=== PATIENT | female | born 1955 | race Caucasian/White ===

== ENCOUNTER 2022-06-18 22:20 | Emergency (ER) | payer BC, SELFPAY ==
[2022-06-18 22:25] VITALS: BP 163/93; PULSE 77; TEMP 36.4; O2SAT 96; BMI 28.4
[2022-06-18 22:34] VITALS: PULSE 86; O2SAT 93
[2022-06-18 22:35] VITALS: BP 157/92; PULSE 73; O2SAT 95
[2022-06-18 22:36] VITALS: PULSE 78; O2SAT 96
[2022-06-18 23:00] VITALS: PULSE 77; O2SAT 97
[2022-06-18 23:02] VITALS: BP 152/102; PULSE 80; O2SAT 97
--- OUTSIDE RECORDS SUMMARY | 2022-06-18 23:11 | XMS_ITS | Encounter Summary ---
:1955 Author Organization [facility] Address [address] [place] [address] Phone Care Team Providers Name Role Phone Unavailable Primary Care Provider Unavailable Encounter Details Date Type Department Care Team Description 10/12/2020 Orders Only [facility] Alex Lilly MD Marquez [address] [facility] [address] [place] [address] [place], [place] [address] [phone] Social History Tobacco Use Types Packs/Day Years Used Date Smoking Tobacco: Never Assessed Sex Assigned at Date Recorded Not on file documented as of this encounter Plan of Treatment Not on filedocumented as of this encounter Visit Diagnoses Not on filedocumented in this encounter
--- OUTSIDE RECORDS SUMMARY | 2022-06-18 23:11 | XMS_ITS | Encounter Summary ---
:1955 Author Organization [facility] Address [address] [place] [address] Phone Care Team Providers Name Role Phone Unavailable Primary Care Provider Unavailable Reason for Visit Reason Onset Date Comments Other 04/19/2022 Encounter Details Date Type Department Care Team Description 04/19/2022 Telephone Clinic & Specialty Center Deana Potter PSC imaging Neuro Surgery [facility] [address] [place] [address] Social History Tobacco Use Types Packs/Day Years Used Date Smoking Tobacco: Never Assessed Sex Assigned at Date Recorded Not on file documented as of this encounter Miscellaneous Notes Telephone Encounter - Deana Soliman PSC - 04/19/2022 10:36 AM CDT Called [facility] to have images pushed to us and to have report faxed. Deana Soliman PSC, 04/19/2022 10:36 AM documented in this encounter Plan of Treatment Not on filedocumented as of this encounter Visit Diagnoses Not on filedocumented in this encounter
--- OUTSIDE RECORDS SUMMARY | 2022-06-18 23:11 | XMS_ITS | Clinical Summary ---
:1955 Author Organization [facility] Address [address] [place] [address] Phone Care Team Providers Name Role Phone Minerva Campos MD Primary Care Provider [phone] Source Comments [facility] is fully rolled out on [employer]. Last update 12/17/08.[employer] Allergies No known active allergies Medications Be aware that medications may not be up to date as of this document. Always verify current medications with patient. Medication Sig Dispensed Refills Start Date End Date Status desvenlafaxine ER Take 2 tablets 0 05/21/2022 Active (PRISTIQ) 25 mg oral (50 mg) by tablet 24 HR mouth daily. methylPREDNISolone (MEDROL Take per 21 tablet 0 06/11/2022 Active DOSEPAK) 4 mg oral tablet package instructions. Encounters Date Type Specialty Care Team Description 06/11/2022 Office Visit NEUROSURGERY Tien Holder Lumbar radi culopathy MD Harsh (Primary Dx) 06/11/2022 Travel 04/19/2022 Documentation Only Unknown, Provider 04/19/2022 Orders Only RADIOLOGY Provider, Outside Referral o f patient (Primary Dx) 04/19/2022 Telephone NEUROSURGERY Deana Soliman PSC imaging 04/19/2022 Telephone NEUROSURGERY Deana Soliman PSC Referral from Last 3 Months Immunizations Name Administration Dates Next Due Influenza Vaccine - MDV (6 MONTHS - Adult) 04/10/2018 Social History Tobacco Use Types Packs/Day Years Used Date Smoking Tobacco: Never Smokeless Tobacco: Never Tobacco Cessation: Counseling Given: Not Answered Alcohol Use Standard Drinks/Week Comments Not Currently 0 (1 standard drink = 0.6 oz pure alcoho l) Sex Assigned at Date Recorded Not on file COVID-19 Exposure Response Date Recorded In the last 10 days, have you been in contact with No / Unsu re 06/11/2022 2:39 PM GROUP HOME WORKER someone who was confirmed or suspected to have Coronavirus/COVID-19? Last Filed Vital Signs Vital Sign Reading Time Taken Comments Blood Pressure 144/87 06/11/2022 3:33 PM GROUP HOME WORKER Pulse 85 06/11/2022 3:33 PM GROUP HOME WORKER Temperature - - Respiratory Rate - - Oxygen Saturation - - Inhaled Oxygen Concentration - - Weight 88.5 kg (195 lb) 06/11/2022 3:10 PM GROUP HOME WORKER Height - - Body Mass Index - - Plan of Treatment Health Maintenance Due Date Last Done Comments Breast Cancer Screening 1955 CT Colonography 1955 Colonoscopy 1955 Colorectal Cancer Screening 1955 Dental Oral Exam 1955 Dental Prophylaxis 1955 Dental X-Ray: Bitewings 1955 FIT/Cologuard 1955 Hepatitis C Screening 1955 Sigmoidoscopy 1955 iFOB/FIT 1956 Lipid Screening 1957 Periodontal Maintenance 1970 HIV Screening 12/02/1971 HEALTH MAINTENANCE PROTOCOL 12/02/1975 Cervical Cancer Screening 1986 Age 30-65 COVID-19 Vaccine (4 - 06/27/2021 05/02/2021, 10/15/2020, Booster for Pfizer series) 09/24/2020 Osteoporosis Screening (Dexa 2021 Scan) INFLUENZA VACCINE 03/15/2022 04/11/2021, 03/22/2020, 05/22/2019, Additional history exists PREVENTATIVE VISIT 12/08/2022 12/08/2021, 04/04/2020 TD/TDAP ADULTS 05/15/2023 05/15/2013, 11/29/2011, 08/25/2001 PNEUMOCOCCAL IMMUNIZATION > Completed 12/08/2021 66 YRS HIB Aged Out No longer eligib le based on patient 's age to complete this topic Procedures Procedure Name Priority Date/Time Associated Diagnosis Comme nts EXTERNAL MED 04/23/2022 1:10 PM Results f or this REC-IMAGING CDT procedure are i n the results section. from Last 3 Months Results EXTERNAL MED REC-IMAGING (04/23/2022 1:10 PM CDT) Anatomical Region Laterality Modality Other Narrative 04/23/2022 1:10 PM CDT This result has an attachment that is no t available. Ordered by an unspecified provider. Provider Unknown CT BODY from Last 3 Months Insurance Payer Benefit Plan / Subscriber ID Effective Dates Phone Addre ss Type Group [employer] [id number] 2016-[place] [address] [address] PPO BLUE SHIELD (AWARE/BLUE t [place], [place] PL[place]/CCS/OPEN [phone] ACCESS/CONSUMER VALUE/[employer]) Care Teams Tribunal Member Relationship Specialty Start Date End Date Minerva Campos MD PCP - General Family Medicine 04/20/22
--- OUTSIDE RECORDS SUMMARY | 2022-06-18 23:11 | XMS_ITS | Encounter Summary ---
:1955 Author Organization [facility] Address [address] [place] [address] Phone Care Team Providers Name Role Phone Minerva Campos MD Primary Care Provider [phone] Encounter Details Date Type Department Care Team Description 06/11/2022 Travel Social History Tobacco Use Types Packs/Day Years Used Date Smoking Tobacco: Never Smokeless Tobacco: Never Alcohol Use Standard Drinks/Week Comments Not Currently 0 (1 standard drink = 0.6 oz pure alcoho l) Sex Assigned at Date Recorded Not on file COVID-19 Exposure Response Date Recorded In the last 10 days, have you been in contact with No / Unsu re 06/11/2022 2:39 PM 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 documented as of this encounter Plan of Treatment Not on filedocumented as of this encounter Visit Diagnoses Not on filedocumented in this encounter Care Teams Food Safety Technician Relationship Specialty Start Date End Date Minerva Campos MD PCP - General Family Medicine 04/20/22 documented as of this encounter
--- OUTSIDE RECORDS SUMMARY | 2022-06-18 23:11 | XMS_ITS | Encounter Summary ---
:1955 Author Organization [facility] Address [address] [place] [address] Phone Care Team Providers Name Role Phone Minerva Campos MD Primary Care Provider [phone] Reason for Visit Reason Comments Consult Rt side low back pain; patie nt is walking everyday , patient does do activities. Pain in low back and buttocks. Patient has tried Chiropractor. Doing PT exercises and PT Consult/Test/Treat (Routine) - Closed Specialty Diagnoses / Procedures Referred By Contact Refer red To Contact Diagnoses Low back pain, unspecified n/a Flory Shaffer MD Galicich, Walter Ernst, Procedures n[place] [id number] [place] [address] Phone: Fax: Referral ID Status Reason Start Date Expiration Date Visits Requ ested Visits Authorized [id number] Closed 1 1 Encounter Details Date Type Department Care Team Description 06/11/2022 Office Visit Clinic & Specialty Tien Holder radiculopathy Center Neuro Surgery MD [facility]arsh (Primary Dx) Clinic [address] [place] [phone] Social History Tobacco Use Types Packs/Day Years [...] No / Unsu re 06/11/2022 2:39 PM RECORD MAKER someone who was confirmed or suspected to have Coronavirus/COVID-19? documented as of this encounter Last Filed Vital Signs Vital Sign Reading Time Taken Comments Blood Pressure 144/87 06/11/2022 3:33 PM RECORD MAKER Pulse 85 06/11/2022 3:33 PM RECORD MAKER Temperature - - Respiratory Rate - - Oxygen Saturation - - Inhaled Oxygen Concentration - - Weight 88.5 kg (195 lb) 06/11/2022 3:10 PM RECORD MAKER Height - - Body Mass Index - - documented in this encounter Patient Instructions Patient InstructionsElba Palomino PA-C - 06/11/2022 3:00 PM CST Take medrol Dosepak as prescribed. Elba Palomino PA-C, 06/11/2022 5:[address] MAKER documented in this encounter Progress Notes Tien Holder MD - 06/11/2022 3:00 PM CST See Glory Dictation. RD MAKER documented in this encounter Plan of Treatment Not on filedocumented as of this encounter Visit Diagnoses Diagnosis Lumbar radiculopathy - Primary Thoracic or lumbosacral neuritis or radi culitis, unspecified documented in this encounter Care Teams Mechanist Relationship Specialty Start Date End Date Minerva Campos MD PCP - General Family Medicine 04/20/22 documented as of this encounter
--- OUTSIDE RECORDS SUMMARY | 2022-06-18 23:11 | XMS_ITS | Encounter Summary ---
:1955 Author Organization [facility] Address [address] [place] [address] Phone Care Team Providers Name Role Phone Unavailable Primary Care Provider Unavailable Reason for Visit Reason Onset Date Comments Referral 04/19/2022 Encounter Details Date Type Department Care Team Description 04/19/2022 Telephone Clinic & Specialty Center Deana Potter PSC Referral Neuro Surgery Clinic [address] [place] [address] Social History Tobacco Use Types Packs/Day Years Used Date Smoking Tobacco: Never Assessed Sex Assigned at Date Recorded Not on file documented as of this encounter Miscellaneous Notes Telephone Encounter - Deana Soliman PSC - 04/19/2022 10:26 AM CDT Patient called in to schedule appt with . Patient does not have a referral. Advised they will need to have their PCP send us a referral and they will need imaging within the last 6 months. Patient is going to ask provider to send us a referral. Patient had an MRI recently at [facility] [place]. Will call over to have those images pushed to us. Deana Soliman PSC, 04/19/2022 10:28 AM documented in this encounter Plan of Treatment Not on filedocumented as of this encounter Visit Diagnoses Not on filedocumented in this encounter
--- OUTSIDE RECORDS SUMMARY | 2022-06-18 23:11 | XMS_ITS | Encounter Summary ---
:1955 Author Organization [facility]Note 3] Address [address] [facility] [address] [facility] [place] [address] Phone Care Team Providers Name Role Phone Minerva Campos MD Primary Care Provider [phone] Encounter Details Date Type Department Care Team Description 04/19/2022 Orders Only [place] Film Room Provider, Outside Referral of patient [facility] OUTSIDE PROVIDER (Primary Dx) [place], [place] Radiology Department [address] [address] 701 [facility]. [address] [address] Social History Tobacco Use Types Packs/Day Years Used Date Smoking Tobacco: Never Assessed Sex Assigned at Date Recorded Not on file documented as of this encounter Plan of Treatment Not on filedocumented as of this encounter Results MR SPINE OUTSIDE FILMS (11/08/2021 9:04 AM CDT) Specimen (Source) Anatomical Location Collection Method / Collectio n Time Received Time / Laterality Volume Narrative Dummy, [id number] - 2 1:11 PM CDT Outside Film Only Outside Provider OUTSIDE FILMS documented in this encounter Visit Diagnoses Diagnosis Referral of patient - Primary Referral of patient without examination or treatment documented in this encounter Care Teams Meat Pickler Relationship Specialty Start Date End Date Minerva Campos MD PCP - General Family Medicine 04/20/22 documented as of this encounter
--- OUTSIDE RECORDS SUMMARY | 2022-06-18 23:11 | XMS_ITS | Encounter Summary ---
:1955 Author Organization [facility] Address [address] [place] [address] Phone Care Team Providers Name Role Phone Unavailable Primary Care Provider Unavailable Encounter Details Date Type Department Care Team Description 04/10/[address] [facility] MARBELLA heck for prophylactic Vaccine Clinic vaccination and summer [place], inocu lation against [address] [place], [place] in [place] [address] [place] [address] Social History Tobacco Use Types Packs/Day Years Used Date Smoking Tobacco: Never Assessed Sex Assigned at Date Recorded Not on file documented as of this encounter Plan of Treatment Not on filedocumented as of this encounter Visit Diagnoses Diagnosis Need for prophylactic vaccination and in oculation against influenza documented in this encounter
--- OUTSIDE RECORDS SUMMARY | 2022-06-18 23:11 | XMS_ITS | Encounter Summary ---
:1955 Author Organization [facility] Address [address] [place] [address] Phone Care Team Providers Name Role Phone Minerva Campos MD Primary Care Provider [phone] Encounter Details Date Type Department Care Team Description 04/19/2022 Documentation Only Unspecified Departme nt Unknown, Provider [place] Social History Tobacco Use Types Packs/Day Years Used Date Smoking Tobacco: Never Assessed Sex Assigned at Date Recorded Not on file documented as of this encounter Plan of Treatment Not on filedocumented as of this encounter Procedures Procedure Name Priority Date/Time Associated Diagnosis Comme nts EXTERNAL MED 04/23/2022 1:10 PM Results f or this REC-IMAGING CDT procedure are i n the results section. documented in this encounter Results EXTERNAL MED REC-IMAGING (04/23/2022 1:10 PM CDT) Anatomical Region Laterality Modality Other Narrative 04/23/2022 1:10 PM CDT This result has an attachment that is no t available. Ordered by an unspecified provider. Provider Unknown CT BODY documented in this encounter Visit Diagnoses Not on filedocumented in this encounter Care Teams Senior Graduate Advisor Relationship Specialty Start Date End Date Minerva Campos MD PCP - General Family Medicine 04/20/22 documented as of this encounter
--- OUTSIDE RECORDS SUMMARY | 2022-06-18 23:12 | XMS_ITS | Encounter Summary ---
:1955 Author [facility] Address [address] [place] [address] Care Team Providers Name Role Phone Anne Hoyt DO Primary Care Provider Unavailable Encounter Details Date Type Department Care Team Description 05/23/2022 Notes/Orders [facility] [place] [facility] Deion Minor MD [address] [place] [address] [place] [address] [phone] (Wo rk) Social History Tobacco Use Types Packs/Day Years Used Date Smoking Tobacco: Never Smokeless Tobacco: Never Alcohol Use Standard Drinks/Week Comments Yes 3 (1 standard drink = 0.6 oz pure alcoho l) periodically Sex Assigned at Date Recorded Not on file documented as of this encounter Progress Notes [facility] - 05/23/2022 4:20 PM CST To Whom it May Concern: We are requesting Prior Authorization for this patient???s next plan of care. Once approval has beengranted we will assist in contacting the patient or scheduling the patient for their appropriate services. Patient Name Belle Crystal 1955 Body Part Bilateral knees Procedure Name Synvisc Series CPT Code(s) Diagnosis ICD-10 Code(s) Ordering Provider Dr. Minor Provider NPI Service/Surgery Location [facility] 05/23/2022, 4:20 PM ITY BILL COMPLAINTS INVESTIGATOR Yamila Castañeda - 05/23/2022 4:20 PM CST Images from the original note were not included. NO PRIOR AUTHORIZATION REQUIRED Bilateral Knee Synvisc Series [id number] ICD-10 Code: M17.0 Emma Minor M.D. [facility] Dates of Service: 06/15/2022, 06/22/2022. 06/29/2022 [facility] Group #: [id number] Per Availity, No Prior Authorization Required Transaction ID: [id number] Yamila Castañeda 05/23/2022, 5:52 PM ITY BILL COMPLAINTS INVESTIGATOR documented in this encounter Plan of Treatment Upcoming Encounters Date Type Specialty Care Team Description 06/26/2022 Appointment Orthopedics Terra Minor MD [address] [place] [phone] (Wo rk) 07/03/2022 Appointment Orthopedics Terra Minor MD [address] [place] [address] (Wo rk) 07/10/2022 Appointment OrthopedicTerra Ngo MD [address] [place] [address] (Wo rk) documented as of this encounter Visit Diagnoses Not on filedocumented in this encounter Care Teams Media Traffic Manager Relationship Specialty Start Date End Date Anne Hoyt DO PCP - General 09/29/14 [address] [place] [address] documented as of this encounter
--- OUTSIDE RECORDS SUMMARY | 2022-06-18 23:12 | XMS_ITS | Encounter Summary ---
:1955 Author Organization [facility] Address [address] [address] Care Team Providers Name Role Phone Anne Hoyt DO Primary Care Provider Unavailable Reason for Referral (Routine) - New Request Specialty Diagnoses / Procedures Referred By Contact Refer red To Contact Diagnoses Primary osteoarthritis of both knees Emma Minor, Procedures Synvisc Or Synvisc (per 1 mg) - quantity = 16 [address] [place] [address] Referral ID Status Reason Start Date Expiration Date Visits V isits Requested Authorized [id number] New Request 12/22/2021 03/23/2023 1 1 Reason for Visit Reason Comments KNEE PAIN Bilat Encounter Details Date Type Department Care Team Description 12/22/2021 Office Visit GALLO Minor, Primary osteoa rthritis [facility] Emma Nice MD of both knees (Primary [address] [place]) [place] [address] [place], [place] [phone] [id number] Social History Tobacco Use Types Packs/Day Years Used Date Smoking Tobacco: Never Smokeless Tobacco: Never Alcohol Use Standard Drinks/Week Comments Yes 3 (1 standard drink = 0.6 oz pure alcoho l) periodically Sex Assigned at Date Recorded Not on file documented as of this encounter Patient Instructions Patient InstructionsShane Hill, ATC - 12/15/2021 8:38 AM CDT Thank you for choosing [facility] for your health care visit today. Please read the contents below for important information regarding today's appointment. Medication Requests: Prescriptions are not filled on weekends or on weekdays after 3:00 PM. For all medication refills: Request a refill using StoneRivert or contact your pharmacy. MRI Scheduling: To schedule an MRI at [facility] please call [phone]. For [facility] please call [phone]. For [facility] please call [phone]. [facility] Workers' Compensation [address] [place] [address] (Phone) What is Know Your Cost? Know Your Cost is a service for patients and patient/members to call and receive personalized cost information and estimates across our care group. The phone number is (COST) and is openSaturday - Saturday from 8 a.m[address] to [address] Emma Minor MD Sports & Orthopedic Medicine [facility] Saturday, Saturday PM, AM, and Saturday Paperwork Requests/ Questions Regarding Surgery Scheduling: All paperwork takes up to 10 business days to complete. Solution Design Engineer: Janeen Le Navigator: Kendrick Hickman ATC Diagnosis: Diagnosis and Associated Orders ICD-10-CM 1. Primary osteoarthritis of both knees M17.0 Synvisc Or Synvisc (per 1 mg) - quantity = 16 BILATERAL Large joint/bursa injections/aspiration (knee/hip/glenohumeral joint) [] Injection Today: Visco Supplementation Injection: Post-injection instructions given. Watch for sign of infection, if your knee gets red, hot to touch or swelling. Call or return immediately if either occur. Ice twice today for 20 minutes each time and three times tomorrow (20 minutes each session) for symptom management. OTC medications (Advil, Aleve, Tylenol, Etc.) for pain as needed. Synvisc is a Hyaluronic Acid (GORDON) product. GORDON is a molecule that is a natural component of normal joint fluid. It acts like a lubricant and a shock absorber in the joint and is needed for the joint to work properly. An injured or arthritic knee tends to make a more watery fluid that is less protectiveto the joint. By increasing the concentration of GORDON in the knee, the joint fluid becomes thicker andmore slippery. This improved lubrication tends to decrease inflammation and pain. These injections work in about two-thirds of those who try them. Can take anywhere from 2-6 weeks tostart working. You should avoid strenuous activities (for example high-impact sports such as soccer, tennis, or jogging) or prolonged weight-bearing activities for approximately 48 hours following the injection. Cannot have this type of injection any sooner than 6 months. Call if you experience any allergic reactions such as swelling of your face, tongue, or throat: difficulty breathing or swallowing; shortness of breath; wheezing; chest pain; a tightness in your throat; rash; itching; hives; flushing and or fever. Call if you have any questions or concerns! Follow-Up: Please follow-up, as-needed. documented in this encounter Progress Notes Emma Minor MD - 12/22/2021 8:20 AM CDT SPORTS MEDICINE FOLLOW UP NOTE DATE OF SERVICE: 12/22/2021 CHIEF COMPLAINT: Follow up: Right??knee mild??medial??osteoarthritis and degeneration of medial meniscus Left Knee??PF OA HISTORY OF PRESENT ILLNESS Belle Crystal is a 66 y.o. old female who is here for follow up examination of the bilateral knee. Patient initially seen on??08/30/20.? 08/30/2020 right knee injected with cortisone, PT at [facility] ?? 09/30/20;surgeon Maile at [facility] Belle Crystal??is a 64 y.o.??female??with severe left knee arthritis. Today, we discussed operative versus non-operative treatment. She just had a Synvisc injection and is getting good relief from thisand she will continue to series. I would recommend that she continue to monitor her symptoms. If herpain returns, she can always contact me and we can consider a total knee replacement.??I think that??she??would be an excellent candidate for the [facility] program??and we can have her screened for this. She does understand that she has to wait at least 3 months after her last injection to proceed with surgery. ?? 09/29/2020 1. Right knee synvics injection #1 2. Fitted for wrist brace with thumb spica 3. Physical therapy order given for wrist pain??at [facility] 4. Follow up at [facility] for the wrist if brace and PT do not help??- has seen Stacey in past and follow up next week for right knee syn #[address] Gr (total joint surgeon tomorrow at [facility]) ?? 10/06/2020 Bilateral synvisc ?? 10/14/20 Bilateral synvisc ?? 10/21/20 Left knee synvisc injection? 04/27/21 Bilateral synvisc injection??1 05/04/21 Bilateral Synvisc injection??2 05/11/2021 Bilateral synvisc injection 3 ?? 12/08/2021 Bilateral synvisc injection #1 - cold spray 12/15/2021 Bilateral synvisc injection #2 - cold spray Today, Patient returns to clinic today for Synvisc series bilateral knee injections #3. Overall she is doing well, she reports the injections are starting to provide pain relief and less stiffness. She is interested in discussing total joint surgery in the future and is looking for recommendations. MEDICAL HISTORY For initial presenting history, past medical history, problem list, medications, allergies, social and family history refer to the previous notes and Epic - see updates in HPI No Known Allergies Social History Socioeconomic History ??? Marital status: Spouse name: Not on file ??? Number of children: Not on file ??? Years of education: Not on file ??? Highest education level: Not on file Occupational History ??? Not on file PHYSICAL EXAMINATION There were no vitals filed for this visit. Estimated body mass index is 28.35 kg/m?? as calculated from the following: Height as of 12/06/20: 1.753 m (5' 9). Weight as of 12/06/20: 87.1 kg (192 lb). General: Patient is in no acute distress, resting comfortably and cooperative. PSYCH: Alert and oriented times 3 INTEGUMENT: Bruising/erythema is not present over the bilateral knees. CV/VASCULAR: The extremity is warm, well perfused. NEURO: No sensory deficits to light touch. RESP: No audible wheezes, unlabored breathing. HEENT: Hearing is intact to spoken word. Speech is clear. No gross evidence of visual impairment that would impact ambulation. Oropharynx is clear, no cough EXAM: Deferred IMAGING: My (Dr. Minor) independent review of these images right knee MRI 09/08/20 IMPRESSION: ?? 1. Horizontal tearing of the medial meniscal body and posterior horn with suggestion of a small amount of displaced meniscal tissue into the inferior meniscotibial recess with additional shallow radialtearing at the junction of the posterior horn and body. Mild extrusion of the meniscal body. 2. Grade 2/3 chondromalacia of the medial compartment. Grade II chondromalacia the lateral compartment. 3. Grade IV chondromalacia of the patellofemoral compartment with mild subchondral cystic change andmarrow edema. 4. Mild edema in superolateral Hoffa's fat pad compatible with fat impingement. 5. Possible mild iliotibial band friction syndrome.?? ASSESSMENT & PLAN ASSESSMENT: Right??knee osteoarthritis and degeneration of medial meniscus Left Knee??PF OA PLAN: I discussed patient's symptoms and my findings in detail After the history, examination and review of x-rays, it was determined the patient would benefit from an injection. Risks, benefits and alternatives discussed. Patient decided on Synvisc injection(s) #3. The affected joint to be injected was confirmed with the patient prior to the injection. The knee was prepped in a sterile fashion. Injected into the bilateral anteroLATERAL Knee was 2 ml of Synvisc prepackaged solution, without complications. Used cold spray She did ask a few questions about partial (probably no candidate for partial due to OA in other compartments but if watned opinion on this would recommend [facility]) F/U as needed All of her questions were answered today. This document serves as a record of all services personally provided by Emma Minor MD. Documentation provided by Shane Hill ATC based on my personal observation of the services provided and the providers statements to me. Emma Minor MD 12/22/2021 This note was created using a scribe, templating, and voice recognition software ([employer]) which may result in unintentional word substitutions. documented in this encounter Plan of Treatment Upcoming Encounters Date Type Specialty Care Team Description 06/26/2022 Appointment Orthopedics Terra Minor MD [address] [place] [phone] (Wo rk) 07/03/2022 Appointment Orthopedics Terra Minor MD [address] [place] [phone] (Wo rk) 07/10/2022 Appointment Orthopedics Terra Minor MD [address] [place] [phone] (Wo rk) documented as of this encounter Visit Diagnoses Diagnosis Primary osteoarthritis of both knees - P rimary Primary localized osteoarthrosis, lower leg documented in this encounter Care Teams Machine Maintenance Servicer Relationship Specialty Start Date End Date Anne Hoyt DO PCP - General 09/29/14 [address] [place] [address] documented as of this encounter
--- OUTSIDE RECORDS SUMMARY | 2022-06-18 23:12 | XMS_ITS | Clinical Summary ---
:1955 Author Organization [facility] Address [address] [facility] [place] [address] Care Team Providers Name Role Phone Anne Hoyt DO Primary Care Provider Unavailable Source Comments You are receiving this document as you are listed as the primary care provider,follow-up provider, or the patient has been referred to you for consultation.This is in compliance with the Medicare and Medicaid EHR Incentive Program,which states Providers who transition their patient to another setting of careor provider of care or refers their patient to another provider of care shouldprovide summarycare record for each transition of care or referral. [facility] [employer] Allergies No known active allergies Medications Medication Sig Dispensed Refills Start Date End Date Status cholecalciferol (VITAMIN Take 1,000 Units 0 Active D3) 1000 UNITS tablet by mouth daily. Glucosamine-Chondroitin 0 Active 500-400 MG calcium Take 1 Tab by 0 Active carbonate-vitamin D mouth daily. (OS-DARIUSZ 500 WITH D) 500-200 MG-UNIT per tablet Ascorbic Acid (VITAMIN C 0 Active OR) desvenlafaxine (PRISTIQ) Take 100 mg by 0 08/18/2020 Active 25 MG 24 hour release mouth. tablet cyanocobalamin 500 MCG Take 500 mcg by 0 Active tablet mouth. desvenlafaxine succinate Take 1 Tablet 0 Active (PRISTIQ) 50 MG 24 hour (50 mg) by release tablet mouth. desvenlafaxine (PRISTIQ) Take 2 Tablets 0 05/21/2022 Active 25 MG 24 hour release (50 mg) by mouth tablet daily. Active Problems Problem Noted Date GAUTAM on CPAP 05/17/2017 Overview: Formatting of this note might be differe nt from the original. Dr. Pepe BRITTON 2017 Symptoms: stop breathi ng; snoring. Last sleep study: 2008 CPAP: Last compliance report July 03 current settings 5-10 mm water current medications: None. Hallux rigidus 09/09/2012 Obsessive-compulsive disorder 06/15/2004 Overview: LW Onset: [id number] ; Obsessive Compulsive Disorder Encounters Date Type Specialty Care Team Description 05/23/2022 Notes/Orders Orthopedics Emma Minor MD 04/19/2022 Telephone Orthopedics Flory Shaffer REFERRAL REQUEST (Kali Lewis MD surgeon) 03/28/2022 Office Visit Orthopedics Damaris Roca, Kacie o steoarthritis of first carpometacarpal joint of left hand (Primary Dx); PARené De Quervain's d isease (radial styloid tenosynovitis); Lateral epicond ylitis of left elbow from Last 3 Months Family History Medical History Relation Name Comments Rheumatologic Disease Mother Heart Disease Maternal Grandfather Heart Disease Maternal Grandmother Relation Name Status Comments Mother Maternal Grandfather Maternal Grandmother Social History Tobacco Use Types Packs/Day Years Used Date Smoking Tobacco: Never Smokeless Tobacco: Never Alcohol Use Standard Drinks/Week Comments Yes 3 (1 standard drink = 0.6 oz pure alcoho l) periodically Sex Assigned at Date Recorded Not on file Last Filed Vital Signs Vital Sign Reading Time Taken Comments Blood Pressure 135/81 06/17/2016 10:35 AM COAL UNLOADER Pulse 84 06/17/2016 10:35 AM COAL UNLOADER Temperature 36.8 ??C (98.2 ??F) 06/17/2016 10:35 AM COAL UNLOADER Respiratory Rate 18 06/17/2016 10:35 AM COAL UNLOADER Oxygen Saturation - - Inhaled Oxygen Concentration - - Weight 87.1 kg (192 lb) 12/06/2020 2:49 PM CDT Height 175.3 cm (5' 9) 12/06/2020 2:49 PM CDT Body Mass Index 28.35 12/06/2020 2:49 PM CDT Plan of Treatment Upcoming Encounters Date Type Specialty Care Team Description 06/26/2022 Appointment Orthopedics Terra Minor MD [address] [place], [place] [phone] ([facility]) 07/03/2022 Appointment Orthopedics Terra Minor MD [address] [place] [phone] (Wo rk) 07/10/2022 Appointment Orthopedics Terra Minor MD [address] [place] [phone] (Wo rk) Health Maintenance Due Date Last Done Comments Cervical Cancer Screening 1955 Due Colon Cancer Screening Plan 1955 Due Hep C Screening (Preventive 1955 Services) Mammogram 1955 COVID-19 Vaccine (#1) 06/03/1956 Adult Preventive Visit 1974 Cholesterol 06/01/2008 06/01/2003 Dexa 2021 Influenza (#1) 2022 04/11/2021, 03/22/2020, 05/22/2019, Additional history exists Pneumococcal 65+ Yrs (2 - 12/08/2022 12/08/2021 PCV) DTaP/Tdap/Td (3 - Tdap) 05/15/2023 05/15/2013, 11/29/2011, 08/25/2001 Zoster/Shingles Completed 03/12/2018, 10/15/2017, 08/18/2015 HepA Aged Out No longer eligib le based on patient 's age to complete this topic HepB Aged Out No longer eligib le based on patient 's age to complete this topic Hib Aged Out No longer eligib le based on patient 's age to complete this topic IPV (Polio) Aged Out No longer eligib le based on patient 's age to complete this topic MCV4 Aged Out No longer eligib le based on patient 's age to complete this topic Insurance Payer Benefit Plan / Subscriber ID Effective Dates Phone Addre ss Type Group [place] [id number] 2016-Present [address] [address] [place] [phone] Care Teams Open 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
--- OUTSIDE RECORDS SUMMARY | 2022-06-18 23:12 | XMS_ITS | Encounter Summary ---
:1955 Author Organization [facility] Address [address] [place] [address] Care Team Providers Name Role Phone Anne Hoyt DO Primary Care Provider Unavailable Reason for Referral Procedure/Equipment (Routine) - Incomplete Specialty Diagnoses / Procedures Referred By Contact Refer red To Contact Diagnoses Primary osteoarthritis of first carpometacarpal joint of left hand De Quervain's disease (radial styloid tenosynovitis) Lateral epicondylitis of left elbow Damaris Roca PA-C Procedures Wrist brace with thumb ([id number]) [address] [place] [address] Referral ID Status Reason Start Date Expiration Date Visits V isits Requested Authorized [id number] Incomplete 03/28/2022 06/27/2023 1 1 (Routine) - New Request Specialty Diagnoses / Procedures Referred By Contact Refer red To Contact Diagnoses Primary osteoarthritis of first carpometacarpal joint of left hand Damaris Roca PA-C Procedures Methylprednisolone 40 Mg Inj [address] [place] [address] Referral ID Status Reason Start Date Expiration Date Visits V isits Requested Authorized [id number] New Request 03/28/2022 06/27/2023 1 1 Reason for Visit Reason Comments Follow-up Left wrist and left elbow Encounter Details Date Type Department Care Team Description 03/28/2022 Office Visit [facility] ORTHOPAEDIC Damaris Roca Prima ry osteoarthritis of first carpometacarpal joint of left hand (Primary Dx); [facility] De Quervain's disease (radial styloid te nosynovitis); [address] Lateral epicondyl[place] [id number] Social History Tobacco Use Types Packs/Day Years Used Date Smoking Tobacco: Never Smokeless Tobacco: Never Alcohol Use Standard Drinks/Week Comments Yes 3 (1 standard drink = 0.6 oz pure alcoho l) periodically Sex Assigned at Date Recorded Not on file documented as of this encounter Patient Instructions Patient InstructionsMasha Lozoya LPN - 03/28/2022 7:45 AM CDT Thank you for Choosing [facility] for your health care visit today. Damaris Roca PA-C Upper Extremity Physician Credit Verification Clerk Laminate Floor Installer: [phone] Medication Requests: Prescriptions are not filled on weekends or on weekdays after 3:00 PM. For all medication refills: Request a refill using Triggithart or contact your pharmacy. What is Know Your Cost? Know Your Cost is a service for patients and patient/members to call and receive personalized cost information and estimates across our care group. The phone number is (COST) Saturday - Saturday 8 AM to 5 PM Advanced Imaging Scheduling: To schedule an MRI, Ultrasound, or Image guided injection at [facility] please call [phone]. To schedule an MRI or CT at a [facility] location please call [phone]. 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 She had a left wrist injection in November [address] Ibarra for De Quervains. This gave her excellent relief for 9 months. She was then seen by me on 01/10/22, when she had a second injection. This helped as well, but she still has symptoms at the base of her thumb, rated a 1-4/10. Pain is worse with pinching. The right elbow is not bothering her today. The left elbow pain is located at her lateral epicondyle, most symptomatic with lifting. No swelling, no loss of motion. Denies numbness or tingling, clicking or catching. No history of similarsymptoms or history of previous fracture to the upper extremity. Additional treatment to date has included ice, heat, thumb spica bracing (which is worn out) and Aleve PRN. OBJECTIVE: Exam finds a pleasant, healthy appearing female. Exam of the left elbow: No edema, no ecchymosis. Nontender to palpation of lateral epicondyle. Nontender to lateral joint line. Maximal pain to elbow is elicited on resisted wrist extension, pronation and flexion. Exam of left wrist: Sensation of fingers intact to light touch. Capillary refill of fingers less than 2 seconds. Nontender to palpation at 1st extensor compartment tendons at the radial styloid. Tenderat thumb CMC joint. Full AROM of wrist and digits. Wrist radial deviation and extension, as well as thumb extension recreate pain. Finkelsteins -. Mild swelling of 1st dorsal compartment. IMAGING: Previously taken radiographs of the left wrist interpreted independently by me. Three views show mild to moderate degenerative changes at the DRUJ and thumb CMC joint, including joint space narrowing, osteophyte formation and cystic changes. ASSESMENT: 1) Left lateral epicondylosis, improving after injection 2) Left De Quervains, improving after injection 3) Left thumb CMC osteoarthrosis PLAN: Conservative treatment options were reviewed, including anti-inflammatories, bracing, cortisone injections (she is no longer eligible for another injection into the 1st dorsal compartment on the left side) and hand therapy. We also reviewed surgical treatment options, although given the improvements in her symptoms, do not seem to be the next best step. Belle has elected to proceed with an injection into the thumb CMC joint and a new thumb spica brace. 20 mg of Depo from a 40 mg/mL vial was injectedinto the left thumb CMC joint. Patient tolerated the procedure well and was instructed on post injection care. Follow up as needed. documented in this encounter Plan of Treatment Upcoming Encounters Date Type Specialty Care Team Description 06/26/2022 Appointment Orthopedics Terra Minor MD [address] [place] [phone] ([facility]) 07/03/2022 Appointment Orthopedics Terra Minor MD [address] [place] [address] ([place]) 07/10/2022 Appointment Orthopedics Terra Minor MD [address] [place] [address] ([place]) documented as of this encounter Visit Diagnoses Diagnosis Primary osteoarthritis of first carpomet acarpal joint of left hand - Primary Primary localized osteoarthrosis, hand De Quervain's disease (radial styloid te nosynovitis) Lateral epicondylitis of left elbow Lateral epicondylitis of elbow documented in this encounter Care Teams Dross Skimmer Relationship Specialty Start Date End Date Anne Hoyt DO PCP - General 09/29/14 [address] [place] [address] documented as of this encounter
--- OUTSIDE RECORDS SUMMARY | 2022-06-18 23:12 | XMS_ITS | Encounter Summary ---
:1955 Author Organization [facility] Address [address] [place] [address] Care Team Providers Name Role Phone Anne Hoyt DO Primary Care Provider Unavailable Reason for Referral Procedure/Equipment (Routine) - Incomplete Specialty Diagnoses / Procedures Referred By Contact Refer red To Contact Diagnoses Lateral epicondylitis of both elbows Damaris Roca PA-C Procedures Wrist Titan without thumb ([id number]) [address] [facility] [address] [place], [place] [address] Referral ID Status Reason Start Date Expiration Date Visits V isits Requested Authorized [id number] Incomplete 01/10/2022 04/11/2023 1 1 (Routine) - New Request Specialty Diagnoses / Procedures Referred By Contact Refer red To Contact Diagnoses Lateral epicondylitis of both elbows Damaris Roca PA-C Procedures Methylprednisolone [address] [facility] [address] [place] [address] Referral ID Status Reason Start Date Expiration Date Visits V isits Requested Authorized [id number] New Request 01/10/2022 04/11/2023 1 1 (Routine) - New Request Specialty Diagnoses / Procedures Referred By Contact Refer red To Contact Diagnoses De Quervain's disease (radial styloid tenosynovitis) Damaris Roca PA-C Procedures Methylprednisolone [address] [facility] [place] [address] Referral ID Status Reason Start Date Expiration Date Visits V isits Requested Authorized [id number] New Request 01/10/2022 04/11/2023 1 1 Therapies (Routine) - Closed Specialty Diagnoses / Procedures Referred By Contact Refer red To Contact Diagnoses De Quervain's disease (radial styloid tenosynovitis) Lateral epicondylitis of both elbows Damaris Roca PA-C [address] [facility] [place] [address] Referral ID Status Reason Start Date Expiration Date Visits Requ ested Visits Authorized [id number] Closed 01/10/2022 01/10/2023 1 1 Scheduling Instructions This order is your clinician's recommend ation for a service and is not an insurance referral which authorizes payment. The r ecommended service and/or location may not be covered by your insurance plan. Please c all the number on your insurance card to find out your specific benefits and coverage for the recommended services and/or location. If you need help scheduling the recommen ded services, please ask your clinician's staff to assist you. Reason for Visit Reason Comments CONSULT Bilateral elbows and left wr ist Encounter Details Date Type Department Care Team Description 01/10/2022 Office Visit [facility] Damaris Roca De Qu ervain's disease (radial styloid tenosynovitis) (Primary Dx); [facility] Lateral epicondylitis of both elbows [address] [facility] [facility] [place] [address] [place] [phone] Social History Tobacco Use Types Packs/Day Years Used Date Smoking Tobacco: Never Smokeless Tobacco: Never Alcohol Use Standard Drinks/Week Comments Yes 3 (1 standard drink = 0.6 oz pure alcoho l) periodically Sex Assigned at Date Recorded Not on file documented as of this encounter Patient Instructions Patient InstructionsMasha Lozoya LPN - 01/10/2022 8:39 AM CDT Thank you for Choosing [facility] for your health care visit today. Damaris Roca PA-C Upper Extremity Physician Salesperson Fashion Accessories Cooker Operator: [phone] Medication Requests: Prescriptions are not filled on weekends or on weekdays after 3:00 PM. For all medication refills: Request a refill using Wishpot or contact your pharmacy. What is Know Your Cost? Know Your Cost is a service for patients and patient/members to call and receive personalized cost information and estimates across our care group. The phone number is (COST) Saturday - Saturday 8 AM to 5 PM Advanced Imaging Scheduling: To schedule an MRI, Ultrasound, or Image guided injection at [facility] please call [phone]. To schedule an MRI or CT at a [facility] please call [phone]. [facility] Workers' Compensation [address] [place] [address] (Phone) Email: [email or web address] Release of Information: Radiology/Imaging [address] [place] [address] (Phone) Health Information Management [address] [place] [address] (Phone) Reduce Data documented in this encounter Progress Notes Damaris Roca PA-C - 01/10/2022 8:30 AM CDT SUBJECTIVE: Bilateral, left worse than right, lateral elbow pain HPI:Belle is a 66 y.o. 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 The pain started a few years ago, without injury. The painis located at her lateral epicondyle without radiation. It is most symptomatic with yardwork, rated 2- 7/10. No swelling, no loss of motion. Denies numbness or tingling, clicking or catching. No historyof similar symptoms or history of previous fracture to the upper extremity. Treatment to date has included ice, heat and Aleve PRN. She also is wondering if I can take a look at her left wrist. She had an injection in November of [address]Dr[address] Ibarra for De Quervains. This gave her excellent relief for 9 months. Now the symptoms have returned. The pain is at her radial wrist, with swelling. It basically hurts all the time. PMH: Allergies reconciled in EMR. Medication reconciled in EMR. REVIEW OF SYSTEMS: Positive for glasses, heartburn (periodic), joint pains and arthritis. OBJECTIVE: Exam finds a pleasant, healthy appearing female. Exam of the bilateral elbow: No edema, no ecchymosis. Tender to palpation of lateral epicondyle. Nontender to lateral joint line. Full elbow AROM and strength, although she can feel it with extension. Maximal pain to elbow is elicited on resisted wrist extension, pronation and flexion. Tinels over radial tunnel -. Exam of left wrist: Sensation of fingers intact to light touch. Capillary refill of fingers less than 2 seconds. Tender to palpation at 1st extensor compartment tendons at the radial styloid. Nontenderat thumb CMC joint. Full AROM of wrist and digits. All wrist ROM and thumb extension recreate pain. Finkelsteins +. ASSESMENT: 1) Bilateral lateral epicondylosis 2) Left De Quervains PLAN: 1) Patient education handout on lateral epicondylosis was discussed, including exacerbations of the issue, the chronicity of the condition and the inability to cause further damage with use. Wrist bracing, therapy, anti-inflammatories, nitro patches (cut into fourths, 1 daily), PRP and cortisone injections are available for treatment of the pain. Did discuss that multiple cortisone injections are notrecommended for prison management. Belle would like to start with a right wrist brace, left injection and hand therapy at an outside location. 40 mg of Depo-medrol from a 40 mg/mL vial was injected into the point of maximal tenderness at the lateral epicondyle of the left elbow. Patient tolerated the procedure well and was instructed on post injection care. Follow up as needed. 2) Conservative treatment options were reviewed, including anti-inflammatories, bracing, cortisone injections and hand therapy. Belle has elected to proceed with hand therapy, a thumb spica brace from home and a second (and last recommended) injection. 40 mg of Depo-medrol from a 40 mg/mL vial was injected into the point of maximal tenderness at the radial styloid of the left wrist. Patient toleratedthe procedure well and was instructed on post injection care. Follow up as needed. documented in this encounter Plan of Treatment Upcoming Encounters Date Type Specialty Care Team Description 06/26/2022 Appointment Orthopedics Terra Minor MD [address] [place] [address] ([place]) 07/03/2022 Appointment Orthopedics Terra Minor MD [address] [place] [address] ([place]) 07/10/2022 Appointment Orthopedics Terra Minor MD [address] [place] [address] ([place]) Scheduled Referrals Name Type Priority Associated Diagnoses [facility] Consult Referral Routine De Quervain's diseas e Ordered: 01/10/2022 (radial styloid tenosynovitis) Lateral epicondylitis of both elbows documented as of this encounter Visit Diagnoses Diagnosis De Quervain's disease (radial styloid te nosynovitis) - Primary Lateral epicondylitis of both elbows Lateral epicondylitis of elbow documented in this encounter Care Teams Clinical Application Consultant Relationship Specialty Start Date End Date Anne Hoyt DO PCP - General 09/29/14 [address] [place] [address] documented as of this encounter
--- OUTSIDE RECORDS SUMMARY | 2022-06-18 23:12 | XMS_ITS | Encounter Summary ---
:1955 Author Organization [facility] Address [address] [place] [address] Care Team Providers Name Role Phone Anne Hoyt DO Primary Care Provider Unavailable Reason for Referral Consult/Transfer Care (Routine) - New Request Specialty Diagnoses / Procedures Referred By Contact Refer red To Contact Diagnoses Chronic midline low back pain without sciatica Flory Shaffer MD [address] [facility] [place] [address] Referral ID Status Reason Start Date Expiration Date Visits V isits Requested Authorized [id number] New Request 04/19/2022 10/16/2022 1 1 Scheduling Instructions This order is [...] assist you. Reason for Visit Reason Comments REFERRAL REQUEST Back surgeon Encounter Details Date Type Department Care Team Description 04/19/2022 Telephone [facility] Flory Shaffer REFE RRAL REQUEST (Back CENTER MD Debbie surgeon) [address] [facility] [address] [place] [address] [place] [address] [place] [phone] (Wo rk) Social History Tobacco Use Types Packs/Day Years Used Date Smoking Tobacco: Never Smokeless Tobacco: Never Alcohol Use Standard Drinks/Week Comments Yes 3 (1 standard drink = 0.6 oz pure alcoho l) periodically Sex Assigned at Date Recorded Not on file documented as of this encounter Nursing Notes Alexandria Adames RN - 04/19/2022 3:59 PM CDT Surgical consult faxed to Dr. Holder [phone] Ely Vieira - 04/19/2022 1:36 PM CDT Received a call from the pt: Pt is calling to request a referral be faxed to [facility], Dr Tien Holder, at [phone] for s back surgery consult. Please call the pt with questions at [phone]. TOBI 11/14/21 Impression: Chronic low back pain with sciatica Thoracic radiculopathy Plan: Reviewed the lumbar spine MRI in detail with patient. It shows a mild disc bulge at L5-S1. It did not show any stenosis. She has had improvement with physical therapy in the past. At this time, will start physical therapy for improving the low back pain. Discussed the causes for thoracic radiculopathy and reviewed treatment options including physical therapy. Will start physical therapy for the thoracic back as well. Called the pt to discuss further. LV with [facility] #. Please advise on pt's request for a referral to Dr. Holder. Referral pended. Thank you Tina Bhatia - 04/19/2022 11:57 AM CDT Has the patient recently had surgery or an injury? No How may we help you today? Pt is calling to request a referral be faxed to [facility], Dr Tien Holder, at [phone] for s back surgery consult. Please call the pt with questions at [phone]. Describe your symptoms/concerns: Chronic low back pain When did the issue start: ongoing Have you been seen for this recently?: 11/14/21 Dr Shaffer [Cold Press Loader/Appt Center: If yes, please include date and provider.] Is it okay to leave detailed message on your voicemail? Yes [Cold Press Loader/Appt Center: If this call is after 3 p.m., communicate to patient: If we are not able to get back to you by the end of the day and your symptoms worsen please contact the Careline] documented in this encounter Plan of Treatment Upcoming Encounters Date Type Specialty Care Team Description 06/26/2022 Appointment Orthopedics Terra Minor MD [address] [place] [phone] (Wo rk) 07/03/2022 Appointment OrthopedicTerra Ngo MD [address] [place] [address] ([place]) 07/10/2022 Appointment Orthopedics Terra Minor MD [address] [place] [address] ([place]) Scheduled Referrals Name Type Priority Associated Diagnoses Order S chedule Surgery Consult-Adults Referral Routine Chronic midline lo w back Ordered: 04/19/2022 pain without sciatica documented as of this encounter Visit Diagnoses Diagnosis Chronic midline low back pain without sc iatica - Primary documented in this encounter Care Teams Air Conditioning Technician Relationship Specialty Start Date End Date Anne Hoyt DO PCP - General 09/29/14 [address] [place] [address] documented as of this encounter
--- OUTSIDE RECORDS SUMMARY | 2022-06-18 23:13 | XMS_ITS | Encounter Summary ---
:1955 Author Organization [facility] Address [address] [place] [address] Care Team Providers Name Role Phone Anne Hoyt DO Primary Care Provider Unavailable Encounter Details Date Type Department Care Team Description 2021 Notes/Orders Deion Barnard MD [address] [place] [address] [place] [address] [phone] (Wo rk) Social History Tobacco Use Types Packs/Day Years Used Date Smoking Tobacco: Never Smokeless Tobacco: Never Alcohol Use Standard Drinks/Week Comments Yes 3 (1 standard drink = 0.6 oz pure alcoho l) periodically Sex Assigned at Date Recorded Not on file documented as of this encounter Progress Notes Dariel Dunn ATC - 2021 8:14 AM CDT To Whom it May Concern: We are requesting Prior Authorization for this patient???s next plan of care. Once approval has beengranted we will assist in contacting the patient or scheduling the patient for their appropriate services. Patient Name Belle Crystal 1955 Body Part Bilateral knee Procedure Name Synvisc Series CPT Code(s) Diagnosis Bilateral knee OA ICD-10 Code(s) Ordering Provider Dr. Minor Provider NPI Service/Surgery Location [facility] 2021, 8:15 AM Yamila Castañeda - 2021 8:14 AM CDT Images from the original note were not included. NO PRIOR AUTHORIZATION REQUIRED Bilateral Knee Synvisc Series [id number] ICD-10 Code: M17.0 Emma Minor M.D. [facility] Dates of Service: 12/08/2021, 12/15/2021, 12/22/2021 [facility] Group #: [id number] Per Availity, No Prior Authorization Required Transaction ID: [id number] Emma Minor MD - 2021 8:14 AM CDT Pt knows good to go with synvisc. she is scheduled for next week. Emma Minor MD 2021, 3:34 PM documented in this encounter Plan of Treatment Upcoming Encounters Date Type Specialty Care Team Description 06/26/2022 Appointment Orthopedics Terra Minor MD [address] [place] [address] (Wo rk) 07/03/2022 Appointment OrthopedicTerra Ngo MD [address] [place] [address] (Wo rk) 07/10/2022 Appointment OrthopedicTerra Ngo MD [address] [place] [address] (Wo rk) documented as of this encounter Visit Diagnoses Not on filedocumented in this encounter Care Teams Retirement Consultant Relationship Specialty Start Date End Date Anne Hoyt DO PCP - General 09/29/14 [address] [place] [address] documented as of this encounter
--- OUTSIDE RECORDS SUMMARY | 2022-06-18 23:13 | XMS_ITS | Encounter Summary ---
:1955 [address] [facility] Address [address] [place] [address] Care Team Providers Name Role Phone Anne Hoyt DO Primary Care Provider Unavailable Reason for Visit Procedure/Equipment (Routine) - Incomplete Specialty Diagnoses / Procedures Referred By Contact Refer red To Contact Diagnoses Left wrist pain Radha Ibarra MD Procedures XR Wrist Lt 3+ Views [address] [facility] [address] [place] [address] Referral ID Status Reason Start Date Expiration Date Visits V isits Requested Authorized [id number] Incomplete 12/06/2020 03/07/2022 1 1 Encounter Details Date Type Department Care Team Description 12/06/2020 Ancillary Procedure [facility] Radha Ibarra MD Left wrist pain [address] [facility] [address] [facility] [place] [address] [phone] (Wo rk) Social History Tobacco Use Types Packs/Day Years Used Date Smoking Tobacco: Never Smokeless Tobacco: Never Alcohol Use Standard Drinks/Week Comments Yes 3 (1 standard drink = 0.6 oz pure alcoho l) periodically Sex Assigned at Date Recorded Not on file documented as of this encounter Plan of Treatment Upcoming Encounters Date Type Specialty Care Team Description 06/26/2022 Appointment Orthopedics Terra Minor MD [address] [place] [phone] (Wo rk) 07/03/2022 Appointment Orthopedics Terra Minor MD [address] [place], [place] [address] (Wo rk) 07/10/2022 Appointment Orthopedics Terra Minor MD [address] [place], [place] [address] (Wo rk) documented as of this encounter Procedures Procedure Name Priority Date/Time Associated Diagnosis Comme nts XR WRIST LT 3+ Routine 12/06/2020 3:01 PM Left wrist pain Resu lts for this VIEWS CDT procedure are i n the results section. documented in this encounter Results XR Wrist Lt 3+ Views (12/06/2020 3:01 PM CDT) Anatomical Region Laterality Modality Upper Extremity, Wrist Digital Radiograp hy Specimen (Source) Anatomical Location Collection Method / Collectio n Time Received Time / Laterality Volume Narrative 12/26/2020 9:51 AM CDT AP, lateral, and oblique radiographs of the left wrist reveal Eaton stage II degenerative changes of the left thum b, however, no other significant degenerative changes or abnormalities ab out the left wrist. ?? Radha Ibarra MD RAD GD documented in this encounter Visit Diagnoses Diagnosis Left wrist pain Pain in joint, forearm documented in this encounter Care Teams Security Flex Utility Officer Relationship Specialty Start Date End Date Anne Hoyt DO PCP - General 09/29/14 [address] [place] [address] documented as of this encounter
--- OUTSIDE RECORDS SUMMARY | 2022-06-18 23:13 | XMS_ITS | Encounter Summary ---
:1955 Author Organization [facility] Address [address], [place] [address] Care Team Providers Name Role Phone Anne Hoyt DO Primary Care Provider Unavailable Encounter Details Date Type Department Care Team Description 09/07/2020 Notes/Orders [facility] Minor, Primary osteoa rthritis of right knee (Primary Dx); [facility] Emma Nice MD Degenerative tear of medial meniscus, [facility] [address] [place] [address] [place], [place] [phone] Social History Tobacco Use Types Packs/Day Years Used Date Smoking Tobacco: Never Smokeless Tobacco: Never Alcohol Use Standard Drinks/Week Comments Yes 3 (1 standard drink = 0.6 oz pure alcoho l) periodically Sex Assigned at Date Recorded Not on file documented as of this encounter Progress Notes Sunny Go ATC - 09/07/2020 11:40 AM CST To Whom it May Concern: We are requesting Prior Authorization for this patient???s next plan of care. Once approval has beengranted we will assist in contacting the patient or scheduling the patient for their appropriate services. Patient Name Belle Crystal 1955 Body Part Right knee Procedure Name MRI of right knee CPT Code(s) Diagnosis Right knee OA, degenerative meniscus tear ICD-10 Code(s) Ordering Provider Dr. Emma Minor Provider NPI Service/Surgery Location [facility] if possible Sunny Go ATC 09/07/2020, 11:41 AM SS CLERK Allison Graves - 09/07/2020 11:40 AM CST Patient is scheduled for 09/08 in [place] Thank you! SS CLERK documented in this encounter Plan of Treatment Upcoming Encounters Date Type Specialty Care Team Description 06/26/2022 Appointment Orthopedics Terra Minor MD [address] [place] [phone] (Wo rk) 07/03/2022 Appointment Orthopedics Terra Minor MD [address] [place] [address] (Wo rk) 07/10/2022 Appointment Orthopedics Terra Minor MD [address] [place] [address] (Wo rk) documented as of this encounter Visit Diagnoses Diagnosis Primary osteoarthritis of right knee - P rimary Primary localized osteoarthrosis, lower leg Degenerative tear of medial meniscus, ri ght documented in this encounter Care Teams Systems Integration Advisor Relationship Specialty Start Date End Date Anne Hoyt DO PCP - General 09/29/14 [address] [place] [address] documented as of this encounter
--- OUTSIDE RECORDS SUMMARY | 2022-06-18 23:13 | XMS_ITS | Encounter Summary ---
:1955 Author Organization [email or web address] Address [address] [place] [id number] Care Team Providers Name Role Phone Anne Hoyt DO Primary Care Provider Unavailable Reason for Referral Procedure/Equipment (Routine) - Closed Specialty Diagnoses / Procedures Referred By Contact Refer red To Contact Diagnoses Primary osteoarthritis of right knee Degenerative tear of medial meniscus, right Emma Minor, Procedures MR Knee Rt WO IV Cont MD [address] [place] [address] Referral ID Status Reason Start Date Expiration Date Visits Requ ested Visits Authorized [id number] Closed 09/07/2020 12/07/2021 1 1 LOPE SEALER Reason for Visit Reason Comments Orders Needed Encounter Details Date Type Department Care Team Description 09/06/2020 Telephone [facility] Deion Minor, Orders Needed CENTER [address] [place] [address] [place] [address] (Wo rk) Social History Tobacco Use Types Packs/Day Years Used Date Smoking Tobacco: Never Smokeless Tobacco: Never Alcohol Use Standard Drinks/Week Comments Yes 3 (1 standard drink = 0.6 oz pure alcoho l) periodically Sex Assigned at Date Recorded Not on file documented as of this encounter Nursing Notes Sunny Go, ATC - 09/07/2020 11:44 AM CST Discussed concerns with patient. The knee injection received in clinic only gave partial relief for maybe 24 hours. She is continuing to have bilateral knee pain, right worse than left. Based on plan discussed last time, patient has had a couple bouts of physical therapy and it would be reasonable aj MRI as discussed on 08/30/[address] Minor. MRI for right knee order per previous visit note. Prior authorization has been started and patient will get a phone call once PA approval is determined. Patient in the mean time should continue her PT exercises that are not painful. She can ice or use a compression sleeve if she feels swelling is present. Otherwise, alternating ibuprofen and Tylenol can help with her current pain if she is OK to take those. Patient will call back with any further concerns. Sunny Go ATC 09/07/2020, 11:46 AM Teodoro Mason RN - 09/07/2020 10:51 AM CST Per clinic visit on 08/30- PLAN: I discussed patient's symptoms and my findings in detail. Continue physical therapy for the knees and hips at [facility] Discussed MRI for further imaging after 6-8 weeks of PT if not better. Discussed bilateral viscosupplement knee injections - did start PA for this for synvisc series. Shaunna Thomas - 09/07/2020 8:25 AM CST Patient is calling back to see if the MRI order is put in. Could anyone else order the MRI for this patient? Please call back to touch base. Guillermina Ni - 09/06/2020 4:02 PM CST Patient has been seeing Dr. Minor for her knee pain and elected not to have an MRI order placed at her last appt. She has since changed her mind and thinks that it may be needed as her condition is not improving. She is wondering if the Dr could place an order for her to have an MRI for the bilateral knees. LOPE SEALER documented in this encounter Plan of Treatment Upcoming Encounters Date Type Specialty Care Team Description 06/26/2022 Appointment Orthopedics Terra Minor MD [address] [place], [place] [phone] (Wo rk) 07/03/2022 Appointment Orthopedics Terra Minor MD [address] [place], [place] [phone] (Wo rk) 07/10/2022 Appointment Orthopedics Terra Minor MD [address] [place], [place] [address] (Wo rk) documented as of this encounter Results MR Knee Rt WO IV Cont (09/08/2020 7:49 AM ENVELOPE SEALER) Anatomical Region Laterality Modality Lower Extremity, Knee, Skeletal, Thigh, Leg Right Magnetic Resonance Specimen (Source) Anatomical Collection Method Collection Time Re ceived Time Location / / Volume Laterality 09/08/2020 7:18 AM ENVELOPE SEALER Impressions 09/08/2020 9:12 AM ENVELOPE SEALER TECHNIQUE: ??Routine MRI of the right knee was performed without contrast. COMPARISON: ??07/12/2020 radiograph FINDINGS: MEDIAL COMPARTMENT: ??Diffuse mild to mo derate chondral thinning of the central weightbearing surface of the medial femoral condyle and medial tibial plateau. Medial compartmental marginal osteophytes. Horizontal tear of the medial meniscal b hetal with suggestion of a small amount of displaced meniscal tissue into the inferior meniscotibial recess with horizontal tearing extending into the posterior hor n contacting the inferior surface middle third with an additional shallow radial tear at the junction of the posterior horn and body. Mild extrusion of the meniscal body. LATERAL COMPARTMENT: ??Mild chondral thi nning and fissuring of the lateral femoral condyle and lateral tibial plateau. Lateral compartmental marginal osteophytes. Intact lateral meniscus without discrete tear. PATELLOFEMORAL JOINT: ??Diffuse full-thi ckness chondral loss of the medial patellar facet and median ridge with moderate to near full-thickness chondral loss of the lateral patellar facet with mild subc hondral marrow edema and cystic change. Full-thickness chondral loss of the medial femoral trochlea with moderate to near full-thickness chondral loss of the trochlear midline and lateral femoral trochl ea. Patellofemoral compartment marginal osteophytes. Mild edema in superolateral Hoffa's fat pad. Small joint effusion. Very small popliteal cyst. No osteocartilaginous bodies are identified. LIGAMENTS AND TENDONS: ??Anterior and po sterior cruciate ligaments are intact. Mild edema abutting an intact medial collateral ligament is likely reactive. Mild edema abutting the iliotibial band is ind eterminate for mild iliotibial band fric tion syndrome. Fibular collateral ligament and biceps femoris tendon are intact. Popliteus muscle and tendon are intact. There is no evidence of injury to the posterolateral corner supporting structures. EXTENSOR MECHANISM: The quadriceps and p atellar tendons are normal. The medial retinaculum, medial patellofemoral ligament, and lateral retinaculum are normal. MARROW AND SOFT TISSUES: ??No other foci of significant marrow signal abnormality. No acute fractures. IMPRESSION: ?? 1. Horizontal tearing of the medial meni scal body and posterior horn with suggestion of a small amount of displaced meniscal tissue into the inferior meniscotibial recess with additional shallow radial tearing at the junction of the posterior horn and body. Mild extrusion of the meniscal body. 2. Grade 2/3 chondromalacia of the media l compartment. Grade II chondromalacia the lateral compartment. 3. 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 4. Mild edema in superolateral Hoffa's f at pad compatible with fat impingement. 5. Possible mild iliotibial band frictio n syndrome. Procedure Note Suman Humphrey MD - 09/08/2020Formatti ng of this note might be different from the original. IMPRESSION TECHNIQUE: Routine MRI of the right knee was performed without contrast. COMPARISON: 07/12/2020 radiograph FINDINGS: MEDIAL COMPARTMENT: Diffuse mild to mode rate chondral thinning of the central weightbearing surface of the medial femoral condyle and medial tibial plateau. Medial compartmental marginal osteophytes. Horizontal tear of the medial meniscal body with suggest ion of a small amount of displaced meniscal tissue into the inferior meniscotibial recess with horizontal tearing extending into the posterior horn contacting the inferior surface middle third with an additional shallow radial tear at the junction of the posterior horn and body. Mild extrusion of the meniscal body. LATERAL COMPARTMENT: Mild chondral thinn ing and fissuring of the lateral femoral condyle and lateral tibial plateau. Lateral compartmental marginal osteophytes. Intact lateral meniscus without discrete tear. PATELLOFEMORAL JOINT: Diffuse full-thick ness chondral loss of the medial patellar facet and median ridge with moderate to near full-thickness chondral loss of the lateral patellar facet with mild subchondral marrow edema and cystic change. Full-thickness chondral loss of the medial femoral trochlea with moderate to near full-thickness chondral loss of the trochlear midline and lateral femoral trochlea. Patellofemoral compartment marginal osteophytes. Mild edema in supe rolateral Hoffa's fat pad. Small joint effusion. Very small popliteal cyst. No osteocartilaginous bodies are identified. LIGAMENTS AND TENDONS: Anterior and post erior cruciate ligaments are intact. Mild edema abutting an intact medial collateral ligament is likely reactive. Mild edema abutting the iliotibial band is indeterminate for mild iliotibial band friction syndrome. Fibular collateral ligament and biceps femoris tendon are intact. Popliteus muscle and tendon are intact. There is no evidence of injury to the posterolateral corner supporting structures. EXTENSOR MECHANISM: The quadriceps and p atellar tendons are normal. The medial retinaculum, medial patellofemoral ligament, and lateral retinaculum are normal. MARROW AND SOFT TISSUES: No other foci o f significant marrow signal abnormality. No acute fractures. IMPRESSION: 1. Horizontal tearing of the medial meni scal body and posterior horn with suggestion of a small amount of displaced meniscal tissue into the inferior meniscotibial recess with additional shallow radial tearing at the junction of the posterior horn and b hetal. Mild extrusion of the meniscal body. 2. Grade 2/3 chondromalacia of the media l compartment. Grade II chondromalacia the lateral compartment. 3. 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 4. Mild edema in superolateral Hoffa's f at pad compatible with fat impingement. 5. Possible mild iliotibial band frictio n syndrome. Emma Minor MD RAD MRI documented in this encounter Visit Diagnoses Diagnosis Degenerative tear of medial meniscus, ri ght - Primary Primary osteoarthritis of right knee Primary localized osteoarthrosis, lower leg Primary osteoarthritis of right knee Primary localized osteoarthrosis, lower leg Degenerative tear of medial meniscus, ri ght documented in this encounter Care Teams Call Center Operator Relationship Specialty Start Date End Date Anne Hoyt DO PCP - General 09/29/14 [address] [place] [address] documented as of this encounter
--- OUTSIDE RECORDS SUMMARY | 2022-06-18 23:13 | XMS_ITS | Encounter Summary ---
:1955 Author Organization [facility] Address [address], [place] [address] Care Team Providers Name Role Phone Anne Hoyt DO Primary Care Provider Unavailable Reason for Visit Reason Comments Flashes And Floaters Consult/Transfer Care (Routine) - Closed Specialty Diagnoses / Procedures Referred By Contact Refer red To Contact Dre Noriega M D [address] [place], [place] [address] Referral ID Status Reason Start Date Expiration Date Visits Requ ested Visits Authorized [id number] Closed 06/17/2016 09/16/2017 1 1 Encounter Details Date Type Department Care Team Description 06/18/2016 Office Visit [facility] [address] Yassine Samayoa MD Vitreous floaters, Ophthalmology [address] (Primary Dx) [address] [place] [place] [address] [phone] Social History Tobacco Use Types Packs/Day Years Used Date Smoking Tobacco: Never Sex Assigned at Date Recorded Not on file documented as of this encounter Patient Instructions Patient InstructionsYassine Samayoa MD - 06/18/2016 7:36 AM CST You have experienced a movement or separation of the central gel structure of the eye called the vitreous. This is a normal structure in the eye that can with time loosen or separate. When this occurs, you may see floaters in your vision that can be various shapes and sizes. These floaters are usually dark and are best seen in bright light. In addition, you may see flashes of light. These are often noticed in the dark. These symptoms (flashes and floaters) need to be evaluated because in rare cases they can indicate problems with the retina such as tearing or bleeding. Retina detachment can also occur. If your retinais torn or detached you could require surgery. Even though your examination today is normal we may need to follow-up and re- examine the eye. In some cases we will ask you to see us again in 3-5 weeks. In the meantime, you can resume normal activity, but you should call us if you notice increased floaters, increased flashes or dark curtains in yourvision. Most people with this condition do very well and typically nothing needs to be done. It is still important for you to call us as we indicated above. If you have a change in symptoms please call [phone] and typically one of the eye doctors will see you within 24 hours. We are always available to help and answer questions. Dr. Samayoa. APPLICATION DEVELOPER documented in this encounter Progress Notes Yassine Samayoa MD - 06/18/2016 7:36 AM CST Belle Crystal is here today because of the onset of flahes floaters in the right eye for 3 days. This occurred suddenly and is not associated with visual loss. The condition is not worsening. There is not a history of trauma. The eye history is significant for both parents with RETINAL DETACHMENT. Examination shows normal visual vaughan to finger counting. Pupil examination is normal.Slit lamp examination is normal. Careful dilated retinal examination shows that the retina is attached and there are no holes, tears, detachments or bleeding. The vitreous SHOWS POSTERIOR VITREOUS DETACHMENT AND CENTRAL FLOATERS.[id number] We discussed the signs and symptoms of a retinal detachment including increasing flashes, floaters, visual loss and dark curtains. I encouraged the patient to call if there is any change in the symptoms, or if they are concerned in any way. We will schedule a routine follow-up visit in 3-4 weeks, but we will expect a call from the patient if there is any change. APPLICATION DEVELOPER documented in this encounter Plan of Treatment Upcoming Encounters Date Type Specialty Care Team Description 06/26/2022 Appointment Orthopedics Terra Minor MD [address] [place] [address] (Wo rk) 07/03/2022 Appointment OrthopedicTerra Ngo MD [address] [place] [address] (Wo rk) 07/10/2022 Appointment Orthopedics Terra Minor MD [address] [place] [address] (Wo rk) Scheduled Referrals Name Type Priority Associated Diagnoses Order S chedule Ophthalmology Referral Routine Ordered: 06/17 Consult-Adult/Peds documented as of this encounter Visit Diagnoses Diagnosis Vitreous floaters, right - Primary documented in this encounter Care Teams Inside Parts Sales Relationship Specialty Start Date End Date Anne Hoyt DO PCP - General 09/29/14 [address] [place] [address] documented as of this encounter
--- OUTSIDE RECORDS SUMMARY | 2022-06-18 23:13 | XMS_ITS | Encounter Summary ---
:1955 Author Organization [facility] Address [address], [place] [address] Care Team Providers Name Role Phone Anne Hoyt DO Primary Care Provider Unavailable Reason for Referral (Routine) - Closed Specialty Diagnoses / Procedures Referred By Contact Refer red To Contact Diagnoses Primary osteoarthritis of both knees Emma Minor, Procedures Synvisc Or Synvisc (per 1 mg) - quantity = 16 [address] [place] [address] Referral ID Status Reason Start Date Expiration Date Visits Requ ested Visits Authorized [id number] Closed 10/06/2020 01/05/2022 1 1 Reason for Visit Reason Comments Knee Pain or Injury Encounter Details Date Type Department Care Team Description 10/06/2020 Office Visit GALLO Minor, Primary [facility]oa [facility]thritis [facility] Emma Nice MD of both knees (Primary [address] [place]) [place] [address] [place], [place] [phone] [id number] Social History Tobacco Use Types Packs/Day Years Used Date Smoking Tobacco: Never Smokeless Tobacco: Never Alcohol Use Standard Drinks/Week Comments Yes 3 (1 standard drink = 0.6 oz pure alcoho l) periodically Sex Assigned at Date Recorded Not on file documented as of this encounter Patient Instructions Patient InstructionsShila Villafuerte ATC - 10/06/2020 8:00 AM CDT Thank you for choosing [facility] for your health care visit today. Please read the contents below for important information regarding today's appointment. Medication Requests: Prescriptions are not filled on weekends or on weekdays after 3:00 PM. For all medication refills: Request a refill using [employer] ITt or contact your pharmacy. MRI Scheduling: To schedule an MRI at [facility] please call [phone]. For [facility] please call [phone]. For [facility] please call [phone]. [facility] Workers' Compensation [address] [place], [place] [phone] (Phone) What is Know Your Cost? Know Your Cost is a service for patients and patient/members to call and receive personalized cost information and estimates across our care group. The phone number is (COST) and is openSaturday - Saturday from 8 a.m[address] to [address] Emma Minor MD Sports & Orthopedic Medicine [facility] Saturday, Saturday PM, AM, and Saturday Paperwork Requests/ Questions Regarding Surgery Scheduling: Class B Driver: Abigail Dejesus Navigator: Amy Patrick ATC Diagnosis: Diagnosis and Associated Orders ICD-10-CM 1. Primary osteoarthritis of both knees M17.0 Injection Today: 1. Post-injection instructions given. Watch for sign of infection, if your knee gets red, hot to touch or swelling. Call or return immediately if either occur. 2. Ice twice today for 20 minutes each time and three times tomorrow (20 minutes each session) for symptom management. 3. OTC medications (Advil, Aleve, Tylenol, Etc.) for pain as needed. 4. Synvisc is a Hyaluronic Acid (GORDON) product. GORDON is a molecule that is a natural component of normaljoint fluid. It acts like a lubricant and a shock absorber in the joint and is needed for the joint to work properly. An injured or arthritic knee tends to make a more watery fluid that is less protective to the joint. By increasing the concentration of GORDON in the knee, the joint fluid becomes thicker and more slippery. This improved lubrication tends to decrease inflammation and pain. 5. These injections work in about two-thirds of those who try them. Can take anywhere from 2-6 weeksto start working. 6. You should avoid strenuous activities (for example high-impact sports such as soccer, tennis, or jogging) or prolonged weight-bearing activities for approximately 48 hours following the injection. 7. Cannot have this type of injection any sooner than 6 months. 8. Call if you experience any allergic reactions such as swelling of your face, tongue, or throat: difficulty breathing or swallowing; shortness of breath; wheezing; chest pain; a tightness in your throat; rash; itching; hives; flushing and or fever 9. Call if you have any questions or concerns! Plan: Patient may use occasional NSAID medications like Advil (ibuprofen) or Aleve (naproxen), as directedon the packaging or as specifically discussed in clinic. Do not use if you have been told in the past not to use this class of medications. Do not use on a daily basis for more than 2 weeks without first discussing with sports medicine or your primary care provider. These medications can cause stomachirritation or bleeding. If you develop any abdominal pain, black stools, or bloody stools, then stoptaking immediately and call our clinic. There is an increased risk of stroke and heart attack in patients over the age of 65 who take daily or frequent NSAIDS. Maintain adequate hydration, especially in warm weather, to minimize the risk of kidney injury. Follow-Up: Please follow-up in 1 weeks for a recheck, or sooner if symptoms become worse. documented in this encounter Progress Notes Emma Minor MD - 10/06/2020 8:00 AM CDT Images from the original note were not included. SPORTS MEDICINE FOLLOW UP NOTE DATE OF SERVICE: 10/06/2020 CHIEF COMPLAINT: Follow up: Right??knee mild??medial??osteoarthritis and degeneration of medial meniscus Left Knee??PF OA HISTORY OF PRESENT ILLNESS Belle Crystal is a 64 y.o. old female who is here for follow up examination of the bilateral knee pain. Patient initially seen on 08/30/20: ?? 08/30/2020 right knee injected with cortisone, PT at [facility] 09/29/2020 1. Right knee synvics injection #1 2. Fitted for wrist brace with thumb spica 3. Physical therapy order given for wrist pain at [facility] 4. Follow up at [facility] for the wrist if brace and PT do not help - has seen Stacey in past and follow up next week for right knee syn #[address] Gr (total joint surgeon tomorrow at [facility]) Today, she has noticed some improvement after the first Euflexxa. She would like to start the serieson the left knee as well today. She had her visit with Maile (total joint at [facility] ) - not candidate for partial but total. right nowgoing to pursue non-op treatment. brace not helping the wrist. Has PT appointment at [facility] mid-October. MEDICAL HISTORY For initial presenting history, past [...] this visit. Estimated body mass index is 28.19 kg/m?? as calculated from the following: Height as of 04/27/13: 1.753 m (5' 9.02). Weight as of 04/27/13: 86.6 kg (191 lb). General: Patient is in no acute distress, resting comfortably and cooperative. PSYCH: Alert and oriented times 3 INTEGUMENT: Bruising/erythema is not present over the bilateral knee. CV/VASCULAR: The extremity is warm, well perfused. NEURO: No sensory deficits to light touch. RESP: No audible wheezes, unlabored breathing. HEENT: Hearing is intact to spoken word. Speech is clear. No gross evidence of visual impairment that would impact ambulation. Oropharynx is clear, no cough EXAM: no effusion bilaterally Crepitus noted with extension left. IMAGING: My (Dr. Minor) independent review of [...] impingement. 5. Possible mild iliotibial band friction syndrome. ASSESSMENT & PLAN ASSESSMENT: bilateral knee OA, right > left. PLAN: I discussed patient's symptoms and my findings in detail Synvisc #2 on the right knee Synvisc #1 on the left knee F/U in 1 week. I would suggest stopping wrist brace if it is bothersome All of her questions were answered today. Emma Minor MD 10/06/2020 10 minutes spent on the date of the encounter doing chart review, patient visit and documentation This document serves as a record of all services personally provided by Emma Minor MD. Documentation provided by Shila Villafuerte ATC based on my personal observation of the services provided and the providers statements to me. This note was created using a scribe, templating, and voice recognition software ([employer]) which may result in unintentional word substitutions. documented in this encounter Plan of Treatment Upcoming Encounters Date Type Specialty Care Team Description 06/26/2022 Appointment Orthopedics Terra Minor MD [address] [place] [phone] (Ying edmonds) 07/03/2022 Appointment Orthopedics Terra Minor MD [address] [place] [address] (Ying edmonds) 07/10/2022 Appointment Orthopedics Terra Minor MD [address] [place], [place] [address] (Wo rk) documented as of this encounter Visit Diagnoses Diagnosis Primary osteoarthritis of both knees - P rimary Primary localized osteoarthrosis, lower leg documented in this encounter Care Teams Office Executive Relationship Specialty Start Date End Date Anne Hoyt DO PCP - General 09/29/14 [facility] [place] [address] documented as of this encounter
--- OUTSIDE RECORDS SUMMARY | 2022-06-18 23:13 | XMS_ITS | Encounter Summary ---
:1955 Author Organization [facility] Address [address] [address] Care Team Providers Name Role Phone Anne Hoyt DO Primary Care Provider Unavailable Reason for Referral (Routine) - New Request Specialty Diagnoses / Procedures Referred By Contact Refer red To Contact Diagnoses Primary osteoarthritis of both knees Emma Minor, Procedures Synvisc Or Synvisc (per 1 mg) - quantity = 16 MD [address] [place] [address] Referral ID Status Reason Start Date Expiration Date Visits V isits Requested Authorized [id number] New Request 12/08/2021 03/09/2023 1 1 Reason for Visit Reason Comments KNEE PAIN B Encounter Details Date Type Department Care Team Description 12/08/2021 Office Visit GALLO Minor, Primary [facility]oa [facility]thritis [facility] Emma Nice MD of both knees (Primary [address] [place]) [place] [address] [place], [place] [phone] Social History Tobacco Use Types Packs/Day Years Used Date Smoking Tobacco: Never Smokeless Tobacco: Never Alcohol Use Standard Drinks/Week Comments Yes 3 (1 standard drink = 0.6 oz pure alcoho l) periodically Sex Assigned at Date Recorded Not on file documented as of this encounter Patient Instructions Patient InstructionsCiEmma knox MD - 2021 8:28 AM CDT Thank you for choosing [facility] for your health care visit today. Please read the contents below for important information regarding today's appointment. Medication Requests: Prescriptions are not filled on weekends or on weekdays after 3:00 PM. For all medication refills: Request a refill using [facility] or contact your pharmacy. MRI Scheduling: To schedule an MRI at [facility] please call [phone]. For [facility] please call [phone]. For [facility] please call [phone]. [facility] Workers' Compensation [address] [place] [address] (Phone) What is Know Your Cost? Know Your Cost is a service for patients and patient/members to call and receive personalized cost information and estimates across our care group. The phone number is (COST) and is openSaturday - Saturday from 8 a.m[address] to [address] Emma Minor MD Sports & Orthopedic Medicine [facility] Saturday, Saturday PM, AM, and Saturday Paperwork Requests/ Questions Regarding Surgery Scheduling: All paperwork takes up to 10 business days to complete. Lpn Rn: Janeen Le Navigator: Dariel Chatterjee ATC Diagnosis: Diagnosis and Associated Orders ICD-10-CM 1. Primary osteoarthritis of both knees M17.0 Injection Today: The bilateral knee was injected with Synvisc (series) and cold spray. Visco Supplementation Injection: Post-injection instructions given. Watch for sign of infection, if your knee gets red, hot to touch or swelling. Call or return immediately if either occur. Ice twice today for 20 minutes each time and three times tomorrow (20 minutes each session) for symptom management. OTC medications (Advil, Aleve, Tylenol, Etc.) for pain as needed. Synvisc 1 is a Hyaluronic Acid (GORDON) product. GORDON [...] you have any questions or concerns! Follow-Up: 1 week documented in this encounter Progress Notes Emma Minor MD - 12/08/2021 8:00 AM CDT Images from the original note were not included. SPORTS MEDICINE FOLLOW UP NOTE DATE OF SERVICE: 12/08/2021 CHIEF COMPLAINT: Follow up: Right??knee mild??medial??osteoarthritis and degeneration of medial meniscus Left Knee??PF OA HISTORY OF PRESENT ILLNESS Belle Crystal is a 66 y.o. old female who is here for follow up examination of the bilateral knee. Patient initially seen on 08/30/20. ?? 08/30/2020 right knee injected with cortisone, PT at [facility] ?? 09/30/20;surgeon Cindyi at [place] Belle Crystal??is a 64 y.o.??female??with severe left [...] that??she??would be an excellent candidate for the [employer] [facility] program??and we can have her screened for this. She does understand that she has to wait at least 3 months after her last injection to proceed with surgery. ?? 09/29/2020 1. Right knee synvics injection #1 2. Fitted for wrist brace with thumb spica 3. Physical therapy order given for wrist pain??at [facility] 4. Follow up at [facility] for the wrist if brace and PT do not help??- has seen Stacey in past and follow up next week for right knee syn #[address] Gr (total joint surgeon tomorrow at [facility]) ?? 10/06/2020 Bilateral synvisc ?? 10/14/20 Bilateral synvisc ?? 10/21/20 Left knee synvisc injection? 04/27/21 Bilateral synvisc injection 1 05/04/21 Bilateral Synvisc injection 2 05/11/2021 Bilateral synvisc injection 3 Today, she reports the knees have been painful for around the last month with it gradual increase. The left is slightly worse than the left. She does take Aleve as needed for pain control. MEDICAL HISTORY For initial presenting history, past [...] Oropharynx is clear, no cough EXAM: no effusions bilaterally 0-130 with tightness on both left knee TTP lateral patella IMAGING: My (Dr. Minor) independent review of [...] band friction syndrome.?? ASSESSMENT & PLAN ASSESSMENT: Bilateral Knee OA (patellar) PLAN: I discussed patient's symptoms and my findings in detail After the history, examination and review of x-rays, it was determined the patient would benefit from an injection. Risks, benefits and alternatives discussed. Patient decided on Synvisc injection(s) #1. The affected joint to be injected was confirmed with the patient prior to the injection. The knee was prepped in a sterile fashion. Injected into the bilateral anterolateral Knee was 2 ml of Synvisc prepackaged solution, without complications. cold spray used F/U in 1 week All of her questions were answered today. This document serves as a record of all services personally provided by Emma Minor MD. Documentation provided by Dariel Dunn ATC based on my personal observation of the services provided and the providers statements to me. Emma Minor MD 12/08/2021 10 minutes spent on the date of the encounter doing chart review, patient visit and documentation This note was created using a scribe, templating, and voice recognition software (Indisys) which may result in unintentional word substitutions. documented in this encounter Plan of Treatment Upcoming Encounters Date Type Specialty Care Team Description 06/26/2022 Appointment Orthopedics Terra Minor MD [address] [place], [place] [phone] (Wo rk) 07/03/2022 Appointment Orthopedics Terra Minor MD [address] [place] [phone] (Wo rk) 07/10/2022 Appointment Orthopedics Terra Minor MD [address] [place], [place] [phone] (Wo rk) documented as of this encounter Visit Diagnoses Diagnosis Primary osteoarthritis of both knees - P rimary Primary localized osteoarthrosis, lower leg documented in this encounter Care Teams Prototype Special Build Relationship Specialty Start Date End Date Anne Hoyt DO PCP - General 09/29/14 [address] [place] [address] documented as of this encounter
--- OUTSIDE RECORDS SUMMARY | 2022-06-18 23:13 | XMS_ITS | Encounter Summary ---
:1955 Author Organization [facility] Address [address], [place] [address] Care Team Providers Name Role Phone Lai Anne Emerson DO Primary Care Provider Unavailable Encounter Details Date Type Department Care Team Description 08/30/2020 Notes/Or[facility] Deion Minor MD [address] [place] [address] [place] [address] [phone] (Wo rk) Social History Tobacco Use Types Packs/Day Years Used Date Smoking Tobacco: Never Smokeless Tobacco: Never Alcohol Use Standard Drinks/Week Comments Yes 3 (1 standard drink = 0.6 oz pure alcoho l) periodically Sex Assigned at Date Recorded Not on file documented as of this encounter Progress Notes Emma Minor MD - 08/30/2020 12:09 PM CST To Whom it May Concern: We are requesting Prior Authorization for this patient???s next plan of care. Once approval has beengranted we will assist in contacting the patient or scheduling the patient for their appropriate services. Patient Name Belle Crystal 1955 Body Part Bilateral Knees Procedure Name Synvisc series CPT Code(s) Diagnosis Bilateral Knee OA ICD-10 Code(s) Ordering Provider Dr. Minor Provider NPI [facility]Surgery [facility] 08/30/2020, 12:10 PM HIC SPECIALIST Yamila Castañeda - 08/30/2020 12:09 PM CST No Prior Authorization Required HIC SPECIALIST Yamila Castañeda - 08/30/2020 12:09 PM CST [place] only [place] the Synvisc Series or Synvisc-One HIC SPECIALIST Emma Minor MD - 08/30/2020 12:09 PM CST Please call her and set up for bilateral knee synivsc series - I want this about 4 weeks after her cortisone which was done on 08/30/19. thanksEmma MD 08/31/2020, 12:52 PM HIC SPECIALIST Aspen Moss ATC - 08/30/2020 12:09 PM CST Called patient and scheduled her for 1st, 2nd and 3rd Synvisc injections for the series. Aspen Moss ATC 08/31/2020, 1:18 PM HIC SPECIALIST documented in this encounter Plan of Treatment Upcoming Encounters Date Type Specialty Care Team Description 06/26/2022 Appointment Orthopedics Terra Minor MD [address] [place] [phone] (Wo rk) 07/03/2022 Appointment OrthopedicTerra Ngo MD [address] [place] [phone] (Wo rk) 07/10/2022 Appointment OrthopedicTerra Ngo MD [address] [place] [phone] (Wo rk) documented as of this encounter Visit Diagnoses Not on filedocumented in this encounter Care Teams Patient Experience Coordinator Relationship Specialty Start Date End Date Anne Hoyt DO PCP - General 09/29/14 [address] [place] [address] documented as of this encounter
--- OUTSIDE RECORDS SUMMARY | 2022-06-18 23:13 | XMS_ITS | Encounter Summary ---
:1955 Author Organization [facility] Address [address], [place] [address] Care Team Providers Name Role Phone Anne Hoyt DO Primary Care Provider Unavailable Reason for Referral (Routine) - Closed Specialty Diagnoses / Procedures Referred By Contact Refer red To Contact Diagnoses Primary osteoarthritis of both knees Emma Minor, Procedures Synvisc Or Synvisc (per 1 mg) - quantity = 16 [address] [place] [address] Referral ID Status Reason Start Date Expiration Date Visits Requ ested Visits Authorized [id number] Closed 10/14/2020 01/13/2022 1 1 Reason for Visit Reason Comments Follow-up bilateral synvisc series Encounter Details Date Type Department Care Team Description 10/14/2020 Office Visit GALLO Minor, Primary [facility]oa rthritis [facility] Emma Nice MD of both knees (Primary [address] [place]) [place] [address] [place], [place] [phone] Social History Tobacco Use Types Packs/Day Years Used Date Smoking Tobacco: Never Smokeless Tobacco: Never Alcohol Use Standard Drinks/Week Comments Yes 3 (1 standard drink = 0.6 oz pure alcoho l) periodically Sex Assigned at Date Recorded Not on file documented as of this encounter Patient Instructions Patient InstructionsJules Rouse - 10/14/2020 8:20 AM CDT Thank you for choosing [facility] for your health care visit today. Please read the contents below for important information regarding today's appointment. Medication Requests: Prescriptions are not filled on weekends or on weekdays after 3:00 PM. For all medication refills: Request a refill using [facility] or contact your pharmacy. MRI Scheduling: To schedule an MRI at [facility] please call [phone]. For [facility] please call [phone]. For [facility] please call [phone]. [facility] Workers' Compensation [address] [place], [place] [address] (Phone) What is Know Your Cost? Know Your Cost is a service for patients and patient/members to call and receive personalized cost information and estimates across our care group. The phone number is (COST) and is openSaturday - Saturday from 8 a.m. to [address] Emma Minor MD Sports & Orthopedic Medicine [facility] Saturday, Saturday PM, AM, and Saturday Paperwork Requests/ Questions Regarding Surgery Scheduling: Simulation Tech: Abigail Dejesus Navigator: Akhil Hickman ATC Diagnosis: Diagnosis and Associated Orders ICD-10-CM 1. Primary osteoarthritis of both knees M17.0 Injection Today: The bilateral knee was injected with Synvisc (series) 1. Post-injection instructions given. Watch for sign [...] any questions or concerns! Follow-Up: 1 week for left knee Synvisc #2 documented in this encounter Progress Notes Emma Minor MD - 10/14/2020 8:20 AM CDT Images from the original note were not included. . SPORTS MEDICINE FOLLOW UP NOTE DATE OF SERVICE: 10/14/2020 CHIEF COMPLAINT: Follow up: Right??knee mild??medial??osteoarthritis and degeneration of medial meniscus Left Knee??PF OA HISTORY OF PRESENT ILLNESS Belle Crystal is a 64 y.o. old female who is here for follow up examination of the bilateral knee pain. Patient initially seen on 08/30/20: ?? 08/30/2020 right knee injected with cortisone, PT at [facility] 09/29/2020 1. Right knee synvics injection #1 2. Fitted for wrist brace with thumb spica 3. Physical therapy order given for wrist pain at [facility] 4. Follow up at [facility] for the wrist if brace and PT do not help - has seen Stacey in past and follow up next week for right knee syn #[address]. [address] Gr (total joint surgeon tomorrow at [facility]) 10/06/2020 Right knee synvisc injection#2 Today, she presents reporting continued improvement in her bilateral knee symptoms. She denies any adverse reactions to her previous Synvisc injections. She is here today for her 3rd right knee and 2ndleft knee injection. She continues to participate in physical therapy at [facility]. She is happy with her progress and denies any questions or concerns today. MEDICAL HISTORY For initial presenting history, past [...] this visit. Estimated body mass index is 29.97 kg/m?? as calculated from the following: Height as of 09/30/20: 1.74 m (5' 8.5). Weight as of 09/30/20: 90.7 kg (200 lb). General: Patient is in no acute [...] clear, no cough EXAM: no effusions bilaterally IMAGING: My (Dr. Minor) independent review of [...] band friction syndrome. ASSESSMENT & PLAN ASSESSMENT: Right??knee mild??medial??osteoarthritis and degeneration of medial meniscus Left Knee??PF OA PLAN: I discussed patient's symptoms and my findings in detail Synvisc #3 on the right knee Synvisc #2 on the left knee F/U in 1 week for LEFT knee #3. All of her questions were answered today. After the history, examination and review of x-rays, it was determined the patient would benefit from an injection. Risks, benefits and alternatives discussed. Patient decided on Euflexxa injection(s) #3. The affected joint to be injected was confirmed with the patient prior to the injection. The kneewas prepped in a sterile fashion. The bilateral anterolateral Knee was injected with 2 ml of Euflexxa prepackaged solution, without complications. Emma Minor MD 10/14/2020 10 minutes spent on the date of the encounter doing chart review, patient visit and documentation This note was created using a scribe, templating, and voice recognition software (Kaiima) which may result in unintentional word substitutions. This document serves as a record of all services personally provided by Emma Minor MD. Documentation provided by Jules Rouse based on my personal observation of the services provided and the providers statements to me. documented in this encounter Plan of Treatment Upcoming Encounters Date Type Specialty Care Team Description 06/26/2022 Appointment Orthopedics Terra Minor MD [address] [place] [phone] (Ying rk) 07/03/2022 Appointment OrthopedicTerra Ngo MD [address] [place] [phone] (Ying edmonds) 07/10/2022 Appointment Terra Soria MD [address] [place] [phone] (Ying edmonds) documented as of this encounter Visit Diagnoses Diagnosis Primary osteoarthritis of both knees - P rimary Primary localized osteoarthrosis, lower leg documented in this encounter Care Teams Auto Tire Recapper Relationship Specialty Start Date End Date Anne Hoyt DO PCP - General 09/29/14 [address] [place] [address] documented as of this encounter
--- OUTSIDE RECORDS SUMMARY | 2022-06-18 23:13 | XMS_ITS | Encounter Summary ---
:1955 Author Organization [employer] Address [address] [place] [address] Care Team Providers Name Role Phone Lai Anne Emerson DO Primary Care Provider Unavailable Reason for Visit Reason Comments MRI Results Encounter Details Date Type Department Care Team Description 09/08/2020 Telephone Deion Barnard, MRI Results CENTER [address] [place] [address] [place] [address] [phone] (Wo rk) Social History Tobacco Use Types Packs/Day Years Used Date Smoking Tobacco: Never Smokeless Tobacco: Never Alcohol Use Standard Drinks/Week Comments Yes 3 (1 standard drink = 0.6 oz pure alcoho l) periodically Sex Assigned at Date Recorded Not on file documented as of this encounter Nursing Notes Sunny Go ATC - 09/08/2020 1:26 PM CST Discussed MRI in detail after speaking with Dr. Drake and Dr. Pretty. Patient should continue with physical therapy and home exercises. We discussed that exercises were causing some people and she was encouraged to discuss with PT at next visit. Patient scheduled for upcoming Synvisc series and told her we can further discuss MRI and speak with Dr. Minor on her thoughts when she is back fromvacation. Patient was appreciative of her care and quick responses. Sunny Go ATC 09/08/2020, 1:33 PM ROOM EXECUTIVE DIRECTOR Tina Bhatia - 09/08/2020 11:49 AM CST Pt is returning Jose's call, please try her again. ROOM EXECUTIVE DIRECTOR Sunny Go, ATC - 09/08/2020 11:37 AM CST LMTCB to discuss MRI results. Sunny Go ATC 09/08/2020, 11:37 AM ROOM EXECUTIVE DIRECTOR documented in this encounter Plan of Treatment [...] on filedocumented in this encounter Care Teams Learning And Development Intern Relationship Specialty Start Date End Date Anne Hoyt DO PCP - General 09/29/14 [address] [place] [address] documented as of this encounter
--- OUTSIDE RECORDS SUMMARY | 2022-06-18 23:13 | XMS_ITS | Encounter Summary ---
:1955 Author Organization [facility] Address [address], [place] [address] Care Team Providers Name Role Phone Anne Hoyt DO Primary Care Provider Unavailable Reason for Referral (Routine) - Closed Specialty Diagnoses / Procedures Referred By Contact Refer red To Contact Diagnoses Primary osteoarthritis of right knee Emma Minor, Procedures Synvisc Or Synvisc (per 1 mg) - quantity = [address] [place] [address] Referral ID Status Reason Start Date Expiration Date Visits Requ ested Visits Authorized [id number] Closed 09/29/2020 12/29/2021 1 1 Therapies (Routine) - Closed Specialty Diagnoses / Procedures Referred By Contact Refer red To Contact Diagnoses De Quervain's tenosynovitis, left Emma Minor MD [address] [place] [address] Referral ID Status Reason Start Date Expiration Date Visits Requ ested Visits Authorized [id number] Closed 09/29/2020 11/28/2020 1 1 Scheduling Instructions This order is [...] assist you. Reason for Visit Reason Comments KNEE PAIN Encounter Details Date Type Department Care Team Description 09/29/2020 Office Visit GALLO CROOKSJUSTA Minor, Primary osteoa rthritis of right knee (Primary Dx); [facility] Emma Nice MD De Quervain's tenosynovitis, left [address] [place] [address] [place] [phone] [address] Social History Tobacco Use Types Packs/Day Years Used Date Smoking Tobacco: Never Smokeless Tobacco: Never Alcohol Use Standard Drinks/Week Comments Yes 3 (1 standard drink = 0.6 oz pure alcoho l) periodically Sex Assigned at Date Recorded Not on file documented as of this encounter Patient Instructions Patient InstructionsTrKatherine ocasio, ATC - 09/29/2020 8:00 AM CDT Thank you for choosing [facility] for your health care visit today. Please read the contents below for important information regarding today's appointment. Medication Requests: Prescriptions are not filled on weekends or on weekdays after 3:00 PM. For all medication refills: Request a refill using [employer] or contact your pharmacy. MRI Scheduling: To schedule an MRI at [facility] please call [phone]. For [facility] please call [phone]. For [facility] please call [phone]. [facility] Workers' Compensation [address], [place] [address] (Phone) What is Know Your Cost? Know Your Cost is a service for patients and patient/members to call and receive personalized cost information and estimates across our care group. The phone number is (COST) and is openSaturday - Saturday from 8 a.m[address] to [address] Emma Minor MD Sports & Orthopedic Medicine [facility] Saturday, Saturday PM, AM, and Saturday Paperwork Requests/ Questions Regarding Surgery Scheduling: Layer Off: Abigail Nevillenco Navigator: Lea Curtis ATC Diagnosis: Diagnosis and Associated Orders ICD-10-CM 1. Primary osteoarthritis of right knee M17.11 2. De Quervain's tenosynovitis, left M65.4 Physical Therapy Injection Today: 1. Post-injection instructions given. Watch [...] you have any questions or concerns! Plan: 1. Right knee synvics injection #1 2. Fitted for wrist brace with thumb spica 3. Physical therapy order given for wrist pain 4. Follow up at [facility] for the wrist if brace and PT do not help Follow-Up: Please follow-up in 1 weeks for a recheck, or sooner if symptoms become worse. documented in this encounter Progress Notes Emma Minor MD - 09/29/2020 8:00 AM CDT CC: Right knee mild medial osteoarthritis and degeneration of medial meniscus Left Knee PF OA SUBJECTIVE2 Belle Crystal is a 64 y.o. female presents for right visco. I first saw her 08/30/20: right knee injected with cortisone, PT at [facility] Today, patient states that the right knee is worse than the left. She locates her pain over the medial knee on the right. Left hurts too but not nearly as much. She states that she has been biking and walking for activity. Biking helps alleviate that pain, but walking increases her pain significantly.She has been doing physical therapy at [facility]. She mentions that occasionally the exercises from PT, will cause tightness in the right knee. She explains that she has learned from imaging, that the left knee seems worse than the right, but the right causes more problems. She is curious if he should be doing the synvics shots on both knees or just the right knee. She mentions that she is meeting with a total joint surgeon and she has questions about the surgeon she is going to see. Patient states that over the past 4 weeks, she has started to notice left wrist pain. She can not recall an injury, or change in activity that would have started this pain. Pain is located over the radial wrist. She ordered a wrist brace off of [employer] and has not noticed an improvement in symptoms with wearing it. Pain is worse with ulnar deviation, especially when the thumb is tucked in the wrist. For initial presenting history, past medical history, problem list, medications, allergies, social and family history refer to the previous notes and Epic - see updates in HPI Social History Socioeconomic History ??? Marital status: Spouse name: Not on file ??? Number of children: Not on file ??? Years of education: Not on file ??? Highest education level: Not on file Occupational History ??? Not on file No fevers, night sweats or chills; no unusual weight loss; no decrease in energy; no rashes; no numbness or tingling OBJECTIVE: There were no vitals filed for this visit. Estimated body mass index is 28.19 kg/m?? as calculated from the following: Height as of 04/27/13: 1.753 m (5' 9.02). Weight as of 04/27/13: 86.6 kg (191 lb). Patient is alert and oriented to time, person and place General: Patient is resting comfortably and is in no acute distress. Weight Bearing: the patient is able to bear weight on the injured leg at this time. EXAM: Right knee: Mild swelling 0-125 degrees with tightness in flexion TTP over medial joint line Андрей's Negative Ligaments normal Left Wrist: TTP over 1st dorsal compartment Slight pain with wrist extension Pain with ulnar deviation No tenderness [facility] Positive finklsteins right knee MRI 09/08/20 IMPRESSION: 1. Horizontal tearing of the medial meniscal [...] 5. Possible mild iliotibial band friction syndrome. ASSESSMENT: Right knee mild medial osteoarthritis and degeneration of medial meniscus Left Knee PF OA left dequervain's tenosynovitis PLAN: 1. Right knee synvics injection #1 2. Fitted for wrist brace with thumb spica 3. Physical therapy order given for wrist pain at [facility] 4. Follow up at [facility] for the wrist if brace and PT do not help - has seen Stacey in past and follow up next week for right knee syn #[address]. [address] Gr (total joint surgeon tomorrow at [facility]) After the history, examination and review of x-rays, it was determined the patient would benefit from an injection. Risks, benefits and alternatives discussed. Patient decided on Synvisc injection(s) #1. The affected joint to be injected was confirmed with the patient prior to the injection. The knee was prepped in a sterile fashion. Injected into the right anterolateral Knee was 2 ml of Synvisc prepackaged solution, without complications. 40 minutes spent on the date of the encounter doing chart review, review of test results, patient visit and documentation This document serves as a record of all services personally provided by Emma Minor MD. Documentation provided by Lea Perdue ATC based on my personal observation of the services provided and the providers statements to me. Emma Minor MD 09/29/2020 documented in this encounter Plan of Treatment Upcoming Encounters Date Type Specialty Care Team Description 06/26/2022 Appointment Orthopedics Terra Minor MD [address] [place] [phone] (Wo rk) 07/03/2022 Appointment Orthopedics Terra Minor MD [address] [place] [phone] (Wo rk) 07/10/2022 Appointment Orthopedics Terra Minor MD [address] [place] [phone] (Wo grey) Scheduled Referrals Name Type Priority Associated Diagnoses Order S chedule Physical Therapy Referral Routine De Quervain's tenosynovi tis, Ordered: 09/29/2020 left documented as of this encounter Visit Diagnoses Diagnosis Primary osteoarthritis of right knee - P rimary Primary localized osteoarthrosis, lower leg De Quervain's tenosynovitis, left documented in this encounter Care Teams Named Account Executive Relationship Specialty Start Date End Date Anne Hoyt DO PCP - General 09/29/14 [address] [place] [address] documented as of this encounter
--- OUTSIDE RECORDS SUMMARY | 2022-06-18 23:13 | XMS_ITS | Encounter Summary ---
:1955 Author Organization [facility] Address [address], [place] [address] Care Team Providers Name Role Phone Anne Hoyt DO Primary Care Provider Unavailable Reason for Referral (Routine) - New Request Specialty Diagnoses / Procedures Referred By Contact Refer red To Contact Diagnoses Primary osteoarthritis of both knees Emma Minor, Procedures Synvisc Or Synvisc (per 1 mg) - quantity = 16 MD [address] [place] [address] Referral ID Status Reason Start Date Expiration Date Visits V isits Requested Authorized [id number] New Request 04/27/2021 07/27/2022 1 1 Reason for Visit Reason Comments Knee Pain or Injury Encounter Details Date Type Department Care Team Description 04/27/2021 Office Visit GALLO Minor, Primary osteoa rthritis [facility] Emma Nice MD of both knees (Primary [address] [place]) [place] [address] [place], [place] [phone] Social History Tobacco Use Types Packs/Day Years Used Date Smoking Tobacco: Never Smokeless Tobacco: Never Alcohol Use Standard Drinks/Week Comments Yes 3 (1 standard drink = 0.6 oz pure alcoho l) periodically Sex Assigned at Date Recorded Not on file documented as of this encounter Patient Instructions Patient InstructionsCiEmma knox MD - 04/27/2021 8:00 AM CDT Thank you for choosing [facility] for your health care visit today. Please read the contents below for important information regarding today's appointment. Medication Requests: Prescriptions are not filled on weekends or on weekdays after 3:00 PM. For all medication refills: Request a refill using MyChart or contact your pharmacy. MRI Scheduling: To schedule an MRI at [facility] please call [phone]. For [facility] please call [phone]. For [facility] please call [phone]. [facility] Workers' Compensation [address] [place], [place] [address] (Phone) What is Know Your Cost? Know Your Cost is a service for patients and patient/members to call and receive personalized cost information and estimates across our care group. The phone number is (COST) and is openSaturday - Saturday from 8 a.m. to [address] Emma Minor MD Sports & Orthopedic Medicine [facility] Saturday, Saturday PM, AM, and Saturday Paperwork Requests/ Questions Regarding Surgery Scheduling: All paperwork takes up to 10 days to complete. Front End Application Developer: Maggie Glover documented in this encounter Progress Notes Emma Minor MD - 04/27/2021 8:00 AM CDT Images from the original note were not included. SPORTS MEDICINE FOLLOW UP NOTE DATE OF SERVICE: 04/27/2021 CHIEF COMPLAINT: Follow up: Right??knee mild??medial??osteoarthritis and degeneration of medial meniscus Left Knee??PF OA HISTORY OF PRESENT ILLNESS Belle Crystal is a 64 y.o. old female who is here for follow up examination of the bilateral knee pain. ??Patient initially seen on 08/30/20: ?? 08/30/2020 right knee injected with cortisone, PT at [facility] 09/30/20;surgeon Maile at [facility] Belle Crystal is a 64 y.o. female with severe left knee arthritis. Today, we discussed operative versus non-operative treatment. She just had a Synvisc injection and is getting good relief from this and she will continue to series. I would recommend that she continue to monitor her symptoms. If her pain returns, she can always contact me and we can consider a total knee replacement. I think that she would be an excellent candidate for the [facility] program and we can have her screened for this. She does understand that she has to wait at least 3 months after her last injection to proceed with surgery. ?? 09/29/2020 1. Right knee synvics injection #1 2. Fitted for wrist brace with thumb spica 3. Physical therapy order given for wrist pain??at [facility] 4. Follow up at [facility] for the wrist if brace and PT do not help??- has seen Stacey in past and follow up next week for right knee syn #[address]. [address] Gr (total joint surgeon tomorrow at [facility]) ?? 10/06/2020 Bilateral synvisc 10/14/20 Bilateral synvisc 10/21/20 Left knee synvisc injection Today, Patient returns to clinic today with recurrent bilateral knee pain. She reports that her right knee is more painful than her left. She denies any new injuries or trauma since her last visit. Her last set of Synvisc 3 part series injections were very helpful, providing 100% relief for many months. Her pain has returned since about 3 weeks ago. She denies any swelling in the knee. Pain is located to the anterior medial aspect of the right knee, an anterior left knee with increased stiffness. She is taking glucosamine and chondroitin daily. She is interested in pursuing repeat Synvisc injections. MEDICAL HISTORY For initial presenting history, past [...] ambulation. Oropharynx is clear, no cough EXAM: bilateral knees No effusion ROM 0-120 IMAGING: My (Dr. Minor) independent review of [...] patient's symptoms and my findings in detail Bilateral Synvisc series injections. After the history, examination and review of [...] ml of Synvisc prepackaged solution, without complications. F/U 1 week for #2/3 All of her questions were answered today. Emma Minor MD 04/27/2021 This document serves as a record of all services personally provided by Emma Minor MD. Documentation provided by Shane Hill ATC based on my personal observation of the services provided and the providers statements to me. 20 minutes spent on the date of the encounter doing chart review, patient visit and documentation This note was created using a scribe, templating, and voice recognition software (Consulted) which may result in unintentional word substitutions. [...] leg documented in this encounter Care Teams Mathematical Engineering Technician Relationship Specialty Start Date End Date Anne Hoyt DO PCP - General 09/29/14 [address] [place] [address] documented as of this encounter
--- OUTSIDE RECORDS SUMMARY | 2022-06-18 23:13 | XMS_ITS | Encounter Summary ---
:1955 Author Organization [employer] Address [address] [place] [address] Care Team Providers Name Role Phone Anne Hoyt DO Primary Care Provider Unavailable Reason for Referral Therapies (Routine) - Closed Specialty Diagnoses / Procedures Referred By Contact Refer red To Contact Diagnoses Thoracic radiculopathy Sciatica, unspecified laterality (HRC) Flory Shaffer MD [address] [place] [address] [facility] [place] [id number] Referral ID Status Reason Start Date Expiration Date Visits Requ ested Visits Authorized [id number] Closed 11/14/2021 11/14/2022 1 1 Scheduling Instructions This order is [...] assist you. Reason for Visit Reason Comments RESULTS, TEST Lumbar MRI Encounter Details Date Type Department Care Team Description 11/14/2021 Office Visit [facility] Flory Shaffer verna low back pain, unspecified back pain laterality, unspecified whether sciatica present (Primary Dx); DANIEL Lewis MD Thoracic radiculopathy; [address] [address] [place] [address] Sciatica, unspecified laterality [place], [place] [address] [place], [place] [phone] (Wo rk) Social History Tobacco Use Types Packs/Day Years Used Date Smoking Tobacco: Never Smokeless Tobacco: Never Alcohol Use Standard Drinks/Week Comments Yes 3 (1 standard drink = 0.6 oz pure alcoho l) periodically Sex Assigned at Date Recorded Not on file documented as of this encounter Progress Notes Flory Shaffer MD - 11/14/2021 12:00 PM CDT Date of Service: 11/14/2021 Date of : 1955 Subjective: Belle Crystal is a 65 y.o. female presents for a follow up of chronic low back pain and to review recent MRI results. Last visit was on 11/03/2021. At the time, she had functional issues and she had completed physical therapy. Continues to experience low back pain. States she had good results from physical therapy in the past. She has thoracic pain. She has had intermittent left rib pain for some years and also notes mild breast tissue tenderness. However, states her mammograms have been normal. The left-sided rib pain is not aggravated by coughing. States it is worsening now. She has had physical therapy for the rib pain as well. Reports occasional arm soreness. States she was athletic when younger. She has had Synvisc injection for the left knee with Dr. Minor twice, with significant benefit. Has an upcoming appointment for Synvisc injection in 3 weeks. She intends to continue with the injections. She is status post carpal tunnel release with Dr. Ibarra. Medication: Reviewed Epic. Allergies: Reviewed Epic. Imaging: MRI of lumbar spine without IV contrast was done on 11/08/2021. Impression: 1. Stable minimal disc bulge at the L5-S1 level abuts the traversing right S1 nerve root without evidence for compression. 2. Minimal disc bulge with associated annular fissure at the L4-L5 level has decreased in size flattening the ventral thecal sac. 3. Stable minimal disc bulge flattens the ventral thecal sac at the L3-L4 level. Physical Examination: Pleasant patient in no apparent distress. Mood is within normal limits. Gait: Normal. Lumbar spine range of motion is functional. Strength: Bilateral lower extremities is normal. Strength: BUE 5/5 Tenderness thoracic region. Impression: 1. Chronic low back pain with sciatica 2. Thoracic radiculopathy Plan: Reviewed the lumbar spine [...] therapy for the thoracic back as well. Scribed for Dr. Flory Shaffer by Harley Soliz rn medical surgical, on 11/14/21 at 1:12 PM DIESEL STATIONARY ENGINEER. I, Dr. Shaffer, have personally reviewed and agree with the information entered by the scribe. documented in this encounter Plan of Treatment Upcoming Encounters Date Type Specialty Care Team Description 06/26/2022 Appointment Orthopedics Terra Minor MD [address] [place] [phone] (Wo rk) 07/03/2022 Appointment Orthopedics Terra Minor MD [address] [place] [phone] (Ying rk) 07/10/2022 Appointment Orthopedics Terra Minor MD [address] [place] [phone] (Ying edmonds) Scheduled Referrals Name Type Priority Associated Diagnoses Order S chedule Physical Therapy Referral Routine Thoracic radicu lopathy Ordered: 11/14/2021 Sciatica, unspecified laterality documented as of this encounter Visit Diagnoses Diagnosis Chronic low back pain, unspecified back pain laterality, unspecified whether sciatica present - Primary Thoracic radiculopathy Thoracic or lumbosacral neuritis or radi culitis, unspecified Sciatica, unspecified laterality (HRC) documented in this encounter Care Teams General Handling Supervisor Relationship Specialty Start Date End Date Anne Hoyt DO PCP - General 09/29/14 [address] [place] [address] documented as of this encounter
--- OUTSIDE RECORDS SUMMARY | 2022-06-18 23:13 | XMS_ITS | Encounter Summary ---
:1955 Author Organization [employer] Address [address] [place] [address] Care Team Providers Name Role Phone Anne Hoyt DO Primary Care Provider Unavailable Reason for Visit Reason Comments Knee Pain or Injury Right Encounter Details Date Type Department Care Team Description 09/30/2020 Office Visit [facility] Kayla Gr Primar y osteoarthritis CENTER of right knee (Primary [address] [place], [place] [address] [address] [place], [place] [phone] [id number] Social History Tobacco Use Types Packs/Day Years Used Date Smoking Tobacco: Never Smokeless Tobacco: Never Alcohol Use Standard Drinks/Week Comments Yes 3 (1 standard drink = 0.6 oz pure alcoho l) periodically Sex Assigned at Date Recorded Not on file documented as of this encounter Last Filed Vital Signs Vital Sign Reading Time Taken Comments Blood Pressure - - Pulse - - Temperature - - Respiratory Rate - - Oxygen Saturation - - Inhaled Oxygen Concentration - - Weight 90.7 kg (200 lb) 09/30/2020 12:01 PM CDT Height 174 cm (5' 8.5) 09/30/2020 12:01 PM CDT Body Mass Index 29.97 09/30/2020 12:01 PM CDT documented in this encounter Progress Notes Kayla Gr MD - 09/30/2020 10:40 AM CDT ORTHO CONSULT NOTE Name: Belle Crystal : 1955 Date of Visit: 09/30/2020 Chief Complaint: Chief Complaint Patient presents with ??? Knee Pain or Injury Right History: Belle Crystal is a very pleasant 64 y.o. female who is here for evaluation of her right knee. She isreferred to me by Dr. Emma Minor for this evaluation. The patient reports that she has kneepain that radiates into the medial aspect of the knee with an onset of a few years ago. The pain hasworsened recently. She has significant night pain that will wake her. The patient states that her symptoms are worse with activity, and alleviated by rest. She enjoys walking, gardening, yard work, skiing, and being a very active individual and would like to be able to do these activities again. The patient has tried cortisone injections, with her last injection on 08/30/2020. She states that this injection did not give her any relief. She has also tried Synvisc injections. Her first of three injections was done a week ago. She takes Tylenol and Aleve for her pain. She tried a course of physical therapy. The patient feels that she has failed non-operative treatment for her knee. This is significantly affecting her quality of life and she would like to discuss surgical management. Today, she has some questions regarding the surgery as well as the rehab process. Past Medical History: No past medical history on file. Past Surgical History: Past Surgical History: Procedure Laterality Date ??? SECTION 1998 ??? HAND SURGERY Bilateral CTR ??? NECK SURGERY Parathyroid gland removal Medications: Reviewed by me in [facility]. 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 She lives with her . Denies drug use. Denies smoking. Drinks daily. Family History: Notable for arthritis in her mother, brother, and sister. Review of Systems: A complete 12-point review of systems is done today. This is notable for arthritis and thyroid problems. The remainder are negative. Physical Exam: On exam, the patient is 1.74 m (5' 8.5), 90.7 kg (200 lb). Her BMI is 29.97. She is alert and oriented x3. Cooperative with exam. She has crepitus. Her range of motion is full extension to 125 degreesof flexion. She is stable to valgus and varus stress. Some mild tenderness to palpation over the medial joint line. Distally, she is neurovascularly intact. Imaging Studies: Three views of the left knee were taken on 07/12/2020 and were independently reviewed by me. These images show moderate medial compartment arthritis and severe patellofemoral arthritis with complete joint space loss, subchondral cysts, and osteophyte formation. The patient had an MRI of the left knee done on 09/08/2020. This was independently reviewed and interpreted by me. The impression is as follows: 1. Horizontal tearing of the medial meniscal [...] 5. Possible mild iliotibial band friction syndrome. Assessment and Plan: Belle Crystal is a 64 y.o. female [...] would be an excellent candidate for the [facility] program and we can have her screened for this. She does understand that she has to wait at least 3 months after her last injection to proceed with surgery. All of her questions were answered today. I will be happy to see her back on an as needed basismoving forward. Scribed for Kayla Gr MD by Toña Nicolas Chief Technician X Ray. IMaile Christine M, MD, have personally reviewed and agree with the information provided by the scribe. CC: Dr. Emma Minor MD CC: Dr. Anne Hoyt, documented in this encounter Plan of Treatment [...] leg documented in this encounter Care Teams Route Process Administrator Relationship Specialty Start Date End Date Anne Hoyt DO PCP - General 09/29/14 [address] [place] [address] documented as of this encounter
--- OUTSIDE RECORDS SUMMARY | 2022-06-18 23:13 | XMS_ITS | Encounter Summary ---
:1955 Author Organization [facility] Address [address] [place] [address] Care Team Providers Name Role Phone Anne Hoyt DO Primary Care Provider Unavailable Reason for Visit Procedure/Equipment (Routine) - Incomplete Specialty Diagnoses / Procedures Referred By Contact Refer red To Contact Procedures Provider, Foreign Images Foreign Image(S) XR Knee [address] [place] [address] Referral ID Status Reason Start Date Expiration Date Visits V isits Requested Authorized [id number] Incomplete 08/26/2020 11/25/2021 1 1 Encounter Details Date Type Department Care Team Description 07/12/2020 Ancillary Procedure [facility] PACS Provider, Foreign [address] [place] [address] [address] [place] [address] Social History Tobacco Use Types Packs/Day Years Used Date Smoking Tobacco: Never Sex Assigned at Date Recorded Not on file documented as of this encounter Plan of Treatment Upcoming Encounters Date Type Specialty Care Team Description 06/26/2022 Appointment OrthopedicTerra Ngo MD [address] [place] [phone] ([place]) 07/03/2022 Appointment OrthopedicTerra Ngo MD [address] [place] [phone] ([place]) 07/10/2022 Appointment Terra Soria MD [address] [place] [phone] ([place]) documented as of this encounter Procedures Procedure Name Priority Date/Time Associated Diagnosis Comme nts FOREIGN IMAGE(S) XR Routine 07/12/2020 12:55 PM R esults for this KNEE BILAT INSTRUMENTATION MANAGER procedure are i n the results section. documented in this encounter Results Foreign Image(S) XR Knee Bilat (07/12/2020 12:55 PM INSTRUMENTATION MANAGER) Specimen (Source) Anatomical Location Collection Method / Collectio n Time Received Time / Laterality Volume Narrative POCT - 08/26/2020 12:51 PM INSTRUMENTATION MANAGER These outside images have been uploaded into PACS. If the results were provided, they will be located in the daniel proctor's chart under the Media or Imaging tab. Foreign Images Provider RAD NON-REPORTABLES Performing Organization Address City/State/ZIP Code Phon e Number POCT documented in this encounter Visit Diagnoses Not on filedocumented in this encounter Care Teams Bill Hiker Relationship Specialty Start Date End Date Anne Hoyt DO PCP - General 09/29/14 [address] [place] [address] documented as of this encounter
--- OUTSIDE RECORDS SUMMARY | 2022-06-18 23:13 | XMS_ITS | Encounter Summary ---
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 Reason for Visit Reason Comments CONSULT bilateral knee pain Encounter Details Date Type Department Care Team Description 08/30/2020 Office Visit Neal Espinosa t ear of medial meniscus, right (Primary Dx); [facility] Emma Nice MD Primary osteoarthritis of right knee; [address] Osteoarthritis of [place] [address] [place], [place] [phone] Social History Tobacco Use Types Packs/Day Years Used Date Smoking Tobacco: Never Smokeless Tobacco: Never Alcohol Use Standard Drinks/Week Comments Yes 3 (1 standard drink = 0.6 oz pure alcoho l) periodically Sex Assigned at Date Recorded Not on file documented as of this encounter Patient Instructions Patient InstructionsKevin Barone, ATC - 08/30/2020 11:20 AM CST Thank you for coming to your health care visit at [facility] today. Please read the contents below for important information regarding today's appointment. Dr. Emma Minor MD Sports & Orthopaedic Medicine Medication Requests: Prescriptions are not filled on weekends or on weekdays after 3:00 PM. For all medication refills: Request a refill using MyChart or contact your pharmacy. Clinic Nurse Line: Please contact the Nurse Triage Line for all medical requests and questions at [phone]. Imaging Continuous Improvement Lead [facility]: [phone] [facility]: [phone] Paperwork Requests/ Questions Regarding Surgery Scheduling: Pipe Smoker Machine Operator: Char Crawford [facility] Workers' Compensation [address] [place] [address] (P) [phone] (F) Navigator: Kevin Arreola ATC Diagnosis: Right knee mild arthritis and degeneration of medial meniscus Injection Today: Plan: Steroid Injection: Right Knee 1. Post injection instructions given. Watch for any sign of infection: Red, hot to touch and swollen, call or return immediately if so. 2. Ice twice today for 20 minutes each time and three times tomorrow (20 minutes each session) for symptom management. 3. OTC meds for pain only as needed (Tylenol extra strength-500mg ) 4. It is common to have facial flushing for a few days. You can also occasionally experience a feeling of restlessness for a few days after the injection. Any other concerns, give us a call. 5. Follow up with PCP for general medical issues. 6. The injection you received today may take 7-10 days to begin to reduce your pain and swelling. 7. Cannot have a repeat steroid injection any sooner than 3 months. 8. If you are a known diabetic, make sure to increase the frequency you check your blood sugars. Adjust accordingly. Steroid injections will increase your blood sugars for about 1 week. Plan: Continue physical therapy for the knees. Discussed MRI for further imaging after 6-8 weeks of PT. Follow-Up: As needed 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 documented in this encounter Progress Notes Emma Minor MD - 08/30/2020 11:20 AM CST Images from the original note were not included. SPORTS MEDICINE CONSULT NOTE DATE OF SERVICE: 08/30/2020 REFERRING: PATIENT SELF REFERRAL CHIEF COMPLAINT: Bilateral knee pain HISTORY OF PRESENT ILLNESS Belle Crystal is a 64 y.o. old female who is here for examination of the bilateral knee. [facility] knee pain. Patient was in for multiple issues at that time. Plan for knee pain states Possible Knee arthritis but imbalance from pes planus/pronation offeet, affecting hips as well-knee xrays today for baseline, consider ortho/pt. Today, patient states she is having severe right knee pain and mild left knee pain. 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 RIGHT KNEE: She has started noticing sharp pains started in the last 4 months that she rates a 9/10.She locates her pain on the medial joint line. Walking, stairs, and ankle dorsiflexion cause her pain. She states having pain at night. Denies numbness, tingling, popping, locking, or clicking. She states nothing really relieves the pain. But she has tried icing, heating, and NSAIDs. And states icing has made it worse. LEFT: She has had minor aches and pain of her left knee that she rates a 1/10. She states there is general pain, and not one single spot that hurts. She says her knee clicks occasionally, but no locking, numbness or tingling. Pain is aggravated with going down stairs. She been doing PT at [facility] for the past 4 months for her hips, and does a HEP 5 times a week for strengthening and balance. Also has been doing a HEP 3 for her knees times a week since February 2020 through her work She states her strength and balance has improved, but the pain has not. She has used ice and heat for pain management. She has been able to take walks, but it is painfulafter. She is able to ride a stationary bike at a moderate pace with no pain. Works for [employer] in [place], [place]. MEDICAL HISTORY I reviewed PAST MEDICAL & SURGICAL HISTORY, PROBLEM LIST, SOCIAL AND FAMILY HISTORY with the patient and in Epic today. No past medical history on file. No past surgical history on file. Social History Socioeconomic History ??? Marital status: Spouse name: Not on file ??? Number of children: Not on file ??? Years of education: Not on file ??? Highest education level: Not on file Occupational History ??? Not on file Family History Problem Relation Age of Onset ??? Rheumatologic Disease Mother ??? Heart Disease Maternal Grandmother ??? Heart Disease Maternal Grandfather ALLERGIES: Patient has no known allergies. Current Outpatient Medications Medication Sig Dispense Refill ??? acetaminophen (AKA TYLENOL) 325 MG tablet Take 325-650 mg by mouth every 4 hours as needed. Maximum 4000mg per 24 hours ??? ascorbic acid (ASCORBIC ACID) 500 MG tablet Take 500 mg by mouth daily. ??? aspirin 81 MG tablet Take 81 mg by mouth daily. ??? calcium carbonate-vitamin D (OS-DARIUSZ 500 WITH D) 500-200 MG-UNIT per tablet Take 1 Tab by mouth daily. ??? cholecalciferol (VITAMIN D3) 1000 UNITS tablet Take 1,000 Units by mouth daily. ??? Flaxseed, Linseed, (FLAX SEED OIL) 1000 MG ??? fluvoxaMINE (AKA LUVOX) 100 MG tablet Take 1.5 tablets by mouth nightly. LW Addl Instr:Indicatedfor: Obsessive-Complusive Disorder 30 3 ??? Glucosamine-Chondroitin (GLUCOSAMINE CHONDR COMPLEX) 500-400 MG ??? naproxen sodium (AKA ANAPROX) 220 MG tablet Take 220 mg by mouth 2 times daily (with meals). Indications: PAIN, ARTHRITIS No current facility-administered medications for this visit. PHYSICAL EXAMINATION There were no vitals filed for this visit. Estimated body mass index is 28.19 kg/m?? as calculated from the following: Height as of 04/27/13: 1.753 m (5' 9.02). Weight as of 04/27/13: 86.6 kg (191 lb). PSYCH:Patient is alert and oriented to time, person and place. General: Patient is resting comfortably and is in no acute distress. Weight Bearing: The patient is able to bear weight on the injured leg at this time. INTEGUMENT: Bruising/erythema is not present over the Bilateral knee. CV/VASCULAR: The extremity is warm, well perfused, with nl pedal pulses. NEURO: No sensory deficits to light touch. RESP: No audible wheezes, unlabored breathing. HEENT: Hearing is intact to spoken word. Speech is clear. No gross evidence of visual impairment that would impact ambulation. Oropharynx is clear, no cough QUAD AND HIP STRENGTH: The patient is able to perform a leg lift indicating intact extensor mechanism. Neg. Trendelenburg. RIGHT KNEE OBSERVATION: Deformity is not present. There is no swelling present over the Right knee. INSPECTION & PALPATION: Palpation reveals tenderness: along the medial joint line. KNEE RANGE OF MOTION: Right Extension: 0 with Pain. Flexion: 130 with Pain. HIP ROM: Affected side Flexion: 130 with No pain in the hip. Internal rotation: 30 with No pain in the hip. External rotation: 50 with No pain in the hip. KNEE SPECIAL TESTS: Right Varus testing of the LCL is not positive for laxity with No pain. Valgus testing of the MCL is not positive for laxity with No pain. Posterior Drawer is not positive for laxity with No pain. Gordon test of ACL is not positive for laxity with No pain. Андрей Test of meniscus is not positive with No pain. . KNEE PATELLAR TESTING: Right Patellar position is normal. Tracking is normal. Crepitation is present. LEFT KNEE OBSERVATION: Deformity is not present. There is trace swelling present over the Left knee. INSPECTION & PALPATION: Palpation reveals tenderness: diffusely. KNEE RANGE OF MOTION: Left Extension: 0 with No pain. Flexion: 130 with No pain. HIP ROM: Affected side Flexion: 130 with No pain in the hip. Internal rotation: 30 with No pain in the hip. External rotation: 50 with No pain in the hip. KNEE SPECIAL TESTS: Left Varus testing of the LCL is not positive for laxity with No pain. Valgus testing of the MCL is not positive for laxity with No pain. Posterior Drawer is not positive for laxity with No pain. Gordon test of ACL is not positive for laxity with No pain. Андрей Test of meniscus is not positive with No pain. . KNEE PATELLAR TESTING: Left Patellar position is normal. Tracking is normal. Crepitation is present. Unless otherwise noted, exam components were performed on the contralateral side serving as a comparison for the affected. IMAGING: My (Dr. Minor) independent review of these images: 08/30/2020 4 views of thebilateral knee; Bilateral AP standing, PA flexed view, lateral and sunrise. FINDINGS: EXAM: XR KNEE WB 1 VIEW AP BILATERAL AND 2 VIEWS BILATERAL LOCATION: [facility] DATE/TIME: 07/12/2020 9:10 AM INDICATION: Acute pain of both knees acute pain of both knees. COMPARISON: None. IMPRESSION: RIGHT KNEE: Mild degenerative change patellofemoral joint. Otherwise negative. LEFT KNEE: Advanced degenerative change patellofemoral joint with narrowing of the lateral patellofemoral joint space and marginal osteophyte formation. Subchondral cyst formation. ASSESSMENT & PLAN ASSESSMENT: Right knee mild medial osteoarthritis and degeneration of medial meniscus Left Knee PF OA PLAN: I discussed patient's symptoms and my findings in detail. Continue physical therapy for the knees and hips at [facility] Discussed MRI for further imaging after 6-8 weeks of PT if not better. Discussed bilateral viscosupplement knee injections - did start PA for this for synvisc series. After the history, examination and review of x-rays, it was determined the patient would benefit from an injection. The affected joint to be injected was confirmed with the patient prior to the injection. Risks, benefits and alternatives discussed. Patient decided to go ahead with a knee joint injection.The right anteromedial knee was prepped in a sterile fashion. 4 cc's of 0.2% ropivicaine, plus 40 mgKenalog, followed up with 1- 0.5 cc lidocaine flush was injected. This injection was performed without complication. F/U as needed. All of her questions were answered today. Emma Minor 08/30/2020 45 minutes spent on the date of the encounter doing chart review, review of outside records, review of test results, independent interpretation of tests, patient visit and documentation This note was created using a scribe, templating, and voice recognition software (Blurr) which may result in unintentional word substitutions. 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 documented in this encounter Plan of Treatment Upcoming Encounters Date Type Specialty Care Team Description 06/26/2022 Appointment Orthopedics Terra Minor MD [address] [place], [place] [phone] (Wo rk) 07/03/2022 Appointment Orthopedics Terra Minor MD [address] [place] [phone] (Wo rk) 07/10/2022 Appointment Orthopedics Terra Minor MD [address] [place] [phone] (Wo rk) documented as of this encounter Visit Diagnoses Diagnosis Degenerative tear of medial meniscus, ri ght - Primary Primary osteoarthritis of right knee Primary localized osteoarthrosis, lower leg Osteoarthritis of left patellofemoral sergei int documented in this encounter Care Teams Forcer Maker Relationship Specialty Start Date End Date Anne Hoyt DO PCP - General 09/29/14 [address] [place] [address] documented as of this encounter
--- OUTSIDE RECORDS SUMMARY | 2022-06-18 23:13 | XMS_ITS | Encounter Summary ---
:1955 [facility] Address [address] [place] [address] Care Team Providers Name Role Phone Anne Hoyt DO Primary Care Provider Unavailable Reason for Referral Procedure/Equipment (Routine) - Closed Specialty Diagnoses / Procedures Referred By Contact Refer red To Contact Diagnoses Chronic low back pain, unspecified back pain laterality, unspecified whether sciatica present Flory Shaffer MD Procedures MR Lumbar Spine WO IV Cont [address] [facility] [place], [place] [address] Referral ID Status Reason Start Date Expiration Date Visits Requ ested Visits Authorized [id number] Closed 11/03/2021 02/02/2023 1 1 Reason for Visit Reason Comments Back Pain LEG PAIN Right Encounter Details Date Type Department Care Team Description 11/03/2021 Office Visit [facility] Flory Shaffer [facility] low back CENTER MD Debbie pain, unspecified [address] [facility] [address] [facility] back pain laterality, [place], [place] [address] [place], [place] unspecified whether [phone] sciatica present [phone] (Wo rk) (Primary Dx) Social History Tobacco Use Types Packs/Day Years Used Date Smoking Tobacco: Never Smokeless Tobacco: Never Alcohol Use Standard Drinks/Week Comments Yes 3 (1 standard drink = 0.6 oz pure alcoho l) periodically Sex Assigned at Date Recorded Not on file documented as of this encounter Patient Instructions Patient InstructionsPorter, Sheila R, MA - 11/01/2021 11:18 AM CDT Thank you for Choosing [facility] for your health care visit today. Markell Shaffer MD Physical Medicine & Rehabilitation Medication Requests: Prescriptions are not filled on weekends or on weekdays after 3:00 PM. For all medication refills: Request a refill using [employer] or contact your pharmacy. What is Know [...] at [facility] please call [phone]. To schedule an MRI or CT at a [facility] please call [phone]. [facility] Workers' Compensation [address] [place] [address] (Phone) Email: [email or web address] Release of Information: Radiology/Imaging [address] [place] [address] (Phone) Health Information Management [address] [place] [address] (Phone) Flow[facility] Schedule lumbar MRI Follow up with Dr. Shaffer to review results documented in this encounter Progress Notes Flory Shaffer MD - 11/03/2021 7:20 AM CDT Date of Service: 11/03/2021 Date of : 1955 Subjective: Belle Crystal is a 65 y.o. female presents for an evaluation of low back pain. States her low back pain is worsening since the last few months. She notes throbbing pain when driving, which radiates to her buttocks and thigh region. Otherwise, does not have any significant pain most of the day. Denies difficulty sleeping due to the pain. She has done physical therapy at [facility]. Also has had osteopathic manipulation with PCP. She has not done any chriopractic treatment. States she is on the exercise bike about 50 minutes almost daily. She also does sit ups, knee strengthening exercises, elliptical, walking, and gardening. She has been following up with sports umpire, Dr. Minor, for bilateral knee pain and receives injections. Pain location: Low back Pain severity: 10 Timing: Intermittent Quality: Throbbing pain Trend: Worsening Aggravated by sitting during driving. Previous treatments: - Home exercises - Physical Therapy - Osteopathic manipulation Imaging: MRI of lumbar spine without contrast was done on 07/13/2011. Impression: 1. Minimal disk bulge with associated annular defect posteriorly on the right at the L5-S1 level abuts the traversing right S1 nerve root in the lateral recess. 2. Mild disk bulges at the L3-L4 and L4-L5 levels without significant spinal canal stenosis. Family History Problem Relation Age of Onset ??? Rheumatologic Disease Mother ??? Heart Disease Maternal Grandmother ??? Heart Disease Maternal Grandfather Family History: Rheumatoid arthritis No Chronic joint disease Yes Chronic back pain No Spine injury No Chemical dependency treatment No Alcohol dependency treatment No?? Social History Occupational History ??? Not on file Tobacco Use ??? Smoking status: Never Smoker ??? Smokeless tobacco: Never Used Vaping Use ??? Vaping Use: Never used Substance and Sexual Activity ??? Alcohol use: Yes Alcohol/week: 3.0 - 6.0 standard drinks Types: 3 - 6 Cans of beer per week Comment: periodically ??? Drug use: Never ??? 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 Medication: Reviewed and updated on [employer]. Allergies: Reviewed and updated on [employer]. Physical Examination: Pleasant patient in no apparent distress. Mood is within normal limits. Gait: Normal. Lumbar spine range of motion is functional. Palpation: No significant tenderness noted over the lumbar paraspinal region on exam. Strength: Bilateral lower extremities is normal. Peripheral joint range of motion of the bilateral lower extremities is functional. Fabere, Stinchfield hip test and straight leg raise test are negative. Tone: No obvious tone abnormalities of the bilateral lower extremities. Reflexes at the patella and ankle jerks are normal bilaterally. With sitting tripod test, she does have radiation and pain in the buttock, thigh region. Impression: Chronic low back pain with right buttock pain and early radicular type pain. Plan: 1. She had done physical therapy, osteopathic manipulation with a primary care physician. She notes that when she sits in the car and is driving, the pain becomes very severe. Functionally, she is having some issues. Discussed lumbar spine MRI for further evaluation of structural changes. Special attention to the L5-S1 neuroforamina region. She has completed physical therapy. Will assess her neck andback program after MRI. Recheck after MRI. 2. Reviewed medications. At this time, will hold any medications. She is in agreement with the above plan. Scribed for Dr. Flory Shaffer by Harley Soliz phlebotomist medical lab assistant, on 11/03/21 at 8:11 AM DICE TABLE PERSON. I, Dr. Shaffer, have personally reviewed and agree with the information entered by the scribe. 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 Employer: [employer] Previous treatments: Home exercises Physical Therapy documented in this encounter Plan of Treatment Upcoming Encounters Date Type Specialty Care Team Description 06/26/2022 Appointment Orthopedics Terra Minor MD [address] [place] [phone] (Wo rk) 07/03/2022 Appointment Orthopedics Terra iMnor MD [address] [place] [phone] (Wo rk) 07/10/2022 Appointment Orthopedics Terra Minor MD [address] [place], [place] [address] (Wo rk) documented as of this encounter Results MR Lumbar Spine WO IV Cont (11/08/2021 9:36 AM CDT) Anatomical Region Laterality Modality Spine, L-Spine, Skeletal, MSK Magnetic R esonance Specimen (Source) Anatomical Collection Method Collection Time Re ceived Time Location / / Volume Laterality 11/08/2021 9:16 AM CDT Impressions 11/08/2021 11:18 AM CDT INDICATION: Low back pain, > 6 wks TECHNIQUE: ??Routine non-contrast MRI of the lumbar spine. COMPARISON: 07/13/2011 FINDINGS: Five lumbar-type vertebral bod ies. The conus medullaris terminates at the level of the L1 vertebral body. ??Normal cord signal. ??Mild loss of disc space height at the L3-L4 level. ??Normal al ignment. The visualized paraspinal struc tures are unremarkable. Axial: T12-L1: Unremarkable. L1-2: Unremarkable. L2-3: Unremarkable. ?? L3-4: Minimal disc bulge flattens the ve ntral thecal sac. The neural foramen are patent. L4-5: Minimal disc bulge with associated annular fissure has decreased in size flattening the ventral thecal sac. The neural foramen are patent. L5-S1: Minimal disc bulge abuts the sade ersing right S1 nerve root without evidence for compression unchanged from prior. The neural foramen are patent. ?? IMPRESSION: ?? 1. Stable minimal disc bulge at the L5-S 1 level abuts the traversing right S1 nerve root without evidence for compression. 2. Minimal disc bulge with associated an nular fissure at the L4-L5 level has decreased in size flattening the ventral thecal sac. 3. Stable minimal disc bulge flattens th e ventral thecal sac at the L3-L4 level. Comment: Many lumbar spine MRI findings are so common that while we may have reported their presence, they must be interpreted with caution and in the context of the clinical situation. The frequency of these findings in adults WITHOUT low ba ck pain increases with age and are as follows: disk degeneration (37-96%), disk height loss (24-84%), disk bulge (30- 84%), disk protrusion (29-43%), annular fissure (19-29%), and facet degeneration (4-83%). Frequency percentages adapted from Perri ortiz W, Enedelia PH, Carole B, et al. AJNR AM J Neuroradiol 2015:36:811-16. Procedure Note Shayan Kern MD - 11/08/2021Forma tting of this note might be different from the original. IMPRESSION INDICATION: Low back pain, > 6 wks TECHNIQUE: Routine non-contrast MRI of t he lumbar spine. COMPARISON: 07/13/2011 FINDINGS: Five lumbar-type vertebral bod ies. The conus medullaris terminates at the level of the L1 vertebral body. Normal cord signal. Mild loss of disc space height at the L3-L4 level. Normal alignment. The visualized paraspinal structures are unr emarkable. Axial: T12-L1: Unremarkable. L1-2: Unremarkable. L2-3: Unremarkable. L3-4: Minimal disc bulge flattens the ve ntral thecal sac. The neural foramen are patent. L4-5: Minimal disc bulge with associated annular fissure has decreased in size flattening the ventral thecal sac. The neural foramen are patent. L5-S1: Minimal disc bulge abuts the sade ersing right S1 nerve root without evidence for compression unchanged from prior. The neural foramen are patent. IMPRESSION: 1. Stable minimal disc bulge at the L5-S 1 level abuts the traversing right S1 nerve root without evidence for compression. 2. Minimal disc bulge with associated an nular fissure at the L4-L5 level has decreased in size flattening the ventral thecal sac. 3. Stable minimal disc bulge flattens th e ventral thecal sac at the L3-L4 level. Comment: Many lumbar spine MRI findings are so common that while we may have reported their presence, they must be interpreted with caution and in the context of the clinical situation. The frequency of these findings in adults WITHOUT low back pain increases w ith age and are as follows: disk degeneration (37-96%), disk height loss (24-84%), disk bulge (30-84%), disk protrusion (29-43%), annular fissure (19-29%), and facet degeneration (4-83%). Frequency percentages adapted from Perri ortiz W, Enedelia PH, Carole B, et al. AJNR AM J Neuroradiol 2015:36:811-16. Flory Shaffer MD RAD MRI documented in this encounter Visit Diagnoses Diagnosis Chronic low back pain, unspecified back pain laterality, unspecified whether sciatica present - Primary Chronic low back pain, unspecified back pain laterality, unspecified whether sciatica present documented in this encounter Care Teams Sap Functional Analyst Relationship Specialty Start Date End Date Anne Hoyt DO PCP - General 09/29/14 [address] [place] [address] documented as of this encounter
--- OUTSIDE RECORDS SUMMARY | 2022-06-18 23:13 | XMS_ITS | Encounter Summary ---
:1955 Author Organization [employer] Address [address] [place] [address] Care Team Providers Name Role Phone Anne Hoyt DO Primary Care Provider Unavailable Reason for Referral (Routine) - Closed Specialty Diagnoses / Procedures Referred By Contact Refer red To Contact Diagnoses De Kitty's tenosynovitis, left Radha Ibarra MD Procedures Methylprednisolone 40 Mg Inj [address] [place] [address] [place], [place] [address] Referral ID Status Reason Start Date Expiration Date Visits Requ ested Visits Authorized [id number] Closed 12/06/2020 03/07/2022 1 1 Procedure/Equipment (Routine) - Incomplete Specialty Diagnoses / Procedures Referred By Contact Refer red To Contact Diagnoses Left wrist pain Radha Ibarra MD Procedures XR Wrist Lt 3+ Views [address] [place] [address] [place] [address] Referral ID Status Reason Start Date Expiration Date Visits V isits Requested Authorized [id number] Incomplete 12/06/2020 03/07/2022 1 1 Reason for Visit Reason Comments WRIST PAIN Left Encounter Details Date Type Department Care Team Description 12/06/2020 Office Visit [facility] Radha Ibarra MD Left wrist pain (Primary Dx); CENTER [address] [facility] [address] Jauregui's tenosynovitis, left [address] [place], [place] [id number] [phone] (Wo rk) Social History Tobacco Use Types [...] Mass Index 28.35 12/06/2020 2:49 PM CDT documented in this encounter Patient Instructions Patient InstructionsLaureen Badillo ATC - 12/06/2020 2:[address] Rosa Elena Ibarra MD Hand & Upper Extremity Surgeon Medication Requests: Prescriptions are not filled on weekends or on weekdays after 3:00 PM documented in this encounter Progress Notes Radha Ibarra MD - 12/06/2020 12:00 AM CDT NAME: JACOBY GUERRERO CSN: [id number] CLINIC NOTE DATE OF SERVICE: 12/06/2020 : 1955 CHIEF COMPLAINT: Left wrist pain. HPI: Jacoby Guerrero is a right-hand dominant 65-year-old female who presents today with evaluation ofleft wrist pain. She previously saw Dr. Ibarra and had open carpal tunnel releases in 2006 on the bilateral wrists. These went well. She now has developed left wrist pain over the 1st dorsal compartment.She notes her symptoms going on for a couple months, and she denies any injury. She feels it is getting worse. She feels like it is worse with movement and grasp. She has been icing and using a brace occasionally without significant relief. PAST MEDICAL HISTORY: None. PAST SURGICAL HISTORY: Bilateral carpal tunnel is 2006, removal of parathyroids in 2014, and in 1998. MEDICATIONS: 1.Prestige. 2.Vitamin D3. 3.Vitamin C. 4.Calcium. 5.B12. ALLERGIES: NONE. 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 Lives with family at home. She does not smoke or use illicit drugs. She does drink alcohol occasionally. She exercises daily. She always uses her seatbelt. REVIEW OF SYSTEMS: 12-point review of systems was completed and is positive for the following: Use of glasses, joint pains, arthritis, and hay fever. FAMILY HEALTH HISTORY: The family health history was completed and is positive for cancer in her sister, lymphoma; heart disease in her mother; arthritis in her mother and sister. PHYSICAL EXAM: The patient is awake, alert, oriented, in no acute distress, and nonlabored respirations on room air. SKIN: Warm abdomen well perfused. Focused examination of the left upper extremity reveals swelling over the 1st dorsal extensor compartment with tenderness to palpation at the site as well. There is a palpable radial pulse. She fires EPL, FPL, interossei muscles. She does have a positive Carrie test. IMAGING: AP, lateral, and oblique radiographs of the left wrist were ordered and reviewed today. These reveal Eaton stage II degenerative changes of the left thumb, however, no other significant degenerative changes or abnormalities about the left wrist. ASSESSMENT: Jacoby Guerrero is a right-hand dominant 65-year-old female with a left 1st dorsal compartment stenosing tenosynovitis. We discussed with Jacoby today her diagnosis and discussed her treatment options. We discussed that she could continue with observation, bracing, symptomatic treatment such as anti-inflammatories or icing. Additionally, we discussed that she can consider a corticosteroid injection or if her symptoms get even worse, could consider a 1st dorsal compartment release. We discussed the risks, benefits, possible complications of all the above the treatment options, and she elected to proceed with corticosteroid injection today. We will see how this helps her symptoms and see her back on an as-needed basis. PLAN: 1.Left 1st dorsal compartment corticosteroid injection. 2.Follow up as needed. PROCEDURE: After verbal informed consent was obtained from the patient, and the correct procedure, procedure site, and patient were confirmed with the patient, the skin over the 1st dorsal compartment of the left wrist was prepped with alcohol. Ethyl chloride spray was used to numb the skin. 1% lidocaine was used to inject the skin and subcutaneous tissues at the local injection site, and then 40 mg of Depo-Medrol were injected into the 1st dorsal compartment uneventfully. The needle was withdrawn, and a clean bandage was placed. There were no complications, and the patient tolerated the procedure well. The patient and seen and discussed with Dr. Ibarra, who agreed with the above assessment and plan. HILLARY SENA MD Staff: MD KEVIN HALEY/GUERRERO /[id number] documented in this encounter Plan of Treatment Upcoming Encounters Date Type Specialty Care Team Description 06/26/2022 Appointment Orthopedics Terra Minor MD [address] [place] [phone] ([place]) 07/03/2022 Appointment Orthopedics Terra Minor MD [address] [place] [phone] ([place]) 07/10/2022 Appointment Orthopedics Terra Minor MD [address] [place] [address] ([place]) documented as of this encounter Results XR Wrist Lt 3+ [...] encounter Visit Diagnoses Diagnosis Left wrist pain - Primary Pain in joint, forearm De Quervain's tenosynovitis, left Left wrist pain Pain in joint, forearm documented in this encounter Care Teams Finance Assistant Relationship Specialty Start Date End Date Anne Hoyt DO PCP - General 09/29/14 [address] [place] [address] documented as of this encounter
--- OUTSIDE RECORDS SUMMARY | 2022-06-18 23:13 | XMS_ITS | Encounter Summary ---
:1955 Author [facility] Address [address], [place] [address] Care Team Providers Name Role Phone Anne Hoyt DO Primary Care Provider Unavailable Reason for Referral (Routine) - New Request Specialty Diagnoses / Procedures Referred By Contact Refer red To Contact Diagnoses Primary osteoarthritis of both knees Emma Minor, Procedures Synvisc Or Synvisc (per 1 mg) - quantity = 16 [address] [place] [address] Referral ID Status Reason Start Date Expiration Date Visits V isits Requested Authorized [id number] New Request 05/11/2021 08/10/2022 1 1 Reason for Visit Reason Comments Follow-up Encounter Details Date Type Department Care Team Description 05/11/2021 Office Visit GALLO Minor, Primary osteoa [facility]thritis [facility] Emma Nice MD of both knees (Primary [address] [place]) [place] [address] [place], [place] [phone] Social History Tobacco Use Types Packs/Day Years Used Date Smoking Tobacco: Never Smokeless Tobacco: Never Alcohol Use Standard Drinks/Week Comments Yes 3 (1 standard drink = 0.6 oz pure alcoho l) periodically Sex Assigned at Date Recorded Not on file documented as of this encounter Patient Instructions Patient InstructionsDariel Dunn, ATC - 05/11/2021 8:00 AM CDT Thank you for choosing [facility] for your health care visit today. Please read the contents below for important information regarding today's appointment. Medication Requests: Prescriptions are not filled on weekends or on weekdays after 3:00 PM. For all medication refills: Request a refill using [employer] or contact your pharmacy. MRI Scheduling: To schedule an MRI at [facility] please call [phone]. For [facility] please call [phone]. For [facility] please call [phone]. [facility] Workers' Compensation [address] [place] [address] (Phone) What is Know Your Cost? Know Your Cost is a service for patients and patient/members to call and receive personalized cost information and estimates across our care group. The phone number is (COST) and is openSaturday - Saturday from 8 a.m[address] to [address] Emma Minor MD Sports & Orthopedic Medicine [facility] Saturday, Saturday PM, AM, and Saturday Paperwork Requests/ Questions Regarding Surgery Scheduling: All paperwork takes up to 10 business days to complete. Cycle Manager: Maggie Glover Navigator: Dariel Chatterjee ATC Diagnosis: Diagnosis and [...] encounter Progress Notes Emma Minor MD - 05/11/2021 8:00 AM CDT Images from the original note were not included. SPORTS MEDICINE FOLLOW UP NOTE DATE OF SERVICE: 05/11/2021 CHIEF COMPLAINT: Follow up: Right??knee mild??medial??osteoarthritis and degeneration of medial meniscus Left Knee??PF OA HISTORY OF PRESENT ILLNESS Belle Crystal is a 65 y.o. old female who is here for follow up examination of the bilateral knee pain. Patient initially seen on 08/30/20. 08/30/2020 right knee injected with cortisone, PT at [facility] ?? 09/30/20;surgeon Maile at [place] Belle Crystal??is a 64 y.o.??female??with severe left [...] Physical therapy order given for wrist pain??at [facility] 4. Follow up at [facility] for the wrist if brace and PT do not help??- has seen Stacey in past and follow up next week for right knee syn #[address] Gr (total joint surgeon tomorrow at [facility]) ?? 10/06/2020 Bilateral synvisc ?? 10/14/20 Bilateral synvisc ?? 10/21/20 Left knee synvisc injection? 04/27/21 Bilateral synvisc injection 05/04/21 Bilateral Synvisc injection Today, she is reporting her knee is feeling better already. Her pain continues to be along the medial joint line. Today she is here for the last injection of the series. MEDICAL HISTORY For initial presenting history, past [...] ambulation. Oropharynx is clear, no cough EXAM: No effusion Full extension from a seated position IMAGING: My (Dr. Minor) independent review of [...] band friction syndrome. ASSESSMENT & PLAN ASSESSMENT: Bilateral Knee OA PLAN: I discussed patient's symptoms and my findings in detail After the history, examination and review of x-rays, it was determined the patient would benefit from an injection. Risks, benefits and alternatives discussed. Patient decided on synvisc injection(s) #3. The affected joint to be injected was confirmed with the patient prior to the injection. The knee was prepped in a sterile fashion. The bilateral anterolateral Knee was injected with 2 ml of synvisc prepackaged solution, without complications. F/U as needed All of her questions were answered today. This document serves as a record of all services personally provided by Emma Minor MD. Documentation provided by Dariel Dunn ATC based on my personal observation of the services provided and the providers statements to me. Emma Minor MD 05/11/2021 10 minutes spent on the date of the encounter doing chart review, patient visit and documentation This note was created using a scribe, templating, and voice recognition software ([employer]) which may result in unintentional word substitutions. documented in this encounter Plan of Treatment Upcoming Encounters Date Type Specialty Care Team Description 06/26/2022 Appointment Orthopedics Terra Mionr MD [address] [place], [place] [phone] ([facility]) 07/03/2022 Appointment Orthopedics Terra Minor MD [address] [place] [phone] (Wo rk) 07/10/2022 Appointment Orthopedics Terra Minor MD [address] [place] [phone] (Wo rk) documented as of this encounter Visit Diagnoses Diagnosis Primary osteoarthritis of both knees - P rimary Primary localized osteoarthrosis, lower leg documented in this encounter Care Teams Housing Property Manager Relationship Specialty Start Date End Date Anne Hoyt DO PCP - General 09/29/14 [address] [place] [address] documented as of this encounter
--- OUTSIDE RECORDS SUMMARY | 2022-06-18 23:13 | XMS_ITS | Encounter Summary ---
:1955 Author Organization [facility] Address [address] [place] [address] Care Team Providers Name Role Phone Anne Hoyt DO Primary Care Provider Unavailable Reason for Visit Procedure/Equipment (Routine) - Closed Specialty Diagnoses / Procedures Referred By Contact Refer red To Contact Diagnoses Primary osteoarthritis of right knee Degenerative tear of medial meniscus, right Emma Minor, Procedures MR Knee Rt WO IV Cont [address] [place] [address] Referral ID Status Reason Start Date Expiration Date Visits Requ ested Visits Authorized [id number] Closed 09/07/2020 12/07/2021 1 1 Encounter Details Date Type Department Care Team Description 09/08/2020 Ancillary [place] Zhanna Christyjas, Primary osteoa rthritis of right knee; Procedure [place] [address] Emma Nice MD Degenerative tear of medial meniscus, [facility] Radiology MRI [address] [address] [place], [place] [address] [address] [place], [place] [phone] (Work) [phone] Social History Tobacco Use Types Packs/Day Years [...] Name Priority Date/Time Associated Diagnosis Comme nts MR KNEE RT WO IV Routine 09/08/2020 7:49 AM Primary osteoarthr itis Results for this CONT STRAIGHTENING PRESS OPERATOR HELPER of right knee procedure are in Degenerative tear of the res ults medial meniscus, right secti on. documented in this encounter Results MR Knee Rt WO IV Cont (09/08/2020 7:49 AM STRAIGHTENING PRESS OPERATOR HELPER) Anatomical Region Laterality Modality Lower Extremity, Knee, Skeletal, Thigh, Leg Right Magnetic Resonance Specimen (Source) Anatomical Collection Method Collection Time Re ceived Time Location / / Volume Laterality 09/08/2020 7:18 AM STRAIGHTENING PRESS OPERATOR HELPER Impressions 09/08/2020 9:12 AM STRAIGHTENING PRESS OPERATOR HELPER TECHNIQUE: ??Routine MRI of the right knee [...] documented in this encounter Visit Diagnoses Diagnosis Primary osteoarthritis of right knee Primary localized osteoarthrosis, lower leg Degenerative tear of medial meniscus, ri ght documented in this encounter Care Teams Barrel Reamer Relationship Specialty Start Date End Date Anne Hoyt DO PCP - General 09/29/14 [address] [place] [address] documented as of this encounter
--- OUTSIDE RECORDS SUMMARY | 2022-06-18 23:13 | XMS_ITS | Encounter Summary ---
:1955 Author Organization [facility] Address [address] [place] [address] Care Team Providers Name Role Phone Anne Hoyt DO Primary Care Provider Unavailable Reason for Visit Procedure/Equipment (Routine) - Closed Specialty Diagnoses / Procedures Referred By Contact Refer red To Contact Diagnoses Chronic low back pain, unspecified back pain laterality, unspecified whether sciatica present Flory Shaffer MD Procedures MR Lumbar Spine WO IV Cont [address] [facility] [place] [address] [place] [address] Referral ID Status Reason Start Date Expiration Date Visits Requ ested Visits Authorized [id number] Closed 11/03/2021 02/02/2023 1 1 Encounter Details Date Type Department Care Team Description 11/08/2021 Ancillary [facility] MRI Flory Shaffer Chronic low back Procedure [address] Lewis MD pain, unspecified Drive [address] [facility] back pain [place], [place], [address] unspecified whether [phone] sciatica presen t (Work) Social History Tobacco Use Types Packs/Day Years [...] Priority Date/Time Associated Diagnosis Comme nts MR LUMBAR SPINE WO Routine 11/08/2021 9:36 AM Chronic low back Results for this IV CONT CDT pain, unspecified procedure are in back pain the results laterality, section. unspecified whether sciatica present documented in this encounter Results MR Lumbar Spine WO [...] Frequency percentages adapted from Perri ortiz W, Lumarcia PH, Carole B, et al. AJNR AM J Neuroradiol 2015:36:811-16. Flory Shaffer MD RAD MRI documented in this encounter Visit Diagnoses Diagnosis Chronic low back pain, unspecified back pain laterality, unspecified whether sciatica present documented in this encounter Care Teams Automatic Edger Relationship Specialty Start Date End Date Anne Hoyt DO PCP - General 09/29/14 [address] [place] [address] documented as of this encounter
--- OUTSIDE RECORDS SUMMARY | 2022-06-18 23:13 | XMS_ITS | Encounter Summary ---
:1955 Author Organization [employer] Address [address] [place] [address] Care Team Providers Name Role Phone Anne Hoyt DO Primary Care Provider Unavailable Reason for Visit Reason Comments QUESTIONS, GENERAL Encounter Details Date Type Department Care Team Description 11/07/2021 Telephone [facility] Flory Shaffer QUESTIONS, GENERAL [address] [facility] Osmany Lewis MD [place], [place] [address] [address] [facility] [phone] [place] [address] (Wo rk) Social History Tobacco Use Types Packs/Day Years Used Date Smoking Tobacco: Never Smokeless Tobacco: Never Alcohol Use Standard Drinks/Week Comments Yes 3 (1 standard drink = 0.6 oz pure alcoho l) periodically Sex Assigned at Date Recorded Not on file documented as of this encounter Nursing Notes Solomon Nichols RN - 11/08/2021 8:56 AM CDT Pt was called back and LVM that she would need to be seen prior to any cervical MRI ordered. Pt can still proceed with a lumbar MRI as a cervical MRI might now be necessarily needed Flory Shaffer MD - 11/08/2021 7:19 AM CDT Reviewed above, she will need that follow up appt to evaluate first. Agree with the below. Alexandria Adames RN - 11/07/2021 10:23 AM CDT TOBI 11/03/21 Chronic low back pain with right buttock pain and early radicular type pain. Patient calling stating she is scheduled to get her lumbar spine MRI tomorrow. She also notes that she has been having some issues that she thinks are related to her cervical spine as well. She didn't mention these symptoms during her Visit with Dr. Shaffer- intermittent L shoulder pain that radiates into her arm, hand tingling and numbness. She is wondering if she could get a cervical spine MRI as well? Advised patient likely Dr. Shaffer will want to evaluate her first. Patient states she will cancel her MRI for tomorrow and follow up with Dr. Shaffer as scheduled already on 11/14 and then if a cervical spine MRI is warranted, she will schedule both lumbar and cervical MRIs at the same time. Routing to Dr. Shaffer Dre Crowe - 11/07/2021 9:18 AM CDT Patient called to report MRI tomorrow for lower back. Patient also reports issues with upper back aswell and is asking should tomorrow MRI include upper back as well? Dre Crowe 11/07/2021, 9:19 AM documented in this encounter Plan of Treatment Upcoming Encounters Date Type Specialty Care Team Description 06/26/2022 Appointment Orthopedics Terra Minor MD [address] [place] [phone] (Wo rk) 07/03/2022 Appointment Terra Soria MD [address] [place] [phone] (Wo rk) 07/10/2022 Appointment OrthopedicTerra Ngo MD [address] [place] [address] (Wo rk) documented as of this encounter Visit Diagnoses Not on filedocumented in this encounter Care Teams Locomotive Crane Engineer Relationship Specialty Start Date End Date Anne Hoyt DO PCP - General 09/29/14 [address] [place] [address] documented as of this encounter
--- OUTSIDE RECORDS SUMMARY | 2022-06-18 23:13 | XMS_ITS | Encounter Summary ---
:1955 Author Organization [facility] Address [address] [address] Care Team Providers Name Role Phone Anne Hoyt DO Primary Care Provider Unavailable Reason for Visit Procedure/Equipment (Routine) - Incomplete Specialty Diagnoses / Procedures Referred By Contact Refer red To Contact Procedures Provider, Foreign Images Foreign Image(S) XR L-Spine [address] [place] [address] Referral ID Status Reason Start Date Expiration Date Visits V isits Requested Authorized [id number] Incomplete 09/24/2019 12/23/2020 1 1 Encounter Details Date Type Department Care Team Description 09/01/2019 Ancillary Procedure [facility] Radiology PACS Provider, Foreign [address] [place] [address] [address] [place] [address] Social History Tobacco Use Types Packs/Day Years [...] Diagnosis Comme nts FOREIGN IMAGE(S) XR Routine 09/01/2019 12:00 AM R esults for this L-SPINE TRANSIT SPECIALIST procedure are i n the results section. documented in this encounter Results Foreign Image(S) XR L-Spine (09/01/2019 12:00 AM TRANSIT SPECIALIST) Specimen (Source) Anatomical Location Collection Method / Collectio n Time Received Time / Laterality Volume Narrative POCT - 09/24/2019 2:44 PM CDT These outside images have been uploaded into PACS. If the results were provided, they will be located in the daniel proctor's chart under the Media or Imaging tab. Foreign Images Provider RAD NON-REPORTABLES Performing Organization Address City/State/ZIP Code Phon e Number POCT documented in this encounter Visit Diagnoses Not on filedocumented in this encounter Care Teams Local Delivery Truck Driver Relationship Specialty Start Date End Date Anne Hoyt DO PCP - General 09/29/14 [address] [place] [address] documented as of this encounter
--- OUTSIDE RECORDS SUMMARY | 2022-06-18 23:13 | XMS_ITS | Encounter Summary ---
:1955 Author Organization [facility] Address [address] [address] Care Team Providers Name Role Phone Anne Hoyt DO Primary Care Provider Unavailable Reason for Referral (Routine) - New Request Specialty Diagnoses / Procedures Referred By Contact Refer red To Contact Diagnoses Primary osteoarthritis of both knees Emma Minor, Procedures Synvisc Or Synvisc (per 1 mg) - quantity = 16 MD [address] [place] [address] Referral ID Status Reason Start Date Expiration Date Visits V isits Requested Authorized [id number] New Request 05/04/2021 08/03/2022 1 1 Reason for Visit Reason Comments CONSULT Encounter Details Date Type Department Care Team Description 05/04/2021 Office Visit GALLO Minor, [facility]oa [facility]thritis [facility] Emma Nice MD of both knees (Primary [address] [place]) [place] [address] [place], [place] [phone] [address] Social History Tobacco Use Types Packs/Day Years Used Date Smoking Tobacco: Never Smokeless Tobacco: Never Alcohol Use Standard Drinks/Week Comments Yes 3 (1 standard drink = 0.6 oz pure alcoho l) periodically Sex Assigned at Date Recorded Not on file documented as of this encounter Patient Instructions Patient InstructionsCichaEmma mattson MD - 05/04/2021 8:00 AM CDT Thank you for choosing [facility] for your health care visit today. Please read the contents below for important information regarding today's appointment. Medication Requests: Prescriptions are not filled on weekends or on weekdays after 3:00 PM. For all medication refills: Request a refill using Viddyadt or contact your pharmacy. MRI Scheduling: To schedule an MRI at [facility] please call [phone]. For [facility] please call [phone]. For [facility] please call [phone]. [facility] Workers' Compensation [address] [place], [place] [id number] (Phone) What is Know Your Cost? Know Your Cost is a service for patients and patient/members to call and receive personalized cost information and estimates across our care group. The phone number is (COST) and is openSaturday - Saturday from 8 a.m[address] to [address] Emma Minor MD Sports & Orthopedic Medicine [facility] Saturday, Saturday PM, AM, and Saturday Paperwork Requests/ Questions Regarding Surgery Scheduling: All paperwork takes up to 10 business days to complete. Senior Underwriting Assistant: Maggie Glover Injection Today: The bilateral knee was injected with Synvisc (series) and . 1. Post-injection instructions given. Watch for sign of infection, if your knee gets red, hot to touch or swelling. Call or return immediately if either occur. 2. Ice twice today for 20 minutes each time and three times tomorrow (20 minutes each session) for symptom management. 3. OTC medications (Advil, Aleve, Tylenol, Etc.) for pain as needed. 4. synvisc is a Hyaluronic Acid (GORDON) product. GORDON [...] if you have any questions or concerns! documented in this encounter Progress Notes Emma Minor MD - 05/04/2021 8:00 AM CDT Images from the original note were not included. SPORTS MEDICINE FOLLOW UP NOTE DATE OF SERVICE: 05/04/2021 CHIEF COMPLAINT: Follow up: Right??knee mild??medial??osteoarthritis and degeneration of medial meniscus Left Knee??PF OA HISTORY OF PRESENT ILLNESS Belle Crystal is a 65 y.o. old female who is here for examination of the bilateral knee pain. Patient initially seen on 08/30/20: 08/30/2020 right knee injected with cortisone, PT at [facility] ?? 09/30/20;surgeon [place] at [place] Belle Crystal??is a 64 y.o.??female??with severe left [...] that??she??would be an excellent candidate for the [facility] program??and we can have her screened for this. She does understand that she has to wait at least 3 months after her last injection to proceed with surgery. ?? 09/29/2020 1. Right knee synvics injection #1 2. Fitted for wrist brace with thumb spica 3. Physical therapy order given for wrist pain??at [facility] 4. Follow up at [facility] for the wrist if brace and PT do not help??- has seen Stacey in past and follow up next week for right knee syn #[address] Gr (total joint surgeon tomorrow at [facility]) ?? 10/06/2020 Bilateral synvisc ?? 10/14/20 Bilateral synvisc ?? 10/21/20 Left knee synvisc injection 04/27/21 Bilateral synvisc injection ?? Today, She reports that her right knee is doing slightly better after the first Orthovisc injection, the left knee is not typically as painful so she hasn't noticedd as much improvement. She has met with a total joint surgeon about a TKA in the future but she is not planning on having TKA in the near future.Overall she feels that her knees are much better than they were prior to trying gel injections. She performs HEP daily MEDICAL HISTORY I reviewed PAST MEDICAL & SURGICAL HISTORY, PROBLEM LIST, SOCIAL AND FAMILY HISTORY with the patient and in Epic today. No past medical history on file. Past Surgical History: Procedure Laterality Date ??? SECTION 1998 ??? HAND SURGERY Bilateral CTR ??? NECK SURGERY Parathyroid gland removal Social History Socioeconomic History ??? Marital status: [...] Outpatient Medications Medication Sig Dispense Refill ??? Ascorbic Acid (VITAMIN C OR) ??? calcium carbonate-vitamin D (OS-DARIUSZ 500 WITH D) 500-200 MG-UNIT per tablet Take 1 Tab by mouth daily. ??? cholecalciferol (VITAMIN D3) 1000 UNITS tablet Take 1,000 Units by mouth daily. ??? desvenlafaxine (PRISTIQ) 25 MG 24 hour release tablet Take 50 mg by mouth. ??? Glucosamine-Chondroitin (GLUCOSAMINE CHONDR COMPLEX) 500-400 MG No current facility-administered medications for this visit. PHYSICAL EXAMINATION There were no vitals filed for this visit. Estimated body mass index is 28.35 kg/m?? as calculated from the following: Height as of 12/06/20: 1.753 m (5' 9). Weight as of 12/06/20: 87.1 kg (192 lb). PSYCH:Patient is alert and oriented to [...] Full extension from a seated position IMAGING: ??My (Dr. Minor) independent review of these images [...] syndrome. ASSESSMENT & PLAN ASSESSMENT: bilateral knee OA PLAN: I discussed patient's symptoms and my findings in detail Synvisc #2 to bilateral knees Declined AVS F/U 1 week for repeat synvisc series injections #3 All of her questions were answered today. After the history, examination and review of x-rays, it was determined the patient would benefit from an injection. Risks, benefits and alternatives discussed. Patient decided on synvisc injection(s) #2. The affected joint to be injected was confirmed with the patient prior to the injection. The knee was prepped in a sterile fashion. The bilateral anterolateral Knee was injected with 2 ml of synvisc prepackaged solution, without complications. Emma Minor 05/04/2021 10 minutes spent on the date of the encounter doing patient visit and documentation This document serves as a record of all services personally provided by Emma Minor MD. Documentation provided by Daniel Martinez ATC based on my personal observation of the services provided and the providers statements to me. This note was created using a scribe, templating, and voice recognition software ([email or web address]) which may result in unintentional word substitutions. documented in this encounter Plan of Treatment Upcoming Encounters Date Type Specialty Care Team Description 06/26/2022 Appointment Orthopedics Terra Minor MD [address] [place] [phone] (Wo rk) 07/03/2022 Appointment Orthopedics Terra Minor MD [address] [place] [address] (Wo rk) 07/10/2022 Appointment Orthopedics Terra Minor MD [address] [place] [address] (Wo rk) documented as of this encounter Visit Diagnoses Diagnosis Primary osteoarthritis of both knees - P rimary Primary localized osteoarthrosis, lower leg documented in this encounter Care Teams Cloth Grader Relationship Specialty Start Date End Date Anne Hoyt DO PCP - General 09/29/14 [address] [place] [address] documented as of this encounter
--- OUTSIDE RECORDS SUMMARY | 2022-06-18 23:13 | XMS_ITS | Encounter Summary ---
:1955 Author Organization [facility] Address [address] [address] Care Team Providers Name Role Phone Anne Hoyt DO Primary Care Provider Unavailable Reason for Referral (Routine) - New Request Specialty Diagnoses / Procedures Referred By Contact Refer red To Contact Diagnoses Primary osteoarthritis of both knees Emma Minor, Procedures Synvisc Or Synvisc (per 1 mg) - quantity = 16 MD [address] [place] [address] Referral ID Status Reason Start Date Expiration Date Visits V isits Requested Authorized [id number] New Request 12/15/2021 03/16/2023 1 1 Reason for Visit Reason Comments KNEE PAIN Bilat Encounter Details Date Type Department Care Team Description 12/15/2021 Office Visit GALLO Minor, [facility]oa [facility]thritis [facility] Emma Nice MD of both knees (Primary [address] [place]) [place] [address] [place], [place] [phone] [address] Social History Tobacco Use Types Packs/Day Years Used Date Smoking Tobacco: Never Smokeless Tobacco: Never Alcohol Use Standard Drinks/Week Comments Yes 3 (1 standard drink = 0.6 oz pure alcoho l) periodically Sex Assigned at Date Recorded Not on file documented as of this encounter Patient Instructions Patient InstructionsCiEmma knox MD - 12/14/2021 11:53 AM CDT Thank you for choosing [facility] for your health care visit today. Please read the contents below for important information regarding today's appointment. Medication Requests: Prescriptions are not filled on weekends or on weekdays after 3:00 PM. For all medication refills: Request a refill using MyChart or contact your pharmacy. MRI Scheduling: To schedule an MRI at [facility] please call [phone]. For [facility] please call [phone]. For [facility] please call [phone]. [facility] Workers' Compensation [address] [place], [place] [phone] (Phone) What is Know Your Cost? Know Your Cost is a service for patients and patient/members to call and receive personalized cost information and estimates across our care group. The phone number is (COST) and is openSaturday - Saturday from 8 a.m. to 5 p.m. documented in this encounter Progress Notes Emma Minor MD - 12/15/2021 8:00 AM CDT Images from the original note were not included. SPORTS MEDICINE FOLLOW UP NOTE DATE OF SERVICE: 12/15/2021 CHIEF COMPLAINT: Follow up: Right??knee mild??medial??osteoarthritis and degeneration of medial meniscus Left Knee??PF OA ?? HISTORY OF PRESENT ILLNESS Belle Crystal is a 66 y.o. old female who is here for follow up examination of the bilateral knee. Patient initially seen on??08/30/20.? 08/30/2020 right knee injected with cortisone, PT at [facility] ?? 09/30/20;surgeon [place] at [place] Belle Crystal??is a 64 y.o.??female??with severe left [...] that??she??would be an excellent candidate for the [facility] program??and we can have her screened for this. She does understand that she has to wait at least 3 months after her last injection to proceed with surgery. ?? 09/29/2020 1. Right knee synvics injection #1 2. Fitted for wrist brace with thumb spica 3. Physical therapy order given for wrist pain??at [facility] 4. Follow up at [facility] for the wrist if brace and PT do not help??- has seen Stacey in past and follow up next week for right knee syn #[address] Gr (total joint surgeon tomorrow at [facility]) ?? 10/06/2020 Bilateral synvisc ?? 10/14/20 Bilateral synvisc ?? 10/21/20 Left knee synvisc injection? 04/27/21 Bilateral synvisc injection 1 05/04/21 Bilateral Synvisc injection 2 05/11/2021 Bilateral synvisc injection 3 12/08/2021 Bilateral synvisc injection #1 Today, states that she did not have any adverse reactions to the last injections. MEDICAL HISTORY For initial presenting history, [...] ambulation. Oropharynx is clear, no cough EXAM: deferred IMAGING: My (Dr. Minor) independent review of [...] friction syndrome.?? ASSESSMENT & PLAN ASSESSMENT: Right??knee mild??medial??osteoarthritis and degeneration of medial meniscus Left Knee??PF OA ?? PLAN: I discussed patient's symptoms and my findings in detail After the history, examination and review of x-rays, it was determined the patient would benefit from an injection. Risks, benefits and alternatives discussed. Patient decided on Synvisc injection(s) #2. The affected joint to be injected was confirmed with the patient prior to the injection. The knee was prepped in a sterile fashion. Injected into the bilateral anterolateral Knee was 2 ml of Synvisc prepackaged solution, without complications. COLD SPRAY USED Denied AVS. F/U in 1 week. All of her questions were answered today. Emma Minor MD 12/15/2021 This note was created using a scribe, templating, and voice recognition software ([employer]) which may result in unintentional word substitutions. documented in this encounter Plan of Treatment Upcoming Encounters Date Type Specialty Care Team Description 06/26/2022 Appointment Orthopedics Terra Minor MD [address] [place], [place] [phone] (Wo rk) 07/03/2022 Appointment Orthopedics Terra Minor MD [address] [place] [address] (Wo rk) 07/10/2022 Appointment Orthopedics Terra Minor MD [address] [place] [address] (Wo rk) documented as of this encounter Visit Diagnoses Diagnosis Primary osteoarthritis of both knees - P rimary Primary localized osteoarthrosis, lower leg documented in this encounter Care Teams Harp Repairer Relationship Specialty Start Date End Date Anne Hoyt DO PCP - General 09/29/14 [address] [place] [address] documented as of this encounter
--- OUTSIDE RECORDS SUMMARY | 2022-06-18 23:13 | XMS_ITS | Encounter Summary ---
:1955 Author Organization [facility] Address [address] [place] [address] Care Team Providers Name Role Phone Anne Hoyt DO Primary Care Provider Unavailable Reason for Referral (Routine) - Closed Specialty Diagnoses / Procedures Referred By Contact Refer red To Contact Diagnoses Osteoarthritis of left patellofemoral joint Emma Minor, Procedures Synvisc Or Synvisc (per 1 mg) - quantity = 16 [address] [place] [address] Referral ID Status Reason Start Date Expiration Date Visits Requ ested Visits Authorized [id number] Closed 10/21/2020 01/20/2022 1 1 Reason for Visit Reason Comments Follow-up Encounter Details Date Type Department Care Team Description 10/21/2020 Office Visit GALLO Minor, Osteoarthritis of left [facility] Emma Nice MD patellofemoral joint [address] (Primary Dx) [place] [address] [place], [place] [phone] [address] Social History Tobacco Use Types Packs/Day Years Used Date Smoking Tobacco: Never Smokeless Tobacco: Never Alcohol Use Standard Drinks/Week Comments Yes 3 (1 standard drink = 0.6 oz pure alcoho l) periodically Sex Assigned at Date Recorded Not on file documented as of this encounter Patient Instructions Patient InstructionsSuman Dockery, ATC - 10/21/2020 8:00 AM CDT Thank you for choosing [facility] for your health care visit today. Please read the contents below for important information regarding today's appointment. Medication Requests: Prescriptions are not filled on weekends or on weekdays after 3:00 PM. For all medication refills: Request a refill using SCM-GLhart or contact your pharmacy. MRI Scheduling: To schedule an MRI at [facility] please call [phone]. For [facility] please call [phone]. For [facility] please call [phone]. [facility] Workers' Compensation [address] [place] [address] (Phone) What is Know Your Cost? Know Your Cost is a service for patients and patient/members to call and receive personalized cost information and estimates across our care group. The phone number is (COST) and is openSaturday - Saturday from 8 a.m[address] to [address] Emma Minor MD Sports & Orthopedic Medicine [facility] Saturday, Saturday PM, AM, and Saturday Paperwork Requests/ Questions Regarding Surgery Scheduling: Art Therapist: Abigail Dejesus Navigator: Stu Dockery ATC Diagnosis: Diagnosis and Associated Orders ICD-10-CM 1. Osteoarthritis of left patellofemoral joint M17.12 Injection Today: The left knee was injected with Synvisc (series). Plan: - next injection in left knee 6 months need prior authorization Follow-Up: Please follow-up, as-needed. Call for prior authorization documented in this encounter Progress Notes Emma Minor MD - 10/21/2020 8:00 AM CDT Images from the original note were not included. SPORTS MEDICINE FOLLOW UP NOTE DATE OF SERVICE: 10/21/2020 CHIEF COMPLAINT: Follow up: Right??knee mild??medial??osteoarthritis and degeneration of medial meniscus Left Knee??PF OA HISTORY OF PRESENT ILLNESS Belle Crystal is a 64 y.o. old female who is here for follow up examination of the bilateral knee pain. ??Patient initially seen on 08/30/20: ?? 08/30/2020 right knee injected with cortisone, PT at [facility] ?? 09/29/2020 1. Right knee synvics injection #1 2. Fitted for wrist brace with thumb spica 3. Physical therapy order given for wrist pain??at [facility] 4. Follow up at [facility] for the wrist if brace and PT do not help??- has seen Stacey in past and follow up next week for right knee syn #[address] Gr (total joint surgeon tomorrow at [facility]) ?? 10/06/2020 Right knee synvisc injection#2 Today, feels that it has improved 90% is have minimal to no pain. It has been set off with pain whendoing to many stairs over a day. Has been able to sleep through the night. Overall is feeling great that this has helped her knee and allow her to enjoy walking with her family. MEDICAL HISTORY For initial presenting history, past [...] INTEGUMENT: Bruising/erythema is not present over the left knee. CV/VASCULAR: The extremity is warm, well perfused. NEURO: No sensory deficits to light touch. RESP: No audible wheezes, unlabored breathing. HEENT: Hearing is intact to spoken word. Speech is clear. No gross evidence of visual impairment that would impact ambulation. Oropharynx is clear, no cough EXAM: no effusion IMAGING: My (Dr. Minor) independent review of [...] in a sterile fashion. Injected into the left anterolateral Knee was 2 ml of Synvisc prepackaged solution, without complications. F/U as needed next injection - minimum of 6 months from now-, will need to call for prior authorization. All of her questions were answered today. Emma Minor MD 10/21/2020 10 minutes spent on the date of the encounter doing chart review, patient visit and documentation This note was created using a scribe, templating, and voice recognition software ([employer]) which may result in unintentional word substitutions. documented in this encounter Plan of Treatment Upcoming Encounters Date Type Specialty Care Team Description 06/26/2022 Appointment Orthopedics Terra Minor MD [address] [place], [place] [phone] (Wo rk) 07/03/2022 Appointment Orthopedics Terra Minor MD [address] [place] [address] (Wo rk) 07/10/2022 Appointment Orthopedics Terra Minor MD [address] [place] [address] (Wo rk) documented as of this encounter Visit Diagnoses Diagnosis Osteoarthritis of left patellofemoral sergei int - Primary documented in this encounter Care Teams Testing Consultant Relationship Specialty Start Date End Date Anne Hoyt DO PCP - General 09/29/14 [address] [place] [address] documented as of this encounter
--- OUTSIDE RECORDS SUMMARY | 2022-06-18 23:14 | XMS_ITS | Encounter Summary ---
:1955 Author Organization [facility] Address [address] [place] [address] Care Team Providers Name Role Phone Yessi Torres MD Primary Care Provider Reason for Visit Reason Comments Other Encounter Details Date Type Department Care Team Description 08/06/2006 Telephone [facility] Orthopedics Bantam, Message Other [address] [place] [address] Social History Tobacco Use Types Packs/Day Years Used Date Smoking Tobacco: Never Assessed Sex Assigned at Date Recorded Not on file documented as of this encounter Progress Notes Huyen Nguyen - 08/06/2006 10:49 AM CST Phone Note filed by Huyen Nguyen at 10/31/10 6848 Author: Huyen Nguyen Service: (none) Author Type: (none) Filed: 10/31/10 0128 Note Time: 08/06/06 1049 Status: Signed Commercial Subcontractor: Loreta Conversion Please schedule with Dr Ibarra for 08/13 at 1130 and post ops thanks Created on 06Aug2006 10:49am by HUYEN NGUYEN On 06Aug2006 11:49am OLGA MORLEY wrote: SURGERY BLANK. On 06Aug2006 1:12pm DERECK VILLANUEVA wrote: sx: 08/13 right wrist, 8-12 Dr Ibarra, lmovm 08/06 bw On 07Aug2006 9:25am DERECK VILLANUEVA wrote: lmovm 08/07 bw On 07Aug2006 10:29am PATRIZIA FERRARI wrote: done. Driscoll. MING FREIGHT CLERK documented in this encounter Plan of Treatment Upcoming Encounters Date Type Specialty Care Team Description 06/26/2022 Appointment Orthopedics Terra Minor MD [address] [place] [address] (Wo rk) 07/03/2022 Appointment Orthopedics Terra Minor MD [address] [place] [address] (Wo rk) 07/10/2022 Appointment Orthopedics Terra Minor MD [address] [place] [address] (Wo rk) documented as of this encounter Visit Diagnoses Not on filedocumented in this encounter Care Teams Material Disposition Inspector Relationship Specialty Start Date End Date Yessi Torres MD PCP - General 10/17/10 09/28/14 [address] [place] [address] documented as of this encounter
--- OUTSIDE RECORDS SUMMARY | 2022-06-18 23:14 | XMS_ITS | Encounter Summary ---
:1955 Author Organization [facility] Address [address] [place] [address] Care Team Providers Name Role Phone Yessi Torres MD Primary Care Provider Reason for Visit Reason Comments Toe Pain Encounter Details Date Type Department Care Team Description 04/29/2012 Procedure Visit [facility] Yvonne Ramos PA-C Toe Pain [address] [place] [address] [place], [place] [address] [place] [address] [phone] (Wo rk) Social History Tobacco Use Types Packs/Day Years Used Date Smoking Tobacco: Never Assessed Sex Assigned at Date Recorded Not on file documented as of this encounter Patient Instructions Patient InstructionsMerly Solares - 04/29/2012 3:11 PM CDT Yvonne Ramos PA-C Sports Medicine and General Orthopedics Pile Driving Superintendent: Lesley Pickens Please contact Lesley for all administrative questions at [phone] Please call Nurse Triage at [phone] for all medical questions Fax number: [phone] Please contact your Pharmacy for all medication refills If you develop new or worsening symptoms call [employer] at [phone] documented in this encounter Progress Notes Yvonne Ramos PA-C - 04/29/2012 10:17 PM CDT Progress Notes signed by Yvonne Ramos PA-C at 05/05/12 103 Author: Yvonne Ramos PA-C Service: (none) Author Type: Physician Farmworker Machine Filed: 05/05/12 1032 Note Time: 04/29/122216 Status: Signed Air Export Operations Agent: Yvonne Ramos PA-C (Physician Farmworker Machine) NAME: JACOBY GUERRERO VISIT: [id number] DICTATING CLINICIAN: YVONNE RAMOS PA-C JOB: [id number] Med JOB: [id number] LOC: 3711 CLINIC PROGRESS NOTE DATE OF VISIT: 04/29/2012 : 1955 Ms. Guerrero is in the clinic today for reexamination of her right great toe. She is a previous patient of mine having last been seen on 05/29/2011. She was diagnosed with hallux rigidus at that time and was offered a cortisone injection, but wishes to abstain. She has had persistent pain about that of her foot and ankle ever since and is in the clinic today for further evaluation. She denies any problems or complications and denies other injuries. Please read my note from 05/29/2011 for past medical history. IMPRESSION: Right great toe hallux rigidus. PLAN: I discussed conservative management. I offered her a cortisone injection and she wishes to proceed. Under aseptic technique and Betadine prep, the patient underwent a cortisone injection using 1 mL of 1% plain lidocaine and 40 mg of Kenalog. A total of 1 mL of this combination was used and she tolerated this well. She noted excellent relief and will follow up with me on an as-needed basis. If she has any problems or complications return to the clinic sooner. IM: 04/30/2012 10:56:33 am MT: 6 documented in this encounter Plan of Treatment [...] as of this encounter Visit Diagnoses Diagnosis Hallux rigidus - Primary documented in this encounter Care Teams Parachute Manufacturing Supervisor Relationship Specialty Start Date End Date Yessi Torres MD PCP - General 10/17/10 09/28/14 [place] [place] [id number] documented as of this encounter
--- OUTSIDE RECORDS SUMMARY | 2022-06-18 23:14 | XMS_ITS | Encounter Summary ---
:1955 Author Organization [facility] Address [address], [place] [address] Care Team Providers Name Role Phone Yessi Torres MD Primary Care Provider Encounter Details Date Type Department Care Team Description 02/13/2005 Office Visit [facility] Francois Torres MD [facility] [address] [place] [address] [place] [address] Social History Tobacco Use Types Packs/Day Years Used Date Smoking Tobacco: Never Assessed Sex Assigned at Date Recorded Not on file documented as of this encounter Last Filed Vital Signs Vital Sign Reading Time Taken Comments Blood Pressure 120/74 02/13/2005 10:49 AM CDT Pulse - - Temperature 37.6 ??C (99.7 ??F) 02/13/2005 10:49 AM C: 37.6 C CDT Respiratory Rate - - Oxygen Saturation - - Inhaled Oxygen Concentration - - Weight 83.9 kg (184 lb 15.8 oz) 02/13/2005 10:49 AM C: 83.9kg CDT Height - - Body Mass Index - - documented in this encounter Progress Notes Yessi Torres MD - 02/13/2005 12:01 AM CDT Progress Notes signed by Yessi Torres MD at 02/15/05 0742 Author: Yessi Torres MD Service: (none) Author Type: Physician Filed: 11/03/10 0727 Note Time: 02/13/05 0001 Status: Signed Control Area Operator: Yessi Torres MD (Physician) NAME: JACOBY GUERRERO MR: [id number] ACCT: [id number] VISIT: [id number] DICTATING CLINICIAN: YESSI TORRES MD JOB: [id number] CLINIC PROGRESS NOTE DATE OF VISIT: 02/13/2005 SUBJECTIVE: : 1955. Patient is a 49-year-old female who is here to have her blood pressure checked. Has noticed that her blood pressures tend to be variable. She has been checking them regularly at [employer] and they range from 120s to 140 over 75 to 90 diastolic. Usual range 125 to 138 over 80 to 85. Recently had a orthopedic appointment with elevated blood pressure 160/90. Wonders if her blood pressure is of concern. Also wonders if she needs any heart disease screening. She recently started walking and doing the elliptical machine more regularly, 20 minutes daily. Previous to that was not exercising regularly. Does not smoke cigarettes and no family history of heart disease. Cholesterol was good in 05/2003. Has had cold symptoms with nasal congestion, mild sore throat, and no cough or fever. In the last few days, she has had some mild redness to her eyes and some crusting of the left eye in the morning. The crusting was actually better today and she does not have drainage throughout the day. No eye pain, vision normal and does not wear contacts. Son has similar symptoms. In the last 3 weeks, has had some numbness, tingling, and burning sensation in the first through fourth fingers of her hands. Predominantly the first through third fingers of both hands, right greater than left. This has been waking her up at night. Also can get it with driving and riding a bike. Has been doing gardening and work with her hands recently. Did have similar symptoms during previous . MEDICATIONS: Reviewed in [employer]. OBJECTIVE: VS: BP1: 120/74. BP2: 126/84 left. BP3: 128/86 right. T: 99.6. Wt: 185. Eyes: Pupils are equal, round, and reactive to light. Conjunctivae just slightly reddened. Left worse than right. Ears: TMs normal. Oropharynx: No erythema. Throat: No erythema or exudate. NECK: No nodes. Thyroid is normal. CHEST: Clear to auscultation. CARDIOVASCULAR: Normal S1, S2, no murmur. Regular rate and rhythm. NEUROLOGIC: Deep tendon reflexes 2+ and symmetric throughout in the upper extremities. Strength 5/5 throughout in the upper extremities. Sensation normal in the hands and forearms to light touch. Positive Tinel's and Phalen's bilaterally in the hands. ASSESSMENT: 1. Blood pressure check. Blood pressures here well within normal limits and most of her outside readings have been normal. Reviewed the limits of normal and that she should typically sit for a few minutes before checking outside blood pressures. Discussed that weight loss, exercise, and low sodium diet, can all control blood pressure. We will followup at her physical. 2. Conjunctivitis, likely viral. Recommend observation. If worsening with increased drainage, she will call me for antibiotic drops. 3. Carpal tunnel syndrome, bilateral. Check TSH to rule out hypothyroidism. We will have her wear a wrist brace at night and intermittently during the day as able. She is to followup in 1 month if not nearly resolved. PLAN: See assessment. NJV:[id number] C: 02/13/05 15:26 DOCUMENT: [id number] documented in this encounter Plan of Treatment Upcoming Encounters Date Type Specialty Care Team Description 06/26/2022 Appointment Orthopedics Terra Minor MD [address] [place] [address] ([place]) 07/03/2022 Appointment Orthopedics Terra Minor MD [address] [place] [address] ([place]) 07/10/2022 Appointment OrthopedicTerra Ngo MD [address] [place] [address] ([place]) documented as of this encounter Visit Diagnoses Not on filedocumented in this encounter Care Teams Molding Machine Setter Relationship Specialty Start Date End Date Yessi Torres MD PCP - General 10/17/10 09/28/14 [place] [address] documented as of this encounter
--- OUTSIDE RECORDS SUMMARY | 2022-06-18 23:14 | XMS_ITS | Encounter Summary ---
:1955 Author Organization [facility] Address [address] [address] Care Team Providers Name Role Phone Yessi Torres MD Primary Care Provider Reason for Visit Reason Comments Other Encounter Details Date Type Department Care Team Description 02/16/2005 Telephone [facility] Yessi Torres MD Other [address] [place] [address] [place] [address] Social History Tobacco Use Types Packs/Day Years Used Date Smoking Tobacco: Never Assessed Sex Assigned at Date Recorded Not on file documented as of this encounter Progress Notes Candace Deshpande - 02/16/2005 3:24 PM CDT Phone Note filed by Candace Deshpande RN at 10/30/101946 Author: Candace Deshpande RN Service: (none) Author Type: (none) Filed: 10/30/101946 Note Time: 02/16/05 1524 Status: Signed Rougher Helper: Loreta Boateng Pt saw you 02/13/05 for BP check and incidental left eye redness concern. She called back today about her left eye and wonders if Gtts could be prescribed for reason of left scleral redness with reoccurring light green discharge. Denies associated vision changes,,,Recent mild URI sx. Eye is Not painfull but feels...scratchy Requests call to confirm Yi=[phone]. Pharmacy=[facility] Yfryoh=[phone] Created on 16Feb2005 3:24pm by CANDACE DESHPANDE On 16Feb2005 4:29pm YESSI TORRES wrote: As above, no eye pain. No allergies. Will try sulfacetamide drops. She will call if not improving with this. Acknowledged by YESSI TORRES on 4:29pm CONVERSION OPERATOR documented in this encounter Plan of Treatment Upcoming Encounters Date Type Specialty Care Team Description 06/26/2022 Appointment Orthopedics Terra Minor MD [address] [place] [address] (Wo rk) 07/03/2022 Appointment OrthopedicTerra Ngo MD [address] [place] [address] (Wo rk) 07/10/2022 Appointment Orthopedics eTrra Minor MD [address] [place] [address] (Wo rk) documented as of this encounter Visit Diagnoses Not on filedocumented in this encounter Care Teams Benefits Technician Relationship Specialty Start Date End Date Yessi Torres MD PCP - General 10/17/10 09/28/[address] [place] [address] documented as of this encounter
--- OUTSIDE RECORDS SUMMARY | 2022-06-18 23:14 | XMS_ITS | Encounter Summary ---
:1955 Author Organization [facility] Address [address] [place] [address] Care Team Providers Name Role Phone Unavailable Primary Care Provider Unavailable Encounter Details Date Type Department Care Team Description 08/13/2006 Hospital Encounter [facility] Radha Ibarra MD [address] [facility] [place] [address] [facility] Radha Ibarra MD [address] [place] [address] [address] [place], [place] [address] Social History Tobacco Use Types Packs/Day Years Used Date Smoking Tobacco: Never Assessed Sex Assigned at Date Recorded Not on file documented as of this encounter Medications at Time of Discharge Medication Sig Dispensed Refills Start Date End Date unknown medication Indications: PN: 0 06/12/2006 04/16/2007 unknown medication Indications: PN: 0 08/28/2005 04/16/2007 unknown medication Indications: PN: 0 02/13/2005 04/16/2007 fluvoxaMINE (AKA LUVOX) Take 1.5 tablets by 30 3 08/200309/30/2020 100 MG tablet mouth nightly. LW Addl Instr:Indicated for: Obsessive-Complusive Disorder documented as of this encounter Procedure Notes Radha Ibarra MD - 08/13/2006 12:01 AM CST OR Surgeon signed by Radha Ibarra MD at 08/13/06 1113 Author: Radha Ibarra MD Service: (none) Author Type: Physician Filed: 11/03/10 1829 Note Time: 08/13/06 1105 Status: Signed Telephone Ad Taker: Radha Ibarra MD (Physician) [facility] Patient Name: Belle Crystal Gender: F Exam Date: 08/13/2006 11:05 AM Surgical Staff: Radha Viera MD (Surgeon), Char Hsu PA-C (Physician Teradata Architect) Referring MD: Procedure: Open Median Nerve Decompression Right Carpal Tunnel Requesting Physician: Patient Profile: This is a 50 year old female. Refer to note in patient chart for documentation of history and physical. The patient has failed appropriate non-operative treatment, including steroid injections. As a result, surgery is recommended. The alternatives, risks and benefits of surgery were discussed with the patient. The patient verbalized understanding of the risks as well as the alternatives to surgery. The patient wished to proceed with operative intervention. A signed and witnessed informed consent was then placed on the chart. Prior to initiation of the procedure, patient identification and proposed procedure were verified by the surgeon in the pre-op area, the surgeon in the operating room and the surgeon prior to surgery. The operative site was verified by the patient, verified by the surgeon, initialed by the surgeon and marked by the surgeon. Pre-OP Diagnosis: Carpal tunnel syndrome Post-OP Diagnosis: Carpal tunnel syndrome Anesthesia: Local anesthesia. Findings: There was erythema of the median nerve. Description of Procedure: Patient Positioning: - The patient was placed in a supine position with the arm on a hand table. Preparation and Drape: - The limb was prepared and draped in the usual sterile manner. Incision Type: - A 2 cm in length longitudinal incision was made from the proximal palm extending along the line of the ring finger. A tourniquet was placed on the forearm and set at 250 mmHg. Instruments and Methods: - Dissection through the skin and subcutaneous tissues was achieved. The palmar fascia was visualized and split along its entire length. Bleeding was controlled with electrocautery. The transverse carpal ligament was identified and exposed. The transverse carpal ligament was sharply divided under direct vision. Visualization demonstrated complete division of the transverse carpal ligament. The median nerve was visualized and inspection showed mild compression of the median nerve. Throughout the procedure, care was taken to identify and protect the median nerve. The tourniquet was released and good perfusion distally was observed. Bleeding was controlled using bipolar coagulation. Hemostasis was achieved. Wound Closure: - The wound was thoroughly irrigated with sterile saline. The skin was closed with 4-0 Ethilon using mattress technique. Drains / Dressing: - A sterile dressing was applied including gauze and soft bulky dressing. Patient to Recovery Room: - The patient tolerated the procedure well, and was brought to the recovery room in stable condition. Complications: No Immediate Complications. Post-OP Plan: DISCHARGE ORDERS: - Wound Care / Drains: - Leave dressing in place (intact and dry) until seen in clinic. - Apply intermittent ice packs to the wound site for 1 day. - Diet: - Advance diet as tolerated. - Medications: - Hydrocodone/Acetaminophen (Vicodin 5/500) 1-2 tablets orally q 6 hr PRN. - Activity: - Patient may return to school and work as tolerated. - Elevate wrist above the level of the heart. - Follow-up: - Appointment to Surgeon's Office in 10 to 14 days. 7-10 days in my office. - Over the counter pain medications: - Take Tylenol, Advil, or Aleve as directed on the package for any pain or discomfort that you may have. If the pain cannot be controlled with these medications, contact your physicians office. - Movement - It is ok to use your hand for every day activities such as getting dressed. Move and exercise your fingers. Do not lift more than 2 lbs or vehicle controls engineer forcefully ( for 2 weeks and then 5 lbs for 4 weeks). Otherwise, normal use of your have is allowed. - Showering - You can wrap your dressing with saran wrap or a plastic bag for showering. Shower with your hand up to avoid water from getting your dressing wet. - Contact your physician: - A low grade fever is common after this procedure. If you have a fever of more than 101, a large amount of bleeding or drainage; swelling, pain, foul smelling drainage, redness, excessive tenderness at the site, or separation of the skin closure. CPT Codes(s): 68578, RT, Neuroplasty and/or transposition; median nerve at carpal tunnel ICD Code(s): 354.0, Carpal tunnel syndrome The codes documented in this report are preliminary and upon screen repairer crusher review may be revised to meet current compliance requirements. Radha Viera MD Signed Date: 08/13/2006 11:11 Number of Addenda: 0 Note generated on 08/13/2006 11:05 Char Hsu PA-C Procedure Date: 08/13/2006 11:05 HOUSE GUARD documented in this encounter Miscellaneous Notes Miscellaneous - Radha Ibarra MD - 08/13/2006 12:01 AM CST ICD-9-CM ICD-9-CM Narrative description Code ======== DIAGNOSES Principal: NO PROC FOR REASONS NEC V64.3 PROCEDURES Provider1 Date HOUSE GUARD documented in this encounter Plan of Treatment Upcoming Encounters Date Type Specialty Care Team Description 06/26/2022 Appointment Orthopedics Terra Minor MD [address] [place] [address] ([place]ing ed[place]s) 07/03/2022 Appointment OrthopedicTerra Ngo MD [address] [place] [address] ([place]) 07/10/2022 Appointment OrthopedicTerra Ngo MD [address] [place] [address] ([place]s) documented as of this encounter Visit Diagnoses Not on filedocumented in this encounter
--- OUTSIDE RECORDS SUMMARY | 2022-06-18 23:14 | XMS_ITS | Encounter Summary ---
:1955 Author Organization [facility] Address [address] [place] [address] Care Team Providers Name Role Phone Yessi Torres MD Primary Care Provider Encounter Details Date Type Department Care Team Description 02/13/2007 PN Conversion Only [facility] Radha Ibarra MD [address] [facility] [address] [facility] [place] [address] [place], [place] [phone] ( Work) [phone] Social History Tobacco Use Types Packs/Day Years Used Date Smoking Tobacco: Never Assessed Sex Assigned at Date Recorded Not on file documented as of this encounter Plan of Treatment Upcoming Encounters Date Type Specialty Care Team Description 06/26/2022 Appointment Orthopedics Terra Minor MD [address] [place] [address] (Wo rk) 07/03/2022 Appointment Orthopedics Terra Minor MD [address] [place] [address] (Wo rk) 07/10/2022 Appointment Terra Soria MD [address] [place] [address] (Wo rk) documented as of this encounter Visit Diagnoses Not on filedocumented in this encounter Care Teams Utilization Supervisor Relationship Specialty Start Date End Date Yessi Torres MD PCP - General 10/17/10 09/28/[address] [place], [place] [phone] documented as of this encounter
--- OUTSIDE RECORDS SUMMARY | 2022-06-18 23:14 | XMS_ITS | Encounter Summary ---
:1955 Author Organization [facility] Address [address], [place] [address] Care Team Providers Name Role Phone Yessi Torres MD Primary Care Provider Encounter Details Date Type Department Care Team Description 02/06/2006 PN Conversion Only [facility] [place] [address] [place] [address] Social History Tobacco Use Types Packs/Day Years [...] [place] [address] (Ying rk) 07/10/2022 Appointment OrthopedicTerra Ngo MD [address] [place] [address] (Ying rk) documented as of this encounter Visit Diagnoses Not on filedocumented in this encounter Care Teams Acid Tester Relationship Specialty Start Date End Date Yessi Torres MD PCP - General 10/17/10 09/28/[address] [place] [id number] documented as of this encounter
--- OUTSIDE RECORDS SUMMARY | 2022-06-18 23:14 | XMS_ITS | Encounter Summary ---
:1955 Author Organization [facility] Address [address] [place] [address] Care Team Providers Name Role Phone Yessi Torres MD Primary Care Provider Encounter Details Date Type Department Care Team Description 06/01/2003 PN Conversion Only [facility] Yessi Torres, [address] [place] [address] [place] [address] Social History Tobacco Use Types Packs/Day Years Used Date Smoking Tobacco: Never Assessed Sex Assigned at Date Recorded Not on file documented as of this encounter Plan of Treatment Upcoming Encounters Date Type Specialty Care Team Description 06/26/2022 Appointment Orthopedics Terra Minor MD [address] [place] [address] ([place]) 07/03/2022 Appointment OrthopedicTerra Ngo MD [address] [place] [address] ([place]) 07/10/2022 Appointment OrthopedicTerra Ngo MD [address] [place] [address] ([place]) documented as of this encounter Procedures Procedure Name Priority Date/Time Associated Diagnosis Comme nts GLUCOSE Routine 06/01/2003 8:15 AM Results f or this HEAD GREENSKEEPER procedure are i n the results section. LIPID PANEL AND Routine 06/01/2003 8:15 AM Result s for this DIRECT LDL(IF HEAD GREENSKEEPER procedure are in NEEDED) the results section. documented in this encounter Results Glucose (06/01/2003 8:15 AM HEAD GREENSKEEPER) P athologist Signature Length Of Fast 13.0 Hours HP CONVERSION Lab Glucose 96 60 - 109 HP CONVERSION mg/dL Specimen (Source) Anatomical Collection Method Collection Time Re ceived Time Location / / Volume Laterality 06/01/2003 8:15 AM HEAD GREENSKEEPER Yessi Torres MD LAB_1 Performing Organization Address City/State/ZIP Code Phon e Number HP CONVERSION (ABNORMAL) Lipid Panel and Direct LDL(If Needed) (06/01/2003 8:15 AM HEAD GREENSKEEPER) Patholo gist Method Time Signature Length Of Fast 13.0 Hours HP CONVERSION Cholesterol/HDL 3.0 No normal HP CONVERSION Ratio Screen range Cholesterol 205 (H) 125 - 199 HP CONVERSION mg/dL HDL Cholesterol 68 (H) 40 - 60 HP CONVERSION mg/dL Triglycerides 69 0 - 199 HP CONVERSION mg/dL LDL Calculated 123 66 - 129 HP CONVERSION mg/dL Comment: Specimen (Source) Anatomical Collection Method Collection Time Re ceived Time Location / / Volume Laterality 06/01/2003 8:15 AM HEAD GREENSKEEPER Yessi Torres MD LAB_1 Performing Organization Address City/State/ZIP Code Phon e Number HP CONVERSION documented in this encounter Visit Diagnoses Not on filedocumented in this encounter Care Teams Bedspread Inspector Relationship Specialty Start Date End Date Yessi Torres MD PCP - General 10/17/10 09/28/[address] [place] [address] documented as of this encounter
--- OUTSIDE RECORDS SUMMARY | 2022-06-18 23:14 | XMS_ITS | Encounter Summary ---
:1955 Author Organization [facility] Address [address], [place] [address] Care Team Providers Name Role Phone Yessi Torres MD Primary Care Provider Reason for Visit Reason Comments Other Encounter Details Date Type Department Care Team Description 01/16/2006 Telephone [facility] Renu Monterroso Leidy Other [address] [place] [address] Social History Tobacco Use Types Packs/Day Years Used Date Smoking Tobacco: Never Assessed Sex Assigned at Date Recorded Not on file documented as of this encounter [facility], Message - 01/16/2006 2:21 PM CDT Phone Note filed by [employer] at 10/31/10607 Author: [employer] Service: (none) Author Type: (none) Filed: 10/31/10607 Note Time: 01/16/06 142 Status: Signed Returned Goods Sorter: [employer] MESSAGE TO CARE TEAM NAME OF CALLER:Belel NAME OF CLINICIAN:Michael Chambers MESSAGE:hand numbness continues; requesting referral per last visit PHARMACY NAME: PHARMACY PHONE #: CALL BACK PHONE #:[phone] cell; [phone] home BEST TIME TO CALL BACK: Is it OK to leave detailed message on voicemail? Created on 16Jan2006 2:21pm by KATTY BOTELLO On [id number] 2:42pm YESSI TORRES wrote: As above -- persistent bilateral hand numbness, tingling, right > left. Wearing wrist braces helps some, but still has symptoms daily. Will do EMG and if this confirms carpal tunnel, will refer to surgeon. Please call pt to schedule EMG of the upper extremities for bilateral hand numbness and tingling. Acknowledged by YESSI TORRES on 2:42pm On [id number] 8:57am RENU MONTERROSO wrote: appt. info mailed to pt. left message on machine. Acknowledged by RENU MONTERROSO on 8:57am OR DATA DEVELOPER documented in this encounter Plan of [...] on filedocumented in this encounter Care Teams Auto Former Machine Operator Relationship Specialty Start Date End Date Yessi Torres MD PCP - General 10/17/10 09/28/[address] [place] [address] documented as of this encounter
--- OUTSIDE RECORDS SUMMARY | 2022-06-18 23:14 | XMS_ITS | Encounter Summary ---
:1955 Author Organization [facility] Address [address] [place] [address] Care Team Providers Name Role Phone Yessi Torres MD Primary Care Provider Encounter Details Date Type Department Care Team Description 08/13/2006 PN Conversion Only [facility] Radha Ibarra MD [address] [facility] [address] [facility] [place] [address] [place], [place] [phone] ( Work) [phone] Social History Tobacco Use Types Packs/Day Years Used Date Smoking Tobacco: Never Assessed Sex Assigned at Date Recorded Not on file documented as of this encounter Plan of Treatment Upcoming Encounters Date Type Specialty Care Team Description 06/26/2022 Appointment Orthopedics Terra Minor MD [address] [place] [address] (Wo rk) 07/03/2022 Appointment Orthopedics Terra Minor MD [address] [place] [address] (Wo rk) 07/10/2022 Appointment Terra Soria MD [address] [place] [address] (Wo rk) documented as of this encounter Visit Diagnoses Not on filedocumented in this encounter Care Teams Band Scroll Saw Operator Relationship Specialty Start Date End Date Yessi Torres MD PCP - General 10/17/10 09/28/[address] [place], [place] [id number] documented as of this encounter
--- OUTSIDE RECORDS SUMMARY | 2022-06-18 23:14 | XMS_ITS | Encounter Summary ---
:1955 Author Organization [facility] Address [address] [address] Care Team Providers Name Role Phone Yessi Torres MD Primary Care Provider Reason for Visit Reason Comments Other Encounter Details Date Type Department Care Team Description 04/24/2006 Telephone [facility] Renu Monterroso [place] Other [address] [place] [address] Social History Tobacco Use Types Packs/Day Years Used Date Smoking Tobacco: Never Assessed Sex Assigned at Date Recorded Not on file documented as of this encounter [facility], Message - 04/24/2006 9:12 AM CDT Phone Note filed by Nixon at 10/31/10945 Author: Nixon Service: (none) Author Type: (none) Filed: 10/31/10945 Note Time: 04/24/06911 Status: Signed Training Director: Nixon MESSAGE TO CARE TEAM NAME OF CALLER:Belle NAME OF CLINICIAN:Michael Chambers MESSAGE:Had recent EMG, positive for carpal tunnel bilaterally. Belle is wondering what the next step would be to treat this? PHARMACY NAME: PHARMACY PHONE #: CALL BACK PHONE #:cell [phone] BEST TIME TO CALL BACK: Is it OK to leave detailed message on voicemail? Created on 24Apr2006 9:12am by HODA GARAY On 24Apr2006 12:47pm YESSI TORRES wrote: If symptoms not improving, next step would be to see Hand surgeon to discuss surgery. She can come see me to discuss this, or she can set up appt with Hand Ortho -- if she wishes, we can set up or she can call. Please call her with recommendations. Consult with ortho is for carpal tunnel. Acknowledged by YESSI TORRES on 12:47pm On 24Apr2006 1:07pm RENU MONTERROSO wrote: Number given for ortho. Acknowledged by RENU MONTERROSO on 1:07pm ENDOSCOPY documented in this encounter Plan of Treatment Upcoming Encounters Date Type Specialty Care Team Description 06/26/2022 Appointment Orthopedics Terra Minor MD [address] [place] [address] ([place]) 07/03/2022 Appointment OrthopedicTerra Ngo MD [address] [place] [address] (Ying rk) 07/10/2022 Appointment Orthopedics Terra Minor MD [address] [place] [address] ([place]) documented as of this encounter Visit Diagnoses Not on filedocumented in this encounter Care Teams Director Of Sports Medicine Relationship Specialty Start Date End Date Yessi Torres MD PCP - General 10/17/10 09/28/[address] [place] [address] documented as of this encounter
--- OUTSIDE RECORDS SUMMARY | 2022-06-18 23:14 | XMS_ITS | Encounter Summary ---
:1955 Author Organization [facility] Address [address] [place] [address] Care Team Providers Name Role Phone Yessi Torres MD Primary Care Provider Encounter Details Date Type Department Care Team Description 11/27/2006 Office Visit [facility] Radha Ibarra MD [address] [facility] [address] [facility] [place], [place] [address] [place], [place] [address] (Wo rk) Social History Tobacco Use Types Packs/Day Years Used Date Smoking Tobacco: Never Assessed Sex Assigned at Date Recorded Not on file documented as of this encounter Progress Notes Radha Ibarra MD - 11/27/2006 12:01 AM CDT Progress Notes signed by Radha Ibarra MD at 12/03/06 1255 Author: Radha Ibarra MD Service: (none) Author Type: Physician Filed: 11/03/102038 Note Time: 11/27/06 0001 Status: Signed Paper Coating Machine Operator: Radha Ibarra MD (Physician) NAME: JACOBY GUERRERO MR#: [id number] ACCT: [id number] VISIT: [id number] DICTATING CLINICIAN: RADHA YOUNG MD JOB: [id number] LOC: 371 CLINIC PROGRESS NOTE DATE OF VISIT: 11/27/2006 SUBJECTIVE: : 1955. HISTORY OF PRESENT ILLNESS: Jacoby is seen regarding both being status post right carpal tunnel release on 08/13/06 as well as wanting to discuss symptoms that have recurred in her left. She had carpal tunnel release as I mentioned in July. This has continued to improve over time. Her preoperative symptoms were completely gone almost right away, but she did have some trouble with tenderness in the palm. However, she says that still continues to get better everyday and she is quite delighted with her result. Left side was injected in 06/19 at the same time as I did the right injection. This lasted for a good long time, though that has worn off and she is now having recurrent symptoms of nighttime awakening, numbness with activities in the median distribution. She has started wearing a brace which helps with nighttime awakening symptoms. She thinks she would like to have that left side released, though is not sure she is quite ready to do it. OBJECTIVE: Good thenar bulk and strength to the right with opposition to the small finger. Normal sensation in the median distribution at rest. Still has some thicker scar than I typically see at 4 months, though she assures me this is resolving. Left side has equivocal wasting, but she does have a positive shoulder sign at the thumb CMC joint. Nevertheless, she does not have any pain at either thumb CMC joint with palpation or manipulation. She has a positive carpal compression test on that left side. Good opponens muscle function as yet. No numbness at rest. ASSESSMENT: 1. Stressful right carpal tunnel release. Scar is still softening and evolving. 2. Left carpal tunnel syndrome symptoms. Certainly, she can wait to have this done until she feels ready. I have entered orders to the computer. PLAN: She will call up when she wants to have her left side done. DCB:[id number] C: 12/01/06 18:20 DOCUMENT: [id number] documented in this encounter Plan of Treatment Upcoming Encounters Date Type Specialty Care Team Description 06/26/2022 Appointment Orthopedics Terra Minor MD [address] [place] [address] ([facility]) 07/03/2022 Appointment Orthopedics Terra Minor MD [address] [place] [address] (Wo rk) 07/10/2022 Appointment Orthopedics Terra Minor MD [address] [place] [address] (Wo rk) documented as of this encounter Visit Diagnoses Not on filedocumented in this encounter Care Teams Quality Control Engineer Relationship Specialty Start Date End Date Yessi Torres MD PCP - General 10/17/10 09/28/14 [facility] [place] [address] documented as of this encounter
--- OUTSIDE RECORDS SUMMARY | 2022-06-18 23:14 | XMS_ITS | Encounter Summary ---
:1955 Author Organization [facility] Address [address], [place] [address] Care Team Providers Name Role Phone Yessi Torres MD Primary Care Provider Encounter Details Date Type Department Care Team Description 02/13/2005 PN Conversion Only [facility] N Yessi Torres, [address] [place] [address] [place] [address] Social History Tobacco Use Types Packs/Day Years Used Date Smoking Tobacco: Never Assessed Sex Assigned at Date Recorded Not on file documented as of this encounter Plan of Treatment Upcoming Encounters Date Type Specialty Care Team Description 06/26/2022 Appointment OrthopedicTerra Ngo MD [address] [place] [address] ([place]) 07/03/2022 Appointment OrthopedicTerra Ngo MD [address] [place] [address] ([place]) 07/10/2022 Appointment OrthopedicTerra Ngo MD [address] [place] [address] ([place]) documented as of this encounter Procedures Procedure Name Priority Date/Time Associated Comments Diagnosis THYROID STIMULATING Routine 02/13/2005 11:18 Resu lts for this HORMONE AM CDT procedure are i n the results section. documented in this encounter Results Thyroid Stimulating Hormone (02/13/2005 11:18 AM CDT) P athologist Signature Thyroid 1.19 0.20 - HP CONVERSION Stimulating 4.50 Hormone uIU/mL Specimen (Source) Anatomical Collection Method Collection Time Re ceived Time Location / / Volume Laterality 02/13/2005 11:18 AM CDT Yessi Torres MD LAB_1 Performing Organization Address City/State/ZIP Code Phon e Number HP CONVERSION documented in this encounter Visit Diagnoses Not on filedocumented in this encounter Care Teams Outside Installation Machinist Relationship Specialty Start Date End Date Yessi Torres MD PCP - General 10/17/10 09/28/[address] [place], [place] [address] documented as of this encounter
--- OUTSIDE RECORDS SUMMARY | 2022-06-18 23:14 | XMS_ITS | Encounter Summary ---
:1955 Author Organization [employer] Address [address] [place] [address] Care Team Providers Name Role Phone Yessi Torres MD Primary Care Provider Encounter Details Date Type Department Care Team Description 08/21/2006 Office Visit [facility] Radha Ibarra MD [address] [facility] 8[address] [facility] [place], [place] [address] [place], [place] [id number] (Wo rk) Social History Tobacco Use Types Packs/Day Years Used Date Smoking Tobacco: Never Assessed Sex Assigned at Date Recorded Not on file documented as of this encounter Progress Notes Radha Ibarra MD - 08/21/2006 12:01 AM CST Progress Notes signed by Radha Ibarra MD at 08/26/06 1424 Author: Radha Ibarra MD Service: (none) Author Type: Physician Filed: 11/03/10 1841 Note Time: 08/21/06 0001 Status: Signed Ag Service Manager: Radha Ibarra MD (Physician) NAME: JACOBY GUERRERO MR#: [id number] ACCT: [id number] VISIT: DICTATING CLINICIAN: RADHA YOUNG MD JOB: [id number] LOC: 3711 CLINIC PROGRESS NOTE DATE OF VISIT: 08/21/2006 SUBJECTIVE: : 1955 HISTORY OF PRESENT ILLNESS: Ms. Guerrero is seen in routine followup about a week and a half after a carpal tunnel release on the right done 08/13/06. She is quite pleased with her results. She is sleeping well and has had no numbness since the time of the surgery. Using her hand relatively normally. Getting better sleep. OBJECTIVE: Wound is healing nicely with no erythema or drainage. Normal apposition of the thumb to the small finger with good thenar bulk and strength. Spreads the fingers without difficulty. Normal sensation in the median distribution compared to the other hand and compared to the small finger as well as in the palmar cutaneous branch distribution. Makes a full composite fist and fully extends the fingers. ASSESSMENT: Successful carpal tunnel release right. PLAN: Follow up in five weeks for final visit. DCB:[id number] C: 08/22/06 15:40 DOCUMENT: [id number] CONSERVATIONIST documented in this encounter Plan of Treatment [...] on filedocumented in this encounter Care Teams Tugger Operator Relationship Specialty Start Date End Date Yessi Torres MD PCP - General 10/17/10 09/28/[address] [place] [address] documented as of this encounter
--- OUTSIDE RECORDS SUMMARY | 2022-06-18 23:14 | XMS_ITS | Encounter Summary ---
:1955 Author Organization [facility] Address [address] [place] [address] Care Team Providers Name Role Phone Yessi Torres MD Primary Care Provider Encounter Details Date Type Department Care Team Description 07/13/2011 Imaging [facility] [address] [place], [place] [address] Social History Tobacco Use Types [...] on filedocumented in this encounter Care Teams Electrical Controls Assembler Relationship Specialty Start Date End Date Yessi Torres MD PCP - General 10/17/10 09/28/14 [address] [place] [id number] documented as of this encounter
--- OUTSIDE RECORDS SUMMARY | 2022-06-18 23:14 | XMS_ITS | Encounter Summary ---
:1955 [facility] Address [address] [address] Care Team Providers Name Role Phone Yessi Torres MD Primary Care Provider Encounter Details Date Type Department Care Team Description 06/01/2003 PN Conversion Only [facility] Khushbu Torres, Medicine [address] [place] [address] [place] [address] Social History Tobacco Use Types Packs/Day Years Used Date Smoking Tobacco: Never Assessed Sex Assigned at Date Recorded Not on file documented as of this encounter Progress Notes Yessi Torres MD - 06/01/2003 12:01 AM CST Progress Notes signed by Yessi Torres MD at 06/02/03 1230 Author: Yessi Torres MD Service: (none) Author Type: Physician Filed: 11/02/10 1810 Note Time: 06/01/03 0001 Status: Signed Business Management Analyst: Yessi Torres MD (Physician) NAME: JACOBY GUERRERO MR: [id number] ACCT: [id number] VISIT: [id number] DICTATING CLINICIAN: YESSI TORRES MD JOB: [id number] CLINIC PROGRESS NOTE DATE OF VISIT: 06/01/2003 SUBJECTIVE:: 1955. The patient is a 47-year-old female who I recently saw for a physical exam, who is here to have me look at a lump on her right inner thigh. She states this has been there for the past 6-12 months but she just forgot to mention it at her physical. She thinks it can get bigger and then smaller. She is fairly sure that it recently has decreased in size from what it was. It is not bothersome to her. It is not painful or tender. OBJECTIVE:VS: BP: 134/82. T: 98.8. Wt: 190 lb. SKIN: Right, upper-inner thigh just distal to the groin line she has a 2-1/2 x 1 cm subcutaneous growth. This is soft and moveable. No inguinal adenopathy. ASSESSMENT:Subcutaneous tissue mass. This is most likely benign given that it is soft and moveable and not significantly changing in size. Discussed it could be a lipoma or a possible a cyst. Recommend she observe this and if she thinks it is growing in size to come back in for a repeat exam. If size remains stable, then most likely is benign. PLAN:See assessment. TT: CT: [id number] C: 06/02/03 00:00 DOCUMENT: [id number] D TALENT QUALIFICATION SPECIALIST Yessi Torres MD - 05/21/2003 12:01 AM CST Progress Notes signed by Yessi Torres MD at 05/25/03 1045 Author: Yessi Torres MD Service: (none) Author Type: Physician Filed: 11/02/10 1758 Note Time: 05/21/03 0001 Status: Signed Business Management Analyst: Yessi Torres MD (Physician) NAME: JACOBY GUERRERO MR: [id number] ACCT: [id number] VISIT: [id number] DICTATING CLINICIAN: YESSI TORRES MD JOB: [id number] CLINIC PROGRESS NOTE DATE OF VISIT: 05/21/2003 SUBJECTIVE: : 1955. The patient is a 47-year-old female who is here for a physical exam. This is her first visit at [facility]. She has previously seen [facility], Macey Cherry, for her primary care. She has two specific concerns today. The first is that over the last year she has been getting a headache with nausea about 24 hours before her period starts. The headache is across the frontal area. She has nausea, but no vomiting and no photophobia. The pain is fairly intense, but she is able to continue her activities. The headache typically lasts for a few hours, then resolves. She takes three Tylenol, which makes the pain tolerable. There is no aura or visual symptoms preceding the headaches. She has no history of migraines personally or in her family. Her other concern is that over the past six months she has had two to three episodes of palpitations. These have occurred with her sitting down and not with any activity. With these episodes, she feels that her heart is racing. She feels very lightheaded and like she cannot catch her breath These episodes have lasted one to two minutes. No associated chest pain. The last time it happened, she was debating whether to call an ambulance, but then it suddenly resolved. These episodes do not occur with activity, and she has no symptoms with activity. PAST MEDICAL HISTORY: 1. History of uterine fibroid. 2. 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 She has a history of an abnormal Pap. smear x 1, that was normal on repeat. 3. Obsessive-compulsive disorder. The patient has been on Luvox for five years. She is seen at [facility] by Abe Mccollum. She has been doing well with the Luvox. 4. History of benign breast lump. HABITS: She does not smoke cigarettes. Alcohol, five drinks per month. She does some walking for exercise, but plans to start exercising more regularly. Calcium intake is good with diet. FAMILY HISTORY: Her mother is 72 and has COPD, RA and hypertension. Father is 73 and has hyperlipidemia and essential tremor. She has five siblings who are healthy. A maternal aunt has breast cancer. A maternal grandfather of CA at 66. No family history of diabetes or colon cancer. CURRENT MEDICATIONS: Luvox 100 mg q.d. ADR/ALLERGIES: NO KNOWN ALLERGIES. SOCIAL HISTORY: She has a female partner, and they have two sons. The first son is four and a half and is her biological child. Her other son is ten months old and is her partner's biological child. 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 REVIEW OF SYSTEMS: Periods are regular, with cycles of around 25 days. Her flow has been heavier since she had her child four and a half years ago. OBJECTIVE: VS: BP1: 138/82. BP2: 136/86. Ht: 5 ft. 9 in. Wt: 192 lb. EYES: Pupils equal, round and reactive to light. Extraocular movements are intact. EARS: TM's normal. OROPHARYNX: No lesions. NECK: No nodes. Thyroid is normal. CHEST: Clear to auscultation. CARDIAC: Normal S1 and S2. No murmur. Regular rate and rhythm. ABDOMEN: Soft, nontender. No mass. No hepatosplenomegaly. EXTREMITIES: No edema. Pulses are full. NEUROLOGIC: Cranial nerves II-XII are intact. Strength 5/5 throughout. No tremor with lsavei-yzts-pljslb. Deep tendon reflexes are 2+ and symmetric. ASSESSMENT: 1. Headaches. Discussed that these may be migraine headaches given their relationship to her menses. She gets fairly good control with Tylenol. Alternatively, we could try two Aleve with a headache. If these kdkl-gmc-bzjjngr medications are not helpful, she could call and we could either try Midrin or Imitrex. 2. Palpitations. Her description sounds suggestive for SVT. Will check an EKG today and then set her up with an event monitor to try and catch a rhythm strip of one of these episodes. Discussed with her that if she gets an episode and is feeling very lightheaded, she should call 911. Also discussed trying a Valsalva maneuver with the episode. Will have her call me regarding follow up once she is done with the event monitor. 3. Health care maintenance. She had a tetanus shot this year. Pap. smear was four to six months ago. Mammogram in November of this year. She states she has had a cholesterol and it was 227. Will have her return for fasting lipids and glucose. Health care maintenance is otherwise up-to-date. She will request to have her records from Dr. Cherry sent here. We discussed regular exercise and weight loss, and she plans to start working on both those things. PLAN: See assessment. TT: CT: [id number] C: 05/22/03 17:18 DOCUMENT: [id number] D TALENT QUALIFICATION SPECIALIST documented in this encounter Plan of [...] on filedocumented in this encounter Care Teams Automated Manufacturing Instructor Relationship Specialty Start Date End Date Yessi Torres MD PCP - General 10/17/10 09/28/14 [address] [place] [id number] documented as of this encounter
--- OUTSIDE RECORDS SUMMARY | 2022-06-18 23:14 | XMS_ITS | Encounter Summary ---
:1955 Author [facility] Address [address], [place] [address] Care Team Providers Name Role Phone Yessi Torres MD Primary Care Provider Encounter Details Date Type Department Care Team Description 08/28/2005 Office Visit [facility] Francois Torres MD [facility] [address] [place] [address] [place] [address] Social History Tobacco Use Types Packs/Day Years Used Date Smoking Tobacco: Never Assessed Sex Assigned at Date Recorded Not on file documented as of this encounter Last Filed Vital Signs Vital Sign Reading Time Taken Comments Blood Pressure 120/80 08/28/2005 10:33 AM [facility] Pulse 70 08/28/2005 10:33 AM [facility] Temperature - - Respiratory Rate - - Oxygen Saturation - - Inhaled Oxygen Concentration - - Weight 85.3 kg (187 lb 15.8 oz) 08/28/2005 10:33 AM C: 85.3kg [facility] Height - - Body Mass Index - - documented in this encounter Progress Notes Yessi Torres MD - 08/28/2005 12:01 AM CST Progress Notes signed by Yessi Torres MD at 09/15/052043 Author: Yessi Torres MD Service: (none) Author Type: Physician Filed: 11/03/10 1127 Note Time: 08/28/05 0001 Status: Signed Venipuncturist: Yessi Torres MD (Physician) NAME: JACOBY GUERRERO MR: [id number] ACCT: [id number] VISIT: [id number] DICTATING CLINICIAN: YESSI TORRES MD JOB: [id number] CLINIC PROGRESS NOTE DATE OF VISIT: 08/28/2005 SUBJECTIVE: : 1955. Patient is a 49-year-old female who is here for epigastric pain. Onset of this over a week ago. Had a constant, dull ache in the epigastric area that would decrease with eating. Had slight nausea, with no vomiting. Also some mild diarrhea with this. No fever. She did feel chilled at times and warm while this symptom was going on. Also had a dull headache. This symptom was most intense from 08/23 through the . It started going away on the and has been completely gone now for the past few days, and she is feeling back to normal. Was not taking any NSAID medications prior to the onset of symptoms. She was wondering if it was a hormonal symptom, as in the past she has had some mild epigastric pain and headache around the time of ovulation. However, she has not had a menstrual period in the last year. Otherwise doing well. Has been exercising daily for the last 6 weeks and feels good with that. While here would also like me to look at a lump on the right medial thigh. Had looked at this previously 05/2003. She thinks it might be increasing in size, but is not sure. MEDICATIONS: Reviewed in [employer]. OBJECTIVE: VS: BP: 120/80. P: 70. Wt: 188. CHEST: Clear to auscultation. BACK: No CVA tenderness. CARDIOVASCULAR: Regular rate and rhythm. No murmur. ABDOMEN: Nontender. She has a subcutaneous soft tissue lump, right medial thigh, approximately 2-1/2 x 1 cm, which makes it unchanged in size from previous check 05/2003. It is somewhat soft and movable under the skin. ASSESSMENT: 1. Epigastric pain with diarrhea, headache. Most likely, this was a viral illness. Since symptoms have completely resolved, will observe. She is to call me if symptoms recurrent and persistent. 2. Soft tissue lump. Most likely lipoma. Recommended observation, since not changing in size. Follow up if she thinks it is growing. PLAN: See assessment. NJV:[id number] C: 08/29/05 04:08 DOCUMENT: [id number] [facility] documented in this encounter Plan of Treatment [...] on filedocumented in this encounter Care Teams Rn Plastic Surgery Relationship Specialty Start Date End Date Yessi Torres MD PCP - General 10/17/10 09/28/[address] [place] [id number] documented as of this encounter
--- OUTSIDE RECORDS SUMMARY | 2022-06-18 23:14 | XMS_ITS | Encounter Summary ---
:1955 Author [facility] Address [address] [place] [address] Care Team Providers Name Role Phone Yessi Torres MD Primary Care Provider Reason for Visit Reason Comments SHOULDER PAIN Encounter Details Date Type Department Care Team Description 05/29/2011 Surgical Consult [facility] Yvonne Ramos, Foot pain, right; [facility] Knee pain, right [address] [facility] [facility] [address] [facility] [place], [place] [address] [phone] Social History Tobacco Use Types Packs/Day Years Used Date Smoking Tobacco: Never Assessed Sex Assigned at Date Recorded Not on file documented as of this encounter Last Filed Vital Signs Vital Sign Reading Time Taken Comments Blood Pressure - - Pulse - - Temperature - - Respiratory Rate - - Oxygen Saturation - - Inhaled Oxygen Concentration - - Weight 83.9 kg (185 lb) 05/29/2011 3:40 PM ECHO TECHNOLOGIST Height 175.3 cm (5' 9) 05/29/2011 3:40 PM ECHO TECHNOLOGIST Body Mass Index 27.32 05/29/2011 3:40 PM ECHO TECHNOLOGIST documented in this encounter Progress Notes Yvonne Ramos PA-C - 05/29/2011 9:01 PM CST Progress Notes signed by Yvonne Ramos PA-C at 06/13/11805 Author: Yvonne Ramos PA-C Service: (none) Author Type: Physician Damage Appraiser Filed: 06/13/11805 Note Time: 05/29/112100 Status: Signed Foundry Process Engineer: Yvonne Ramos PA-C (Physician Damage Appraiser) NAME: JACOBY GUERRERO VISIT: [id number] DICTATING CLINICIAN: YVONNE RAMOS PA-C JOB: [id number] [facility] JOB: [id number] LOC: 3711 CLINIC PROGRESS NOTE DATE OF VISIT: 05/29/2011 : 1955 SUBJECTIVE: Ms. Guerrero is in clinic today for examination of right great toe and right knee. She complains of increasing pain about that of the great toe with activity. She states it is quite stiff to active range of motion. It bothers her with wearing high heels. She denies any specific trauma. Denies any other injuries. She is self-referred today for further evaluation. She also complains of pain about that of her knee. She has difficulty with squatting. It has progressively worsened over the years. She states it is difficult to do active range of motion and at times gives her troubles which is related to that of her great toe. She presents today for both problems. Has been using ice and modification of activities. CURRENT MEDICAL PROBLEMS: None. CURRENT MEDICATIONS: Luvox. ADR/ALLERGIES: NONE. PREVIOUS SURGERIES: and bilateral carpal tunnel. SOCIAL HISTORY: Patient has a daughter. She works for [employer]. Denies any tobacco use and drinks occasionally. REVIEW OF SYSTEMS: Significant for reading glasses, finger fractures, joint pain. Denies any other history of heart, lung, liver, renal, GI, cancers, diabetes, or arthritis. FAMILY HISTORY: Significant for grandparents with heart disease and a mother with rheumatoid arthritis. EXAMINATION: The examination today demonstrates a 55-year-old female in no acute distress. Answered all questions appropriately. Height and weight 69 inches, 185 pounds. Bilateral foot and ankle exam today demonstrates skin is cool to touch. She has tenderness to palpation with that of the first MTP where she has obvious hallux rigidus. She has difficulty with active range of motion; it is quite painful for her. She has a minimal bunion deformity but has more of a crossover deformity with her second toe. She has full active range of motion of her ankle, subtalar, and transverse tarsal joints. All tendons are intact with 5/5 strength. She has a 2+ pedal pulse. Examination of the bilateral knees demonstrates skin is cool to touch. She has no effusions. Ligaments are tender. She has tenderness in the undersurface of the patella. Her meniscus is relatively nontender. All tendons are intact with 5/5 strength. She has a 2+ pedal pulse. IMAGING: Radiographs were obtained today of the knee and of the foot, these were obtained today and personally reviewed. These demonstrated significant degenerative changes about that of the first MTP. The knee demonstrated minimal degenerative changes. IMPRESSION: 1. Hallux rigidus. 2. Patellofemoral syndrome. PLAN: I discussed with the patient at this point recommended a physical therapy program for a patellofemoral stretching program as well as IT band stretching. She will work on this for the next 2 months' time. Additionally we discussed hallux rigidus and the treatments for this. She will follow up with me in about 2 months' time for reexamination. If she has any problems or complications return to clinic sooner. IM: 05/30/2011 10:37:18 am MT: 17 TECHNOLOGIST documented in this encounter Plan of Treatment [...] Priority Date/Time Associated Diagnosis Comme nts XR FOOT RT 3+ VIEWS Routine 05/29/2011 4:20 PM Foot pain, righ t Results for this ECHO TECHNOLOGIST procedure are i n the results section. XR KNEE RT 3 VIEWS Routine 05/29/2011 4:20 PM Knee pain, right Results for this ECHO TECHNOLOGIST procedure are i n the results section. documented in this encounter Results XR Foot Rt 3+ Views (05/29/2011 4:20 PM ECHO TECHNOLOGIST) Anatomical Region Laterality Modality Lower Extremity, Foot Other Specimen (Source) Anatomical Location Collection Method / Collectio n Time Received Time / Laterality Volume Impressions 05/29/2011 4:38 PM ECHO TECHNOLOGIST IMPRESSION: No acute osseous abnormality. ??Degenerative changes as above. Narrative 05/29/2011 4:38 PM ECHO TECHNOLOGIST COMPARISON: None. ?? FINDINGS: There is mild degenerative ninfa nge at the first metatarsophalangeal joint. ??Mild degene rative spurring at the first metatarsal cuneiform joint. ??No fractur e or subluxation evident. ?? There is calcaneal spurring at the plant ar aspect. ?? Procedure Note Justin Vera MD - 12/30/2015Formatt ing of this note might be different from the original. COMPARISON: None. FINDINGS: There is mild degenerative ninfa nge at the first metatarsophalangeal joint. Mild degenera tive spurring at the first metatarsal cuneiform joint. No fracture or subluxation evident. There is calcaneal spurring at the plant ar aspect. IMPRESSION IMPRESSION: No acute osseous abnormality . Degenerative changes as above. Yvonne Ramos PA-C RAD GD XR Knee Rt 3 Views (05/29/2011 4:20 PM ECHO TECHNOLOGIST) Anatomical Region Laterality Modality Lower Extremity, Knee Other Specimen (Source) Anatomical Location Collection Method / Collectio n Time Received Time / Laterality Volume Narrative 05/29/2011 4:31 PM ECHO TECHNOLOGIST There is narrowing of the medial patello femoral joint. ??Prominent size calcification overlying the posteri or knee joint region which represent fabella rather than loose join t body. ??Medial lateral joint space compartments show good maintenance with very minor narrowing of the medial joint space. Procedure Note Keaton Bruce MD - 12/30/2015Formatti ng of this note might be different from the original. There is narrowing of the medial patello femoral joint. Prominent size calcification overlying the posteri or knee joint region which represent fabella rather than loose join t body. Medial lateral joint space compartments show good maintenance with very minor narrowing of the medial joint space. Yvonne Ramos PA-C RAD GD documented in this encounter Visit Diagnoses Diagnosis Foot pain, right Pain in limb Knee pain, right Pain in joint, lower leg documented in this encounter Care Teams Desktop Publishing Specialist Relationship Specialty Start Date End Date Yessi Torres MD PCP - General 10/17/10 09/28/14 [address] [place] [id number] documented as of this encounter
--- OUTSIDE RECORDS SUMMARY | 2022-06-18 23:14 | XMS_ITS | Encounter Summary ---
:1955 Author Organization [employer] Address [address] [place] [address] Care Team Providers Name Role Phone Yessi Torres MD Primary Care Provider Reason for Visit Reason Comments CONSULT Encounter Details Date Type Department Care Team Description 07/10/2011 Surgical Consult [facility] Justine Funes pain (Primary Dx); DANIEL Palencia MD Backache, unspecified [address] [facility] [address] [facility] [place], [place] [address] [phone] Social History Tobacco Use Types Packs/Day Years Used Date Smoking Tobacco: Never Assessed Sex Assigned at Date Recorded Not on file documented as of this encounter Last Filed Vital Signs Vital Sign Reading Time Taken Comments Blood Pressure - - Pulse - - Temperature - - Respiratory Rate - - Oxygen Saturation - - Inhaled Oxygen Concentration - - Weight 85.7 kg (189 lb) 07/10/2011 11:23 AM SUPERVISORY FORESTER Height 172.7 cm (5' 8) 07/10/2011 11:23 AM SUPERVISORY FORESTER Body Mass Index 28.74 07/10/2011 11:23 AM SUPERVISORY FORESTER documented in this encounter Progress Notes Justine Funes MD - 07/10/2011 6:10 PM CST Progress Notes signed by Justine Funes MD at 07/12/11 4328 Author: Justine Funes MD Service: (none) Author Type: Physician Filed: 07/12/11 1233 Note Time: 07/10/111809 Status: Signed Balloon Tester: Justine Funes MD (Physician) NAME: JACOBY GUERRERO VISIT: [id number] DICTATING CLINICIAN: JUSTINE FUNES MD JOB: [id number] Med JOB: [id number] LOC: 3711 CLINIC PROGRESS NOTE DATE OF VISIT: 07/10/2011 : 1955 CHIEF COMPLAINT: Low back pain. 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 This involves a moderate amount of travel. Jacoby has had problems with off and on radicular left leg pain over the years. She now presents with a 2-week history of midline axial but yet widespread lower back pain. The pain will extend to both left and right buttocks. At this time she is not experiencing any radicular leg pain. In the past the pain has traveled below the level of the knee but certainly today it is only to the buttock level. PAST MEDICAL HISTORY: She is otherwise healthy. No history of diabetes or cancer. She is a nonsmoker. SOCIAL HISTORY: She is in a stable relationship. She works for [employer]. Her job does involve a fair amount of travel. REVIEW OF SYSTEMS: Positive for low back pain. No radicular leg pain at this time. No bowel or bladder difficulty. No skin rashes, no fevers or chills. No unexplained weightloss. PHYSICAL EXAM: Examination shows a generally healthy-appearing woman. Gait is nonantalgic, nonmyelopathic. She stands fully erect. Inspection of the lumbar spine shows normal lordotic curve. There is no skin rashes seen. She exhibits really very good spinal mobility. She is able to heel and toe walk normally. In the seated position she has normal EHL, FHL, foot dorsiflexion and plantar flexion power. Normal light touch. Normal quadriceps and hip flexion power. DTRs are normal. Straight leg raising is nonprovocative. Given the degree of pain she is having plus history of previous radicular symptoms, we will proceed with MRI imaging of the lumbar spine. She will follow up with me after the scan to review results. I have also given her a referral today [facility] Therapy should concentrate on core strengthening work. FINAL ASSESSMENT: Low back pain. cc: [facility] Attention: Jenniferkadeem FAX: [phone] IM: 07/10/2011 06:23:03 pm MT: 3 RVISORY FORESTER documented in this encounter Plan of Treatment [...] Comme nts MR LUMBAR SPINE WO Routine 07/13/2011 3:01 PM Back pain Res ults for this IV CONT SUPERVISORY FORESTER procedure are i n the results section. documented in this encounter Results MR Lumbar Spine WO IV Cont (07/13/2011 3:01 PM SUPERVISORY FORESTER) Anatomical Region Laterality Modality Spine, L-Spine, Skeletal Other Specimen (Source) Anatomical Location Collection Method / Collectio n Time Received Time / Laterality Volume Impressions 07/13/2011 3:14 PM SUPERVISORY FORESTER IMPRESSION: 1. Minimal disk bulge with associated an nular defect posteriorly on the right at the L5-S1 level abuts the t raversing right S1 nerve root in the lateral recess. ?? 2. Mild disk bulges at the L3-L4 and L4- L5 levels without significant spinal canal stenosis. Narrative 07/13/2011 3:14 PM SUPERVISORY FORESTER CLINICAL INDICATION: Lumbar spine pain, rule out disk protrusion TECHNIQUE: Routine protocol without IV c ontrast FINDINGS: 5 lumbar type vertebral bodies . ??The conus medullaris is normal in appearance and terminates at t he L1 level. T12-L1, L1-L2, L2-L3: The spinal canal a nd neural foramen are patent. L3-L4: Mild disk desiccation and loss of disk space height. ??Mild disk bulge flattens the ventral thecal s ac without significant spinal canal stenosis. ??The neural foramen are patent. L4-L5: Mild disk bulge effaces the ventr al thecal sac without significant spinal canal stenosis. ??The neural foramen are patent. L5-S1: Disk desiccation. ??Minimal disk bulge with associated annular defect posteriorly on the right abuts th e traversing right S1 nerve root in the lateral recess. ??The neural foramen are patent. Procedure Note Shayan Kern MD - 12/30/2015Forma tting of this note might be different from the original. CLINICAL INDICATION: Lumbar spine pain, rule out disk protrusion TECHNIQUE: Routine protocol without IV c ontrast FINDINGS: 5 lumbar type vertebral bodies . The conus medullaris is normal in appearance and terminates at t he L1 level. T12-L1, L1-L2, L2-L3: The spinal canal a nd neural foramen are patent. L3-L4: Mild disk desiccation and loss of disk space height. Mild disk bulge flattens the ventral thecal s ac without significant spinal canal stenosis. The neural foramen are p atent. L4-L5: Mild disk bulge effaces the ventr al thecal sac without significant spinal canal stenosis. The n eural foramen are patent. L5-S1: Disk desiccation. Minimal disk bu lge with associated annular defect posteriorly on the right abuts th e traversing right S1 nerve root in the lateral recess. The neural f oramen are patent. IMPRESSION IMPRESSION: 1. Minimal disk bulge with associated an nular defect posteriorly on the right at the L5-S1 level abuts the t raversing right S1 nerve root in the lateral recess. 2. Mild disk bulges at the L3-L4 and L4- L5 levels without significant spinal canal stenosis. Justine Funes MD RAD MRI documented in this encounter Visit Diagnoses Diagnosis Backache, unspecified documented in this encounter Care Teams Dramatic Arts Historian Relationship Specialty Start Date End Date Yessi Torres MD PCP - General 10/17/10 09/28/14 [facility] [address] [place] [address] documented as of this encounter
--- OUTSIDE RECORDS SUMMARY | 2022-06-18 23:14 | XMS_ITS | Encounter Summary ---
:1955 Author Organization [employer] [facility] Address [address] [place] [address] Care Team Providers Name Role Phone Yessi Torres MD Primary Care Provider Encounter Details Date Type Department Care Team Description 04/16/2007 Office Visit [facility] Radha Ibarra MD [address] [facility] 8[address] [facility] [place], [place] [address] [place], [place] [address] (Wo rk) Social History Tobacco Use Types Packs/Day Years Used Date Smoking Tobacco: Never Assessed Sex Assigned at Date Recorded Not on file documented as of this encounter Progress Notes Radha Ibarra MD - 04/16/2007 12:01 AM CDT Progress Notes signed by Radha Ibarra MD at 04/21/07 1608 Author: Radha Ibarra MD Service: (none) Author Type: Physician Filed: 11/03/10 2328 Note Time: 04/16/07 0001 Status: Signed Superintendent Police: Radha Ibarra MD (Physician) NAME: JACOBY GUERRERO MR#: [id number] ACCT: [id number] VISIT: [id number] DICTATING CLINICIAN: RADHA YOUNG MD JOB: [id number] LOC: 3710 CLINIC PROGRESS NOTE DATE OF VISIT: 04/16/2007 SUBJECTIVE: : 1955. HISTORY OF PRESENT ILLNESS: Jacoby is seeing me again regarding her left thumb trigger finger. She has a long history with me including bilateral carpal tunnel releases, most recent one of which was the left on 02/13/07. At her followup visit, I injected her right trigger thumb, which she says feels perfect. No pain or triggering. However, the left trigger thumb, which was present prior to the carpal tunnel surgery, has simply worsened over time, and she is wondering about an injection. OBJECTIVE: Left thumb has triggering with flexion and extension and pain at the A1 jett. Carpal tunnel scar is nicely healed, and she has normal sensation and function in the digits and thumb. ASSESSMENT: PLAN: PROCEDURE: I identified the correct site and used an alcohol prep and skin refrigerant for injecting 20 mg of Depo-Medrol and a mL of 0.5% plain Marcaine into the flexor tendon sheath of the right thumb. She tolerated it very well. Follow up with me as needed. DCB:[id number] C: 04/19/07 10:59 DOCUMENT: [id number] documented in this encounter Plan of Treatment [...] on filedocumented in this encounter Care Teams Wet Press Tender Relationship Specialty Start Date End Date Yessi Torres MD PCP - General 10/17/10 09/28/14 [facility] [address] [place] [address] documented as of this encounter
--- OUTSIDE RECORDS SUMMARY | 2022-06-18 23:14 | XMS_ITS | Encounter Summary ---
:1955 Author Organization [facility] Address [address] [place] [address] Care Team Providers Name Role Phone Yessi Torres MD Primary Care Provider Encounter Details Date Type Department Care Team Description 02/07/2006 Procedure Visit [facility] 393 Jorge Patrick MD Neurology OFF SITE [address] [place] [address] [place] [address] [phone] Social History Tobacco Use Types Packs/Day Years Used Date Smoking Tobacco: Never Assessed Sex Assigned at Date Recorded Not on file documented as of this encounter Progress Notes Alex Patrick MD - 02/07/2006 12:01 AM CDT Progress Notes signed by Alex Patrick MD at 02/08/06 1546 Author: Alex Patrick MD Service: (none) Author Type: Physician Filed: 11/03/10 1440 Note Time: 02/07/06 0001 Status: Signed Cnc Manager: Alex Patrick MD (Physician) NAME: JACOBY GUERRERO MR: [id number] ACCT: [id number] VISIT: [id number] DICTATING CLINICIAN: ALEX PATRICK MD JOB: [id number] CLINIC PROGRESS NOTE DATE OF VISIT: 02/07/2006 SUBJECTIVE: Consultation request by Yessi Ludwig. This is a 50-year-old woman who noticed paresthesias of the hands during her seven years ago and now has a recurrence. Notices it prominently with gardening. 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 OBJECTIVE: Asymptomatic at the time of this examination. ASSESSMENT: Motor and sensory conduction velocities today revealed abnormal median distal latencies consistent with carpal tunnel syndrome bilaterally. No muscular denervation is apparent. PLAN: Results discussed briefly today. DGF:[id number] C: 02/08/06 15:42 DOCUMENT: [id number] documented in this encounter Plan of Treatment [...] on filedocumented in this encounter Care Teams Rate Manager Relationship Specialty Start Date End Date Yessi Torres MD PCP - General 10/17/10 09/28/14 [facility] [address] [place] [address] documented as of this encounter
--- OUTSIDE RECORDS SUMMARY | 2022-06-18 23:14 | XMS_ITS | Encounter Summary ---
:1955 Author Organization [employer] Address [address] [place] [address] Care Team Providers Name Role Phone Yessi Torres MD Primary Care Provider Encounter Details Date Type Department Care Team Description 06/18/2013 Orders Only [facility] Dre Snell, Hallux rigidus CENTER DPM (Primary Dx) [address] [facility] [address] [facility] [address] [place] [address] [place], [place] [phone] (Ying rk) Social History Tobacco Use Types Packs/Day Years Used Date Smoking Tobacco: Never Assessed Sex Assigned at Date Recorded Not on file documented as of this encounter Plan of Treatment Upcoming Encounters Date Type Specialty Care Team Description 06/26/2022 Appointment OrthopedicTerra Ngo MD [address] [place] [address] (Wo rk) 07/03/2022 Appointment Terra Soria MD [address] [place] [address] (Wo rk) 07/10/2022 Appointment Terra Soria MD [address] [place] [address] (Ying rk) documented as of this encounter Visit Diagnoses Diagnosis Hallux rigidus - Primary documented in this encounter Care Teams Radio Personality Relationship Specialty Start Date End Date Yessi Torres MD PCP - General 10/17/10 09/28/14 [facility] 7 [place], [place] [address] documented as of this encounter
--- OUTSIDE RECORDS SUMMARY | 2022-06-18 23:14 | XMS_ITS | Encounter Summary ---
:1955 Author Organization [facility] Address [address] [place] [address] Care Team Providers Name Role Phone Yessi Torres MD Primary Care Provider Reason for Visit Reason Comments Other Encounter Details Date Type Department Care Team Description 06/13/2006 Telephone [facility] Radha Ibarra MD Other [address] [facility] [address] [facility] [place], [place] [address] [place], [place] [address] (Wo rk) Social History Tobacco Use Types Packs/Day Years Used Date Smoking Tobacco: Never Assessed Sex Assigned at Date Recorded Not on file documented as of this encounter Progress Notes Kirsten Mac - 06/13/2006 12:04 PM CST Phone Note filed by Kirsten Mac RN at 10/31/10 9329 Author: Kirsten Mac RN Service: (none) Author Type: (none) Filed: 10/31/10 1156 Note Time: 06/13/06 1204 Status: Signed Convertible Top Installer: Loreta Boateng Pt called today stating that her hands were sore from the cortisone shots yesterday, stated she was having trouble squeezing her hands. I instructed patient to ice, elevate, and try Ibuprofin as needed. Thank you. Created on 13Jun2006 12:04pm by KIRSTEN MAC Acknowledged by RADHA YOUNG on 12:30pm ONHOLE MAKER documented in this encounter Plan of [...] on filedocumented in this encounter Care Teams Supervising Architect Relationship Specialty Start Date End Date Yessi Torres MD PCP - General 10/17/10 09/28/14 [place] [id number] documented as of this encounter
--- OUTSIDE RECORDS SUMMARY | 2022-06-18 23:14 | XMS_ITS | Encounter Summary ---
:1955 Author Organization [facility] Address [address], [place] [address] Care Team Providers Name Role Phone Yessi Torres MD Primary Care Provider Encounter Details Date Type Department Care Team Description 06/15/2004 PN Conversion Only [facility] CONVERSIO N Yessi Torres, [address] [place] [address] [place] [address] Social History Tobacco Use Types Packs/Day Years Used Date Smoking Tobacco: Never Assessed Sex Assigned at Date Recorded Not on file documented as of this encounter Plan of Treatment Upcoming Encounters Date Type Specialty Care Team Description 06/26/2022 Appointment OrthopedicTerra Ngo MD [address] [place] [address] (Ying edmonds) 07/03/2022 Appointment OrthopedicTerra Ngo MD [address] [place] [address] (Ying edmonds) 07/10/2022 Appointment OrthopedicTerra Ngo MD [address] [place] [address] (Ying edmonds) documented as of this encounter Procedures Procedure Name Priority Date/Time Associated Comments Diagnosis THYROID STIMULATING Routine 06/15/2004 9:04 AM Re sults for this HORMONE SCHEDULE SUPERVISOR procedure are i n the results section. COMPLETE BLOOD COUNT Routine 06/15/2004 9:04 AM R esults for this W/3DIFF SCHEDULE SUPERVISOR procedure are i n the results section. documented in this encounter Results Complete Blood Count W/3Diff (06/15/2004 9:04 AM SCHEDULE SUPERVISOR) Patholo gist Method Time Signature White Blood Cell 6.7 3.8 - 11.0 HP CONVERSIO N Count K/cmm Red Blood Cell 4.02 3.70 - HP CONVERSION Count 5.20 m/cmm Hemoglobin 13.2 11.8 - HP CONVERSION 15.5 gm/dL Hematocrit 38.1 35.0 - HP CONVERSION 46.0 % Mean Corpuscular 94.8 80.0 - HP CONVERSION Volume 100.0 fl Mean Corpuscular 32.8 27.0 - HP CONVERSION Hemoglobin 34.0 pg Mean Corpuscular 34.6 32.0 - HP CONVERSION Hemoglobin Conc 36.5 gm/dL [place] RDW 13.0 11.0 - HP CONVERSION 15.0 % Platelet Count 379 140 - 450 HP CONVERSION k/cmm Differential Auto-Dif No normal HP CONVERSION Verify range Granulocyte 4.0 2.0 - 7.5 HP CONVERSION Absolute K/u Comment: Absolute granulocytes=combined absolute number of neutrophils, eosinophils and basophils. % Granulocytes 60.2 50.0 - 83.0 % HP CONVERSI ON Comment: Percent Granulocytes=combined percentage of neutrophils, eosinophils and basophils. Lymphocyte % 34.0 20.0 - 40.0 % HP CONVERSION Monocyte 5.8 5.0 - 14.0 % HP CONVERSION Comment: See physician copy for explanat ion of granulocyte # and % values. Specimen (Source) Anatomical Collection Method Collection Time Re ceived Time Location / / Volume Laterality 06/15/2004 9:04 AM SCHEDULE SUPERVISOR Yessi Torres MD LAB_1 Performing Organization Address City/State/ZIP Code Phon e Number HP CONVERSION Thyroid Stimulating Hormone (06/15/2004 9:04 AM SCHEDULE SUPERVISOR) athologist Signature Thyroid 1.61 0.20 - HP CONVERSION Stimulating 5.50 Hormone uIU/mL Specimen (Source) Anatomical Collection Method Collection Time Re ceived Time Location / / Volume Laterality 06/15/2004 9:04 AM SCHEDULE SUPERVISOR Yessi Torres MD LAB_1 Performing Organization Address City/State/ZIP Code Phon e Number HP CONVERSION documented in this encounter Visit Diagnoses Not on filedocumented in this encounter Care Teams Finance Attorney Relationship Specialty Start Date End Date Yessi Torres MD PCP - General 10/17/10 09/28/14 [facility] [address] [place] [address] documented as of this encounter
--- OUTSIDE RECORDS SUMMARY | 2022-06-18 23:14 | XMS_ITS | Encounter Summary ---
:1955 Author Organization [facility] [facility] Address [address] [place] [address] Care Team Providers Name Role Phone Yessi Torres MD Primary Care Provider Encounter Details Date Type Department Care Team Description 02/24/2007 Office Visit [facility] Radha Ibarra MD [address] [facility] 8100 [facility] [place], [place] [address] [place], [place] [address] (Wo rk) Social History Tobacco Use Types Packs/Day Years Used Date Smoking Tobacco: Never Assessed Sex Assigned at Date Recorded Not on file documented as of this encounter Progress Notes Radha Ibarra MD - 02/24/2007 12:01 AM CDT Progress Notes signed by Radha Ibarra MD at 03/04/07 1639 Author: Radha Ibarra MD Service: (none) Author Type: Physician Filed: 11/03/10 2223 Note Time: 02/24/07 0001 Status: Signed Supervisor Facepiece Line: Radha Ibarra MD (Physician) NAME: JACOBY GUERRERO MR#: [id number] ACCT: [id number] VISIT: [id number] DICTATING CLINICIAN: RADHA YOUNG MD JOB: [id number] LOC: 3715 CLINIC PROGRESS NOTE DATE OF VISIT: 02/24/2007 SUBJECTIVE: : 1955. HISTORY OF PRESENT ILLNESS: Jacoby is seen in routine followup for a left carpal tunnel release done on 02/13/2007. She notes that she still has a little bit of numbness from about the PIP joint distally on the long finger. Otherwise, normal proximal to that and really no problems. Is delighted to be sleeping through the night. States that the right trigger thumb is still bothering her and is clicking. It is painful every time it clicks. She has noted that since surgery, the left thumb has some tenderness that has increased. Really not any dena clicking or catching there. OBJECTIVE: Wound is nicely healed, makes a full composite fist and fully extends the fingers. Good thenar strength and good hypothenar strength with finger spread. Normal sensation in the median, ulnar, and radial nerve distributions and palmar cutaneous branch except for that long fingertip. RIGHT THUMB: Has a nodule on the flexor tendon, and I can feel it catching on the A1 jett with active flexion and extension. This is painful. LEFT THUMB: Has tenderness there at the A1 jett and just a very subtle catch with active flexion and extension. ASSESSMENT: 1. Successful carpal tunnel release. 2. Right thumb triggering. At this point, she would like some intervention on that, and I suggested an injection. 3. Left thumb triggering. Because it is so close to the perioperative period, I encouraged her to wait and see if this goes away on its own. PROCEDURE: I identified the correct site, used an alcohol prep and skin refrigerant before injecting uneventfully 20 mg of Depo-Medrol and 0.5 mL of 0.5% plain Marcaine into the right thumb flexor tendon sheath. PLAN: Follow up in 4 more weeks for the left carpal tunnel. P.r.n. on the thumbs. DCB:[id number] C: 03/03/07 16:32 DOCUMENT: [id number] documented in this encounter Plan of Treatment Upcoming Encounters Date Type Specialty Care Team Description 06/26/2022 Appointment Orthopedics Terra Minor MD [address] [place] [address] (Wo rk) 07/03/2022 Appointment Orthopedics Terra Minor MD [address] [place] [address] (Wo rk) 07/10/2022 Appointment Orthopedics Terra Minor MD [address] [place] [address] (Wo rk) documented as of this encounter Visit Diagnoses Not on filedocumented in this encounter Care Teams Bean Sorter Relationship Specialty Start Date End Date Yessi Torres MD PCP - General 10/17/10 09/28/14 [facility] [address] [place] [id number] documented as of this encounter
--- OUTSIDE RECORDS SUMMARY | 2022-06-18 23:14 | XMS_ITS | Encounter Summary ---
:1955 Author Organization [facility] Address [address], [place] [address] Care Team Providers Name Role Phone Anne Hoyt DO Primary Care Provider Unavailable Reason for Referral Consult/Transfer Care (Routine) - Closed Specialty Diagnoses / Procedures Referred By Contact Refer red To Contact Dre Noriega M D [address] [place], [place] [address] Referral ID Status Reason Start Date Expiration Date Visits Requ ested Visits Authorized [id number] Closed 06/17/2016 09/16/2017 1 1 Scheduling Instructions Your provider has recommended an appoint ment with [facility]. You may call [phone] to schedule your appoi ntment. If you do not schedule an appointment within the next 1 to 3 business days, we will call you to help arrange your appointment. We suggest you call your [employer] insurance company about your coverage and benefits for this appointment. NCIAL SALES CONSULTANT Reason for Visit Reason Comments Eye Problem Encounter Details Date Type Department Care Team Description 06/17/2016 Hospital Encounter [facility] Noriega ubjective visual Care MD Twila disturbance of right [address] [place] [address] [id number] Social History Tobacco Use Types Packs/Day Years Used Date Smoking Tobacco: Never Sex Assigned at Date Recorded Not on file documented as of this encounter Last Filed Vital Signs Vital Sign Reading Time Taken Comments Blood Pressure 135/81 06/17/2016 10:35 AM FINANCIAL SALES CONSULTANT Pulse 84 06/17/2016 10:35 AM FINANCIAL SALES CONSULTANT Temperature 36.8 ??C (98.2 ??F) 06/17/2016 10:35 AM FINANCIAL SALES CONSULTANT Respiratory Rate 18 06/17/2016 10:35 AM FINANCIAL SALES CONSULTANT Oxygen Saturation - - Inhaled Oxygen Concentration - - Weight - - Height - - Body Mass Index - - documented in this encounter Medications at Time of Discharge Medication Sig Dispensed Refills Start Date End Date calcium carbonate-vitamin Take 1 Tab by mouth 0 D (OS-DARIUSZ 500 WITH D) daily. 500-200 MG-UNIT per tablet cholecalciferol (VITAMIN Take 1,000 Units by 0 D3) 1000 UNITS tablet mouth daily. Glucosamine-Chondroitin 0 500-400 MG acetaminophen (AKA Take 325-650 mg by 0 1 09/30/2020 TYLENOL) 325 MG tablet mouth every 4 hours as needed. Maximum 4000mg per 24 hours ascorbic acid (ASCORBIC Take 500 mg by 0 09/30/2020 ACID) 500 MG tablet mouth daily. aspirin 81 MG tablet Take 81 mg by mouth 0 09/30/2020 daily. Flaxseed, Linseed, (FLAX 0 09/30/2020 SEED OIL) 1000 MG fluvoxaMINE (AKA LUVOX) Take 1.5 tablets by 30 3 08/200309/30/2020 100 MG tablet mouth nightly. LW Addl Instr:Indicated for: Obsessive-Complusiv e Disorder naproxen sodium (AKA Take 220 mg by 0 07/10/2011 09/30/2020 ANAPROX) 220 MG tablet mouth 2 times daily (with meals). Indications: PAIN, ARTHRITIS documented as of this encounter ED Notes Dre Noriega MD - 06/18/2016 8:11 AM CST NAME: JACOBY GUERRERO MR#: [id number] CSN: [id number] AUTHENTICATING CLINICIAN: Dre Noriega MD CONFIRM #: [id number] LOC: 520 URGENT CARE PROGRESS NOTE DATE OF VISIT: 06/17/2016 : 1955 CHIEF COMPLAINT: Visual disturbance in the right eye. HISTORY OF PRESENT ILLNESS: Patient was driving last night when she noted a vertical line in her right field of vision. She noted it mainly with her right eye. Since then, she has had some sparkling in that field of vision over the last 24 hours. She has had no ocular pain. No change in her vision. She has had some increased floaters as well. REVIEW OF SYSTEMS: Remainder of pertinent general, ophthalmologic, and neurologic review of systems is negative. PHYSICAL EXAM: GENERAL: Pleasant female in no apparent distress. VITAL SIGNS: Reviewed in Epic. HEENT: TMs clear. Nares clear. Oropharynx clear. Eyes show extraocular movements are intact. Pupils equal, reactive to light and accommodation. Fundal exam grossly is normal. IMPRESSION: Visual disturbance concern regarding retina pathology. PLAN: I did discuss with the sheep sorter apprenticeship consultant. He has recommended that she be seen within 24 hours.Arrangement has made for her to be seen in the eye department at 7:30 tomorrow morning. Indications for urgent re-evaluation reviewed with the patient. The patient understands and agrees with plan. JEJ:RUBIN C: CONFIRM #: [id number] NCIAL SALES CONSULTANT documented in this encounter Plan of Treatment Upcoming Encounters Date Type Specialty Care Team Description 06/26/2022 Appointment Orthopedics Terra Minor MD [address] [place] [phone] (Wo grey) 07/03/2022 Appointment OrthopedicTerra Ngo MD [address] [place] [address] (Ying rk) 07/10/2022 Appointment OrthopedicTerra Ngo MD [address] [place] [place] [address] (Ying edmonds) Scheduled Referrals Name Type Priority Associated Diagnoses [facility]erral Routine Ordered: 06/17 Consult-Adult/Peds documented as of this encounter Visit Diagnoses Diagnosis Subjective visual disturbance of right e ye Subjective visual disturbance, unspecifi ed Triage Assessment Note - Maggie Chaparro, RN - 06/17/2016 10:31 AM FINANCIAL SALES CONSULTANT Starting last night, felt like stream of light going through vision on right eye, increase in floaters this morning, (denies pain, injury, and drainage) NCIAL SALES CONSULTANT documented in this encounter Care Teams Hack Driver Relationship Specialty Start Date End Date Anne Hoyt DO PCP - General 09/29/14 [address] [place] [address] documented as of this encounter
--- OUTSIDE RECORDS SUMMARY | 2022-06-18 23:14 | XMS_ITS | Encounter Summary ---
:1955 Author Organization [facility] Address [address], [place] [address] Care Team Providers Name Role Phone Yessi Torres MD Primary Care Provider Encounter Details Date Type Department Care Team Description 06/15/2004 Office Visit [facility] Francois Torres MD [facility] [address] [place] [address] [place] [address] Social History Tobacco Use Types Packs/Day Years Used Date Smoking Tobacco: Never Assessed Sex Assigned at Date Recorded Not on file documented as of this encounter Progress Notes Yessi Torres MD - 06/15/2004 12:01 AM CST Progress Notes signed by Yessi Torres MD at 06/16/04 0735 Author: Yessi Torres MD Service: (none) Author Type: Physician Filed: 11/03/10 0251 Note Time: 06/15/04 0001 Status: Signed Business Technology Professor: Yessi Torres MD (Physician) NAME: JACOBY GUERRERO MR: [id number] ACCT: [id number] VISIT: [id number] DICTATING CLINICIAN: YESSI TORRES MD JOB: [id number] CLINIC PROGRESS NOTE DATE OF VISIT: 06/15/2004 SUBJECTIVE: : 1955. The patient is a 48-year-old female who is here for a physical exam. The headaches discussed at her last visit have mostly resolved. When she gets them they are much less bothersome. Has had a change in her periods in the last 6 months. Cycles are now around 50 days and she can go up to 2 months between periods. Flow continues to be heavy. Palpitations discussed at her last visit have stopped and not recurred. Did not have any palpitations while wearing the event monitor. Has had red eyes for approximately the last year and uses Visine regularly. Saw her eye doctor at one point and was prescribed Patanol which she found every effective but which she only used for a few months. Has some itchiness to the eyes. No drainage. No known allergies but thinks she might react to some animals. Does not wear contact lenses. Has a spot on her left lower lip that has been there at least a year. Blood pressures have always been upper limits of normal. She gets them checked periodically where she works and they run in the 130s/80s. PAST MEDICAL HISTORY: Reviewed from note dated 05/21/03 and is unchanged. HABITS: No cigarettes, alcohol 5 drinks per month. Walking 4 times per week and plans to start exercise bike and weights. Calcium intake adequate. Family medical history and social history reviewed from 05/21/03 and are unchanged. She has moved to [facility] and is enjoying being out of the city. Complete review of systems is negative. Is not having any hot flashes. We will get her Pap smear with gynecology in 07/2004. Has had a mammogram this year. OBJECTIVE: VS: BP: 146/86. BP2: 138/84. Ht: 5 ft. 9 in. Wt: 189 lb. Eyes normal. Conjunctivae normal. Ears and TMs normal. Oropharynx no erythema or lesions. She has a purple macule on the left lower lip. This does fade with pressure from a glass slide. NECK: No nodes. Thyroid normal. CHEST: Clear to auscultation. CARDIAC: Normal S1, S2. No murmur. Regular rate and rhythm. BREAST: No mass, no axillary or supraclavicular nodes. ABDOMEN: Soft, nontender. No mass, no hepatosplenomegaly. EXTREMITIES: No edema. Dorsalis pedis pulse and posterior tib pulses are normal. ASSESSMENT: 1. Health-care maintenance. A Pap smear and mammogram up-to-date. Tetanus in 2002. Cholesterol and glucose normal last year. We will check screening, TSH, and CBC. 2. Eye symptoms. Possibly allergic conjunctivitis given significant improvement with Patanol in the past. We will resume this. The patient advised to use it for 6 weeks at a time. 3. Lip lesion. Most likely a venous lee. She is still interested in seeing her infrastructure project manager and possibly having it removed and she will schedule that appointment. PLAN: See assessment. NJV:[id number] C: 06/15/04 12:08 DOCUMENT: [id number] OID SOFTWARE ENGINEER documented in this encounter Plan of Treatment [...] on filedocumented in this encounter Care Teams House Builder Relationship Specialty Start Date End Date Yessi Torres MD PCP - General 10/17/10 09/28/[address] [place] [address] documented as of this encounter
--- OUTSIDE RECORDS SUMMARY | 2022-06-18 23:14 | XMS_ITS | Encounter Summary ---
:1955 Author Organization [facility] Address [address] [place] [address] Care Team Providers Name Role Phone Yessi Torres MD Primary Care Provider Encounter Details Date Type Department Care Team Description 01/11/2005 PN Conversion Only [facility] [address] [place] [address] Social History Tobacco Use Types Packs/Day Years Used Date Smoking Tobacco: Never Assessed Sex Assigned at Date Recorded Not on file documented as of this encounter Plan of Treatment Upcoming Encounters Date Type Specialty Care Team Description 06/26/2022 Appointment Orthopedics Terra Minor MD [address] [place] [phone] (Wo rk) 07/03/2022 Appointment OrthopedicTerra Ngo MD [address] [place] [address] (Wo rk) 07/10/2022 Appointment Orthopedics Terra Minor MD [address] [place] [address] (Wo rk) documented as of this encounter Visit Diagnoses Not on filedocumented in this encounter Care Teams Newspaper Copy Editor Relationship Specialty Start Date End Date Yessi Torres MD PCP - General 10/17/10 09/28/[address] [place] [id number] documented as of this encounter
--- OUTSIDE RECORDS SUMMARY | 2022-06-18 23:14 | XMS_ITS | Encounter Summary ---
:1955 Author Organization [employer] Address [address], [place] [address] Care Team Providers Name Role Phone Yessi Torres MD Primary Care Provider Reason for Visit Reason Comments RESULTS, TEST Encounter Details Date Type Department Care Team Description 07/17/2011 Telephone [facility] [address] Dillan Dobson RESULTS, TEST [address] [place], [place] [address] Social History Tobacco Use Types Packs/Day Years Used Date Smoking Tobacco: Never Assessed Sex Assigned at Date Recorded Not on file documented as of this encounter Nursing Notes Dillan Dobson E - 07/18/2011 9:[address] Ferreira note, 07/17/11 - Pt called. Please fax copy of lumbar spine mri to Prince Patterson at [phone]. Fax sent per instructions. Dillan Dobson E - 07/17/2011 3:29 PM CST Pt. had MRI on Saturday as ordered by Dr. Ferreira for low back pain. Pt. has follow up appt. scheduled for 07/25 but pt. is being seen by PT. Pt. is requesting to be called with results to be able to speak to PT about her needs and pt. intends to be at the appt. on 07/25. Pt. notified that request would be sent to Dr. Ferreiar. documented in this encounter Plan of Treatment [...] on filedocumented in this encounter Care Teams Orthopedic Cast Specialist Relationship Specialty Start Date End Date Yessi Torres MD PCP - General 10/17/10 09/28/14 [address] [facility] [address] [place] [address] documented as of this encounter
--- OUTSIDE RECORDS SUMMARY | 2022-06-18 23:14 | XMS_ITS | Encounter Summary ---
:1955 Author Organization [facility] Address [address] [address] [facility] [place] [address] Care Team Providers Name Role Phone Yessi Torres MD Primary Care Provider Reason for Visit Reason Comments Spine Lumbar Encounter Details Date Type Department Care Team Description 07/25/2011 Office Visit [facility] Justine Funesent of lumbar CENTER MD Slime intervertebral disc [address] [place] [address] Dr without myelopathy [place], [place] (Primary Dx) [address] [phone] Social History Tobacco Use Types Packs/Day Years Used Date Smoking Tobacco: Never Assessed Sex Assigned at Date Recorded Not on file documented as of this encounter Progress Notes Justine Funes MD - 07/25/2011 2:00 PM CST Progress Notes signed by Justine Funes MD at 07/30/11 075 Author: Justine Funes MD Service: (none) Author Type: Physician Filed: 07/30/11 0755 Note Time: 07/25/11 1400 Status: Signed Knit Goods Mender: Justine Funes MD (Physician) NAME: JAOCBY GUERRERO VISIT: [id number] DICTATING CLINICIAN: JUSTINE FUNES MD JOB: [id number] Med JOB: [id number] LOC: 3711 CLINIC PROGRESS NOTE DATE OF VISIT: 07/25/2011 : 1955 Jacoby is a 55-year-old woman who I saw recently with a presenting complaint of low back pain associated with a history of radicular left leg pain. She was sent for MRI imaging of the lumbar spine and now comes to review those results. Her MRI demonstrates a disk desiccation signal at L5-S1 with good disk height preservation. There is a small disk bulge abutting the right S1 nerve root which would correlate with the previous radicular symptoms she had been having. Jacoby is actually feeling a lot better now, and I do not think we need to do anything more from an interventional point of view other than have her continue on with physical therapy. She has already made contact with Prince Beal, and I have stressed to Jacoby and her partner who accompanies her here today the importance of her staying with a life-long diligent core strengthening-based home exercise program. Jacoby will follow up with me on a p.r.n. basis if there are any recurrent or ongoing symptoms. FINAL ASSESSMENT: Lumbar disk protrusion with early degenerative disk disease L5-S1. Total time with the patient today 25 minutes, counseling time 20. cc: PRINCE BEAL, PT IM: 07/25/2011 05:56:57 pm MT: 22 TENANCE PIPEFITTER documented in this encounter Plan of Treatment [...] as of this encounter Visit Diagnoses Diagnosis Displacement of lumbar intervertebral di sc without myelopathy (HRC) - Primary Displacement of lumbar intervertebral di sc without myelopathy documented in this encounter Care Teams Bell Spinner Sousaphones Relationship Specialty Start Date End Date Yessi Torres MD PCP - General 10/17/10 09/28/[address] [place] [address] documented as of this encounter
--- OUTSIDE RECORDS SUMMARY | 2022-06-18 23:14 | XMS_ITS | Encounter Summary ---
:1955 Author Organization [facility] Address [address] [place] [address] Care Team Providers Name Role Phone Yessi Torres MD Primary Care Provider Encounter Details Date Type Department Care Team Description 04/27/2013 Imaging [facility] Hallux rigidus [address] [place], [place] [address] Social History Tobacco Use Types Packs/Day Years Used Date Smoking Tobacco: Never Assessed Sex Assigned at Date Recorded Not on file documented as of this encounter Plan of Treatment Upcoming Encounters Date Type Specialty Care Team Description 06/26/2022 Appointment Orthopedics Terra Minor MD [address] [place] [address] (Ying rk) 07/03/2022 Appointment Orthopedics Terra Minor MD [address] [place] [address] (Ying rk) 07/10/2022 Appointment Orthopedics Terra Minor MD [address] [place] [address] (Ying rk) documented as of this encounter Procedures Procedure Name Priority Date/Time Associated Diagnosis Comme nts XR FOOT RT 2 VIEWS Routine 04/27/2013 7:20 AM Hallux rigidus R esults for this CDT procedure are i n the results section. documented in this encounter Results XR Foot Rt 2 Views (04/27/2013 7:20 AM CDT) Anatomical Region Laterality Modality Lower Extremity, Foot, Foot & Ankle Othe r Specimen (Source) Anatomical Location Collection Method / Collectio n Time Received Time / Laterality Volume Narrative 05/04/2013 7:10 AM CDT Two views weightbearing right foot radiographs were obtained. ??Patient with a history of painful 1st MTPJ. ??No history of trauma. ??Noted is radiographic joint space narrowing irregularity, subchondra l sclerosis, and cyst formation 1st MTPJ . ??There is dorsal osteophytic formation as well. ?? When compared to previous radiographs there has been significant progression of the degenerative changes through this joint. ??Infracalcaneal spurring is noted as well. ?? Radiographic impression: ??Osteoarthriti s 1st MTPJ, right foot. Procedure Note Dre Snell DPM - 12/30/2015Format ting of this note might be different from the original. Two views weightbearing right foot radio graphs were obtained. Patient with a history of painful 1st MTPJ. No history of trauma. Noted is radiographic joint space narrowing irregularity, subchondral sclerosis, and cyst formation 1st MTPJ. There is dorsal osteophytic formation as well. When compared to previous radiographs there has been significant progression of the degenerative changes through this joint. Infracalcaneal spurring is noted as well. 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 Dre Snell DPM RAD GD documented in this encounter Visit Diagnoses Diagnosis Hallux rigidus documented in this encounter Care Teams General Forecaster Relationship Specialty Start Date End Date Yessi Torres MD PCP - General 10/17/10 [address] [place] [address] documented as of this encounter
--- OUTSIDE RECORDS SUMMARY | 2022-06-18 23:14 | XMS_ITS | Encounter Summary ---
:1955 Author Organization [employer] Address [address] [place] [address] Care Team Providers Name Role Phone Yessi Torres MD Primary Care Provider Reason for Visit Reason Comments CONSULT Encounter Details Date Type Department Care Team Description 04/27/2013 Surgical Consult [facility] Tyrone Snell Ha llux [facility] DPJose (Primary Dx) [address] [facility] [address] [facility] [address] [place] [address] [place], [place] [address] [phone] Social History Tobacco Use Types Packs/Day Years Used Date Smoking Tobacco: Never Assessed Sex Assigned at Date Recorded Not on file documented as of this encounter Last Filed Vital Signs Vital Sign Reading Time Taken Comments Blood Pressure 149/91 04/27/2013 7:09 AM CDT Pulse - - Temperature - - Respiratory Rate - - Oxygen Saturation - - Inhaled Oxygen Concentration - - Weight 86.6 kg (191 lb) 04/27/2013 7:09 AM CDT Height 175.3 cm (5' 9.02) 04/27/2013 7:09 AM CDT Body Mass Index 28.19 04/27/2013 7:09 AM CDT documented in this encounter Patient Instructions Patient InstructionsPramercedez Cathy Garcia - 04/27/2013 10:[address] Tyrone Snell, MALINIM Podiatric Medicine & Director Of Public SafetyGas Pit Worker, [facility] Jewelry Maker: Lorraine Benitez Please call Lorraine for all administrative questions at [phone] Registered Nurse: Keke Olivarez, DIOGENES Please contact Nurse Triage for all medical questions at [phone] Please contact your Pharmacy for all medication refill requests Follow up as needed. documented in this encounter Progress Notes Tyrone Snell DPM - 04/28/2013 2:05 PM CDT Progress Notes signed by Tyrone Snell DPM at 05/04/13714 Author: Tyrone Snell DPM Service: (none) Author Type: Physician Filed: 05/04/13714 Note Time: 05/01/131024 Status: Signed Hand Clerical Verifier: Tyrone Snell DPM (Physician) NAME: JACOBY GUERRERO VISIT: [id number] DICTATING CLINICIAN: TYRONE SNELL DPM JOB: [id number] [facility] JOB: [id number] LOC: 3711 CLINIC PROGRESS NOTE DATE OF VISIT: 04/27/2013 : 1955 SUBJECTIVE: This is an initial clinic visit for this patient who presents this day for a second opinion regarding painful 1st MTPJ, right. Patient states the pain has been improving for the last five to eight years. It is a fairly constant pain and will throb at times, especially noted when wearing heels. She has had two previous corticosteroid injections with the first giving some improvement and the second no relief. She has tried a myriad of care this far without any relief. She would like something definitive to be done for this. She does find the pain quite inhibitory. The pain can be anywhere from a 2 to an 8/10. VITALS: Height 69 inches. Weight 191 pounds. BP 149/91. OBJECTIVE: Patient is a well-groomed, pleasant, cooperative 57-year-old female in no acute distress. Pedal pulses are palpable. Neurological status is grossly intact. There is no erythema or edema to the right foot. The integument is warm and dry to palpation, good capillary refill to all toes. There is greatly limited range of motion 1st MTPJ, right. No crepitation. There is pain with end limits of motion, especially plantarflexion. There is palpable dorsal prominence of the 1st metatarsal head, right. RADIOGRAPHS: X-rays were ordered and independently reviewed by me. Two views weightbearing right foot radiographs were obtained. Patient with a history of painful 1st MTPJ. No history of trauma. Noted is radiographic joint space narrowing irregularity, subchondral sclerosis, and cyst formation 1st MTPJ. There is dorsal osteophytic formation as well. When compared to previous radiographs 05/29/2011 there has been significant progression of the degenerative changes through this joint. Infracalcaneal spurring is noted as well. 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 ASSESSMENT: Hallux rigidus, right. PLAN: Discussed physical and radiographic findings with the patient and how this relates to her symptomatology. Discussed treatment options. At this point in time the patient was interested in surgical intervention due to the calcific nature of her pain which is nonsurgical thus far. I discussed probable arthrodesis. We will inspect the joint at the time of the surgery, but more than likely will require arthrodesis as opposed to proximal phalangeal shortening osteotomy. Discussed the procedure itself and expected postoperative course. Discussed potential risks and complications, including not limited to delayed union, nonunion, non-resolution of the pain, and possible need for further surgery. Informed the patient the hallux will be positioned to be slightly dorsiflexed to allow heel-to-toe ambulation. Patient will call in the future if she desires surgical intervention. I will see the patient p.r.n. otherwise. Total visit time 30 minutes. Total consultation time 20. IM: 04/29/2013 07:09:15 am MT: 11 documented in this encounter Plan of Treatment [...] Primary documented in this encounter Care Teams Leather Heel Breaster Relationship Specialty Start Date End Date Yessi Torres MD PCP - General 10/17/10 09/28/14 [facility] [address] [place] [place] [id number] documented as of this encounter
--- OUTSIDE RECORDS SUMMARY | 2022-06-18 23:14 | XMS_ITS | Encounter Summary ---
:1955 Author Organization [employer] Address [address] [place] [address] Care Team Providers Name Role Phone Yessi Torres MD Primary Care Provider Encounter Details Date Type Department Care Team Description 06/12/2006 Office Visit [facility] Radha Ibarra MD [address] [facility] [address] [facility] [place], [place] [address] [place], [place] [address] (Wo rk) Social History Tobacco Use Types Packs/Day Years Used Date Smoking Tobacco: Never Assessed Sex Assigned at Date Recorded Not on file documented as of this encounter Progress Notes Radha Ibarra MD - 06/12/2006 12:01 AM CST Progress Notes signed by Radha Ibarra MD at 06/17/06 1301 Author: Radha Ibarra MD Service: (none) Author Type: Physician Filed: 11/03/10 1713 Note Time: 06/12/06 0001 Status: Signed Blending Line Attendant: Radha Ibarra MD (Physician) NAME: JACOBY GUERRERO MR#: [id number] ACCT: [id number] VISIT: [id number] DICTATING CLINICIAN: RADHA YOUNG MD JOB: [id number] LOC: 7348 CLINIC PROGRESS NOTE DATE OF VISIT: 06/12/2006 SUBJECTIVE: : 1955. HISTORY OF PRESENT ILLNESS: Ms. Guerrero is a 50-year-old right-hand dominant woman who is here with a chief complaint of bilateral carpal tunnel syndrome, right worse than left. She has had it for over 7 years, beginning when she was with her first of 2 sons. It has been intermittent in her symptoms. She does not really awaken much at nighttime. Has tried nighttime splinting. Her symptoms seem to be aggravated by activity. Holding a phone, driving a car, riding a bike, or using a hairdryer are particular culprits. Describes a burning sensation in the median nerve distribution when she has pain associated with it. Also has numbness in the same distribution. Had an EMG done by Dr. Patrick which I reviewed and shows similarly bilateral carpal tunnel syndrome. MEDICATIONS: Takes ?. SURGERIES: Has had a and lumpectomy. Lives with her spouse and 2 sons. 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 COMPLETE REVIEW OF SYSTEMS: Significant only for joint pains. Please review the scanned sheet in LastWord. Drinks alcohol occasionally and exercises weekly. FAMILY HISTORY: Grandparents with bleeding disorder and heart disease. Mother with rheumatoid arthritis. OBJECTIVE: Ms. Guerrero looks younger than her stated age. She has a normal affect and seems intelligent regarding the discussion about her problem. Makes a full composite fist bilaterally. No thenar wasting. Opposes the thumb to the small finger with good thenar bulk and strength. Has a positive Tinel and positive carpal compression test with numbness in the median nerve distribution bilaterally. Negative Phalen's test bilaterally. Normal sensation at rest in the median, radial, and ulnar distributions. No tenderness to palpation at either CMC joint. Normal circulation to the digits and normal skin and nail growth. ASSESSMENT: Bilateral carpal tunnel syndrome. We discussed modalities for treatment, including injection versus surgical release. I did tell her about the risks, benefits, and typical postoperative course. She elected to go with injection at this point. PROCEDURE: I identified the correct sites, using alcohol prep and skin refrigerant before injecting into the carpal canal in each side 40 mg of Depo-Medrol and 1.5 mL of 1% plain lidocaine. These were both uneventful. PLAN: Follow up as needed. DCB:[id number] C: 06/15/06 17:32 DOCUMENT: [id number] LY PRACTITIONER documented in this encounter Plan of Treatment [...] on filedocumented in this encounter Care Teams Barrel Reamer Relationship Specialty Start Date End Date Yessi Torres MD PCP - General 10/17/10 09/28/14 [address] [place] [address] documented as of this encounter
--- OUTSIDE RECORDS SUMMARY | 2022-06-18 23:14 | XMS_ITS | Encounter Summary ---
:1955 Author Organization [facility] Address [address] [facility] [place] [address] Care Team Providers Name Role Phone Yessi Torres MD Primary Care Provider Reason for Visit Reason Comments Toe Pain Encounter Details Date Type Department Care Team Description 09/08/2012 Procedure Visit [facility] Yvonne Ramos PA-C Toe Pain [address] [facility] [address] [place] [address] [place], [place] [address] [place] [address] [phone] (Wo rk) Social History Tobacco Use Types Packs/Day Years Used Date Smoking Tobacco: Never Assessed Sex Assigned at Date Recorded Not on file documented as of this encounter Patient Instructions Patient InstructionsMerly Solares - 09/08/2012 2:10 PM CST Yvonne Ramos PA-C Sports Medicine and General Orthopedics Hvac Technician: Lesley Pickens Please contact Lesley for all administrative questions at [phone] Please call Nurse Triage at [phone] for all medical questions Fax number: [phone] Please contact your Pharmacy for all medication refills If you develop new or worsening symptoms call [facility] at [phone] ICATIONS DEVELOPER documented in this encounter Progress Notes Yvonne Ramos PA-C - 09/17/2012 11:45 AM CST NAME: JACOBY GUERRERO VISIT: [id number] DICTATING CLINICIAN: YVONNE RAMOS PA-C JOB: [id number] Med JOB: [id number] LOC: 3711 CLINIC ADDENDUM DATE OF VISIT: 09/08/2012 : 1955 ADDENDUM: Amendment to the note, which states I injected her with 1% plain lidocaine and 1 mg of Kenalog. The dose of the Kenalog is 40 mg/mL. A total of 40 mg was injected into her joint. MT: 8 IM: 09/17/2012 11:46:13 am Yvonne Ramos PA-C - 09/08/2012 10:28 PM CST Progress Notes signed by Yvonne Ramos PA-C at 09/12/12 1510 Author: Yvonne Ramos PA-C Service: (none) Author Type: Physician Lawn Mower Operator Filed: 09/12/12 1510 Note Time: 09/08/122227 Status: Signed Spray Machine Loader: Yvonne Ramos PA-C (Physician Lawn Mower Operator) NAME: JACOBY GUERRERO VISIT: [id number] DICTATING CLINICIAN: YVONNE RAMOS PA-C JOB: [id number] Med JOB: [id number] LOC: 3711 CLINIC PROGRESS NOTE DATE OF VISIT: 09/08/2012 : 1955 SUBJECTIVE: Ms. Guerrero is in clinic today for reexamination of hallux rigidus. Denies any problems or complications. She was last seen on 04/29/2012. Please see my note for past medical history. She states she had good results of the previous injection. She is here to consider surgical intervention versus that of another injection. OBJECTIVE: On exam today demonstrates a healthy 56-year-old in no acute distress. She has tenderness to palpation over the dorsal aspect of the 1st MTP. Limited range of motion with the 1st MTP on the right side is appreciated. Ligaments are stable. All tendons are intact with 5/5 strength. She has a 2+ pedal pulse. RADIOGRAPHS: Radiographs from before demonstrated early degenerative changes about that of the right great toe consistent with hallux rigidus. IMPRESSION: Hallux rigidus right great toe. PLAN: The risks, alternatives and benefits of conservative versus surgical management were discussed in detail. After lengthy discussion regarding this, she wishes to proceed with that of a cortisone injection to her right great toe 1st MTP joint. PROCEDURE: Using aseptic technique and Betadine prep, the patient underwent a cortisone injection using a 25-gauge needle into the dorsal aspect of the 1st MTP joint using a combination of 0.5 mL of 1% plain lidocaine and 1 mL Kenalog. She tolerated this quite well and noted immediate relief. She will follow up with me on an as-needed basis. If she has problems or complications, return to clinic sooner. IM: 09/09/2012 10:35:22 am MT: 27 ICATIONS DEVELOPER documented in this encounter Plan of [...] Primary documented in this encounter Care Teams Machine Stitcher Relationship Specialty Start Date End Date Yessi Torres MD PCP - General 10/17/10 09/28/[address] [place] [address] documented as of this encounter
--- OUTSIDE RECORDS SUMMARY | 2022-06-18 23:14 | XMS_ITS | Encounter Summary ---
:1955 Author Organization [facility] Address [address] [address] Care Team Providers Name Role Phone Yessi Torres MD Primary Care Provider Encounter Details Date Type Department Care Team Description 11/14/2010 PN Conversion Only WHITING INTERNAL Yessi Torres, MEDICINE [facility] 7 [facility] 7 [place] [address] [place], [place] [address] Social History Tobacco Use Types Packs/Day Years Used Date Smoking Tobacco: Never Assessed Sex Assigned at Date Recorded Not on file documented as of this encounter Plan of Treatment Upcoming Encounters Date Type Specialty Care Team Description 06/26/2022 Appointment Orthopedics Terra Minor MD [address] [place] [address] (Wo rk) 07/03/2022 Appointment OrthopedicTerra Ngo MD [address] [place] [address] (Wo rk) 07/10/2022 Appointment Terra Soria MD [address] [place] [address] (Wo rk) documented as of this encounter Visit Diagnoses Not on filedocumented in this encounter Care Teams Client Service And Consulting Manager Relationship Specialty Start Date End Date Yessi Torres MD PCP - General 10/17/10 09/28/14 [place] [id number] documented as of this encounter
--- OUTSIDE RECORDS SUMMARY | 2022-06-18 23:14 | XMS_ITS | Encounter Summary ---
:1955 Author Organization [facility] Address [address] [address] Care Team Providers Name Role Phone Unavailable Primary Care Provider Unavailable Encounter Details Date Type Department Care Team Description 02/13/2007 Hospital Encounter [facility] Radha Ibarra MD [address] [facility] [place] [address] [facility] Radha Ibarra MD [address] [facility] [place] [address] [address] [place], [place] [address] Social History Tobacco Use Types Packs/Day Years Used Date Smoking Tobacco: Never Assessed Sex Assigned at Date Recorded Not on file documented as of this encounter Medications at Time of Discharge Medication Sig Dispensed Refills Start Date End Date unknown medication Indications: PN: 0 02/13/2007 04/16/2007 unknown medication Indications: PN: 0 11/27/2006 04/16/2007 unknown medication Indications: PN: 0 06/12/2006 04/16/2007 unknown medication Indications: PN: 0 08/28/2005 04/16/2007 unknown medication Indications: PN: 0 02/13/2005 04/16/2007 fluvoxaMINE (AKA LUVOX) Take 1.5 tablets by 30 3 08/200309/30/2020 100 MG tablet mouth nightly. LW Addl Instr:Indicated for: Obsessive-Complusive Disorder documented as of this encounter Procedure Notes Radha Ibarra MD - 02/13/2007 12:01 AM CDT OR Surgeon signed by Radha Ibarra MD at 02/20/07 0832 Author: Radha Ibarra MD Service: (none) Author Type: Physician Filed: 11/03/10 2210 Note Time: 02/13/07 1130 Status: Signed Scorekeeper: Radha Ibarra MD (Physician) [facility] Patient Name: Belle Crystal Gender: F Exam Date: 02/13/2007 11:30 AM Surgical Staff: Radha Viera MD (Surgeon), SAMSON Garcia (Physician Concrete Paving Supervisor) Referring MD: Procedure: Open Median Nerve Decompression Left Carpal Tunnel Requesting Physician: Patient Profile: This is a 51 year old female. Refer to note in patient chart for documentation of history and physical. Prior to initiation of the procedure, patient [...] to school and work as tolerated. - Follow-up: - Appointment to Surgeon's Office [...] not lift more than 2 lbs or editor dictionary forcefully ( for 2 weeks and then [...] separation of the skin closure. CPT Codes(s): 76064, LT, Neuroplasty and/or transposition; median nerve at carpal tunnel ICD Code(s): 354.0, Carpal tunnel syndrome The codes documented in this report are preliminary and upon pantograph transferrer review may be revised to meet current compliance requirements. Radha Viera MD Signed Date: 02/13/2007 11:33 Number of Addenda: 0 Note generated on 02/13/2007 11:32 SAMSON Garcia Procedure Date: 02/13/2007 11:30 documented in this encounter Miscellaneous Notes Miscellaneous - Radha Ibarra MD - 02/13/2007 12:01 AM CDT ICD-9-CM ICD-9-CM Narrative description Code ======== DIAGNOSES Principal: NO PROC FOR REASONS NEC V64.3 PROCEDURES Provider1 Date documented in this encounter Plan of Treatment [...]
--- OUTSIDE RECORDS SUMMARY | 2022-06-18 23:14 | XMS_ITS | Encounter Summary ---
:1955 Author Organization [facility] Address [address] [place] [address] Care Team Providers Name Role Phone Yessi Torres MD Primary Care Provider Reason for Visit Reason Comments Other Encounter Details Date Type Department Care Team Description 01/21/2007 Telephone [facility] Orthopedics [place], Message Other [address] [facility] [address] [place] [address] Social History Tobacco Use Types Packs/Day Years Used Date Smoking Tobacco: Never Assessed Sex Assigned at Date Recorded Not on file documented as of this encounter Progress Notes Huyen Nguyen - 01/21/2007 9:41 AM CDT Phone Note filed by Huyen Nguyen at 11/01/107 Author: Huyen Nguyen Service: (none) Author Type: (none) Filed: 11/01/107 Note Time: 01/21/07940 Status: Signed Aerospace Control And Warning Systems: Imr Conversion please schedule with Dr Ibarra for 02/13 at 0730 & post ops thanks Created on 21Jan2007 9:41am by HUYEN NGUYEN On 21Jan2007 10:55am OLGA MORLEY wrote: SURGERY SCHEDULED On 21Jan2007 2:57pm DERECK VILLANUEVA wrote: sx 02/13 Lt CTR, 8-12 days w/Stacey lmovm 01/21 bw On [id number] 11:34am DERECK VILLANUEVA wrote: done GRAM TECHNICIAN documented in this encounter Plan of Treatment [...] on filedocumented in this encounter Care Teams Clinical Education Coordinator Relationship Specialty Start Date End Date Yessi Torres MD PCP - General 10/17/10 09/28/[address] [place] [address] documented as of this encounter
--- OUTSIDE RECORDS SUMMARY | 2022-06-18 23:14 | XMS_ITS | Encounter Summary ---
:1955 Author Organization [facility] Address [address] [place] [address] Care Team Providers Name Role Phone eYssi Torres MD Primary Care Provider Encounter Details Date Type Department Care Team Description 09/17/2012 Notes/Orders [facility] Jaxon Thornton PA-C [address] [facility] [address] [facility] [address] [place] [address] [address] [place], [place] [address] (Ying rk) Social History Tobacco Use Types Packs/Day Years Used Date Smoking Tobacco: Never Assessed Sex Assigned at Date Recorded Not on file documented as of this encounter Plan of Treatment Upcoming Encounters Date Type Specialty Care Team Description 06/26/2022 Appointment OrthopedicTerra Ngo MD [address] [place] [address] (Wo rk) 07/03/2022 Appointment OrthopedicTerra Ngo MD [address] [place] [address] (Wo rk) 07/10/2022 Appointment Terra Soria MD [address] [place] [address] (Wo rk) documented as of this encounter Visit Diagnoses Not on filedocumented in this encounter Care Teams Gold Buyer Relationship Specialty Start Date End Date Yessi Torres MD PCP - General 10/17/10 09/28/14[address]75 [address] [place], [place] [id number] documented as of this encounter
--- OUTSIDE RECORDS SUMMARY | 2022-06-18 23:15 | XMS_ITS | Encounter Summary ---
:1955 Author Organization [facility] Address [address] [place] [address] Care Team Providers Name Role Phone Blanca Schaefer Primary Care Provider Encounter Details Date Type Department Care Team Description 10/10/2020 Travel Social History Tobacco Use Types Packs/Day Years Used Date Smoking Tobacco: Never Smokeless Tobacco: Never Alcohol Use Standard Drinks/Week Comments Yes 0 (1 standard drink = 0.6 oz pure alcoho l) 4-6 drinks/week Sex Assigned at Date Recorded Not on file COVID-19 Exposure Response Date Recorded In the last month, have you been in contact with No / Unsure 10/10/2020 7:24 AM CDT someone who was confirmed or suspected to have Coronavirus / COVID-19? documented as of this encounter Plan of Treatment Not on filedocumented as of this encounter Visit Diagnoses Not on filedocumented in this encounter Care Teams Prison Psychiatrist Relationship Specialty Start Date End Date Blanca Schaefer PCP - General Internal Medicine 12/09/19 [facility] [address] [place] [address] documented as of this encounter
--- OUTSIDE RECORDS SUMMARY | 2022-06-18 23:15 | XMS_ITS | Encounter Summary ---
:1955 Author Organization [facility] Address [address] [place] [address] Care Team Providers Name Role Phone Blanca Schaefer Primary Care Provider Encounter Details Date Type Department Care Team Description 12/21/2019 Travel Social History Tobacco Use Types Packs/Day Years Used Date Smoking Tobacco: Never Smokeless Tobacco: Never Alcohol Use Standard Drinks/Week Comments Yes 0 (1 standard drink = 0.6 oz pure alcoho l) 4-6 drinks/week Sex Assigned at Date Recorded Not on file COVID-19 Exposure Response Date Recorded In the last month, have you been in contact with No / Unsure 12/09/2019 7:08 AM CDT someone who was confirmed or suspected to have Coronavirus / COVID-19? documented as of this encounter Plan of Treatment Not on filedocumented as of this encounter Visit Diagnoses Not on filedocumented in this encounter Care Teams Technician Test Systems Relationship Specialty Start Date End Date Blanca Schaefer PCP - General Internal Medicine 12/09/19 [facility] [address] [place] [address] documented as of this encounter
--- OUTSIDE RECORDS SUMMARY | 2022-06-18 23:15 | XMS_ITS | Encounter Summary ---
:1955 Author Organization [employer] Address [address], [place] [address] Care Team Providers Name Role Phone Yessi Torres MD Primary Care Provider Encounter Details Date Type Department Care Team Description 05/07/2003 PN Conversion Only [facility] [address] [place] [address] Social History Tobacco Use Types Packs/Day Years Used Date Smoking Tobacco: Never Assessed Sex Assigned at Date Recorded Not on file documented as of this encounter Plan of Treatment Upcoming Encounters Date Type Specialty Care Team Description 06/26/2022 Appointment Orthopedics Terra Minor MD [address] [place] [address] (Wo rk) 07/03/2022 Appointment OrthopedicTerra Ngo MD [address] [place] [address] (Wo rk) 07/10/2022 Appointment Orthopedics Terra Minor MD [address] [place] [address] (Wo rk) documented as of this encounter Visit Diagnoses Not on filedocumented in this encounter Care Teams It Corporate Recruiter Relationship Specialty Start Date End Date Yessi Torres MD PCP - General 10/17/10 09/28/[address] [place] [id number] documented as of this encounter
--- OUTSIDE RECORDS SUMMARY | 2022-06-18 23:15 | XMS_ITS | Encounter Summary ---
:1955 Author Organization [place] Address [address] [place] [address]. [place] [address] Care Team Providers Name Role Phone SilvanoBlanca Slime Primary Care Provider Reason for Visit Reason Onset Date Comments Covid 19 Testing 12/26/2019 Encounter Details Date Type Department Care Team Description 12/26/2019 Orders Only [facility] Vonnie Harmon Encounter for Urgent Care Emily Suarez MD screening for other [address] COLON RECTAL viral diseases [place], [place] SURGERY [address] [address] [facility] [phone] [address] [place], [place] [address] Social History Tobacco Use Types Packs/Day Years Used Date Smoking Tobacco: Never Smokeless Tobacco: Never Alcohol Use Standard Drinks/Week Comments Yes 0 (1 standard drink = 0.6 oz pure alcoho l) 4-6 drinks/week Sex Assigned at Date Recorded Not on file COVID-19 Exposure Response Date Recorded In the last month, have you been in contact Unable to assess 12/26/2019 9:29 AM CDT with someone who was confirmed or suspected to have Coronavirus / COVID-19? documented as of this encounter Progress Notes Sylvia Almanzar MA - 12/26/2019 9:30 AM CDT COVID-19 PCR test completed. Patient handout For Patients Who Have Been Tested for Covid-19 (Coronavirus) was given to the patient, which includes test result notification process. documented in this encounter Plan of Treatment Not on filedocumented as of this encounter Procedures Procedure Name Priority Date/Time Associated Diagnosis Comme nts COVID-19 VIRUS Routine 12/26/2019 9:50 AM Encounter for Result s for this (CORONAVIRUS) BY CDT screening for other proc edure are in PCR viral diseases the results section. documented in this encounter Results Asymptomatic COVID-19 Virus (Coronavirus) by PCR (12/26/2019 9:50 AM CDT) [facility] Method Time Signature COVID-19 Nasopharyngeal 12/26/2019 [place] Virus PCR to 9:55 AM T [facility] COVID-19 Not Detected 12/26/2019 [facility] PCR to 10:55 PM [facility] GENOMICS Result CENTER LABORATORY Comment: Collection of multiple specimens from th e same patient may be necessary to detect the virus. The possibility of a f alse negative should be considered if the patient's recent exposure or clinica l presentation suggests 2019 nCOV infection and diagnostic tests for other causes of illness are negative. Repeat testing may be considered in this setting. Viral RNA was extracted via a validated method and subsequently underwent single step reverse transcriptase-real t sukumar polymerase chain reaction using primers to the CDC specified N1,N2 gene targets of CoV2 and human CERTIFIED RETINAL ANGIOGRAPHER as an internal control. A negative result does not rule out the presence of real-time PCR inhibitors in the specimen or COVID-19 RNA in cleve ntrations below the limit of detection of the assay. The possibility of a fals e negative should be considered if the patients recent exposure or clinical pr esentation suggests COVID-19. Additional testing or repeat testing req uires consultation with the laboratory. Nasopharyngeal specimen is the preferred choice for swab-based SARS CoV2 testing. When collection of a nasopharyn geal swab is not possible the following are acceptable alternatives: an oropharyngeal (OP) specimen collected by a healthcare professional, or a nasal mid-turbinate (NMT) swab collected by a healthcare professional or by onsite self-collection (using a flocked tapered swab), or an anterior nares specimen collected by a healthcare profe ssional or by onsite self-collection (using a round foam swab). (Centers for Disease Control) Testing performed by [facility], Room 1-210, [address], [place] [address]. T his test was developed and its performance characteristics determined b y the [facility]. It has not been cleared or appr balbina by the FDA. The laboratory is regulated under the Cl inical Laboratory Improvement Amendments of 1988 (CLIA-88) as qualifie d to perform high-complexity testing. This test is used for clinical purposes. It should not be regarded as investigational or for research. Specimen (Source) Anatomical Collection Method Collection Time Re ceived Time Location / / Volume Laterality Specimen from 12/26/2019 9:50 12/26/2019 nasopharyngeal AM CDT 9:55 AM CDT structure (specimen) Vonnie Harmon MD LAB - MICRO GENERAL ORDERABL ES Performing Organization Address City/State/ZIP Code Phon e Number [address] [address] [facility] Room: 1-210 [facility] [address] [place], [place] [address] [facility] documented in this encounter Visit Diagnoses Diagnosis Encounter for screening for other viral diseases documented in this encounter Care Teams Pig Handler Relationship Specialty Start Date End Date Blanca Schaefer PCP - General Internal Medicine 12/09/19 [facility] [address] [place], [place] [address] documented as of this encounter
--- OUTSIDE RECORDS SUMMARY | 2022-06-18 23:15 | XMS_ITS | Encounter Summary ---
:1955 Author Organization [facility] Address [address] [place] [address]. [place] [address] Care Team Providers Name Role Phone Blanca Schaefer Primary Care Provider Reason for Visit Auth/Cert Specialty Diagnoses / Procedures Referred By Contact Refer red To Contact Gastroenterology Diagnoses Screen for colon cancer Screen for colon cancer [Z12.11] Endoscopy Procedures [facility] COLONOSCOPY W/WO BRUSH/WASH COLONOSCOPY [address] [place] [address] Phone: Fax: Referral ID Status Reason Start Date Expiration Date Visits Requ ested Visits Authorized [id number] 1 1 Encounter Details Date Type Department Care Team Description 12/29/2019 Surgery [facility] Endoscopy Vonnie Mckinney MD COLONOSCOPY [place] COLON RECTAL SURGERY [address] [place] [address] [place] [id number] [phone] (Wo rk) Surgery Details Date/Time Status Location OR Service Patient Class Case Case Trauma Class Type Case? 12/29/19 8:05 Posted GI GI C [facility] Outpatient AM Panel 1 Procedure [facility] Anes Op Region Wound Class Commen ts COLONOSCOPY Left Conscious Sedation Rectum II-Clean Contami nated Surgeon Surgeon Role Service Panel Vonnie Harmon MD Primary [facility] 1 Isabella Shaw MD Fellow - Assisting [facility]al 1 Special Needs (crsal) documented in this encounter Social History Tobacco Use Types Packs/Day Years Used Date Smoking Tobacco: Never Smokeless Tobacco: Never Alcohol Use Standard Drinks/Week Comments Yes 0 (1 standard drink = 0.6 oz pure alcoho l) 4-6 drinks/week Sex Assigned at Date Recorded Not on file COVID-19 Exposure Response Date Recorded In the last month, have you been in contact with No / Unsure 12/29/2019 7:38 AM CDT someone who was confirmed or suspected to have Coronavirus / COVID-19? documented as of this encounter Last Filed Vital Signs Vital Sign Reading Time Taken Comments Blood Pressure 133/84 12/29/2019 8:40 AM CDT Pulse 74 12/29/2019 8:40 AM CDT Temperature - - Respiratory Rate 14 12/29/2019 8:40 AM CDT Oxygen Saturation 98% 12/29/2019 8:40 AM CDT Inhaled Oxygen Concentration - - Weight 83.9 kg (185 lb) 12/29/2019 7:56 AM CDT Height 175.3 cm (5' 9) 12/29/2019 7:56 AM CDT Body Mass Index 27.32 12/29/2019 7:56 AM CDT documented in this encounter Discharge Instructions Discharge InstructionsVonnie Ramirez RN - 12/29/2019 9:06 AM CDT Images from the original note were not included. The patient has received a copy of the Provation report the doctor has written and discharge instructions have been discussed with the patient and responsible adult. All questions were addressed and answered prior to patient discharge. Understanding Diverticulosis and Diverticulitis Pouches or diverticula usually occur in the lower part of the colon called the sigmoid. Diverticulitis occurs when the pouches become inflamed. The colon (large intestine) is the last part of the digestive tract. It absorbs water from stool andchanges it from a liquid to a solid. In certain cases, small pouches called diverticula can form in the colon wall. This condition is called diverticulosis. The pouches can become infected. If this happens, it becomes a more serious problem called diverticulitis. These problems can be painful. But they can be managed. Managing Your Condition Diet changes or taking medications are often tried first. These may be enough to bring relief. If the case is bad, surgery may be done. You and your doctor can discuss the plan that is best for you. If You Have Diverticulosis Diet changes are often enough to control symptoms. The main changes are adding fiber (roughage) and drinking more water. Fiber absorbs water as it travels through your colon. This helps your stool staysoft and move smoothly. Water helps this process. If needed, you may be told to take [id number] stool softeners. To help relieve pain, antispasmodic medications may be prescribed. If You Have Diverticulitis Treatment depends on how bad your symptoms are. For mild symptoms: You may be put on a liquid diet for a short time. You may also be prescribed antibiotics. If these two steps relieve your symptoms, you may then be prescribed a high-fiber diet. If you still have symptoms, your doctor will discuss further treatment options with you. For severe symptoms: You may need to be admitted to the hospital. There, you can be given IV antibiotics and fluids. Once symptoms are under control, the above treatments may be tried. If these don???tcontrol your condition, your doctor may discuss the option of having surgery with you. [place] to Colon Health Help keep your colon healthy with a diet that includes plenty of high-fiber fruits, vegetables, and whole grains. Drink plenty of liquids like water and juice. Your doctor may also recommend avoiding seeds and nuts. ?? [id number] [facility], [address] [place] [address], [place] [address]. All rights reserved. This information is not intended as a substitute for professional medical care. Always follow your healthcare professional's instructions. HIGH FIBER DIET Fiber is present in all fruits, vegetables, cereals and grains. Fiber passes through the body undigested. A high fiber diet helps food move through the intestinal tract. The added bulk is helpful in preventing constipation. In people with diverticulosis it serves to clean out the pouches along the colon wall while preventing new ones from forming. A high fiber diet also reduces the risk of colon cancer, decreases blood cholesterol and prevents high blood sugar in people with diabetes. The foods listed below are high in fiber and should be included in your diet. If you are not used tohigh fiber foods, start with 1 or 2 foods from this list. Every 3-4 days add a new one to your diet until you are eating 4 high fiber foods per day. This should give you 20-35 Gm of fiber/day. It is also important to drink a lot of water when you are on this diet (6-8 glasses a day). Water causes the fiber to swell and increases the benefit. FOODS HIGH IN DIETARY FIBER: BREADS: Made with 100% whole wheat flour; sher, wheat or rye crackers; tortillas, bran muffins CEREALS: Whole grain cereal with bran (Chex, Raisin Bran, [place] Bran), oatmeal, rolled oats, granola,wheat flakes, brown rice NUTS: Any nuts FRUITS: All fresh fruits along with edible skins, (bananas, citrus fruit, mangoes, pears, prunes, raisins, apples, pineapple, apricot, melon, jams and marmalades), fruit juices (especially prune juice) VEGETABLES: All types, preferably raw or lightly cooked: especially, celery, eggplant, potatoes, spinach, broccoli, brussel sprouts, winter squash, carrots, cauliflower, soybeans, lentils, fresh and dried beans of all kinds OTHER: Popcorn, any spices ?? [id number] [place] [address]. All rights reserved. This information is not intended as a substitute for professional medical care. Always follow your healthcare professional's instructions. documented in this encounter Medications at Time of Discharge Medication Sig Dispensed Refills Start Date End Date calcium carb 1250 mg, 500 mg Take 2 tablets by 100 tablet 0 05/02/2015 [place],/vitamin D 200 units mouth every 8 (OSCAL WITH D) 500-200 hours MG-UNIT per tabletIndications: Primary hyperparathyroidism (H) Cholecalciferol (VITAMIN D3 Take 2,000 Units 0 PO) by mouth daily cyanocobalamin (VITAMIN B-12) Take 500 mcg by 0 500 MCG tablet mouth daily desvenlafaxine (PRISTIQ) 50 Take 50 mg by 0 MG 24 hr tablet mouth daily vitamin C (ASCORBIC ACID) Take 1,000 mg by 0 1000 MG TABS mouth daily documented as of this encounter H&P Notes Vonnie Harmon MD - 12/29/2019 7:43 AM CDT Pre-Endoscopy History and Physical Belle Crystal Date of : 1955 Age: [age] year old Date of Procedure: 12/29/2019 Primary care provider: Blanca Schaefer Type of Endoscopy: colonoscopy Reason for Procedure: surveillance Type of Anesthesia Anticipated: Moderate Sedation HPI: Belle is a 64 year old female who will be undergoing the above procedure. A history and physical has been performed. The patient's medications and allergies have been reviewed. The risks and benefits of the procedure and the sedation options and risks were discussed with thepatient. All questions were answered and informed consent was obtained. She denies a personal or family history of anesthesia complications or bleeding disorders. No Known Allergies Prior to Admission Medications Prescriptions Last Dose Informant Patient Reported? Taking? Cholecalciferol (VITAMIN D3 PO) Yes No Sig: Take 2,000 Units by mouth daily calcium carb 1250 mg, 500 mg [place],/vitamin D 200 units (OSCAL WITH D) 500-200 MG-UNIT per tablet No No Sig: Take 2 tablets by mouth every 8 hours cyanocobalamin (VITAMIN B-12) 500 MCG tablet Self Yes Yes Sig: Take 500 mcg by mouth daily desvenlafaxine (PRISTIQ) 50 MG 24 hr tablet Self Yes Yes Sig: Take 50 mg by mouth daily vitamin C (ASCORBIC ACID) 1000 MG TABS Self Yes Yes Sig: Take 1,000 mg by mouth daily Facility-Administered Medications: None There is no problem list on file for this patient. Past Medical History: Diagnosis Date ??? Sleep apnea no c pap, mild Past Surgical History: Procedure Laterality Date ??? BREAST SURGERY 2001 lumpectomy ??? CARPAL TUNNEL RELEASE RT/LT 2004 bilateral ??? SECTION 1998 ??? COLONOSCOPY N/A 10/01/2016 Procedure: COMBINED COLONOSCOPY, SINGLE OR MULTIPLE BIOPSY/POLYPECTOMY BY BIOPSY; Surgeon: Vonnie Harmon MD; Location: [facility] ??? COLONOSCOPY 04/08/2017 Dr. Harmon [facility] ??? COLONOSCOPY N/A 04/08/2017 Procedure: COMBINED COLONOSCOPY, SINGLE OR MULTIPLE BIOPSY/POLYPECTOMY BY BIOPSY; COLONOSCOPY with biopsies; Surgeon: Vonnie Harmon MD; Location: [facility] ??? EXCISE MASS BACK Left 05/21/2017 Procedure: EXCISE MASS BACK; excision left back mass; Surgeon: Yessi Eddy MD; Location: [facility] OR ??? CABLE WIRER SURGERY 1998 ??? PARATHYROIDECTOMY Right 05/02/2015 Procedure: PARATHYROIDECTOMY; Surgeon: Yessi Eddy MD; Location: [facility] OR Social History Tobacco Use ??? Smoking status: Never Smoker ??? Smokeless tobacco: Never Used Substance Use Topics ??? Alcohol use: Yes Alcohol/week: 0.0 standard drinks Comment: 4-6 drinks/week Family History Problem Relation Age of Onset ??? Hypertension Mother ??? Coronary Artery Disease Mother ??? Coronary Artery Disease Maternal Grandfather ??? Hypertension Maternal Grandfather ??? Hypertension Maternal Grandmother ??? Hypertension Brother ??? Colon Cancer No family hx of REVIEW OF SYSTEMS: 5 point ROS negative except as noted above in HPI, including Gen., Resp., CV, GI & system review. PHYSICAL EXAM: There were no vitals taken for this visit. Estimated body mass index is 28.43 kg/m?? as calculated from the following: Height as of 06/19/17: 1.727 m (5' 8). Weight as of 06/19/17: 84.8 kg (187 lb). GENERAL APPEARANCE: healthy and alert MENTAL STATUS: alert AIRWAY EXAM: Mallampatti Class II (visualization of the soft palate, fauces, and uvula) RESP: lungs clear to auscultation - no rales, rhonchi or wheezes CV: regular rates and rhythm DIAGNOSTICS: Not indicated IMPRESSION ASA Class 2 - Mild systemic disease PLAN: Plan for colonoscopy. We discussed the risks, benefits and alternatives and the patient wished to proceed. The above has been forwarded to the consulting provider. Signed Electronically by: Vonnie Harmon MD, MD December 29, 2019 documented in this encounter Plan of Treatment Not on filedocumented as of this encounter Procedures Procedure Name Priority Date/Time Associated Diagnosis Comme nts COLONOSCOPY Routine 12/29/2019 8:22 AM Results f or this CDT procedure are i n the results section . COLONOSCOPY 12/29/2019 8:20 AM Screen for colon CDT cancer Special Needs (crsal) documented in this encounter Results COLONOSCOPY (12/29/2019 8:22 AM CDT) [facility] [place] Method Time Signature COLONOSCOPY [facility] RAD IOLOGY RESULTS Patient Name: Belle camilo Mad silver Procedure Date: 12/29/2019 8:22 AM ? Accou nt Number: [id number] Date of : 1955 ?Admit Type: Out patient Age: 64 ? Gender: Female Attending MD: Vonnie Harmon MD ?Total Sedati on Time: 30 minutes of continuous bedside 1:1. IT:17, WDT: 10m Instrument Name: 218 - Pediatric Colonoscope Procedure: ?Colonoscopy Indications: ?High ri sk colon cancer surveillance: Personal ?history of colonic po lyps Providers: ?Vonnie Harmon MD (Doctor) Referring MD: ? Blanca Schaefer MD (Referring MD) Medicines: ?Fentanyl 100 micrograms IV, Midazolam 2 mg IV Complications: ?No immediate complications. Procedure: ?Pre-Anesthesia Assessment: ?- Prior to the procedure, a History and Physical ?was performed, and patient medications and ?allergies were reviewed. The patient is competent. ?The risks and benefits of the procedure and the ?sedation options and risks were discussed with the ?patient. All questions were answered and informed ?consent was obtained. Patient identification and ?proposed procedure were verified by the physician ?and the nurse in the endoscopy suite. Mental Status ?E xamination: alert and oriented. Airway ?Examination: normal oropharyngeal airway and neck ?mobility. Respiratory Examination: clear to ?auscultation. CV Examination: normal. Prophylactic ?Antibiotics: The patient does not require ?prophylactic antibiotics. Prior Anticoagulants: The ?patient has taken no previous anticoagulant or ?antiplatelet agents. ASA Grade Assessment: II - A ?patient with mild systemic disease. After reviewing ?the risks and benefits, the patient was deemed in ?satisfactory condition to undergo the procedure. ?The anesthesia plan was to use moderate sedation / ?analgesia (conscious sedation). Immediately prior ?to administration of medications, the patient was ?re-assessed for adequacy to receive sedatives. The ?heart rate, respiratory rate, oxygen saturations, ?blood pressure, adequacy of pulmonary ventilation, ?and response to care were monitored throughout the ?procedure. The physical status of the patient was ?re-assessed after the procedure. ?After obtaining informed consent, the colonoscope ?was passed under direct vision. Throughout the ?procedure, the patient's blood pressure, pulse, and ?oxygen saturations were monitored continuously. The ?Olympus, Pediatric Colonoscope, Model # [id number]-H190DL, ?[place] # 218, SN # [id number] was introduced through ?the anus and advanced to 3 cm into the ileum. The ?colonoscopy was performed without difficulty. The ?patient tolerated the procedure well. The quality ?o f the bowel preparation was excellent. ? Findings: ? The perianal and digital rectal examinations were nor mal. Pertinent ? negatives include normal sphincte r tone and no palpable rectal lesions. ? The terminal ileum appeared normal. ? A tattoo was seen at the hepatic flexure. A pos t-polypectomy scar was ? found at the tattoo s ite. There was no evidence of residual polyp tissue. ? A few small and large-mouthed diverticula were found in the sigmoid ? colon. ? The retroflexed view of the dista l rectum and anal verge was normal and ? showed no anal or rectal abnormalities. ? Impression: ? - The examined portion of the ileum was normal. ?- A tattoo was seen at the hepatic flexure. A ?post-polypectomy scar was found at the tattoo site. ?There was no evidence of residual polyp tissue. ?- Diverti culosis in the sigmoid colon. ?- The distal rectum and anal verge are normal on ?retroflexion view. ?- No specimens collec alex. Recommendation: ? - Repeat colonoscopy in 3 years for surveillance. ? Procedure Code(s): ? --- Professional --- ? 22904, Colonoscopy, flexible; diagnostic, including c ollection of ? specimen(s) by brushing or washin g, when performed (separate procedure) Diagnosis Code(s): ? --- Professional --- ? Z86.010, Personal history of colonic polyps ? K57.30, Diverticulosi s of large intestine without perforation or abscess ? without bleeding CPT copyright 2019 [employer]. All rights reserved. The codes documented in this report are prelimin radha and upon road roller engineer review may be revised to meet current compliance requirements. Vonnie Harmon MD 12/29/2019 9:01:10 AM I was physically present for the entire viewing portion of t he exam. Vonnie Harmon MD Number of Addenda: 0 Note Initiated On: 12/29/2019 8:22 AM MRN: ?[id number] Procedure Date: ? 12/29/2019 8:22:51 AM Scope Withdrawal Time: 0 hours 10 minutes 20 seconds Total Procedure Duration: 0 hours 27 minutes 20 seconds Estimated Blood Loss: ? Scope In: 8:28:17 AM Scope Out: 8:55:37 AM Specimen (Source) Anatomical Collection Method Collection Time Re ceived Time Location / / Volume Laterality 12/29/2019 8:22 AM CDT Blanca Schaefer PROCEDURES Performing Organization Address City/State/ZIP Code Phon e Number RADIOLOGY RESULTS documented in this encounter Visit Diagnoses Diagnosis Screen for colon cancer Special screening for malignant neoplasm s, colon documented in this encounter Administered Medications Inactive Administered Medications - up to 3 most recent administrations Medication Order MAR Action Action Date Dose Rate Site fentaNYL (PF) (SUBLIMAZE) Given 12/29/2019 8:25 AM CDT 100 mcg injection PRN, Administer over 3-5 Minutes, Starting on Sat12/29/19 at 0825, Intra-procedure midazolam (VERSED) injection Given 12/29/2019 8:25 AM CDT 2 mg Administer over 2 Minutes, PRN, Starting on Sat12/29/19 at 0825, Intra-procedure ondansetron (ZOFRAN) injection 4 mg 4 mg, Intravenous, EVERY 6 HOURS PRN, nausea, vomiting , Administer over 2-5 Minutes, Starting on Sat12/29/19 at 0901, This is Step 1 of nausea and vomiting management. If nausea not resolved in 15 minutes, go t o Step 2 prochlorperazine (COMPAZINE). Irritant. For ordered IV do ses 0.1-4 mg, give IV Push undiluted over 2-5 minutes., Post-procedure ondansetron (ZOFRAN-ODT) ODT tab 4 mg 4 mg, Oral, EVERY 6 HOURS PRN, nausea, v omiting, Starting on Sat12/29/19 at 0901, This is Step 1 of nausea and vomiting management. If n ausea not resolved in 15 minutes, go to Step 2 prochlorperazine (COMPAZINE). Do not push through foil backing. Peel back foil and gently remove. Place on to ngue immediately. Administration with liquid unnecessary W ith dry hands, peel back foil backing and gently remove tablet. Do not push oral d isintegrating tablet through foil backing. Administer immediately on tongue and oral disintegrati ng tablet dissolves in seconds, then swallow with saliva. Liquid not required ., Post-procedure sodium chloride (PF) 0.9% PF flush 3 mL Given 12/29/2019 8:25 AM CDT 3 mLs 3 mL, Intracatheter, EVERY 1 MIN PRN, line flush, for peripheral IV flush post IV meds, Starting on Sat12/29/19 at 0824, Pre-procedure documented in this encounter Active and Recently Administered Medications Times are shown in CDT. Scheduled Medication Order 12/27/2019 12/28/2019 12/29/2019 sodium chloride (PF) 0.9% PF flush 3 mL 0830 (Canceled Entry - Provider: Orders Generic Provider - Comment: Automatically canceled at discontinue of medication order) 3 mL, Intracatheter, EVERY 8 HOURS, Firs t dose on Sat12/29/19 at 0830, And Q1H PRN, to lock peripheral IV dormant line., Pre-procedure PRN Medication Order 12/27/2019 12/28/2019 12/29/2019 fentaNYL (PF) (SUBLIMAZE) injection 0825 (Given - Provider: Laura Nelson - Comment: vorb) PRN, Administer over 3-5 Minutes, Starting e 12/29/19 at 0825, Intra-procedure flumazenil (ROMAZICON) injection 0.2 mg 0.2 mg, Intravenous, EVERY 1 MIN PRN, be nzodiazepine reversal, over sedation, Administer over 1 Minutes, Starting Sat12/29/19 at 0901, For 12 hours, Give over 15 seconds. If inadequate response after 45 seconds, may repeat up to a MAX total d ose of 1 mg. Continue monitoring until discharge criteria are met for a minimum of 2 hours Irritant. For ordered IV doses 0.1-1 mg, give IV Push undiluted. Administer each 0.2mg over 15 seconds., Post-procedure lidocaine (LMX4) kit Topical, EVERY 1 HOUR PRN, pain, with VA D insertion or accessing implanted port., Starting e 12/29/19 at 0824, Do NOT give if patient has a history of allergy to any local anesthetic or any atul pro duct. Apply at least 30 minutes prior to VAD insertion or port access. In divided doses as needed for size of site for insertion with MAX Dose: 2.5 g (?? of 5 g tube), Pre-procedure lidocaine 1 % 0.1-1 mL 0.1-1 mL, Other, EVERY 1 HOUR PRN, mild pain with VAD insertion., Starting e 12/29/19 at 0824, Do NOT give if patient has a history of allergy to any local anesthetic or any atul product. MAX dose 1 mL subcutaneous OR intradermal in divid ed doses as needed for VAD insertion., Pre-procedure May continue current IV fluid if patient has IV fluids infusing until discharge. CONTINUOUS PRN, Starting e 12/29/19 at 0901, Until e 12/29/19 at 1138, Post-procedure midazolam (VERSED) injection 082 5 (Given - Provider: Laura Nelson - Comment: lee) Administer over 2 Minutes, PRN, Starting Sat12/29/19 at 0825, In tra-procedure naloxone (NARCAN) injection 0.1-0.4 mg 0.1-0.4 mg, Intravenous, EVERY 2 MIN PRN , opioid reversal, Starting Sat12/29/19 at 0901, For 24 hours, For apnea or imminent respiratory arrest: give 0.4 mg IV undiluted Q 2 minutes PRN until desired de gree of reversal is obtained, stop opioi d and notify provider. Continue monitoring until discharge criteria are met for a minimum of 2 hours. For severe sedation, decrease in respiratory depth, quality or Respiratory Rate less than 8: give 0. 1 mg IV Q 2 minutes x 3 doses, stop opioid and notify provider. Try to minimize reversal of analgesia especially in end-of-life patients. Continue monitoring unti l discharge criteria are met for a minim um of 2 hours For ordered IV doses 0.1- 2mg give IVP. Give each 0.4mg over 15 seconds in emergency situations. For non- emergent situations further dilute in 9mL of NS to facilitate titration of response., Post-procedure ondansetron (ZOFRAN) injection 4 mg 4 mg, Intravenous, ONCE PRN, nausea, vom iting, Administer over 2-5 Minutes, Starting 12/29/19 at 0824, For 1 dose, Give in ENDO pre procedure prep area. Irritant. For ordered IV doses 0.1-4 mg, give IV Push undiluted over 2-5 minutes., Pre-procedure ondansetron (ZOFRAN) injection 4 mg(Linked Group 1) 4 mg, Intravenous, EVERY 6 HOURS PRN, na usea, vomiting, Administer over 2-5 Minutes, Starting 12/29/19 at 0901, This is Step 1 of nausea and vomiting management. If nausea not resolved in 15 minutes, go to Step 2 prochlorperazine (COMPAZIN E). Irritant. For ordered IV doses 0.1-4 mg, give IV Push undiluted over 2-5 minutes., Post-procedure ondansetron (ZOFRAN-ODT) ODT tab 4 mg(Linked Group 1) 4 mg, Oral, EVERY 6 HOURS PRN, nausea, v omiting, Starting 12/29/19 at 0901, This is Step 1 of nausea and vomiting management. If nausea not resolved in 15 minutes, go to Step 2 prochlorperazine (COMP AZINE). Do not push through foil backing . Peel back foil and gently remove. Place on tongue immediately. Administration with liquid unnecessary With dry hands, peel back foil backing and gently remove t ablet. Do not push oral disintegrating t ablet through foil backing. Administer immediately on tongue and oral disintegrating tablet dissolves in seconds, then swallow with saliva. Liquid not required., Post-procedure sodium chloride (PF) 0.9% PF flush 3 mL 0825 (Given - Provider: Laura Nelson) 3 mL, Intracatheter, EVERY 1 MIN PRN, li ne flush, for peripheral IV flush post IV meds, Starting e 12/29/19 at 0824, Pre-procedure sodium chloride (PF) 0.9% PF flush 3 mL 3 mL, Intravenous, EVERY 1 MIN PRN, line flush, after medication administration. For peripheral IV flush post IV meds, Starting 12/29/19 at 0901, Post-procedure Linked Groups Order Group 1: ondansetron (ZOFRAN-ODT) ODT tab 4 mgJump to med 4 mg, Oral, EVERY 6 HOURS PRN, nausea, v omiting, Starting 12/29/19 at 0901
This is Step 1 of nausea and vomiting management. If nausea not resolved in 15 minutes, go to St ep 2 prochlorperazine (COMPAZINE). Do no t push through foil backing. Peel back foil and gently remove. Place on tongue immediately. Administration with liquid unnecessary With dry hands, peel b ack foil backing and gently remove table t. Do not push oral disintegrating tablet through foil backing. Administer immediately on tongue and oral disintegrating tablet dissolves in seconds, then swallow with saliva. Liquid not required.
Po st-procedure Or ondansetron (ZOFRAN) injection 4 mgJump to med 4 mg, Intravenous, EVERY 6 HOURS PRN, na usea, vomiting, Administer over 2-5 Minutes, Starting Sat12/29/19 at 0901
This is Step 1 of nausea and vomiting management. If nausea not resolved in 15 minutes, go to Step 2 prochlorperazine (COMPAZINE). Irritant. For ordered IV doses 0.1-4 mg, give IV Push undiluted over 2-5 minutes.
Post-procedure documented in this encounter Care Teams Experimental Assembler Relationship Specialty Start Date End Date Blanca Schaefer PCP - General Internal Medicine 12/09/19 [facility] [address] [place] [id number] documented as of this encounter
--- OUTSIDE RECORDS SUMMARY | 2022-06-18 23:15 | XMS_ITS | Encounter Summary ---
:1955 Author Organization [place] Address [address] [place] [address]. [place] [address] Care Team Providers Name Role Phone Blanca Schaefer Primary Care Provider Reason for Visit Auth/Cert Specialty Diagnoses / Procedures Referred By Contact Refer red To Contact Gastroenterology Diagnoses Screen for colon cancer Screen for colon cancer [Z12.11] Rh Endoscopy Procedures [facility] COLONOSCOPY W/WO BRUSH/WASH COLONOSCOPY [address] [place] [address] Phone: Fax: Referral ID Status Reason Start Date Expiration Date Visits Requ ested Visits Authorized [id number] 1 1 Encounter Details Date Type Department Care Team Description 12/29/2019 Hospital Encounter [facility] Vonnie Harmon Endoscopy Suleiman Suarez MD [address] [place] [phone] 65[address] [facility] [phone] [address] [place], [place] [id number] (Wo rk) Social History Tobacco Use Types [...] Sign Reading Time Taken Comments Blood Pressure 124/89 12/29/2019 9:20 AM CDT Pulse 72 12/29/2019 9:20 AM CDT Temperature - - Respiratory Rate 16 12/29/2019 9:20 AM CDT Oxygen Saturation 97% 12/29/2019 9:20 AM CDT Inhaled Oxygen Concentration - - [...] needed, you may be told to take [id number] stool softeners. To help relieve pain, antispasmodic [...] the option of having surgery with you. [place] [facility] Help keep your colon healthy with a diet that includes plenty of high-fiber fruits, vegetables, and whole grains. Drink plenty of liquids like water and juice. Your doctor may also recommend avoiding seeds and nuts. ?? [phone] [facility], [address] [place] [address], [place] [address]. All rights reserved. This information is not [...] grain cereal with bran (Chex, Raisin Bran, Austin Bran), oatmeal, rolled oats, granola,wheat flakes, brown [...] all kinds OTHER: Popcorn, any spices ?? [phone] [facility], [address] [place] [address], [place] [address]. All rights reserved. This information is not intended as a substitute for professional medical care. Always follow your healthcare professional's instructions. documented in this encounter Medications at Time of Discharge Medication Sig Dispensed Refills Start Date End Date calcium carb 1250 mg, 500 mg Take 2 tablets by 100 tablet 0 05/02/2015 [place],/vitamin D 200 units mouth every 8 (OSCAL [...] daily calcium carb 1250 mg, 500 mg [place],/vitamin D 200 units (OSCAL WITH D) 500-200 [...] [facility] ??? COLONOSCOPY 04/08/2017 [facility] ??? COLONOSCOPY N/A 04/08/2017 Procedure: COMBINED COLONOSCOPY, SINGLE OR MULTIPLE BIOPSY/POLYPECTOMY BY BIOPSY; COLONOSCOPY with biopsies; Surgeon: Vonnie Harmon MD; Location: [facility] ??? EXCISE MASS BACK Left 05/21/2017 Procedure: EXCISE MASS BACK; excision left back mass; Surgeon: Yessi Eddy MD; Location: [facility] OR ??? 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 PARATHYROIDECTOMY Right 05/02/2015 Procedure: [...] encounter Results COLONOSCOPY (12/29/2019 8:22 AM CDT) [facility] Method Time Signature COLONOSCOPY [facility] RAD IOLOGY RESULTS Patient Name: Belle camilo Mad silver Procedure Date: 12/29/2019 8:22 AM ? Accou nt Number: [id number] Date of : 1955 ?Admit Type: Out [...] # [id number], ?[place] # [id number], SN # [id number] was introduced through ?the anus and advanced [...] Procedure Code(s): ? --- Professional --- ? 44639, Colonoscopy, flexible; diagnostic, including c ollection of ? specimen(s) by brushing or washin g, when performed (separate procedure) Diagnosis Code(s): ? --- Professional --- ? Z86.010, Personal history of colonic polyps ? K57.30, Diverticulosi s of large intestine without perforation or abscess ? without bleeding CPT copyright 2019 [employer]. All rights reserved. The codes documented in this report are prelimin radha and upon jersey knitter review may be revised to meet current compliance requirements. Vonnie Harmon MD 12/29/2019 9:01:10 AM I was physically present for the entire viewing portion of t he exam. Vonnie Harmon MD Number of Addenda: 0 Note Initiated On: 12/29/2019 8:22 AM MRN: ?[id number] Procedure Date: ? 12/29/2019 8:22:51 AM Scope [...] RESULTS documented in this encounter Visit Diagnoses Not on filedocumented in this encounter Administered Medications Inactive Administered [...] vorb) PRN, Administer over 3-5 Minutes, Starting Sat12/29/19 at 0825, Intra-procedure flumazenil (ROMAZICON) injection 0.2 [...] D insertion or accessing implanted port., Starting Sat12/29/19 at 0824, Do NOT give if patient [...] PRN, mild pain with VAD insertion., Starting Sat12/29/19 at 0824, Do NOT give if patient has a history of allergy to any local anesthetic or any atul product. MAX dose 1 mL subcutaneous OR intradermal in divid ed doses as needed for VAD insertion., Pre-procedure May continue current IV fluid if patient has IV fluids infusing until discharge. CONTINUOUS PRN, Starting Sat12/29/19 at 0901, Until e 12/29/19 at 1138, [...] vom iting, Administer over 2-5 Minutes, Starting Sat12/29/19 at 0824, For 1 dose, Give in ENDO pre procedure prep area. Irritant. For ordered IV doses 0.1-4 mg, give IV Push undiluted over 2-5 minutes., Pre-procedure ondansetron (ZOFRAN) injection 4 mg(Linked Group 1) 4 mg, Intravenous, EVERY 6 HOURS PRN, na usea, vomiting, Administer over 2-5 Minutes, Starting Sat12/29/19 at 0901, This is Step 1 of nausea and vomiting management. If nausea not resolved in 15 minutes, go to Step 2 prochlorperazine (COMPAZIN E). Irritant. For ordered IV doses 0.1-4 mg, give IV Push undiluted over 2-5 minutes., Post-procedure ondansetron (ZOFRAN-ODT) ODT tab 4 mg(Linked Group 1) 4 mg, Oral, EVERY 6 HOURS PRN, nausea, v omiting, Starting Sat12/29/19 at 0901, This is Step 1 [...] peripheral IV flush post IV meds, Starting Sat12/29/19 at 0824, Pre-procedure sodium chloride (PF) 0.9% PF flush 3 mL 3 mL, Intravenous, EVERY 1 MIN PRN, line flush, after medication administration. For peripheral IV flush post IV meds, Starting Sat12/29/19 at 0901, Post-procedure Linked Groups Order Group 1: ondansetron (ZOFRAN-ODT) ODT tab 4 mgJump to med 4 mg, Oral, EVERY 6 HOURS PRN, nausea, v omiting, Starting Sat12/29/19 at 0901
This is Step [...] usea, vomiting, Administer over 2-5 Minutes, Starting Tu 12/29/19 at 0901
This is Step 1 of nausea and vomiting management. If nausea not resolved in 15 minutes, go to Step 2 prochlorperazine (COMPAZINE). Irritant. For ordered IV doses 0.1-4 mg, give IV Push undiluted over 2-5 minutes.
Post-procedure documented in this encounter Care Teams Sound System Installer Relationship Specialty Start Date End Date Blanca Schaefer PCP - General Internal Medicine 12/09/[address] [address] documented as of this encounter
--- OUTSIDE RECORDS SUMMARY | 2022-06-18 23:15 | XMS_ITS | Encounter Summary ---
:1955 Author Organization [place] Address [address] [place] [address] Care Team Providers Name Role Phone LaiAnne Primary Care Provider Reason for Visit Reason Comments Consult lipoma on back Encounter Details Date Type Department Care Team Description 01/30/[address] [facility] Yessi Eddy Beni gn neoplasm of Surgery Clinic skin of trunk, except [place] [address] scrotum (Primary Dx) [address] [place] [phone] Social History Tobacco Use Types Packs/Day Years Used Date Smoking Tobacco: Never Smokeless Tobacco: Never Tobacco Cessation: Counseling Given: Yes Alcohol Use Standard Drinks/Week Comments Yes 0 (1 standard drink = 0.6 oz pure alcoho l) 4-6 drinks/week Sex Assigned at Date Recorded Not on file documented as of this encounter Last Filed Vital Signs Vital Sign Reading Time Taken Comments Blood Pressure 122/78 01/30/2017 9:50 AM CDT Pulse 88 01/30/2017 9:50 AM CDT Temperature - - Respiratory Rate - - Oxygen Saturation 97% 01/30/2017 9:50 AM CDT Inhaled Oxygen Concentration - - Weight 83.9 kg (185 lb) 01/30/2017 9:50 AM CDT pt repor alex Height 174 cm (5' 8.5) 01/30/2017 9:50 AM CDT pt repor alex Body Mass Index 27.72 01/30/2017 9:50 AM CDT documented in this encounter Progress Notes Yessi Eddy MD - 01/30/2017 10:00 AM CDT Belle noted a left posterior paraspinal mass x 5 years or more. Now bigger and with painful radiation of that side into the anterior chest. PE: Left paraspinal area about T11-T12 oblong, aobut 2.5 cm x 3.5 cm. Smooth. Assessment: enlarging and symptomatic mass left paraspinal area. Plan: recommend excision. Yessi Edyd MD documented in this encounter Plan of Treatment Not on filedocumented as of this encounter Visit Diagnoses Diagnosis Benign neoplasm of skin of trunk, except scrotum - Primary documented in this encounter Care Teams Histologic Aide Relationship Specialty Start Date End Date Anne Hoyt DO PCP - General Family Practice 05/01/16 12/08/19 documented as of this encounter
--- OUTSIDE RECORDS SUMMARY | 2022-06-18 23:15 | XMS_ITS | Encounter Summary ---
:1955 Author Organization [place] Address [address] [place] [address]. [place] [address] Care Team Providers Name Role Phone Blanca Schaefer Primary Care Provider Reason for Referral Diagnostic Imaging CT Scan (Routine) - Closed Specialty Diagnoses / Procedures Referred By Contact Refer red To Contact Radiology. Diagnoses Abdominal pain, right lower quadrant Vonnie Harmon MD Ct Scan [facility] Procedures CT Abdomen Pelvis w Contrast COLON RECTAL [place] [address] [address] [place], [place] [phone] Fax: Referral ID Status Reason Start Date Expiration Date Visits Requ ested Visits Authorized [id number] Closed 12/02/2019 2020 1 1 Reason for Visit Diagnostic Imaging CT Scan (Routine) - Closed Specialty Diagnoses / Procedures Referred By Contact Refer red To Contact Radiology. Diagnoses Abdominal pain, right lower quadrant Vonnie Harmon MD Ct Scan [facility] Procedures CT Abdomen Pelvis w Contrast [facility] RECTAL [place] [address] [address] [place] [phone] Fax: Referral ID Status Reason Start Date Expiration Date Visits Requ ested Visits Authorized [id number] Closed 12/02/2019 2020 1 1 Encounter Details Date Type Department Care Team Description 12/09/2019 Hospital Encounter [facility] Vonnie Harmon [place] maria teresa pain, [facility] MD Erick right lower quadrant [address] [facility] COLON RECTAL [address] [place], [place] [address] [address] [address] [facility] [address] [id number] Social History Tobacco Use Types Packs/Day Years [...] / COVID-19? documented as of this encounter Medications at Time of Discharge Medication Sig Dispensed Refills Start Date End Date calcium carb 1250 mg, 500 mg Take 2 tablets 100 tablet 0 [place],/vitamin D 200 units by mouth every 8 (OSCAL WITH D) 500-200 hours MG-UNIT per tabletIndications: Primary hyperparathyroidism (H) Cholecalciferol (VITAMIN D3 Take 2,000 Units 0 PO) by mouth daily cyanocobalamin (VITAMIN Take 500 mcg by 0 B-12) 500 MCG tablet mouth daily desvenlafaxine (PRISTIQ) 50 Take 50 mg by 0 MG 24 hr tablet mouth daily vitamin C (ASCORBIC ACID) Take 1,000 mg by 0 1000 MG TABS mouth daily Flaxseed, Linseed, (FLAX Take 1 capsule 0 12/21/2019 SEED OIL) 1000 MG capsule by mouth daily FLUVOXAMINE MALEATE PO Take 100 mg by 0 12/21/2019 mouth documented as of this encounter Plan of Treatment Not on filedocumented as of this encounter Procedures Procedure Name Priority Date/Time Associated Diagnosis Comme nts CT ABDOMEN PELVIS W Routine 12/09/2019 7:57 AM Abdominal pain, Results for this CONTRAST CDT right lower quadrant procedu re are in the results section. documented in this encounter Results CT Abdomen Pelvis w Contrast (12/09/2019 7:57 AM CDT) Anatomical Region Laterality Modality Abdomen/Pelvis, SUBRAD CT BODY, UMP CT ABDOMEN PELVIS, Computed Tomography RAD CT Specimen (Source) Anatomical Location Collection Method / Collectio n Time Received Time / Laterality Volume Impressions 12/09/2019 10:09 AM CDT IMPRESSION: 1. No acute pathology in the abdomen or pelvis. 2. Colonic diverticulosis without CT paulette dence of acute diverticulitis. 3. Bulky fibroid uterus with few partial ly calcified uterine fibroids. 4. Bilateral mild sclerotic changes lexi g the sacroiliac joint predominantly along the iliac side, left greater than right, nonspecific, can be seen with sacroiliit is. 5. Multiple mildly enlarged mesenteric l ymph nodes in the left mid abdomen with associated mild gayle mesen herbie, nonspecific, can be seen with mesenteric panniculitis. DAMIEN MARIE MD Narrative 12/09/2019 10:[address] ABDOMEN AND PELVIS WITH CONTRAST ?? 12/09/2019 7:57 AM HISTORY: Abdominal pain, right lower gil drant. TECHNIQUE: ??CT abdomen and pelvis with 100 mL Isovue-370 IV. Radiation dose for this scan was reduced using aut omated exposure control, adjustment of the mA and/or kV according to patient size, or iterative reconstruction technique. COMPARISON: None available. FINDINGS: Lower chest: Lung bases are clear. Abdomen/pelvis: Scattered subcentimeter hypoattenuating foci in the liver are too small to characterize. The gallbladder is unremarkable. No splenomegaly. Small splenule along th e splenic hilum. No main pancreatic ductal dilatation or definite solid pancreatic mass. No discrete adrenal nodules. No radiodense kidney stones or hydronephrosis in either kidney. No abnormally dilated bowel loops. The a ppendix is visualized and appears normal. Colonic diverticulosis w ithout CT evidence of acute diverticulitis. Bulky fibroid uterus wit h few partially calcified uterine fibroids. No significant free fl uid in the abdomen or pelvis. No free peritoneal or portal venous gas. Multiple mildly enlarged mesenteric lymph nodes in the left mid a bdomen with associated mild gayle mesentery (series 4 image 82), non specific, can be seen with mesenteric panniculitis. Bones and soft tissue: Mild degenerative changes of the spine. Bilateral sclerotic changes along the sa croiliac joint, predominantly along the iliac side, left more prominen t in the right (series 4 image 145), nonspecific, can be seen with sacr oiliitis. Procedure Note Damien Marie MD - 12/09/2019Forma tting of this note might be different from the original. CT ABDOMEN AND PELVIS WITH CONTRAST 12/08 7:57 AM HISTORY: Abdominal pain, right lower gil drant. TECHNIQUE: CT abdomen and pelvis with 10 0 mL Isovue-370 IV. Radiation dose for this scan was reduced using aut omated exposure control, adjustment of the mA and/or kV according to patient size, or iterative reconstruction technique. COMPARISON: None available. FINDINGS: Lower chest: Lung bases are clear. Abdomen/pelvis: Scattered subcentimeter hypoattenuating foci in the liver are too small to characterize. The gallbladder is unremarkable. No splenomegaly. Small splenule along th e splenic hilum. No main pancreatic ductal dilatation or definite solid pancreatic mass. No discrete adrenal nodules. No radiodense kidney stones or hydronephrosis in either kidney. No abnormally dilated bowel loops. The a ppendix is visualized and appears normal. Colonic diverticulosis w ithout CT evidence of acute diverticulitis. Bulky fibroid uterus wit h few partially calcified uterine fibroids. No significant free fl uid in the abdomen or pelvis. No free peritoneal or portal venous gas. Multiple mildly enlarged mesenteric lymph nodes in the left mid a bdomen with associated mild gayle mesentery (series 4 image 82), non specific, can be seen with mesenteric panniculitis. Bones and soft tissue: Mild degenerative changes of the spine. Bilateral sclerotic changes along the sa croiliac joint, predominantly along the iliac side, left more prominen t in the right (series 4 image 145), nonspecific, can be seen with sacr oiliitis. IMPRESSION: 1. No acute pathology in the abdomen or pelvis. 2. Colonic diverticulosis without CT paulette dence of acute diverticulitis. 3. Bulky fibroid uterus with few partial ly calcified uterine fibroids. 4. Bilateral mild sclerotic changes lexi g the sacroiliac joint predominantly along the iliac side, left greater than right, nonspecific, can be seen with sacroiliit is. 5. Multiple mildly enlarged mesenteric l ymph nodes in the left mid abdomen with associated mild gayle mesen herbei, nonspecific, can be seen with mesenteric panniculitis. DAMIEN MARIE MD Vonnie Harmon MD IMG CT ORDERABLES documented in this encounter Visit Diagnoses Diagnosis Abdominal pain, right lower quadrant documented in this encounter Administered Medications Inactive Administered Medications - up to 3 most recent administrations Medication Order MAR Action Action Date Dose Rate Site iopamidol (ISOVUE-370) solution Given 12/09/2019 7:42 AM CDT 100 mLs 500 mL 500 mL, Intravenous, ONCE, On Sat12/09/19 at 0745, For 1 dose sodium chloride 0.9 % bag 500mL for CT scan Given 12/09/2019 7:42 AM CDT 65 mLs flush use As instructed, 100 mL, ONCE, On Sat12/09/19 at 0745, For 1 dose, This entry is for use by Radiology to intermittently used as a flush in patients receiving a CT scan. documented in this encounter Care Teams Food Science Technician Relationship Specialty Start Date End Date Blanca Schaefer PCP - General Internal Medicine 12/09/[address] [address] documented as of this encounter
--- OUTSIDE RECORDS SUMMARY | 2022-06-18 23:15 | XMS_ITS | Encounter Summary ---
:1955 Author Organization [facility] Address [address] [place] [address]. [place] [address] Care Team Providers Name Role Phone Anne Hoyt DO Primary Care Provider Reason for Visit Auth/Cert Specialty Diagnoses / Procedures Referred By Contact Refer red To Contact Gastroenterology Diagnoses screening Rh Endoscopy Procedures COLONOSCOPY [address] [place] [address] Phone: Fax: Referral ID Status Reason Start Date Expiration Date Visits Requ ested Visits Authorized [id number] 1 1 Encounter Details Date Type Department Care Team Description 04/08/2017 Hospital Encounter [facility] Shelia Harmon Endoscopy Suleiman Suarez MD [address] [place], [place] SURGERY [address] [id number] [facility] [address] [phone] [address] [place], [place] [id number] (Wo rk) Social History Tobacco Use Types Packs/Day Years Used Date Smoking Tobacco: Never Smokeless Tobacco: Never Alcohol Use Standard Drinks/Week Comments Yes 0 (1 standard drink = 0.6 oz pure alcoho l) 4-6 drinks/week Sex Assigned at Date Recorded Not on file documented as of this encounter Last Filed Vital Signs Vital Sign Reading Time Taken Comments Blood Pressure 118/95 04/08/2017 10:10 AM CDT Pulse - - Temperature - - Respiratory Rate 20 04/08/2017 9:45 AM CDT Oxygen Saturation 98% 04/08/2017 10:10 AM CDT Inhaled Oxygen Concentration - - Weight 86.2 kg (190 lb) 04/08/2017 8:20 AM CDT Height 175.3 cm (5' 9) 04/08/2017 8:20 AM CDT Body Mass Index 28.06 04/08/2017 8:20 AM CDT documented in this encounter Medications at Time of Discharge Medication Sig Dispensed Refills Start Date End Date calcium carb 1250 mg, 500 mg Take 2 tablets 100 tablet 0 [place],/vitamin D 200 units by mouth every 8 (OSCAL WITH D) 500-200 hours MG-UNIT per tabletIndications: Primary hyperparathyroidism (H) Cholecalciferol (VITAMIN D3 Take 2,000 Units 0 PO) by mouth daily Flaxseed, Linseed, (FLAX Take 1 capsule 0 12/21/2019 SEED OIL) 1000 MG capsule by mouth daily FLUVOXAMINE MALEATE PO Take 100 mg by 0 12/21/2019 mouth documented as of this encounter H&P Notes Shelia Harmon MD - 04/08/2017 9:00 AM CDT Pre-Endoscopy History and Physical Belle Lopes Marah Date of : 1955 Age: [age] year old Date of Procedure: 04/08/2017 Primary care provider: Anne Hoyt Type of Endoscopy: colonoscopy Reason for Procedure: surveillance Type of Anesthesia Anticipated: Moderate Sedation HPI: Belle is a 61 year old female who will be undergoing [...] Patient Reported? Taking? Cholecalciferol (VITAMIN D3 PO) Past Week Yes Yes Sig: Take 2,000 Units by mouth daily FLUVOXAMINE MALEATE PO 04/07/2017 Yes Yes Sig: Take 100 mg by mouth Flaxseed, Linseed, (FLAX SEED OIL) 1000 MG capsule Past Week Yes Yes Sig: Take 1 capsule by mouth daily calcium carb 1250 mg, 500 mg [place],/vitamin D 200 units (OSCAL WITH D) 500-200 MG-UNIT per tablet Past Week No Yes Sig: Take 2 tablets by mouth every 8 hours Facility-Administered Medications: None There is no problem list on file for this patient. Past Medical History: Diagnosis Date ??? Sleep apnea no c pap, mild Past Surgical History: Procedure Laterality Date ??? BREAST SURGERY 2001 lumpectomy ??? CARPAL TUNNEL RELEASE RT/LT 2004 bilateral ??? SECTION 1998 ??? COLONOSCOPY N/A 10/01/2016 Procedure: COMBINED COLONOSCOPY, SINGLE OR MULTIPLE BIOPSY/POLYPECTOMY BY BIOPSY; Surgeon: Shelia Harmon MD; Location: [facility] ??? COLONOSCOPY 04/08/2017 Dr. Harmon [facility] ??? PULMONOLOGY PHYSICIAN SURGERY 1998 ??? PARATHYROIDECTOMY Right 05/02/2015 Procedure: PARATHYROIDECTOMY; Surgeon: Yessi Eddy MD; Location: [facility] OR Social History Substance Use Topics ??? Smoking status: Never Smoker ??? Smokeless tobacco: Never Used ??? Alcohol use 0.0 oz/week 0 Standard drinks or equivalent per week Comment: 4-6 drinks/week Family History Problem Relation [...] CV, GI & system review. PHYSICAL EXAM: Ht 1.753 m (5' 9) Wt 86.2 kg (190 lb) BMI 28.06 kg/m2 Estimated body mass index is 28.06 kg/(m^2) as calculated from the following: Height as of this encounter: 1.753 m (5' 9). Weight as of this encounter: 86.2 kg (190 lb). GENERAL APPEARANCE: healthy and alert MENTAL STATUS: alert AIRWAY EXAM: Mallampatti Class II (visualization of the soft palate, fauces, and uvula) RESP: lungs clear to auscultation - no rales, rhonchi or wheezes CV: regular rates and rhythm DIAGNOSTICS: Not indicated IMPRESSION ASA Class 1 - Healthy patient, no medical problems PLAN: Plan for colonoscopy. We discussed the risks, benefits and alternatives and the patient wished to proceed. The above has been forwarded to the consulting provider. Signed Electronically by: Shelia Harmon MD April 08, 2017 documented in this encounter Miscellaneous Notes Op Note - Shelia Harmon MD - 04/08/2017 9:01 AM CDT See Provation Note In Chart Shelia Harmon MD [facility] Office documented in this encounter Plan of Treatment Not on filedocumented as of this encounter Procedures Procedure Name Priority Date/Time Associated Comments Diagnosis SURGICAL PATHOLOGY Routine 04/08/2017 9:43 AM Res ults for this EXAM CDT procedure are i n the results section. COLONOSCOPY, WITH 04/08/2017 9:00 AM screening POLYPECTOMY AND CDT BIOPSY COLONOSCOPY Routine 04/08/2017 8:54 AM Results f or this CDT procedure are i n the results section. documented in this encounter Results Surgical pathology exam (04/08/2017 9:43 AM CDT) Component Value Ref Test Analysis Performed At [facility] mojio Range Method Time Signature Copath Report Patient Name: BELLE GUERRERO MR#: [id number] Specimen #: [id number] Collected: 04/08/2017 Received: 04/08/2017 Reported: 04/09/2017 09:06 Ordering Phy(s): SHELIA HARMON For improved result formatting, select 'View Enhanced Report Format' under Linked Documents section. SPECIMEN(S): Colon biopsies, hepatic flexure tattoo polypectomy site FINAL DIAGNOSIS: Hepatic flexure, tattoo polypectomy site biopsies. - Small lymphoid aggregate. ??No adenomatous or hyperplastic polyp. Negative for dysplasia and malignancy. Electronically signed out by: Mani Espino M.D. CLINICAL HISTORY: Hepatic flexure tattooed polypectomy site biopsies. ??High-g rade dysplasia in prior polypectomy. GROSS: The specimen labeled hepatic flexure, tattoo polypectomy si te biopsies consists of 4 pale holt soft tissue fragments averaging 0.2 c m in greatest dimension. ??Entirely submitted in a single cassett e. (Dictated by: Miranda Baird MD 04/08/2017 10:47 AM) MICROSCOPIC: Microscopic evaluation performed. CPT Codes: A: 55776-HF7 TESTING LAB LOCATION: [facility] [address] [place], [place] ??[address] COLLECTION SITE: Client: [facility] Location: [facility] (R) Specimen (Source) Anatomical Collection Method Collection Time Re ceived Time Location / / Volume Laterality Specimen from STRUCTURE OF RIGHT 04/08/2017 9:43 unspecified body COLIC FLEXURE / AM CDT site obtained by Unknown biopsy (specimen) Comment: Anne Hoyt RN Shelia Harmon MD [facility] Performing Organization Address City/State/ZIP Code Phon e Number COPATH COLONOSCOPY (04/08/2017 8:54 AM CDT) [facility] gist Method Time Signature COLONOSCOPY [facility] RAD IOLOGY RESULTS Patient Name: Belle lopes Mad silver Procedure Date: 04/08/2017 8:54 AM ? Accou nt Number: [id number] Date of : 1955 ?Admit Type: Out patient Age: 61 ? Gender: Female Attending MD: Shelia Harmon MD ?Total Sedati on Time: 21 minutes of continuous bedside 1:1. WDT: 11m Instrument Name: 134 ? 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 Medicines: ?Fentanyl 100 micrograms IV, Midazolam 3 mg IV Complications: ?No immediate complications. Procedure: [...] and ?oxygen saturations were monitored continuously. The ?Olympus Peds Colonoscope Model #[id number]-H190L, ?[place]#134, SN#[id number] was introduced through the ?anus and advanced to 4 cm into the ileum. The ?colonoscopy was performed with ease. The patient ?tolerated the procedure well. The quality of the ?bowel preparation was excellent. ? Findings: ? The perianal and digital rectal examinations were nor mal. Pertinent ? negatives include normal sphincte r tone and no palpable rectal lesions. ? The terminal ileum appeared normal. ? A tattoo was seen at the hepatic flexure. A pos t-polypectomy scar was ? found at the tattoo site. This was biopsied with a co ld forceps for ? histology. Estimated blood loss was minimal. ? The retroflexed view of the dista l rectum and anal verge was normal and ? showed no anal or rectal abnormalities. ? The exam was otherwise without abnormality. ? Impression: ? - The examined portion of the ileum was normal. ?- A tattoo was seen at the hepatic flexure. A ?post-polypectomy scar was found at the tattoo site. ?Biopsied. ?- The distal rectum and anal verge are normal on ?retroflexion view. ?- The examination was otherwise normal. Recommendation: ? - Repeat colonoscopy in 3 years for surveillance. ?- Await pathology res ults. ? Procedure Code(s): ? --- Professional --- ? 17560, Colonoscopy, flexible; with biopsy, single or multiple CPT copyright 2016 [employer]. All rights reserved. The codes documented in this report are prelimin radha and upon manager environmental health review may be revised to meet current compliance requirements. Shelia Harmon MD 04/08/2017 9:56:49 AM I was physically present for the entire viewing portion of t he exam. Shelia Harmon MD Number of Addenda: 0 Note Initiated On: 04/08/2017 8:54 AM MRN: ?[id number] Procedure Date: ? 04/08/2017 8:54:05 AM Scope Withdrawal Time: 0 hours 11 minutes 26 seconds Total Procedure Duration: 0 hours 18 minutes 11 seconds Estimated Blood Loss: ? Scope In: 9:28:22 AM Scope Out: 9:46:33 AM Specimen (Source) Anatomical Collection Method Collection Time Re ceived Time Location / / Volume Laterality 04/08/2017 8:54 AM CDT Shelia Harmon MD PROCEDURES Performing Organization Address City/State/ZIP Code Phon e Number RADIOLOGY RESULTS documented in this encounter Visit Diagnoses Not on filedocumented in this encounter Administered Medications Inactive Administered Medications - up to 3 most recent administrations Medication Order MAR Action Action Date Dose Rate Site fentaNYL (PF) (SUBLIMAZE) Given 04/08/2017 9:25 AM CDT 100 mcg injection PRN, Starting on Sat04/08/17 at 0925, Intra-procedure midazolam (VERSED) injection Given 04/08/2017 9:33 AM CDT 1 mg PRN, Starting on Sat04/08/17 at 0925, Intra-procedure Given 04/08/2017 9:25 AM CDT 2 mg ondansetron (ZOFRAN) injection 4 mg 4 mg, Intravenous, EVERY 6 HOURS PRN, nausea, vomiting , Administer over 2-5 Minutes, Starting on Sat04/08/17 at 1006, This is Step 1 of nausea and vomiting management. If nausea not resolved in 15 minutes, go t o Step 2 prochlorperazine (COMPAZINE). Irritant., Post-procedure ondansetron (ZOFRAN-ODT) ODT tab 4 mg 4 mg, Oral, EVERY 6 HOURS PRN, nausea, v omiting, Starting on Sat04/08/17 at 1006, This is Step 1 of nausea and vomiting management. If n ausea not resolved in 15 minutes, go to Step 2 prochlorperazine (COMPAZINE). Do not push through foil backing. Peel back foil and gently remove. Place on to ngue immediately. Administration with liquid unnecessary, Post-procedure documented in this encounter Active and Recently Administered Medications Times are shown in CDT. Scheduled Medication Order 04/06/2017 04/07/2017 04/08/2017 sodium chloride (PF) 0.9% PF flush 3 mL 1015 (Canceled Entry - Provider: Orders Generic Provider - Comment: Automatically canceled at discontinue of medication order) 3 mL, Intravenous, EVERY 8 HOURS, First dose on 04/08/17 at 1015, And Q1H PRN, to lock peripheral IV dormant line. , Pre-procedure PRN Medication Order 04/06/2017 04/07/2017 04/08/2017 fentaNYL (PF) (SUBLIMAZE) injection 0925 (Given - Provider: Missy King RN - Comment: VORB) PRN, Starting Sat04/08/17 at 0925, Intra-procedure flumazenil (ROMAZICON) injection 0.2 mg 0.2 mg, Intravenous, EVERY 1 MIN PRN, be nzodiazepine reversal, over sedation, Starting Sat04/08/17 at 1006, For 12 hours, Give over 15 seconds. If inadequate response after 45 seconds, may repeat up to a MAX total dose of 1 mg. Continue monit oring until discharge criteria are met for a minimum of 2 hours Irritant., Post-procedure lidocaine (LMX4) kit Topical, EVERY 1 HOUR PRN, mild pain, wi th VAD insertion or accessing implanted port,, Starting 04/08/17 at 1005, For 1 dose, Do NOT give if patient has a history of allergy to any local anesthetic o r any atul product. Apply 30 min prio r to VAD insertion or port access. MAX Dose: 2.5 gm (?? of 5 gm tube), Pre-procedure lidocaine 1 % 1 mL 1 mL, Other, EVERY 1 HOUR PRN, mild pain with VAD insertion or accessing implanted port., Starting 04/08/17 at 1005, Do NOT give if patient has a history of allergy to any local anesthetic or any ca ine product. MAX dose 1 mL subcutaneous OR intradermal in divided doses., Pre-procedure May continue current IV fluid if patient has IV fluids infusing until discharge. CONTINUOUS PRN, Starting Sat04/08/17 at 1006, Until Sat04/08/17 at 1225, Post-procedure midazolam (VERSED) injection 092 5 (Given - Provider: Missy King RN - Comment: VORB)0933 (Given - Provider: Breanna Walls RN - Comment: for discomfort, VORB.) PRN, Starting Sat04/08/17 at 0925, Intra-procedure naloxone (NARCAN) injection 0.1-0.4 mg 0.1-0.4 mg, Intravenous, EVERY 2 MIN PRN , opioid reversal, Starting Sat04/08/17 at 1006, For 24 hours, For apnea or imminent [...] l discharge criteria are met for a minimum of 2 hours, Post-proc edure ondansetron (ZOFRAN) injection 4 mg 4 mg, Intravenous, ONCE PRN, nausea, vom iting, Administer over 2-5 Minutes, Starting 04/08/17 at 1005, For 1 dose, Give in ENDO pre procedure prep area. Irritant., Pre-procedure ondansetron (ZOFRAN) injection 4 mg(Linked Group 1) 4 mg, Intravenous, EVERY 6 HOURS PRN, na usea, vomiting, Administer over 2-5 Minutes, Starting 04/08/17 at 1006, This is Step 1 of nausea and vomiting management. If nausea not resolved in 15 minutes, go to Step 2 prochlorperazine (COMPAZINE). Irritant., Post-proc edure ondansetron (ZOFRAN-ODT) ODT tab 4 mg(Linked Group 1) 4 mg, Oral, EVERY 6 HOURS PRN, nausea, v omiting, Starting 04/08/17 at 1006, This is Step 1 of nausea and vomiting management. If nausea not resolved in 15 minutes, go to Step 2 prochlorperazine (COMP AZINE). Do not push through foil backing . Peel back foil and gently remove. Place on tongue immediately. Administration with liquid unnecessary, Post-procedure sodium chloride (PF) 0.9% PF flush 3 mL 3 mL, Intravenous, EVERY 1 HOUR PRN, joanie e flush, post meds or blood draw, Starting 04/08/17 at 1005, for peripheral IV flush post IV meds, Pre-procedure sodium chloride (PF) 0.9% PF flush 3 mL 3 mL, Intravenous, EVERY 1 MIN PRN, line flush, after medication administration, Starting 04/08/17 at 1005, For peripheral IV flush post IV meds, Pre-procedure sodium chloride (PF) 0.9% PF flush 3 mL 3 mL, Intravenous, EVERY 1 MIN PRN, line flush, after medication administration. For peripheral IV flush post IV meds, Starting Sat04/08/17 at 1006, Post-procedure Linked Groups Order Group 1: ondansetron (ZOFRAN-ODT) ODT tab 4 mgJump to med 4 mg, Oral, EVERY 6 HOURS PRN, nausea, v omiting, Starting 04/08/17 at 1006
This is Step 1 of nausea and vomiting management. If nausea not resolved in 15 minutes, go to St ep 2 prochlorperazine (COMPAZINE). Do no t push through foil backing. Peel back foil and gently remove. Place on tongue immediately. Administration with liquid unnecessary
Post-procedure Or ondansetron (ZOFRAN) injection 4 mgJump to med 4 mg, Intravenous, EVERY 6 HOURS PRN, na usea, vomiting, Administer over 2-5 Minutes, Starting 04/08/17 at 1006
This is Step 1 of nausea and vomiting management. If nausea not resolved in 15 minutes, go to Step 2 prochlorperazine (COMPAZINE). Irritant.
Post-procedure documented in this encounter Care Teams Jet Pilot Relationship Specialty Start Date End Date Anne Hoyt, DO PCP - General Family Practice 05/01/16 12/08/19 documented as of this encounter
--- OUTSIDE RECORDS SUMMARY | 2022-06-18 23:15 | XMS_ITS | Encounter Summary ---
:1955 Author Organization [facility] Address [address] [place] [id number] Care Team Providers Name Role Phone Anne Hoyt DO Primary Care Provider Reason for Visit Auth/Cert Specialty Diagnoses / Procedures Referred By Contact Refer red To Contact Surgery Diagnoses left back mass Rh Periop Services Procedures EXCISE MASS BACK [address] [place], [place] [address] Phone: Fax: Referral ID Status Reason Start Date Expiration Date Visits Requ ested Visits Authorized [id number] 1 1 Encounter Details Date Type Department Care Team Description 05/21/2017 Hospital Encounter [facility] on [facility] [place] PreOP/PostOP MD Yessi (Primary Dx) [address] [place], [place] [address] [id number] [place], [place] [phone] [id number] Social History Tobacco Use Types Packs/Day Years Used Date Smoking Tobacco: Never Smokeless Tobacco: Never Alcohol Use Standard Drinks/Week Comments Yes 0 (1 standard drink = 0.6 oz pure alcoho l) 4-6 drinks/week Sex Assigned at Date Recorded Not on file documented as of this encounter Last Filed Vital Signs Vital Sign Reading Time Taken Comments Blood Pressure 130/84 05/21/2017 9:50 AM WEB PRODUCTION MANAGER Pulse - - Temperature 36.8 ??C (98.2 ??F) 05/21/2017 9:50 AM WEB PRODUCTION MANAGER Respiratory Rate 24 05/21/2017 9:50 AM WEB PRODUCTION MANAGER Oxygen Saturation 98% 05/21/2017 9:50 AM WEB PRODUCTION MANAGER Inhaled Oxygen Concentration - - Weight 84.8 kg (187 lb) 05/21/2017 6:07 AM WEB PRODUCTION MANAGER Height 172.7 cm (5' 8) 05/21/2017 6:07 AM WEB PRODUCTION MANAGER Body Mass Index 28.43 05/21/2017 6:07 AM WEB PRODUCTION MANAGER documented in this encounter Discharge Instructions Discharge InstructionsYessi Collins MD - 05/21/2017 8:35 AM CST HOME CARE FOLLOWING MINOR SURGERY Chayo Helton E. Gavin, Chayo Hall, R. O???Bahman Flores RESULTS: If a biopsy of tissue was done, you may call for your final pathology report after 1p.m. two workingdays after surgery. Your results will also be reviewed with you at your postoperative appointment. INCISIONAL CARE: ??? If you have a dressing in place, keep clean and dry for 48 hours; you may replace the gauze if it becomes soiled. ??? After 48 hours you may remove the dressing and shower. Do not submerse incision in water for 1 week. ??? If you have a Dermabond dressing (a type of skin glue), you may shower immediately. ??? Sutures which are beneath the skin will absorb and do not need to be removed. ??? Sutures you can see should be removed at your surgeon's office in 10-14 days at the latest. ??? If present, leave the steri-strips (white paper tapes) in place for 14 days after surgery. ??? If present, leave Dermabond glue in place until it wears/flakes off. ??? You may expect a small amount of drainage from your incision. ??? A lump/ridge under the incision is normal and will gradually resolve. If it becomes red or very uncomfortable, contact the nurse at your surgeon's office to discuss whether this needs to be evaluated. ACTIVITY: Cautiously resume exercise and strenuous activities such as jogging, tennis, aerobics, etc. Also, becareful of stretching activities which affect the area of surgery for two weeks. DIET: No restrictions. Increased fluid intake is recommended. While taking pain medications, increase dietary fiber or add a fiber supplementation like Metamucil or Citrucel to help prevent constipation - a possible side effect of pain medications. DISCOMFORT: Local anesthetic placed at surgery should provide relief for 4-8 hours. Begin taking pain pills before discomfort is severe. Take the pain medication with some food, when possible, to minimize side effects. Intermittent use of ice packs may help during the first 48 hours. Expect gradual improvement. You may slowly transition to use of bzlj-apz-xiwbsqs medications for pain relief when you are no longer requiring narcotics for pain control. RETURN APPOINTMENT: Schedule a follow-up visit 2-3 weeks post-op. Office CONTACT US IF THE FOLLOWING DEVELOPS: 1. A fever that is above 101?? 2. If there is a large amount of drainage, bleeding, or swelling. 3. Severe pain that is not relieved by your prescription. 4. Drainage that is thick, cloudy, yellow, green or white. 5. Any other questions not answered by ???Frequently Asked Questions?? sheet. FREQUENTLY ASKED QUESTIONS: Q: How should my incision look? A: Normally your incision will appear slightly swollen with light redness directly along the incision itself as it heals. It may feel like a bump or ridge as the healing/scarring happens, and over time(3-4 months) this bump or ridge feeling should slowly go away. In general, clear or pink watery drainage can be normal at first as your incision heals, but should decrease over time. Q: How do I know if my incision is infected? A: Look at your incision for signs of infection, like redness around the incision spreading to surrounding skin, or drainage of cloudy or foul-smelling drainage. If you feel warm, check your temperature to see if you are running a fever. If any of these things occur, please notify the nurse at our office. We may need you to come into the office for an incision check. Q: How do I take care of my incision? A: If you have a dressing in place - Starting the day after surgery, replace the dressing 1-2 times a day until there is no further drainage from the incision. At that time, a dressing is no longer needed. Try to minimize tape on the skin if irritation is occurring at the tape sites. If you have significant irritation from tape on the skin, please call the office to discuss other method of dressing your incision. Small pieces of tape called ???steri-strips?? may be present directly overlying your incision; these may be removed 10 days after surgery unless otherwise specified by your surgeon. If these tapes start to loosen at the ends, you may trim them back until they fall off or are removed. A: If you had ???Dermabond?? tissue glue used as a dressing (this causes your incision to look shiny with a clear covering over it) - This type of dressing wears off with time and does not require more dressings over the top unless it is draining around the glue as it wears off. Do not apply ointments or lotions over the incisions until the glue has completely worn off. Q: There is a piece of tape or a sticky ???lead?? still on my skin. Can I remove this? A: Sometimes the sticky ???leads?? used for monitoring during surgery or for evaluation in the emergency department are not all removed while you are in the hospital. These sometimes have a tab or metal dot on them. You can easily remove these on your own, like taking off a band-aid. If there is a gel substance under the ???lead?? , simply wipe/clean it off with a washcloth or paper towel. Q: What can I do to minimize constipation (very hard stools, or lack of stools)? A: Stay well hydrated. Increase your dietary fiber intake or take a fiber supplement -with plenty ofwater. Walk around frequently. You may consider an nrnc-wfz-nfvreom stool-softener. Your Pharmacist can assist you with choosing one that is stocked at your pharmacy. Constipation is also one of the most common side effects of pain medication. If you are using pain medication, be pro-active and try toPREVENT problems with constipation by taking the steps above BEFORE constipation becomes a problem. Q: What do I do if I need more pain medications? A: Call the office to receive refills. Be aware that certain pain meds cannot be called into a pharmacy and actually require a paper prescription. A change may be made in your pain med as you progress thru your recovery period or if you have side effects to certain meds. --Pain meds are NOT refilled after 5pm on weekdays, and NOT AT ALL on the weekends, so please look ahead to prevent problems. Q: Why am I having a hard time sleeping now that I am at home? A: Many medications you receive while you are in the hospital can impact your sleep for a number of days after your surgery/hospitalization. Decreased level of activity and naps during the day may alsomake sleeping at night difficult. Try to minimize day-time naps, and get up frequently during the day to walk around your home during your recovery time. Sleep aides may be of some help, but are not recommended for long-term use. Q: I am having some back discomfort. What should I do? A: This may be related to certain positioning that was required for your surgery, extended periods of time in bed, or other changes in your overall activity level. You may try ice, heat, acetaminophen,or ibuprofen to treat this temporarily. Note that many pain medications have acetaminophen in them and would state this on the prescription bottle. Be sure not to exceed the maximum of 4000mg per day of acetaminophen. If the pain you are having does not resolve, is severe, or is a flare of back pain you have had onother occasions prior to surgery, please contact your primary physician for further recommendations or for an appointment to be examined at their office. Q: Why am I having headaches? A: Headaches can be caused by many things: caffeine withdrawal, use of pain meds, dehydration, high blood pressure, lack of sleep, over-activity/exhaustion, flare-up of usual migraine headaches. If youfeel this is related to muscle tension (a band-like feeling around the head, or a pressure at the low-back of the head) you may try ice or heat to this area. You may need to drink more fluids (try electrolyte drink like Gatorade), rest, or take your usual migraine medications. If your headaches do not resolve, worsen, are accompanied by other symptoms, or if your blood pressure is high, please call your primary physician for recommendation and/or examination. Q: I am unable to urinate. What do I do? A: A small percentage of people can have difficulty urinating initially after surgery. This includesbeing able to urinate only a very small amount at a time and feeling discomfort or pressure in the very low abdomen. This is called ???urinary retention?? , and is actually an urgent situation. Proceedto your nearest Emergency department for evaluation (not an Urgent Care Center). Sometimes the bladder does not work correctly after certain medications you receive during surgery, or related to certain procedures. You may need to have a catheter placed until your bladder recovers. When planning to goto an Emergency department, it may help to call the ER to let them know you are coming in for this problem after a surgery. This may help you get in quicker to be evaluated. If you have symptoms of a urinary tract infection, please contact your primary physician for the proper evaluation and treatment. If you have other questions, please call the office Saturday thru Saturday between 8am and 5pm to discuss with the nurse or physician assistant operator. # There is a surgeon CONTINUOUS DRYOUT OPERATOR HELPER on weekday evenings and over the weekend in case of urgent need only, andmay be contacted at the same number. If you are having an emergency, call 911 or proceed to your nearest emergency department. PRODUCTION MANAGER documented in this encounter Medications at Time of Discharge Medication Sig Dispensed Refills Start Date End Date calcium carb 1250 mg, 500 mg Take 2 tablets 100 tablet 0 bill [place],/vitamin D 200 units by mouth every 8 (OSCAL WITH D) 500-200 hours MG-UNIT per tabletIndications: Primary hyperparathyroidism (H) Cholecalciferol (VITAMIN D3 Take 2,000 Units 0 PO) by mouth daily Flaxseed, Linseed, (FLAX Take 1 capsule 0 12/21/2019 SEED OIL) 1000 MG capsule by mouth daily FLUVOXAMINE MALEATE PO Take 100 mg by 0 12/21/2019 mouth documented as of this encounter Progress Notes Yessi Collins MD - 05/21/2017 9:59 AM CST Please let patient know the pathology is benign. PRODUCTION MANAGER Suma Milton, DIOGENES - 05/21/2017 9:59 AM CST Patient advised of results. Suma Champagne RN PRODUCTION MANAGER documented in this encounter Miscellaneous Notes Op Note - Yessi Collins MD - 05/21/2017 8:28 AM CST PREOPERATIVE DIAGNOSIS: Left back mass. POSTOPERATIVE DIAGNOSIS: Left back mass. PROCEDURE: Excisional biopsy left back mass. ANESTHESIA: Local with MAC PREOPERATIVE MEDICATIONS: Ancef 2 gm SURGEON: Yessi Collins MD OYSTER PLANTER: NONE INDICATIONS: Belle Guerrero is a 61 year oldmci-jnlc-iha female with a mass on her leftback, paraspinal area for 5 years. It is uncomfortable and it is increasing in size. There is a softtissue mass of about 3.5 cm in the T 11 to T 12 left back. She presents today for excision. PROCEDURE: The patient was placed prone. Left back area was prepped and draped in the usual sterile fashion. Local anesthesia was obtained with 1% lidocaine and 0.25% Marcaine plain. A oblique incisionis made directly over the mass and dissection is carried down to the mass which is a fatty lobulation about 4.5 cm. It is excised in its entirety. It did extend partly beneath the paraspinal musculature. Due to indistinct lateral edges, I reexcised about 1 cm further to ensure that none of it remained. The site is inspected for hemostasis, irrigated and closed using 3-0 Vicryl subdermal and 4-0 subcuticular Monocryl. The patient was transferred to recovery in good condition. ESTIMATED BLOOD LOSS: 15 cc. INTRAOPERATIVE FINDINGS: Mass excised, pathology pending. YESSI COLLINS MD PRODUCTION MANAGER documented in this encounter Plan of Treatment Not on filedocumented as of this encounter Procedures Procedure Name Priority Date/Time Associated Diagnosis Comme nts SURGICAL PATHOLOGY Routine 05/21/2017 8:16 AM Res ults for this EXAM WEB PRODUCTION MANAGER procedure are i n the results section. EXCISION, MASS, 05/21/2017 7:30 AM left back mass BACK WEB PRODUCTION MANAGER Special Needs Ht 5'8 Wt 187.4 lb H&PCPAP- GAUTAM documented in this encounter Results Surgical pathology exam (05/21/2017 8:16 AM WEB PRODUCTION MANAGER) Component Value Ref Test Analysis Performed At [facility] gist Range Method Time Signature Copath Report Patient Name: BELLE GUERRERO MR#: [id number] Specimen #: [id number] Collected: 05/21/2017 Received: 05/21/2017 Reported: 05/22/2017 11:03 Ordering Phy(s): YESSI COLLINS For improved result formatting, select 'View Enhanced Report Format' under Linked Documents section. SPECIMEN(S): Mass, left back FINAL DIAGNOSIS: Soft tissue, left side of back, excision: - Lipoma; benign. Electronically signed out by: Arias Solis M.D. CLINICAL HISTORY: Left back mass. GROSS: The specimen is received in formalin labeled with the patien t's name, identifying information and left back mass. ??It consists of three fragments of yellow lobulated adipose tissue, aggregating to 5 x 4 x 1 cm. ??The largest encapsulated fragment is inked green. ??Th e cut surfaces are margins the yellow and lobulated. ??Representatively sub mitted in 4 blocks to include largest fragment in block 1-2. (Dictated b y: Russ Germain 05/21/2017 11:08 AM) MICROSCOPIC: Microscopic examination was performed. CPT Codes: A: 62068-BV7 TESTING LAB LOCATION: [address] ??[address] COLLECTION SITE: Client: [facility] Location: [facility] (R) Specimen (Source) Anatomical Collection Method Collection Time Re ceived Time Location / / Volume Laterality Tissue specimen STRUCTURE OF BACK 05/21/2017 8:16 AM (specimen) OF TRUNK / Unknown WEB PRODUCTION MANAGER Yessi Collins MD LAB - [facility] Performing Organization Address City/State/ZIP Code Phon e Number COPATH documented in this encounter Visit Diagnoses Diagnosis Mass on back - Primary Localized superficial swelling, mass, or lump documented in this encounter Active and Recently Administered Medications Due to Daylight Saving Time, this section may contain times in both CDT and WEB PRODUCTION MANAGER. Scheduled Medication Order 05/19/2017 05/20/2017 05/21/2017 ceFAZolin sodium-dextrose (ANCEF) infusion 2 g (COMPLETED) 0734 (Given - Provider: Derrick Stauffer APRN ADULT CROSSING GUARD) Routine, 2 g, Intravenous, PRE-OP/PRE-KY OCEDURE, Starting on Sat05/21/17 at 0613, For 1 dose, Give first dose within 1 hour PRIOR to incision. If patient weight is greater than or equal to 120 kg increa se dose to 3 g., Indications: Perioperative Pharmacoprophyla xis, Pre-procedure Continuous Medication Order 05/19/2017 05/20/2017 05/21/2017 lactated ringers infusion (CANCELED) 0705 (New Bag - Provider: Tremaine Ken MD)0823 (Anesthesia Volume Adjustment - Provider: Derrick Stauffer APRN CRNA) at 25 mL/hr, Intravenous, CONTINUOUS, IF patient NOT on dialysis., Pre- procedure, Starting Sat05/21/17 at 0615, Until Sat05/21/17 at 0829 PRN Medication Order 05/19/2017 05/20/2017 05/21/2017 bupivacaine 0.25% 30 mL, lidocaine 1% 30 mL injection (CANCELED) 0815 (Given - Provider: Yessi Collins MD) PRN, Starting e 05/21/17 at 0815, Intra-procedure documented in this encounter Care Teams Latin American Studies Professor Relationship Specialty Start Date End Date Anne Hoyt DO PCP - General Family Practice 05/01/16 12/08/19 documented as of this encounter
--- OUTSIDE RECORDS SUMMARY | 2022-06-18 23:15 | XMS_ITS | Clinical Summary ---
:1955 Author Organization [facility] Address [address] [place] [address] Care Team Providers Name Role Phone Blanca Schaefer Primary Care Provider Allergies No known active allergies Medications Medication Sig Dispensed Refills Start Date End Date Status Cholecalciferol (VITAMIN Take 2,000 0 Active D3 PO) Units by mouth daily calcium carb 1250 mg, 500 Take 2 100 tablet 0 05/02/2015 Active mg cherokee,/vitamin D 200 tablets by units (OSCAL WITH D) mouth every 8 500-200 MG-UNIT per hours tabletIndications: Primary hyperparathyroidism (H) desvenlafaxine (PRISTIQ) Take 50 mg by 0 Active 50 MG 24 hr tablet mouth daily cyanocobalamin (VITAMIN Take 500 mcg 0 Active B-12) 500 MCG tablet by mouth daily vitamin C (ASCORBIC ACID) Take 1,000 mg 0 Active 1000 MG TABS by mouth daily Active Problems No known active problems Family History Medical History Relation Comments Hypertension Brother Coronary Artery Disease Maternal Grandfather Hypertension Maternal Grandfather Hypertension Maternal Grandmother Coronary Artery Disease Mother Hypertension Mother Colon Cancer No family hx of Relation Status Comments Brother Maternal Grandfather Maternal Grandmother Mother Social History Tobacco Use Types Packs/Day Years [...] Pulse 72 12/29/2019 9:20 AM CDT Temperature 36.8 ??C (98.2 ??F) 05/21/2017 9:50 AM DRY HEAT ROOM ATTENDANT Respiratory Rate 16 12/29/2019 9:20 AM CDT Oxygen Saturation 97% 12/29/2019 9:20 AM CDT Inhaled Oxygen Concentration - - Weight 83.9 kg (185 lb) 12/29/2019 7:56 AM CDT Height 175.3 cm (5' 9) 12/29/2019 7:56 AM CDT Body Mass Index 27.32 12/29/2019 7:56 AM CDT Plan of Treatment Health Maintenance Due Date Last Done Comments ADVANCE CARE PLANNING 1955 ANNUAL REVIEW OF HM ORDERS 1955 CT COLONOGRAPHY 1955 DEXA 1955 FIT-DNA (Cologuard) 1955 FIT 1955 FLEX SIG 1955 MAMMO SCREENING 1955 HIV SCREENING 12/02/1971 HEPATITIS C SCREENING 1974 DTAP/TDAP/TD IMMUNIZATION 08/26/2001 08/25/2001 (1 - Tdap) LIPID 2001 COVID-19 Vaccine (2 - 10/15/2020 09/24/2020 Pfizer series) PHQ-2 (once per calendar 07/15/2021 year) FALL RISK ASSESSMENT 2021 MEDICARE ANNUAL WELLNESS 2021 04/04/2020 VISIT Pneumococcal Vaccine: 65+ 2021 Years (1 - PCV) COLONOSCOPY 12/28/2029 12/29/2019, 12/29/2019, 04/08/2017, Additional history exists COLORECTAL CANCER SCREENING 12/28/2029 ZOSTER IMMUNIZATION Completed 03/12/2018, 10/15/2017, 08/18/2015 INFLUENZA VACCINE Completed 06/04/2022, 03/22/2020, 05/22/2019, Additional history exists IPV IMMUNIZATION Aged Out No longer eligi ble based on patient 's age to complete this topic MENINGITIS IMMUNIZATION Aged Out No longe r eligible based on patient 's age to complete this topic Insurance Payer Benefit Plan / Subscriber ID Effective Dates Phone Addre ss Type Group BCBS [employer] [id number] 2017-Ge [phone] [address] [address] Indemnity t 0 [place] [id number] [address] [facility] [place], [place] none (Work) [id number] Care Teams Manager Engine Relationship Specialty Start Date End Date Blanca Schaefer PCP - General Internal Medicine 12/09/19 [facility] [address] [place] [address]
--- OUTSIDE RECORDS SUMMARY | 2022-06-18 23:15 | XMS_ITS | Encounter Summary ---
:1955 Author Organization [facility] Address [address] [place] [address]. [place] [address] Care Team Providers Name Role Phone Lai Anne Ki VARMA Primary Care Provider Reason for Visit Auth/Cert Specialty Diagnoses / Procedures Referred By Contact Refer red To Contact Gastroenterology Diagnoses hx of colon polyps Rh Endoscopy Procedures COLONOSCOPY [address] [place] [address] Phone: Fax: Referral ID Status Reason Start Date Expiration Date Visits Requ ested Visits Authorized [id number] 1 1 Encounter Details Date Type Department Care Team Description 10/01/2016 Surgery [facility] Shelia Harmon Colonoscop y with Endoscopy Suleiman Suarez MD polypectomies by hot [address] COLON RECTAL snare, 2cc tatoo, 2 clips [place], [place] SURGERY applied to Hepatic [phone] Flexure polyp, biopsy [phone] ARLEEN 375 forceps UNRULY HUANG [id number] Surgery Details Date/Time Status Location OR Service Patient Class Case Case Trauma Class Type Case? 10/01/16 9:50 Posted [facility] GI C Bath-Rectal Outpatient AM Panel 1 Procedure LRB Anes Op Region Wound Class Commen ts Colonoscopy with N/A Conscious Rectum II-Clean Colonosc opy with polypectomies by Sedation Contaminated polype ctomies by hot snare, 2cc hot snare, 2cc tatoo, 2 clips tatoo, 2 c lips applied to Hepatic applie d to Hepatic Flexure polyp, Flexure po lyp, biopsy forceps biopsy for ceps TATTOOING, WITH N/A Rectum II-Clean COLONOSCOPY Contaminated COLONOSCOPY, WITH N/A Rectum II-Clean HEMORRHAGE CONTROL Contaminated COLONOSCOPY, WITH N/A Rectum II-Clean POLYPECTOMY AND Contaminated BIOPSY Surgeon Surgeon Role Service Panel Shelia Harmon MD Primary Bath-Rectal 1 documented in this encounter Social History Tobacco Use Types Packs/Day Years Used Date Smoking Tobacco: Never Smokeless Tobacco: Never Alcohol Use Standard Drinks/Week Comments Yes 0 (1 standard drink = 0.6 oz pure alcoho l) 4-6 drinks/week Sex Assigned at Date Recorded Not on file documented as of this encounter Last Filed Vital Signs Vital Sign Reading Time Taken Comments Blood Pressure 106/73 10/01/2016 10:25 AM CDT Pulse - - Temperature - - Respiratory Rate 8 10/01/2016 10:25 AM CDT Oxygen Saturation 95% 10/01/2016 10:25 AM CDT Inhaled Oxygen Concentration - - Weight - - Height - - Body Mass Index - - documented in this encounter Discharge Instructions Discharge InstructionsJamia Buckley RN - 10/01/2016 11:23 AM CDT Images from the original note were not included. Understanding Colon and Rectal Polyps The colon has a smooth lining composed of millions of cells. The colon (also called the large intestine) is a muscular tube that forms the last part of the digestive tract. It absorbs water and stores food waste. The colon is about 4 to 6 feet long. The rectum is the last 6 inches of the colon. The colon and rectum have a smooth lining composed of millions of cells. Changes in these cells can lead to growths in the colon that can become cancerous and should beremoved. When the Colon Lining Changes Changes that occur in the cells that line the colon or rectum can lead to growths called polyps. Over a period of years, polyps can turn cancerous. Removing polyps early may prevent cancer from ever forming. Polyps Polyps are fleshy clumps of tissue that form on the lining of the colon or rectum. Small polyps are usually benign (not cancerous). However, over time, cells in a polyp can change and become cancerous.The larger a polyp grows, the more likely this is to happen. Also, certain types of polyps known as a denomatous polyps are considered premalignant. This means that they will almost always become cancerous if they???re not removed. Cancer Almost all colorectal cancers start when polyp cells begin growing abnormally. As a cancerous tumor grows, it may involve more and more of the colon or rectum. In time, cancer can also grow beyond the colon or rectum and spread to nearby organs or to glands called lymph nodes. The cells can also travel to other parts of the body. This is known as metastasis. The earlier a cancerous tumor is removed, the better the chance of preventing its spread. ?? [id number] [facility], [address] [place] [address], [place] [address]. All rights reserved. This information is not intended as a substitute for professional medical care. Always follow your healthcare professional's instructions. documented in this encounter Medications at Time of Discharge Medication Sig Dispensed Refills Start Date End Date calcium carb 1250 mg, 500 mg Take 2 tablets 100 tablet 0 [place],/vitamin D 200 units by mouth every 8 [...] encounter H&P Notes Shelia Harmon MD - 10/01/2016 10:00 AM CDT Pre-Endoscopy History and Physical Belle Lopes Mon[place] Date of : 1955 Age: [age] year old Date of Procedure: 10/01/2016 Primary care provider: Anne Hoyt Type of Endoscopy: colonoscopy Reason for Procedure: surveillance Type of Anesthesia Anticipated: Moderate Sedation HPI: Belle is a 60 year old female who will be undergoing [...] Units by mouth daily FLUVOXAMINE MALEATE PO 09/30/2016 Yes Yes Sig: Take 100 mg by mouth Flaxseed, Linseed, (FLAX SEED OIL) 1000 MG capsule Past Week Yes Yes Sig: Take 1 capsule by mouth daily calcium carb 1250 mg, 500 mg [place],/vitamin D 200 units (OSCAL WITH D) 500-200 MG-UNIT per tablet Past Week No Yes Sig: Take 2 tablets by mouth every 8 hours Facility-Administered Medications: None There is no problem list on file for this patient. Past Medical History Diagnosis Date ??? Sleep apnea no c pap, mild Past Surgical History Procedure Laterality Date ??? Breast surgery 2001 lumpectomy ??? section 1998 ??? Carpal tunnel release rt/lt 2004 bilateral ??? Parathyroidectomy Right 05/02/2015 Procedure: PARATHYROIDECTOMY; Surgeon: Yessi Eddy [...] this visit. Estimated body mass index is 27.72 kg/(m^2) as calculatedfrom the following: Height as of 05/02/15: 1.74 m (5' 8.5). Weight as of 05/02/15: 83.9 kg (185 lb). GENERAL APPEARANCE: healthy and alert MENTAL [...] provider. Signed Electronically by: Shelia Harmon MD October 01, 2016 documented in this encounter Miscellaneous Notes Op Note - Shelia Harmon MD - 10/01/2016 10:00 AM CDT See Provation Note In Chart Shelia Harmon MD [facility] Office documented in this encounter Plan of Treatment Not on filedocumented as of this encounter Procedures Procedure Name Priority Date/Time Associated Comments Diagnosis SURGICAL PATHOLOGY Routine 10/01/2016 10:24 Resul ts for this EXAM AM CDT procedure are i n the results section. COLONOSCOPY, WITH 10/01/2016 9:58 AM 6 polyps POLYPECTOMY AND CDT BIOPSY COLONOSCOPY, WITH 10/01/2016 9:58 AM 6 polyps HEMORRHAGE CONTROL CDT TATTOOING, WITH 10/01/2016 9:58 AM 6 polyps COLONOSCOPY CDT COLONOSCOPY, 10/01/2016 9:58 AM 6 polyps FLEXIBLE, WITH LESION CDT REMOVAL USING SNARE COLONOSCOPY Routine 10/01/2016 9:44 AM Results f or this CDT procedure are i n the results section. documented in this encounter Results Surgical pathology exam (10/01/2016 10:24 AM CDT) Component Value Ref Test Analysis Performed At [facility] Range Method Time Signature Copath Report Patient Name: BELLE GUERRERO MR#: [id number] Specimen #: [id number] Collected: 10/01/2016 Received: 10/01/2016 Reported: 10/02/2016 09:25 Ordering Phy(s): SHELIA HARMON For improved result formatting, select 'View Enhanced Report Format' under Linked Documents section. SPECIMEN(S): A: Hepatic flexure and ascending polyps B: Colon polyp, transverse C: Sigmoid colon polyp x3 FINAL DIAGNOSIS: A: Ascending and hepatic flexure polyps, polypectomies. - Numerous fragments of tubulovillous adenomas. ??Small focu s consistent with high grade cytologic dysplasia in detached fragment. ?? Negative for malignancy. B: Transverse colon polyp, polypectomy. - Multiple fragments of tubular adenoma. ??Negative for high grade dysplasia and malignancy. C: Sigmoid colon polyps x3, polypectomies. - Multiple tubular adenomas. ??Negative for high grade dyspl louie and malignancy. Electronically signed out by: Mani Espino M.D. CLINICAL HISTORY: History of colon polyps. 5-20mm ascending and hepatic flexur e polyps. GROSS: A: The specimen is received in formalin labeled with the pat ient's name, identifying information and ascending and hepatic flexure p olyps. ??It consists of multiple holt friable tissue fragments, ranging f rom 0.1-0.8 cm. ??The margins of the larger fragments are inked blue. ?? The specimen is submitted entirely in 2 blocks to include small fragments of block 1 and larger fragments of block 2. B: The specimen is received in formalin labeled with the pat ient's name, identifying information and transverse colon polyp. ??It c onsists of multiple holt friable tissue fragments ranging from 0.1-0.3 c m. ??The smallest fragments did not survive processing. ??Submitted e ntirely in 1 block. C: The specimen is received in formalin labeled with the pat ient's name, identifying information and sigmoid colon polyp x3. ??It c onsists of six holt friable tissue fragments, ranging from 0.1-0.7 cm. ? ?The larger fragment is inked blue and bisected. ??The smallest minute f ragments may not survive processing. ??Submitted entirely in 1 block. (Di ctated by: Russ Germain 10/01/2016 12:12 PM) MICROSCOPIC: A., B., C. Microscopic evaluation performed. CPT Codes: A: 86814-FB2 B: 84978-RD6 C: 35033-RX5 TESTING LAB LOCATION: [address] ??[id number] COLLECTION SITE: Client: [facility] Location: [facility]ENDO (R) Specimen (Source) Anatomical Collection Method Collection Time Re ceived Time Location / / Volume Laterality Polyp LARGE INTESTINE 10/01/2016 10:24 (morphologic PART / Unknown AM CDT abnormality) Polyp LARGE INTESTINE 10/01/2016 10:47 (morphologic PART / Unknown AM CDT abnormality) Polyp SIGMOID COLON PART 10/01/2016 10:53 (morphologic / Unknown AM CDT abnormality) Shelia Harmon MD LAB - [facility] Performing Organization Address City/State/ZIP Code Phon e Number COPATH COLONOSCOPY (10/01/2016 9:44 AM CDT) [facility] Method Time Signature COLONOSCOPY [facility] RAD IOLOGY RESULTS Patient Name: Belle Guerrero ? Procedure D ate: 10/01/2016 9:44 AM ? Accou nt Number: [id number] Date of : 1955 ?Admit Type: Out patient Age: 60 ? Gender: Female Attending MD: Shelia Harmon MD ? Total Sedati on Time: 50 minutes of continuous bedside 1:1. IT:8m, WDT: 40m Instrument Name: 132 ? Procedure: ?Colonoscopy Indications: ?High ri sk colon cancer surveillance: Personal ?history of colonic po lyps Providers: ?Shelia Haromn MD (Doctor) Referring MD: ? Medicines: ?Fentanyl [...] and ?oxygen saturations were monitored continuously. The ?Emer[employer] Mast Colonoscope Model #[id number]-H190L, ?[place]#132, SN#[id number] was introduced through the ?anus and advanced [...] ? The terminal ileum appeared normal. ? Two sessile polyps were found at the hepatic flexure and in the ? ascending colon. The polyps were 5 to 20 mm in size. These polyps were ? removed with a hot snare. Resection and retrieval wer e complete. ? Estimated blood loss: none. Area was successfully i njected with 2 mL ? Spot (carbon black) for tattooing. Estimated blood lo ss: none. Two ? hemostatic clips were successfull y placed. There was no bleeding during ? the procedure. ? A sessile polyp was found in the distal transverse colon. The polyp was ? 2 mm in size. The polyp was removed with a hot snare. Resection and ? retrieval were complete. Estimated blood loss: none. ? Three sessile polyps were found i n the sigmoid colon. The polyps were 2 ? to 5 mm in size. These polyps were remove d with a hot snare. Resection ? and retrieval were complete. Estimated blood loss: no ne. ? Multiple small and large-mouthed divertic judith were found in the sigmoid ? colon. ? The exam was otherwise without abnormality. ? The retroflexed view of the dista l rectum and anal verge was normal and ? showed no anal or rectal abnormalities. ? Impression: ? - The examined portion of the ileum was normal. ?- Two 5 to 20 mm polyps at the hepatic flexure and ?in the ascending colon. Resected and retrieved. ?Injected. Clips were placed. ?- One 2 mm polyp in the distal transverse colon. ?Resected and retrieve d. ?- Three 2 to 5 mm polyps in the sigmoid colon. ?Resected and retrieve d. ?- Diverti culosis in the sigmoid colon. ?- The examination was otherwise normal. ?- The distal rectum and anal verge are normal on ?retroflexion view. Recommendation: ? - Use fiber, for example Citrucel, Fibercon, Konsyl ?or Metamucil. ?- Repeat colonoscopy in 1 year for surveillance ?after piecemeal polyp ectomy. ? Procedure Code(s): ? --- Professional --- ? 11969, Colonoscopy, flexible, pro ximal to splenic flexure; with removal ? of tumor(s), polyp(s), or other lesion(s) by snare te chnique ? 94864, Colonoscopy, f lexible, proximal to splenic flexure; with directed ? submucosal injection(s), any substance Diagnosis Code(s): ? --- Professional --- ? K57.30, Diverticulosi s of large intestine without perforation or abscess ? without bleeding ? D12.5, Benign neoplasm of sigmoid colon ? D12.3, Benign neoplasm of transverse colon ? D12.2, Benign neoplasm of ascending colon ? Z86.010, Personal history of colonic polyps CPT copyright 2013 [employer]. All rights reserved. The codes documented in this report are prelimin radha and upon information coder review may be revised to meet current compliance requirements. Shelia Harmon MD 10/01/2016 11:09 AM I was physically present for the entire viewing portion of t he exam. Shelia Harmon MD Number of Addenda: 0 Note Initiated On: 10/01/2016 9:44 AM MRN: ?[id number] Procedure Date: ? 10/01/2016 9:44:48 AM Scope Withdrawal Time: 0 hours 39 minutes 59 seconds Total Procedure Duration: 0 hours 47 minutes 43 seconds Estimated Blood Loss: ? Scope In: 10:11:28 AM Scope Out: 10:59:11 AM Specimen (Source) Anatomical Collection Method Collection Time Re ceived Time Location / / Volume Laterality 10/01/2016 9:44 AM CDT Shelia Harmon MD PROCEDURES Performing Organization Address City/State/ZIP Code Phon e Number RADIOLOGY RESULTS documented in this encounter Visit Diagnoses Not on filedocumented in this encounter Administered Medications Inactive Administered Medications - up to 3 most recent administrations Medication Order MAR Action Action Date Dose Rate Site fentaNYL Citrate (PF) Given 10/01/2016 10:09 AM CDT 100 mcg (SUBLIMAZE) injection PRN, Starting on 10/01/16 at 1009, Intra-procedure midazolam (VERSED) injection Given 10/01/2016 10:18 AM CDT 1 mg PRN, Starting on 10/01/16 at 1009, Intra-procedure Given 10/01/2016 10:09 AM CDT 2 mg ondansetron (ZOFRAN) injection 4 mg 4 mg, Intravenous, EVERY 6 HOURS PRN, nausea, vomiting , Administer over 2-5 Minutes, Starting on 10/01/16 at 1121, This is Step 1 of nausea and vomiting management. If nausea not resolved in 15 minutes, go t o Step 2 prochlorperazine (COMPAZINE). Irritant., Post-procedure ondansetron (ZOFRAN-ODT) ODT tab 4 mg 4 mg, Oral, EVERY 6 HOURS PRN, nausea, Starting on Sat10/01/16 at 1121, This is Step 1 of nausea and vomiting management . If nausea not resolved in 15 minutes, go to Step 2 prochlorperazine (COMPAZINE). Do not push through foil backing. Peel back foil and gently remove. Place on tongue immediately. A dministration with liquid unnecessary, Post-procedure sodium chloride (PF) 0.9% PF flush 3 mL Given 10/01/2016 10:18 AM CDT 3 mLs 3 mL, Intracatheter, EVERY 1 HOUR PRN, line flush, for peripheral IV flush post IV meds, Starting on Sat10/01/16 at 1004, Pre-procedure Given 10/01/2016 10:09 AM CDT 3 mLs SPOT endoscopic marker (SOPT) injection Given 10/01/2016 10:30 AM CDT 2 mLs PRN, Starting on Sat10/01/16 at 1030, Intra-procedure documented in this encounter Active and Recently Administered Medications Times are shown in CDT. Scheduled Medication Order 09/29/2016 09/30/2016 10/01/2016 sodium chloride (PF) 0.9% PF flush 3 mL 1015 (Canceled Entry - Provider: Orders Generic Provider - Comment: Automatically canceled at discontinue of medication order) 3 mL, Intracatheter, EVERY 8 HOURS, Firs t dose on Sat10/01/16 at 1015, And Q1H PRN, to lock peripheral IV dormant line., Pre-procedure PRN Medication Order 09/29/2016 09/30/2016 10/01/2016 fentaNYL Citrate (PF) (SUBLIMAZE) injection 1009 (Given - Provider: Nathalie Mcfadden RN - Comment: vorb) PRN, Starting Sat10/01/16 at 1009, Intra-procedure flumazenil (ROMAZICON) injection 0.2 mg 0.2 mg, Intravenous, EVERY 1 MIN PRN, be nzodiazepine reversal, over sedation, Starting Sat10/01/16 at 1121, For 12 hours, Give over 15 seconds. If inadequate response after 45 seconds, may repeat up to a MAX total dose of 1 mg. Continue monit oring until discharge criteria are met for a minimum of 2 hours Irritant., Post-procedure lidocaine (LMX4) kit Topical, EVERY 1 HOUR PRN, pain, with VA D insertion or accessing implanted port., Starting Sat10/01/16 at 1004, Do NOT give if patient has a history of allergy to any local anesthetic or any atul pro duct. Apply 30 minutes prior to VAD inse rtion or port access. MAX Dose: 2.5 g (?? of 5 g tube), Pre-procedure lidocaine 1 % 1 mL 1 mL, Other, EVERY 1 HOUR PRN, mild pain with VAD insertion or accessing implanted port, Starting 10/01/16 at 1004, Do NOT give if patient has a history of allergy to any local anesthetic or any kateryna ne product. MAX dose 1 mL subcutaneous OR intradermal in divided doses., Pre-procedure May continue current IV fluid if patient has IV fluids infusing until discharge. CONTINUOUS PRN, Starting Sat10/01/16 at 1121, Until Sat10/01/16 at 1400, Post-procedure midazolam (VERSED) injection 100 9 (Given - Provider: Nathalie Mcfadden RN - Comment: lee)1018 (Given - Provider: Nathalie Mcfadden RN - Comment: lee) PRN, Starting Sat10/01/16 at 1009, Intra-procedure naloxone (NARCAN) injection 0.1-0.4 mg 0.1-0.4 mg, Intravenous, EVERY 2 MIN PRN , opioid reversal, Starting Sat10/01/16 at 1121, For 24 hours, For apnea or imminent [...] vom iting, Administer over 2-5 Minutes, Starting Sat10/01/16 at 1004, For 1 dose, Give in ENDO pre procedure prep area. Irritant., Pre-procedure ondansetron (ZOFRAN) injection 4 mg(Linked Group 1) 4 mg, Intravenous, EVERY 6 HOURS PRN, na usea, vomiting, Administer over 2-5 Minutes, Starting 10/01/16 at 1121, This is Step 1 of nausea and vomiting management. If nausea not resolved in 15 minutes, go to Step 2 prochlorperazine (COMPAZINE). Irritant., Post-proc edure ondansetron (ZOFRAN-ODT) ODT tab 4 mg(Linked Group 1) 4 mg, Oral, EVERY 6 HOURS PRN, nausea, S tarting 10/01/16 at 1121, This is Step 1 of nausea and vomiting management. If nausea not resolved in 15 minutes, go to Step 2 prochlorperazine (COMPAZINE). Do not push through foil backing. Peel ros k foil and gently remove. Place on tongue immediately. Administration with liquid unnecessary, Post-procedure sodium chloride (PF) 0.9% PF flush 3 mL 1009 (Given - Provider: Nathalie Mcfadden RN)1018 (Given - Provider: Nathalie Mcfadden RN) 3 mL, Intracatheter, EVERY 1 HOUR PRN, l ine flush, for peripheral IV flush post IV meds, Starting 10/01/16 at 1004, Pre-procedure sodium chloride (PF) 0.9% PF flush 3 mL 3 mL, Intravenous, EVERY 1 MIN PRN, line flush, after medication administration, Starting 10/01/16 at 1004, For peripheral IV flush post IV meds, Pre-procedure sodium chloride (PF) 0.9% PF flush 3 mL 3 mL, Intravenous, EVERY 1 MIN PRN, line flush, after medication administration. For peripheral IV flush post IV meds, Starting 10/01/16 at 1121, Post-procedure SPOT endoscopic marker (SOPT) injection 1030 (Given - Provider: Nathalie Mcfadden RN - Comment: 2 cc injected into Hepatic Flexure polyp site per MD verbal order) PRN, Starting Sat10/01/16 at 1030, Intra-procedure Linked Groups Order Group 1: ondansetron (ZOFRAN-ODT) ODT tab 4 mgJump to med 4 mg, Oral, EVERY 6 HOURS PRN, nausea, S tarting 10/01/16 at 1121
This is Step 1 of nausea and vomiting management. If nausea not resolved in 15 minutes, go to Step 2 proch lorperazine (COMPAZINE). Do not push thr ough foil backing. Peel back foil and gently remove. Place on tongue immediately. Administration with liquid unnecessary
Post-procedure Or ondansetron (ZOFRAN) injection 4 mgJump to med 4 mg, Intravenous, EVERY 6 HOURS PRN, na usea, vomiting, Administer over 2-5 Minutes, Starting 10/01/16 at 1121
This is Step 1 of nausea and vomiting management. If nausea not resolved in 15 minutes, go to Step 2 prochlorperazine (COMPAZINE). Irritant.
Post-procedure documented in this encounter Care Teams Director Of Teacher Education Relationship Specialty Start Date End Date Anne Hoyt DO PCP - General Family Practice 05/01/16 12/08/19 documented as of this encounter
--- OUTSIDE RECORDS SUMMARY | 2022-06-18 23:15 | XMS_ITS | Encounter Summary ---
:1955 Author Organization [facility] Address [address] [place] [address] Care Team Providers Name Role Phone Anne Hoyt DO Primary Care Provider Encounter Details Date Type Department Care Team Description 12/03/2019 Travel Social History Tobacco Use Types Packs/Day Years Used Date Smoking Tobacco: Never Smokeless Tobacco: Never Alcohol Use Standard Drinks/Week Comments Yes 0 (1 standard drink = 0.6 oz pure alcoho l) 4-6 drinks/week Sex Assigned at Date Recorded Not on file COVID-19 Exposure Response Date Recorded In the last month, have you been in contact with No / Unsure 12/03/2019 10:18 AM CDT someone who was confirmed or suspected to have Coronavirus / COVID-19? documented as of this encounter Plan of Treatment Not on filedocumented as of this encounter Visit Diagnoses Not on filedocumented in this encounter Care Teams Process Designer Relationship Specialty Start Date End Date Anne Hoyt DO PCP - General Family Practice 05/01/16 12/08/19 documented as of this encounter
--- OUTSIDE RECORDS SUMMARY | 2022-06-18 23:15 | XMS_ITS | Encounter Summary ---
:1955 Author Organization [place] Address [address] [place] [address] Care Team Providers Name Role Phone LaiAnne Primary Care Provider Reason for Visit Reason Comments Surgical Followup excisional biopsy L back mas s 05/21/17 Encounter Details Date Type Department Care Team Description 06/19/2017 Office Visit [facility] Toña Ag l followup Surgery [facility] visit (Primary Dx) [place] [address] [facility] [address] [place] [address] [phone] Social History Tobacco Use Types Packs/Day Years Used Date Smoking Tobacco: Never Smokeless Tobacco: Never Tobacco Cessation: Counseling Given: Yes Alcohol Use Standard Drinks/Week Comments Yes 0 (1 standard drink = 0.6 oz pure alcoho l) 4-6 drinks/week Sex Assigned at Date Recorded Not on file documented as of this encounter Last Filed Vital Signs Vital Sign Reading Time Taken Comments Blood Pressure 128/76 06/19/2017 3:00 PM INFORMATICA DEVELOPER Pulse 86 06/19/2017 3:00 PM INFORMATICA DEVELOPER Temperature - - Respiratory Rate - - Oxygen Saturation 96% 06/19/2017 3:00 PM INFORMATICA DEVELOPER Inhaled Oxygen Concentration - - Weight 84.8 kg (187 lb) 06/19/2017 3:00 PM INFORMATICA DEVELOPER pt repor alex Height 172.7 cm (5' 8) 06/19/2017 3:00 PM INFORMATICA DEVELOPER pt repor alex Body Mass Index 28.43 06/19/2017 3:00 PM INFORMATICA DEVELOPER documented in this encounter Progress Notes Storlie, Toña Devika, PA-C - 06/19/2017 3:00 PM CST [facility] Note 06/19/2017 Subjective: Belle Crystal is here for her first postoperative visit. She underwent excision of back mass by Dr. Eddy on . Final pathology report showed: lipoma. she is now 4 weekspostop. No pain or concerns about her recovery today. Objective: Incision at left mid back - healing well, no erythema/bruising, +normal healing ridge, no seroma/hematoma noted Assessment: S/p excision lipoma; unremarkable recovery. Plan: She should expect progressive resolution of the healing ridge along the incisional site over the following 2-3 months. Pt is recommended to contact the office if worsening pain, onset of fever/redness at inc site, or new drainage from the area. Pt also recommended to call office at any time if ongoing questions/concerns during recovery, but otherwise may follow-up on a prn basis. Pt is in agreement with this plan. Toña Ag PA-C Please route or send letter to: Primary Care Provider (PCP) RMATICA DEVELOPER documented in this encounter Plan of Treatment Not on filedocumented as of this encounter Visit Diagnoses Diagnosis Surgical followup visit - Primary Follow-up examination, following unspeci fied surgery documented in this encounter Care Teams Fuselage Framer Relationship Specialty Start Date End Date Anne Hoyt DO PCP - General Family Practice 05/01/16 12/08/19 documented as of this encounter
--- OUTSIDE RECORDS SUMMARY | 2022-06-18 23:15 | XMS_ITS | Encounter Summary ---
:1955 Author Organization [place] Address [address] [place] [address]. [place] [address] Care Team Providers Name Role Phone LaiAnne Primary Care Provider Reason for Visit Auth/Cert Specialty Diagnoses / Procedures Referred By Contact Refer red To Contact Gastroenterology Diagnoses screening Endoscopy Procedures COLONOSCOPY [address] [place] [address] Phone: Fax: Referral ID Status Reason Start Date Expiration Date Visits Requ ested Visits Authorized [id number] 1 1 Encounter Details Date Type Department Care Team Description 04/08/2017 Surgery [facility] Shelia Harmon COLONOSCOP Y with Endoscopy Suleiman Suarez MD biopsies [address] COLON RECTAL [place], [place] SURGERY [address] [address] [facility] [phone] [address] [place], [place] [address] (Wo rk) Surgery Details Date/Time Status Location OR Service Patient Class Case Case Trauma Class Type Case? 04/08/17 8:40 Posted GI GI C [place] Outpatient AM Panel 1 Procedure LRB Anes Op Region Wound Class Commen ts COLONOSCOPY with N/A Conscious Rectum II-Clean COLONOSC OPY with biopsies Sedation Contaminated biopsies Surgeon Surgeon Role Service Panel Shelia Harmon MD Primary [place] 1 documented in this encounter Social History Tobacco Use Types Packs/Day Years Used Date Smoking Tobacco: Never Smokeless Tobacco: Never Alcohol Use Standard Drinks/Week Comments Yes 0 (1 standard drink = 0.6 oz pure alcoho l) 4-6 drinks/week Sex Assigned at Date Recorded Not on file documented as of this encounter Last Filed Vital Signs Vital Sign Reading Time Taken Comments Blood Pressure 131/88 04/08/2017 9:15 AM CDT Pulse - - Temperature - - Respiratory Rate 13 04/08/2017 9:15 AM CDT Oxygen Saturation 100% 04/08/2017 9:15 AM CDT Inhaled Oxygen Concentration - - Weight 86.2 kg (190 lb) 04/08/2017 8:20 AM CDT Height 175.3 cm (5' 9) 04/08/2017 8:20 AM CDT Body Mass Index 28.06 04/08/2017 8:20 AM CDT documented in this encounter Medications at Time of Discharge Medication Sig Dispensed Refills Start Date End Date calcium carb 1250 mg, 500 mg Take 2 tablets 100 tablet 0 pilot station,/vitamin D 200 units by mouth every 8 [...] daily calcium carb 1250 mg, 500 mg pilot station,/vitamin D 200 units (OSCAL WITH D) 500-200 [...] ??? COLONOSCOPY 04/08/2017 Dr. Harmon [facility] ??? [facility] RETAIL EXECUTIVE SURGERY 1998 ??? PARATHYROIDECTOMY Right 05/02/2015 Procedure: [...] Component Value Ref Test Analysis Performed At [facility] Range Method Time Signature Copath Report Patient Name: BELLE GUERRERO MR#: [id number] Specimen #: [id number] Collected: 04/08/2017 Received: 04/08/2017 Reported: 04/09/2017 09:06 [...] MICROSCOPIC: Microscopic evaluation performed. CPT Codes: A: 72810-RJ6 TESTING LAB LOCATION: [address] ??[address] COLLECTION SITE: Client: [facility] Location: [facility] (R) Specimen (Source) Anatomical Collection Method Collection Time Re ceived Time Location / / Volume Laterality Specimen from STRUCTURE OF RIGHT 04/08/2017 9:43 unspecified body COLIC FLEXURE / AM CDT site obtained by Unknown biopsy (specimen) Comment: Anne Hoyt RN Shelia Harmon MD [facility] Performing Organization Address City/State/ZIP Code Phon e Number [place] COLONOSCOPY (04/08/2017 8:54 AM CDT) [facility] gist Method Time Signature COLONOSCOPY [facility] RAD IOLOGY RESULTS Patient Name: Belle lopes Mad silver Procedure Date: 04/08/2017 8:54 AM ? Accou nt Number: [id number] Date of : 1955 ?Admit Type: Out [...] and ?oxygen saturations were monitored continuously. The ?USDSs Colonoscope Model #[id number]-H190L, ?[place]#134, SN#[id number] was introduced through the ?anus and advanced [...] Procedure Code(s): ? --- Professional --- ? 57530, Colonoscopy, flexible; with biopsy, single or multiple CPT copyright 2016 [employer]. All rights reserved. The codes documented in this report are prelimin radha and upon manager field sales review may be revised to meet current compliance requirements. Shelia Harmon MD 04/08/2017 9:56:49 AM I was physically present for the entire viewing portion of t he exam. Shelia Harmon MD Number of Addenda: 0 Note Initiated On: 04/08/2017 8:54 AM MRN: ?[id number] Procedure Date: ? 04/08/2017 8:54:05 AM Scope [...] Intravenous, EVERY 8 HOURS, First dose on Sat04/08/17 at 1015, And Q1H PRN, to lock [...] VAD insertion or accessing implanted port,, Starting Sat04/08/17 at 1005, For 1 dose, Do NOT [...] VAD insertion or accessing implanted port., Starting Sat04/08/17 at 1005, Do NOT give if patient [...] vom iting, Administer over 2-5 Minutes, Starting Sat04/08/17 at 1005, For 1 dose, Give in [...] peripheral IV flush post IV meds, Starting 04/08/17 at 1006, Post-procedure Linked Groups Order Group [...]
Post-procedure documented in this encounter Care Teams Space Planner Relationship Specialty Start Date End Date Anne Hoyt DO PCP - General Family Practice 05/01/16 12/08/19 documented as of this encounter
--- OUTSIDE RECORDS SUMMARY | 2022-06-18 23:15 | XMS_ITS | Encounter Summary ---
:1955 Author Organization [place] Address [address] [place] [address]. [place] [address] Care Team Providers Name Role Phone Lai Anne G Primary Care Provider Reason for Visit Auth/Cert Specialty Diagnoses / Procedures Referred By Contact Refer red To Contact Surgery Diagnoses left back mass Rh Periop Services Procedures EXCISE MASS BACK [address] [place], [place] [address] Phone: Fax: Referral ID Status Reason Start Date Expiration Date Visits Requ ested Visits Authorized [id number] 1 1 Encounter Details Date Type Department Care Team Description 05/21/2017 Anesthesia Event [facility] Jose Guadalupe Virgen, DO [facility] ANESTHESIA [address] [place] [address] [facility] Tremaine Ken MD [facility] ANESTHESIA NETWORK [address] [place] [address] [address] [place] [address] Anesthesia Record Procedure Summary Procedure Name Responsible Anesthesia Start Anesthesia Stop Time Anesthesiologist Time excision left back Vinh Virgen DO 05/21/17 0729 05/21/17 0833 mass (Left: Back) Events Date Time Event Comment 05/21/2017 0710 0729 An Start 0729 Quick Note BOND TRADER with maximo t in preop. Questions answered and cares explained before coming to OR. 0733 An Start Data 0752 Present 0823 an stop data 0823 Quick Note Patient awake, r esps eupnic on room air. Moves self to cart. Alert and orient X 3. 0829 Present 0833 An Stop Electronically s igned by Derrick Stauffer on May 21, 2017 8:33 AM Name Total midazolam 1mg/mL 2 mg fentaNYL (SUBLIMAZE) injection 100 mcg propofol infusion (mcg/kg/min) 185.71 mg ondansetron 2mg/mL 4 mg dexamethasone 4 mg/mL 4 mg ceFAZolin sodium-dextrose (ANCEF) infusion 2 g 2 g lactated ringers infusion 500 mL Agents Name NO HELIOX O2 N2O Air Exp Sevoflurane Exp Isoflurane Exp Desflurane Exp N2O O2 Delivery Device Ins Sevoflurane Ins Isoflurane Ins Desflurane O2 Auxiliary Blood No blood administrations on file. Lines, Drains, and Airways Type Details Placement Removal Incision/Surgical Site 05/02/15; 1042; Neck 05/02/15 1042 by Alyssa Garza RN Incision/Surgical Site 05/21/17; 0748; 05/21/17 0748 by Left; Back Sheila Sanders RN Peripheral IV 05/21/17; 0833 05/21/17 0833 by 05/21/17 0953 b y (Placed prior to Jocelyn Grove RN Schulz, Jen ny L, RN Phase II); 20 G; Left; Hand documented in this encounter Social History Tobacco Use Types Packs/Day Years Used Date Smoking Tobacco: Never Smokeless Tobacco: Never Alcohol Use Standard Drinks/Week Comments Yes 0 (1 standard drink = 0.6 oz pure alcoho l) 4-6 drinks/week Sex Assigned at Date Recorded Not on file documented as of this encounter OR Notes Anesthesia Postprocedure Evaluation - Vinh Virgen DO - 05/21/2017 1:23 PM CST Patient: Belle Crystal Procedure(s): excision left back mass - Wound Class: I-Clean Diagnosis:left back mass Diagnosis Additional Information: Left back mass. Anesthesia Type: MAC Note: Anesthesia Post Evaluation Patient location during evaluation: PACU Patient participation: Able to fully participate in evaluation Level of consciousness: awake Pain management: adequate Airway patency: patent Cardiovascular status: acceptable Respiratory status: acceptable Hydration status: acceptable PONV: controlled Anesthetic complications: None Last vitals: Vitals: 05/21/17 0611 05/21/17 0825 05/21/17 0950 BP: 129/88 124/82 130/84 Resp: Temp: 99.3 ??F (37.4 ??C) 97.9 ??F (36.6 ??C) 98.2 ??F (36.8 ??C) SpO2: 96% 96% 98% Electronically Signed By: Vinh Virgen DO May 21, 2017 1:23 PM PROGRAMER Anesthesia Preprocedure Evaluation - Tremaine Ken MD - 05/21/2017 6:09 AM GAME PROGRAMER Anesthesia Evaluation . ROS/MED HX ENT/Pulmonary: (+)sleep apnea, , . . Neurologic: - neg neurologic ROS Cardiovascular: - neg cardiovascular ROS METS/Exercise Tolerance: Hematologic: - neg hematologic ROS Musculoskeletal: (+) , , other musculoskeletal- lipoma GI/Hepatic: - neg GI/hepatic ROS Renal/Genitourinary: - ROS Renal section negative Endo: (+) thyroid problem Thyroid disease - Other, . Psychiatric: Comment: OCD (+) psychiatric history other (comment) Infectious Disease: - neg infectious disease ROS Malignancy: - no malignancy Other: (+) No chance of C-spine cleared: N/A, no H/O Chronic Pain,no other significant disability Physical Exam Normal systems: cardiovascular, pulmonary and dental Airway Mallampati: II TM distance: >3 FB Neck ROM: full Dental Cardiovascular Pulmonary Anesthesia Plan History & Physical Review History and physical reviewed and following examination; no interval change. ASA Status: 2 . NPO Status: > 8 hours Plan for MAC with Propofol induction. Maintenance will be TIVA. Reason for MAC: Deep or markedly invasive procedure (G8) PONV prophylaxis: Ondansetron (or other 5HT-3) and Dexamethasone or Solumedrol Postoperative Care Postoperative pain management: IV analgesics. Consents Anesthetic plan, risks, benefits and alternatives discussed with: Patient. Use of blood products discussed: Yes. Use of blood products discussed with Patient. . . PROGRAMER documented in this encounter Miscellaneous Notes Anesthesia Care Transfer Note - Derrick Stauffer APRN CRNA - 05/21/2017 8:32 AM CST Patient: Belle Crystal Procedure(s): excision left back mass - Wound Class: I-Clean Diagnosis: left back mass Diagnosis Additional Information: No value filed. Anesthesia Type: MAC Note: Airway :Room Air Patient transferred to:Phase II Comments: Report and sign off to RN in phase 2. Resps eupnic on room air, denies discomfort. Alert and orientated X 3.Handoff Report: Identifed the Patient, Identified the Reponsible Provider, Reviewedthe pertinent medical history, Discussed the surgical course, Reviewed Intra-OP anesthesia mangementand issues during anesthesia, Set expectations for post-procedure period and Allowed opportunity forquestions and acknowledgement of understanding Vitals: (Last set prior to Anesthesia Care Transfer) BOND TRADER VITALS 05/21/2017 0753 - 05/21/2017 0832 05/21/2017 Resp Rate (observed): 16 EKG: NSR Electronically Signed By: Derrick Stauffer APRN CRNA May 21, 2017 8:32 AM PROGRAMER documented in this encounter Plan of Treatment Not on filedocumented as of this encounter Visit Diagnoses Not on filedocumented in this encounter Administered Medications Inactive Administered Medications - up to 3 most recent administrations Medication Order MAR Action Action Date Dose Rate Site ceFAZolin sodium-dextrose (ANCEF) Given 05/21/2017 7:34 AM GAME PROGRAMER 2 g infusion 2 g Routine, 2 g, Intravenous, PRE-OP/PRE-PROCEDURE, Starting on Sat05/21/17 at 0613, For 1 dose, Give first dose within 1 hour PRIOR to incision. If patient weight is greater than or equal to 120 kg increase dose to 3 g., Indications: Perioperative Pharmacoprophylaxis, Pre-procedure dexamethasone (DECADRON) injection Given 05/21/2017 7:52 AM GAME PROGRAMER 4 mg Intravenous, PRN, Administer over 1 Minutes, Starting on Sat05/21/17 at 0752, Anesthesia Intra-op fentaNYL (PF) (SUBLIMAZE) injection Given 05/21/2017 7:35 AM GAME PROGRAMER 100 mcg PRN, moderate to severe pain, Administer over 3-5 Minutes, Starting on Sat05/21/17 at 0735, Anesthesia Intra-op lactated ringers infusion New Bag 05/21/2017 7:05 AM GAME PROGRAMER at 25 mL/hr, Intravenous, CONTINUOUS, IF patient NOT on dialysis., Pre-procedure, Starting on Sat05/21/17 at 0615, Until Sat05/21/17 at 0829 midazolam (VERSED) injection Given 05/21/2017 7:32 AM GAME PROGRAMER 2 mg Administer over 2 Minutes, PRN, anxiety, Starting on Sat05/21/17 at 0732, Anesthesia Intra-op ondansetron (ZOFRAN) injection Given 05/21/2017 7:51 AM GAME PROGRAMER 4 mg PRN, nausea, vomiting, Administer over 2-5 Minutes, Starting on Sat05/21/17 at 0751, Anesthesia Intra-op propofol (DIPRIVAN) infusion Rate/Dose 05/21/2017 8:13 50 mcg/kg/min 25.4 mL/hr Intravenous, CONTINUOUS PRN, Change AM GAME PROGRAMER Starting on Sat05/21/17 at 0737, Anesthesia Intra-op Rate/Dose Change 05/21/2017 8:09 AM GAME PROGRAMER 30 mcg/kg/min 15.3 mL/hr Rate/Dose Change 05/21/2017 8:06 AM GAME PROGRAMER 70 mcg/kg/min 35.6 mL/hr documented in this encounter Care Teams Produce Department Supervisor Relationship Specialty Start Date End Date Anne Hoyt DO PCP - General Family Practice 05/01/16 12/08/19 documented as of this encounter
--- OUTSIDE RECORDS SUMMARY | 2022-06-18 23:15 | XMS_ITS | Encounter Summary ---
:1955 Author Organization [employer] Address [address], [place] [address] Care Team Providers Name Role Phone Yessi Torres MD Primary Care Provider Encounter Details Date Type Department Care Team Description 05/21/2003 PN Conversion Only ELLIOTT ALBARADOIO N Yessi Torres, [address] [place] [address] UNRULY HARPER [address] [facility] Social History Tobacco Use Types Packs/Day Years [...] [place] [phone] (Wo rk) 07/10/2022 Appointment Terra Soria MD [address] [place] [address] (Wo grey) documented as of this encounter Visit Diagnoses Not on filedocumented in this encounter Care Teams Sales Service Promoter Relationship Specialty Start Date End Date Yessi Torres MD PCP - General 10/17/10 09/28/14 [place] [address] documented as of this encounter
--- OUTSIDE RECORDS SUMMARY | 2022-06-18 23:15 | XMS_ITS | Encounter Summary ---
:1955 Author Organization [place] Address [address] [place] [address] Care Team Providers Name Role Phone Blanca Schaefer Primary Care Provider Encounter Details Date Type Department Care Team Description 12/09/2019 Travel Social History Tobacco Use Types Packs/Day [...] on filedocumented in this encounter Care Teams Logistics Specialist Relationship Specialty Start Date End Date Blanca Schaefer PCP - General Internal Medicine 12/09/19 [facility] [address] [place] [address] documented as of this encounter
--- OUTSIDE RECORDS SUMMARY | 2022-06-18 23:15 | XMS_ITS | Encounter Summary ---
:1955 Author Organization [facility] Address [address] [place] [address] Care Team Providers Name Role Phone Lai Anne Ki VARMA Primary Care Provider Reason for Visit Auth/Cert Specialty Diagnoses / Procedures Referred By Contact Refer red To Contact Surgery Diagnoses left back mass Rh Periop Services Procedures EXCISE MASS BACK [address] [place], [place] [address] Phone: Fax: Referral ID Status Reason Start Date Expiration Date Visits Requ ested Visits Authorized [id number] 1 1 Encounter Details Date Type Department Care Team Description 05/21/2017 Surgery [facility] Yessi Collins exci sion left back mass [facility] [address] Jose Carlos [address] [place], [place] [address] [place], [place] [id number] (Wo rk) Surgery Details Date/Time Status Location OR Service Patient Case Class Case Type Trauma Class Case? 05/21/17 7:30 Posted OR OR 01 General Same Day AM Surgery Panel 1 Procedure LRB Anes Op Region Wound Class Commen ts excision left back mass Left MAC Back I-Clean e xcision left back mass Surgeon Surgeon Role Service Panel Yessi Collins MD Primary General 1 Special Needs Ht 5'8 Wt 187.4 lb H&PCPAP-GAUTAM documented in this encounter Social History Tobacco [...] Comments Blood Pressure 130/84 05/21/2017 9:50 AM TRAFFIC WAREHOUSE SUPERVISOR Pulse - - Temperature 36.8 ??C (98.2 ??F) 05/21/2017 9:50 AM TRAFFIC WAREHOUSE SUPERVISOR Respiratory Rate 24 05/21/2017 9:50 AM TRAFFIC WAREHOUSE SUPERVISOR Oxygen Saturation 98% 05/21/2017 9:50 AM TRAFFIC WAREHOUSE SUPERVISOR Inhaled Oxygen Concentration - - Weight 84.8 kg (187 lb) 05/21/2017 6:07 AM TRAFFIC WAREHOUSE SUPERVISOR Height 172.7 cm (5' 8) 05/21/2017 6:07 AM TRAFFIC WAREHOUSE SUPERVISOR Body Mass Index 28.43 05/21/2017 6:07 AM TRAFFIC WAREHOUSE SUPERVISOR documented in this encounter Discharge Instructions Discharge InstructionsYessi Collins MD - 05/21/2017 8:35 AM CST HOME CARE FOLLOWING MINOR SURGERY Chayo Helton E. Gavin, N. Guttormson, D. Maurer, R. O???Bahman Flores RESULTS: If a biopsy [...] You may slowly transition to use of cyse-yib-ybhmozj medications for pain relief when you are [...] Walk around frequently. You may consider an gfxe-bhb-aoamtrs stool-softener. Your Pharmacist can assist you with [...] discuss with the nurse or physician assistant store manager trainee. # There is a surgeon DENTAL HYGIENIST MOBILE COORDINATOR on weekday evenings and over the weekend in case of urgent need only, andmay be contacted at the same number. If you are having an emergency, call 911 or proceed to your nearest emergency department. FIC WAREHOUSE SUPERVISOR documented in this encounter Medications at Time of Discharge Medication Sig Dispensed Refills Start Date End Date calcium carb 1250 mg, 500 mg Take 2 tablets 100 tablet 0 [place],/vitamin D 200 units by mouth every 8 [...] let patient know the pathology is benign. FIC WAREHOUSE SUPERVISOR Suma Milton, RN - 05/21/2017 9:59 AM CST Patient advised of results. Suma Champagne RN FIC WAREHOUSE SUPERVISOR documented in this encounter Miscellaneous Notes Op Note - Yessi Collins MD - 05/21/2017 8:28 AM CST PREOPERATIVE DIAGNOSIS: Left back mass. POSTOPERATIVE DIAGNOSIS: Left back mass. PROCEDURE: Excisional biopsy left back mass. ANESTHESIA: Local with MAC PREOPERATIVE MEDICATIONS: Ancef 2 gm SURGEON: Yessi Collins MD CASINO WORKER: NONE INDICATIONS: Belle Guerrero is a 61 year oldybn-tjeb-rav female with a mass on her leftback, [...] Mass excised, pathology pending. YESSI COLLINS MD FIC WAREHOUSE SUPERVISOR documented in this encounter Plan of Treatment Not on filedocumented as of this encounter Procedures Procedure Name Priority Date/Time Associated Diagnosis Comme nts SURGICAL PATHOLOGY Routine 05/21/2017 8:16 AM Res ults for this EXAM TRAFFIC WAREHOUSE SUPERVISOR procedure are i n the results section. EXCISION, MASS, 05/21/2017 7:30 AM left back mass BACK TRAFFIC WAREHOUSE SUPERVISOR Special Needs Ht 5'8 Wt 187.4 lb H&PCPAP- GAUTAM documented in this encounter Results Surgical pathology exam (05/21/2017 8:16 AM TRAFFIC WAREHOUSE SUPERVISOR) Component Value Ref Test Analysis Performed At [facility] Range Method Time Signature Copath Report Patient Name: BELLE GUERRERO MR#: [id number] Specimen #: [id number] Collected: 05/21/2017 Received: 05/21/2017 Reported: 05/22/2017 11:03 [...] in block 1-2. (Dictated b y: Russ Beanta 05/21/2017 11:08 AM) MICROSCOPIC: Microscopic examination was performed. CPT Codes: A: 63435-GL1 TESTING LAB LOCATION: [address] ??[address] COLLECTION SITE: Client: [facility] Location: [facility] (R) Specimen (Source) Anatomical Collection Method Collection Time Re ceived Time Location / / Volume Laterality Tissue specimen STRUCTURE OF BACK 05/21/2017 8:16 AM (specimen) OF TRUNK / Unknown TRAFFIC WAREHOUSE SUPERVISOR Yessi Collins MD LAB - [facility] Performing Organization Address City/State/ZIP Code Phon e Number [place] documented in this encounter Visit Diagnoses Not on filedocumented in this encounter Administered Medications Inactive Administered Medications - up to 3 most recent administrations Medication Order MAR Action Action Date Dose Rate Site bupivacaine 0.25% 30 mL, lidocaine Given 05/21/2017 8:15 AM TRAFFIC WAREHOUSE SUPERVISOR 16 mLs 1% 30 mL injection PRN, Starting on Sat05/21/17 at 0815, Intra-procedure documented in this encounter Active and Recently Administered Medications Due to Daylight Saving Time, this section may contain times in both CDT and TRAFFIC WAREHOUSE SUPERVISOR. Scheduled Medication Order 05/19/2017 05/20/2017 05/21/2017 ceFAZolin sodium-dextrose (ANCEF) infusion 2 g (COMPLETED) 0734 (Given - Provider: Derrick Stauffer APRN CRNA) Routine, 2 g, Intravenous, PRE-OP/PRE-PA OCEDURE, Starting on Sat05/21/17 at 0613, For [...] - Provider: Yessi Collins MD) PRN, Starting Sat05/21/17 at 0815, Intra-procedure documented in this encounter Care Teams Service Captain Relationship Specialty Start Date End Date Anne Hoyt DO PCP - General Family Practice 05/01/16 12/08/19 documented as of this encounter
--- OUTSIDE RECORDS SUMMARY | 2022-06-18 23:15 | XMS_ITS | Encounter Summary ---
:1955 Author Organization [facility] Address [address] [place] [address] Care Team Providers Name Role Phone Blanca Schaefer Primary Care Provider Encounter Details Date Type Department Care Team Description 12/26/2019 Travel Social History Tobacco Use Types Packs/Day [...] on filedocumented in this encounter Care Teams [employer] Electronics Wiring Technician Relationship Specialty Start Date End Date Blanca Schaefer PCP - General Internal Medicine 12/09/19 [facility] [address] [address] documented as of this encounter
--- OUTSIDE RECORDS SUMMARY | 2022-06-18 23:15 | XMS_ITS | Encounter Summary ---
:1955 Author Organization [facility] Address [address] [place] [address]. [place] [address] Care Team Providers Name Role Phone Anne Hoyt DO Primary Care Provider Reason for Visit Auth/Cert Specialty Diagnoses / Procedures Referred By Contact Refer red To Contact Gastroenterology Diagnoses hx of colon polyps Rh Endoscopy Procedures COLONOSCOPY [address] [place] [address] Phone: Fax: Referral ID Status Reason Start Date Expiration Date Visits Requ ested Visits Authorized [id number] 1 1 Encounter Details Date Type Department Care Team Description 10/01/2016 Hospital Encounter [facility] Suleiman Suarez MD [address] [place], [place] SURGERY [address] 86[address] [facility] [phone] [address] [place], [place] [address] (Wo rk) Social History Tobacco Use Types Packs/Day Years Used Date Smoking Tobacco: Never Smokeless Tobacco: Never Alcohol Use Standard Drinks/Week Comments Yes 0 (1 standard drink = 0.6 oz pure alcoho l) 4-6 drinks/week Sex Assigned at Date Recorded Not on file documented as of this encounter Last Filed Vital Signs Vital Sign Reading Time Taken Comments Blood Pressure 132/87 10/01/2016 11:40 AM CDT Pulse - - Temperature - - Respiratory Rate 13 10/01/2016 11:40 AM CDT Oxygen Saturation 98% 10/01/2016 11:40 AM CDT Inhaled Oxygen Concentration - - [...] the chance of preventing its spread. ?? [phone] [facility], [address] [place] [address], [place] [address]. All rights reserved. This information is not intended as a substitute for professional medical care. Always follow your healthcare professional's instructions. documented in this encounter Medications at Time of Discharge Medication Sig Dispensed Refills Start Date End Date calcium carb 1250 mg, 500 mg Take 2 tablets 100 tablet 0 [place],/vitamin D 200 units by mouth every 8 [...] AM CDT Pre-Endoscopy History and Physical Belle Guerrero Date of : 1955 Age: [age] year [...] daily calcium carb 1250 mg, 500 mg [place],/vitamin D 200 units (OSCAL WITH D) 500-200 [...] section 1998 ??? Carpal tunnel release rt/lt 2005 bilateral ??? Parathyroidectomy Right 05/02/2015 Procedure: PARATHYROIDECTOMY; [...] Component Value Ref Test Analysis Performed At [facility] [place] Range Method Time Signature Copath Report Patient Name: BELLE GUERRERO MR#: [id number] Specimen #: [id number] Collected: 10/01/2016 Received: 10/01/2016 Reported: 10/02/2016 09:25 [...] C. Microscopic evaluation performed. CPT Codes: A: 64151-TI1 B: 18463-ZG5 C: 27400-MU4 TESTING LAB LOCATION: [address] ??[address] COLLECTION SITE: Client: [facility] Location: [facility] ([facility] Specimen (Source) Anatomical Collection Method Collection Time Re ceived Time Location / / Volume Laterality Polyp LARGE INTESTINE 10/01/2016 10:24 (morphologic PART / Unknown AM CDT abnormality) Polyp LARGE INTESTINE 10/01/2016 10:47 (morphologic PART / Unknown AM CDT abnormality) Polyp SIGMOID COLON PART 10/01/2016 10:53 (morphologic / Unknown AM CDT abnormality) Shelia OWENS - [facility] Performing Organization Address City/State/ZIP Code Phon e Number [place] COLONOSCOPY (10/01/2016 9:44 AM CDT) [facility] gist Method Time Signature COLONOSCOPY [facility] RAD IOLOGY RESULTS Patient Name: Belle Guerrero ? Procedure D ate: 10/01/2016 9:44 AM ? Accou nt Number: [id number] Date of : 1955 ?Admit Type: Out patient Age: 60 ? Gender: Female Attending MD: Shelia Harmon MD ? Total Sedati on Time: 50 minutes of continuous bedside 1:1. IT:8m, WDT: 40m Instrument Name: 132 ? Procedure: ?Colonoscopy Indications: ?High ri sk colon cancer surveillance: Personal ?history of colonic po lyps Providers: ?Shelia Harmon MD (Doctor) Referring MD: [...] and ?oxygen saturations were monitored continuously. The ?[employer] Colonoscope Model #[id number]-H190L, ?[place]#132, SN#[id number] was introduced through the ?anus and advanced [...] Procedure Code(s): ? --- Professional --- ? 01873, Colonoscopy, flexible, pro ximal to splenic flexure; with removal ? of tumor(s), polyp(s), or other lesion(s) by snare te chnique ? 17663, Colonoscopy, f lexible, proximal to splenic flexure; [...] history of colonic polyps CPT copyright 2013 [employer]. All rights reserved. The codes documented in this report are prelimin radha and upon strategic partnership representative review may be revised to meet current compliance requirements. Shelia Harmon MD 10/01/2016 11:09 AM I was physically present for the entire viewing portion of t he exam. Shelia Harmon MD Number of Addenda: 0 Note Initiated On: 10/01/2016 9:44 AM MRN: ?[id number] Procedure Date: ? 10/01/2016 9:44:48 AM Scope [...] 100 mcg (SUBLIMAZE) injection PRN, Starting on Sat10/01/16 at 1009, Intra-procedure midazolam (VERSED) injection Given 10/01/2016 10:18 AM CDT 1 mg PRN, Starting on Sat10/01/16 at 1009, Intra-procedure Given 10/01/2016 10:09 AM CDT 2 mg ondansetron (ZOFRAN) injection 4 mg 4 mg, Intravenous, EVERY 6 HOURS PRN, nausea, vomiting , Administer over 2-5 Minutes, Starting on Sat10/01/16 at 1121, This is [...] EVERY 8 HOURS, Firs t dose on 10/01/16 at 1015, And Q1H PRN, to lock [...] VAD insertion or accessing implanted port, Starting Sat10/01/16 at 1004, Do NOT give [...] - Provider: Nathalie Mcfadden RN - Comment: [phone])[id number] (Given - Provider: Nathalie Mcfadden RN - Comment: voryogi) PRN, Starting 10/01/16 at 1009, Intra-procedure naloxone (NARCAN) injection 0.1-0.4 mg 0.1-0.4 mg, Intravenous, EVERY 2 MIN PRN , opioid reversal, Starting 10/01/16 at 1121, For 24 hours, For apnea [...] vom iting, Administer over 2-5 Minutes, Starting 10/01/16 at 1004, For 1 dose, Give in [...] site per MD verbal order) PRN, Starting 10/01/16 at 1030, Intra-procedure Linked Groups Order Group [...]
Post-procedure documented in this encounter Care Teams Recovery Collector Relationship Specialty Start Date End Date Anne Hoyt DO PCP - General Family Practice 05/01/16 12/08/19 documented as of this encounter
--- OUTSIDE RECORDS SUMMARY | 2022-06-18 23:15 | XMS_ITS | Encounter Summary ---
:1955 Author Organization [facility] Address [address] [place] [address] Care Team Providers Name Role Phone Blanca Schaefer Primary Care Provider Encounter Details Date Type Department Care Team Description 12/29/2019 Travel Social History Tobacco Use Types Packs/Day [...] on filedocumented in this encounter Care Teams Automatic Tire Tester Relationship Specialty Start Date End Date Blanca Schaefer PCP - General Internal Medicine 12/09/19 [facility] [address] [place] [address] documented as of this encounter
--- OUTSIDE RECORDS SUMMARY | 2022-06-18 23:15 | XMS_ITS | Encounter Summary ---
:1955 Author Organization [facility] Address [address] [place] [address]. [place] [address] Care Team Providers Name Role Phone Blanca Schaefer Primary Care Provider Reason for Referral Diagnostic Imaging CT Scan (Routine) - Closed Specialty Diagnoses / Procedures Referred By Contact Refer red To Contact Radiology. Diagnoses Mesenteric lymphadenopathy Vonnie Harmon, Ct Scan Rscc Procedures CT Abdomen Pelvis w Contrast CT Abdomen Pelvis w Contrast [address] [facility] COLON RECTAL SURGERY [address] [place], [place] [address] [place] [address] Referral ID Status Reason Start Date Expiration Date Visits Requ ested Visits Authorized [id number] Closed 09/07/2020 09/07/2021 1 1 Reason for Visit Diagnostic Imaging CT Scan (Routine) - Closed Specialty Diagnoses / Procedures Referred By Contact Refer red To Contact Radiology. Diagnoses Mesenteric lymphadenopathy Vonnie Harmon, Ct Scan Rscc Procedures CT Abdomen Pelvis w Contrast CT Abdomen Pelvis w Contrast [address] [facility] COLON RECTAL SURGERY [address] [place], [place] [address] [place] [address] Referral ID Status Reason Start Date Expiration Date Visits Requ ested Visits Authorized [id number] Closed 09/07/2020 09/07/2021 1 1 Encounter Details Date Type Department Care Team Description 10/10/[address] [facility] Vonnie Harmon [facility] Imaging MD Erick lymphadenopathy [address] [facility] [address] SURGERY [place], [place] [address] [facility] [address] AGUEDA Sorensen [place] [address] UNRULY HUANG [id number] Social History Tobacco Use Types Packs/Day Years [...] 2 tablets by 100 tablet 0 05/02/2015 morongo,/vitamin D 200 units mouth every 8 (OSCAL [...] mouth daily documented as of this encounter Plan of Treatment Not on filedocumented as of this encounter Procedures Procedure Name Priority Date/Time Associated Diagnosis Comme nts CT ABDOMEN PELVIS Routine 10/10/2020 7:52 AM Mesenteric Resu lts for this W CONTRAST CDT lymphadenopathy procedure ar e in the results section. documented in this encounter Results CT Abdomen Pelvis w Contrast (10/10/2020 7:52 AM CDT) Anatomical Region Laterality Modality Abdomen/Pelvis, SUBRAD CT BODY, UMP CT ABDOMEN PELVIS, Computed Tomography RAD CT Specimen (Source) Anatomical Location Collection Method / Collectio n Time Received Time / Laterality Volume Impressions 10/10/2020 3:09 PM CDT IMPRESSION: 1. ??No acute abnormality. 2. ??Stable minimally prominent mesenter ic lymph nodes of questionable clinical significance. This can be seen with mild mesenteric panniculitis. ANTONIA OCHOA MD Narrative 10/10/2020 3:[address] ABDOMEN/PELVIS WITH CONTRAST October 10, 2020 7:52 AM CLINICAL HISTORY: Mesenteric lymphadenop athy. TECHNIQUE: CT scan of the abdomen and pe lvis was performed following injection of IV contrast. Multiplanar re formats were obtained. Dose reduction techniques were used. CONTRAST: 93mL Isovue-370 COMPARISON: CT abdomen and pelvis 020. FINDINGS: LOWER CHEST: Normal. HEPATOBILIARY: Normal. PANCREAS: Normal. SPLEEN: Normal. ADRENAL GLANDS: Normal. KIDNEYS/BLADDER: No acute abnormality. T wo stable tiny hypodensities at the upper pole left kidney series 4 i mage 57 suggesting small angiomyolipomas. No specific follow-up i s recommended. BOWEL: Normal. PELVIC ORGANS: Uterine fibroids again lees ggested. ADDITIONAL FINDINGS: The previously note d mildly enlarged mesenteric lymph nodes are again seen. These are st able. An example lymph node towards the left continues to measure 0. 7 cm in short axis series 4 image 95. Minimal haziness of the mesent velia fat again seen. No new adenopathy. MUSCULOSKELETAL: Mild sacroiliitis mcghee es again noted, stable. Procedure Note Antonia Ochoa MD - 10/10/2020Forma tting of this note might be different from the original. CT ABDOMEN/PELVIS WITH CONTRAST September 7:52 AM CLINICAL HISTORY: Mesenteric lymphadenop athy. TECHNIQUE: CT scan of the abdomen and pe lvis was performed following injection of IV contrast. Multiplanar re formats were obtained. Dose reduction techniques were used. CONTRAST: 93mL Isovue-370 COMPARISON: CT abdomen and pelvis 020. FINDINGS: LOWER CHEST: Normal. HEPATOBILIARY: Normal. PANCREAS: Normal. SPLEEN: Normal. ADRENAL GLANDS: Normal. KIDNEYS/BLADDER: No acute abnormality. T wo stable tiny hypodensities at the upper pole left kidney series 4 i mage 57 suggesting small angiomyolipomas. No specific follow-up i s recommended. BOWEL: Normal. PELVIC ORGANS: Uterine fibroids again lees ggested. ADDITIONAL FINDINGS: The previously note d mildly enlarged mesenteric lymph nodes are again seen. These are st able. An example lymph node towards the left continues to measure 0. 7 cm in short axis series 4 image 95. Minimal haziness of the mesent velia fat again seen. No new adenopathy. MUSCULOSKELETAL: Mild sacroiliitis mcghee es again noted, stable. IMPRESSION: 1. No acute abnormality. 2. Stable minimally prominent mesenteric lymph nodes of questionable clinical significance. This can be seen with mild mesenteric panniculitis. ANTONIA OCHOA MD Vonnie Harmon MD IMG CT ORDERABLES documented in this encounter Visit Diagnoses Diagnosis Mesenteric lymphadenopathy Enlargement of lymph nodes documented in this encounter Administered Medications Inactive Administered Medications - up to 3 most recent administrations Medication Order MAR Action Action Date Dose Rate Site iopamidol (ISOVUE-370) solution Given 10/10/2020 7:33 AM CDT 93 mLs 500 mL 500 mL, Intravenous, ONCE, On Sat10/10/20 at 0800, For 1 dose sodium chloride 0.9 % bag 500mL for CT scan Given 10/10/2020 7:33 AM CDT 63 mLs flush use Intravenous, 100 mL, ONCE, On 10/10/20 at 0800, For 1 dose, This entry is for use by Radiology to intermittently used as a flush in patients receiving a CT scan. documented in this encounter Care Teams Surgical Forceps Fabricator Relationship Specialty Start Date End Date Blanca Schaefer PCP - General Internal Medicine 12/09/[address] [address] documented as of this encounter
--- OUTSIDE RECORDS SUMMARY | 2022-06-18 23:15 | XMS_ITS | Encounter Summary ---
:1955 Author Organization [facility] Address [address] [place] [address]. [place] [address] Care Team Providers Name Role Phone Anne Hoyt DO Primary Care Provider Encounter Details Date Type Department Care Team Description 12/02/2019 Orders Only [facility] Vonnie Harmon Encounter for Karmen Sharma OR MD Erick screening for other [address] [place]CT[place] viral diseases [place], [place] SURGERY (Primary Dx) [address] [address] [facility] [phone] [place] [phone] Social History Tobacco Use Types Packs/Day Years Used Date Smoking Tobacco: Never Smokeless Tobacco: Never Alcohol Use Standard Drinks/Week Comments Yes 0 (1 standard drink = 0.6 oz pure alcoho l) 4-6 drinks/week Sex Assigned at Date Recorded Not on file documented as of this encounter Plan of Treatment Not on filedocumented as of this encounter Results Asymptomatic COVID-19 Virus (Coronavirus) by PCR (12/26/2019 9:50 AM CDT) [facility] Method Time Signature COVID-19 Nasopharyngeal 12/26/2019 [place] Virus PCR to 9:55 AM T [facility] Source [place] COVID-19 Not Detected 12/26/2019 [facility] Virus PCR to 10:55 PM [facility] GENOMICS Result CENTER LABORATORY Comment: Collection [...] N1,N2 gene targets of CoV2 and human BRIM ROUNDER as an internal control. A negative result [...] (Centers for Disease Control) Testing performed by [facility], Room 1-210, [address] [place] [address], [place] [address]. T his test was developed and its performance characteristics determined b y the [facility]. It has not been cleared or [...] Organization Address City/State/ZIP Code Phon e Number [address] [address] [facility]OR[facility] Room: [address] [address] [place] documented in this encounter Visit Diagnoses Diagnosis Encounter for screening for other viral diseases - Primary documented in this encounter Care Teams Early Childhood Teacher Assistant Relationship Specialty Start Date End Date Anne Hoyt DO PCP - General Family Practice 05/01/16 12/08/19 documented as of this encounter
--- OUTSIDE RECORDS SUMMARY | 2022-06-18 23:16 | XMS_ITS | Encounter Summary ---
:1955 Author Organization [facility] Address [address] [place] [address] Care Team Providers Name Role Phone Anne Hoyt DO Primary Care Provider Yessi Eddy MD Primary Care Provider Anne Hoyt DO Primary Care Provider Encounter Details Date Type Department Care Team Description 12/02/2012 External Order [facility] Yessi Eddy, Results Surgery Clinic MD [place] [address] [place] [address] [place], [place] [phone] (Wo rk) [address] [phone] Social History Tobacco Use Types Packs/Day Years Used Date Smoking Tobacco: Never Assessed Sex Assigned at Date Recorded Not on file documented as of this encounter Plan of Treatment Not on filedocumented as of this encounter Procedures Procedure Name Priority Date/Time Associated Diagnosis Comme nts MR THORACIC SPINE W/O & W CONTRAST Routine 12/02/2012 documented in this encounter Results MR Thoracic Spine w/o & w Contrast (12/02/2012) Anatomical Region Laterality Modality Spine, SUBRAD MR NEURO, UMP MR SPINE Oth er Narrative This result has an attachment that is no t available. Patient Reported IMG MRI ORDERABLES documented in this encounter Visit Diagnoses Not on filedocumented in this encounter Care Teams Cement And Concrete Plant Worker Relationship Specialty Start Date End Date Anne Hoyt DO PCP - General Family Practice 03/15/15 05/04/15 Yessi Eddy MD PCP - General General Surgery 05/05/15 04/30/16 [address] [address] Anne Hoyt DO PCP - General Family Practice 05/01/16 12/08/19 documented as of this encounter
--- OUTSIDE RECORDS SUMMARY | 2022-06-18 23:16 | XMS_ITS | Encounter Summary ---
:1955 Author Organization [facility] Address [address] [place] [address]. [place] [address] Care Team Providers Name Role Phone Yessi Eddy MD Primary Care Provider Reason for Visit Reason Comments Surgical Followup Excision of right inferior p arathyroid adenoma, unilateral neck exploration 05/02/2015 Encounter Details Date Type Department Care Team Description 05/13/2015 Office Visit [facility] Yessi Eddy, Surg ical followup Surgery Clinic MD visit (Primary Dx) [place] [address] [place], [place] [id number] [phone] Social History Tobacco Use Types Packs/Day Years Used Date Smoking Tobacco: Never Smokeless Tobacco: Never Tobacco Cessation: Counseling Given: Yes Alcohol Use Standard Drinks/Week Comments Yes 0 (1 standard drink = 0.6 oz pure alcoho l) 4-6 drinks/week Sex Assigned at Date Recorded Not on file documented as of this encounter Patient Instructions Patient InstructionsSiFlorina juárez CMA - 05/13/2015 1:57 PM CDT Images from the original note were not included. [address], [address] [place] [phone] F: [phone], [address] [place], [place] [address] F: [phone] [email or web address] Call clinic if: ??? Fever 101 or greater, ??? Redness/swelling at surgical site, ??? Pain, drainage other than clear; Any Questions or concerns do not hesitate to call. Thank You documented in this encounter Progress Notes Yessi Eddy MD - 05/13/2015 2:06 PM CDT Progress Note/Post-op Follow up: Belle is here for follow up after unilateral neck exploration, excision of the right inferior parathyroid adenoma 1 1/2 weeks ago. She reports good energy. Overall, she has noticed improvement in her symptoms of bone and muscle aches and GI symptoms. Denies numbness or tingling, but did have fairly prominent symptoms after surgery. Incisional discomfort is nearly resolved. Physical Exam: ? No General: Appears well, in no acute distress HEENT: Chvostek's sign is negative. Neck: Incision site healing nicely, Healing ridge is average. Range of motion is normal. Neuro: Voice is Normal. Pathology: Parathyroid adenoma, 0.3 gm, right inferior parathyroid gland, hypercellular. Assessment and Plan: Belle is doing well after unilateral neck exploration, excision of the right inferior parathyroid adenoma. I recommend a follow up with Dr. Shila Lawson in the next few weeks for follow up. I would be happy to see her if there are any ongoing issues, but currently, there are no signs of post-operative complications. Yessi Eddy MD Please route or send letter to: Primary Care Provider (PCP) and Referring Provider 05/13/2015 Dr. Shila Lawson Re: Belle Angela Lopes [place] Dear Shila : I saw Belle today following unilateral neck exploration, excision of the right inferior parathyroid adenoma. She feels excellent. The incision site is healing nicely. Her voice is normal and her Chvostek's is negative. We removed the right inferior parathyroid gland which weighed 0.3 gm and was hypercellular. Her PTH assay dropped from 183.1 pre-op to 19.7 at 15 minutes and 14.9 at 25 minutes post-op. This is consistent with a curative procedure. I have included the operative and pathology reports for your records. She will schedule a follow-up appointment to see you sometime in the next month. Thank you for asking me to see this delightful patient. Please contact me if you have any questions regarding her surgical care. Sincerely, Yessi Eddy MD Enclose: Operative report and Pathology report. 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
--- OUTSIDE RECORDS SUMMARY | 2022-06-18 23:16 | XMS_ITS | Encounter Summary ---
:1955 Author Organization [facility] Address [address] [place] [address]. [place] [address] Care Team Providers Name Role Phone LaiMarlyAnne G Primary Care Provider Reason for Visit Auth/Cert - Closed Specialty Diagnoses / Procedures Referred By Contact Refer red To Contact Surgery Diagnoses primary hyper thyroidism Rh Periop Services Procedures PARATHYROIDECTOMY [address] [place], [place] [address] Phone: Fax: Referral ID Status Reason Start Date Expiration Date Visits Requ ested Visits Authorized [id number] Closed 1 1 Encounter Details Date Type Department Care Team Description 05/02/2015 Anesthesia Event [facility] Jamarcus Lombardo PeriOp Services MD [place] [address] [place] [address] ANESTHESIA [phone] [place], [place] [address] (Wo rk) Anesthesia Record Procedure Summary Procedure Name Responsible Anesthesia Start Anesthesia Stop Anesthesiologist Time Time Excision of right Maria LLacho haskins Dov 05/02/15 0922 05/02/15 1 053 inferior parathyroid MD [place] adenoma, Unilateral neck exploration. (Right: Neck) Events Date Time Event Comment 05/02/2015 0922 An Start 0922 An Start Data 0922 MD Present 0925 An Induction 0925 MD Present 0926 AN START SEVO 0926 MD Present 0929 An Intubation 0929 MD Present 0934 MD Present 0934 MD Present 0945 MD Present 1037 MD Present 1046 AN END SEVO 1046 an stop data 1053 An Stop Electronically s igned by Raquel Velasco CRNA on May 02, 2015 10:53 A M 1053 Present Name Total ceFAZolin (ANCEF) intermittent infusion 2 g (pre-mix) 2 g midazolam 1mg/mL 2 mg fentanyl 50mcg/mL 250 mcg lidocaine 1% 30 mg propofol 10mg/mL 200 mg rocuronium 10mg/mL 30 mg glycopyrrolate 0.2mg/mL 0.6 mg neostigmine 1mg/mL 3 mg dexamethasone 4mg/mL 8 mg ondansetron 2mg/mL 4 mg ketorolac 30mg/mL 30 mg HYDROmorphone 1 mg ePHEDrine 50mg/mL 10 mg LR 1,400 mL Agents Name O2 Air Exp Sevoflurane Blood No blood administrations on file. Lines, Drains, and Airways Type Details Placement Removal Incision/Surgical Site 05/02/15; 1042; Neck 05/02/15 1042 by Alyssa Garza RN Urethral Catheter 05/02/15; 0930; No; 05/02/15 0930 by 05/02/15 1042 by /GI/BUTTON SPINDLER Pelvic Alyssa Garza, Alyssa Toro RN Procedure; 16 fr RETIRED ETT 05/02/15; 1045; Mask 05/02/15 1045 by 05/02/15 1 046 by Ventilation: Easy; Raquel Velasco APRN Maas, Tra cy M, APRN Ease of Intubation: SANJUANA WEI Easy; Airway Size: 7; Cuffed; Oral; Blade Type: Glidescope; Place by: TM; Insertion Attempts: 1; Secured at (cm)to lip: 22 cm; Breath Sounds: Equal, clear and bilateral; End Tidal CO2: Present; Dentition: Intact; Grade View of Cords: 1 Peripheral IV (unknown); Left; Hand 05/02/15 1058 by 05/02/15 1318 by Bindu Andino RN documented in this encounter Social History Tobacco Use Types Packs/Day Years Used Date Smoking Tobacco: Never Smokeless Tobacco: Never Alcohol Use Standard Drinks/Week Comments Yes 0 (1 standard drink = 0.6 oz pure alcoho l) 4-6 drinks/week Sex Assigned at Date Recorded Not on file documented as of this encounter OR Notes Anesthesia Postprocedure Evaluation - Lacho Lombardo MD - 05/02/2015 12:12 PM CDT Patient: Belle Crystal PARATHYROIDECTOMY (Right Neck) Additional InformationProcedure(s): Unilateral Neck exploration, excision right inferior parathyroid adenoma Diagnosis:primary hyper thyroidism Diagnosis Additional Information: Primary hyperparathyroidism Dr. Eddy Anesthesia Type: General, ETT Note: Anesthesia Post Evaluation Patient location during evaluation: PACU Patient participation: Able to fully participate in evaluation Level of consciousness: awake Pain management: adequate Airway patency: patent Anesthetic complications: no Cardiovascular status: acceptable Respiratory status: acceptable Hydration status: acceptable PONV: none Last vitals: Filed Vitals: 05/02/15 1130 05/02/15 1145 05/02/15 1155 BP: 137/80 Temp: 97.9 ??F (36.6 ??C) Resp: SpO2: 99% 99% 96% Electronically Signed By: Lacho Lombardo MD, MD May 02, 2015 12:12 PM Anesthesia Preprocedure Evaluation - Lacho Lombardo MD - 05/02/2015 8:34 AM CDT Anesthesia Evaluation . Pt has had prior anesthetic. Type: General No history of anesthetic complications ROS/MED HX ENT/Pulmonary: (+)sleep apnea, , . . Neurologic: - neg neurologic ROS Cardiovascular: - neg cardiovascular ROS METS/Exercise Tolerance: Hematologic: - neg hematologic ROS Musculoskeletal: - neg musculoskeletal ROS GI/Hepatic: - neg GI/hepatic ROS Renal/Genitourinary: - ROS Renal section negative Endo: (+) Other Endocrine Disorder primary hyperparathyroidism. Psychiatric: (+) psychiatric history depression Infectious Disease: - neg infectious disease ROS Malignancy: - no malignancy Other: - neg other ROS Physical Exam Normal systems: cardiovascular, pulmonary and dental Airway Mallampati: II TM distance: >3 FB Neck ROM: full Dental Cardiovascular Rhythm and rate: regular and normal Pulmonary breath sounds clear to auscultation Other findings: Hb 13.5 ECG normal Anesthesia Plan ASA Score: 2 . Plan for General and ETT - with Intravenous induction. Maintenance will be Balanced. Anesthetic plan, risks, benefits and alternatives discussed with: patient or artist representative. Routine analgesia and antiemetics Equipment:Videolaryngoscope History & Physical Review History and physical reviewed and following examination; no interval change. . documented in this encounter Miscellaneous Notes Anesthesia Care Transfer Note - Raquel Velasco APRN CRNA - 05/02/2015 10:52 AM CDT Patient: Belle Crystal PARATHYROIDECTOMY (Right Neck) Additional [email or web address] Diagnosis: primary hyper thyroidism Diagnosis Additional Information: No value filed. Anesthesia Type: General, ETT Note: Airway :Face Mask Patient transferred to:PACU Comments: Pt SV good gas exchange awake OP sxn cuff down extubated, prepare to transfer to PACU. Report to WHEEL PRESS OPERATOR CHACHO. Transfer care. Electronically Signed By: Raquel Velasco CRNA, APRN CRNA May 02, 2015 10:52 AM documented in this encounter Plan of Treatment Not on filedocumented as of this encounter Visit Diagnoses Not on filedocumented in this encounter Administered Medications Inactive Administered Medications - up to 3 most recent administrations Medication Order MAR Action Action Date Dose Rate Site ceFAZolin (ANCEF) intermittent Given 05/02/2015 9:22 AM CDT 2 g infusion 2 g (pre-mix) Routine, 2 g, Intravenous, PRE-OP/PRE-PROCEDURE, Starting on Sat05/02/15 at 0809, For 1 dose, Give first dose within 1 hour PRIOR to incision. If patient weight is greater than or equal to 120 kg change dose to 3 g., Indications: Perioperative Pharmacoprophylaxis, Pre-procedure dexamethasone (DECADRON) injection Given 05/02/2015 9:25 AM CDT 8 mg PRN, Administer over 1-4 Minutes, Starting on Sat05/02/15 at 0925, Anesthesia Intra-op ePHEDrine injection Given 05/02/2015 10:27 AM CDT 5 mg PRN, Starting on Sat05/02/15 at 1019, Anesthesia Intra-op Given 05/02/2015 10:19 AM CDT 5 mg fentaNYL (SUBLIMAZE) injection Given 05/02/2015 9:53 AM CDT 50 mcg PRN, moderate to severe pain, Starting on Sat05/02/15 at 0925, Anesthesia Intra-op Given 05/02/2015 9:44 AM CDT 50 mcg Given 05/02/2015 9:25 AM CDT 150 mcg glycopyrrolate (ROBINUL) injection Given 05/02/2015 10:42 AM CDT 0.4 mg PRN, Starting on Sat05/02/15 at 0925, Anesthesia Intra-op Given 05/02/2015 9:25 AM CDT 0.2 mg HYDROmorphone (DILAUDID) injection Given 05/02/2015 9:25 AM CDT 1 mg PRN, moderate to severe pain, Starting on Sat05/02/15 at 0925, Anesthesia Intra-op ketorolac (TORADOL) injection Given 05/02/2015 9:25 AM CDT 30 mg PRN, moderate pain (4-6), Starting on Sat05/02/15 at 0925, Anesthesia Intra-op lactated ringers infusion New Bag 05/02/2015 10:30 AM CDT Intravenous, CONTINUOUS PRN, Anesthesia Intra-op, Starting on Sat05/02/15 at 0922, Until Sat05/02/15 at 1053 New Bag 05/02/2015 9:22 AM CDT lidocaine 1 % injection Given 05/02/2015 9:25 AM CDT 30 mg PRN, Starting on Sat05/02/15 at 0925, Anesthesia Intra-op midazolam (VERSED) injection Given 05/02/2015 9:22 AM CDT 2 mg PRN, anxiety, Starting on Sat05/02/15 at 0922, Anesthesia Intra-op neostigmine (PROSTIGMINE) injection Given 05/02/2015 10:42 AM CDT 3 mg Intravenous, PRN, Starting on Sat05/02/15 at 1042, Anesthesia Intra-op ondansetron (ZOFRAN) injection Given 05/02/2015 9:25 AM CDT 4 mg PRN, nausea, vomiting, Administer over 2-5 Minutes, Starting on Sat05/02/15 at 0925, Anesthesia Intra-op propofol (DIPRIVAN) injection 10 mg/mL v ial Given 05/02/2015 9:25 AM CDT 200 mg PRN, Starting on Sat05/02/15 at 0925, Anesthesia Intra-op rocuronium (ZEMURON) injection Given 05/02/2015 9:25 AM CDT 30 mg PRN, Starting on Sat05/02/15 at 0925, Anesthesia Intra-op documented in this encounter Care Teams Senior Construction Manager Relationship Specialty Start Date End Date Anne Hoyt DO PCP - General Family Practice 03/15/15 05/04/15 documented as of this encounter
--- OUTSIDE RECORDS SUMMARY | 2022-06-18 23:16 | XMS_ITS | Encounter Summary ---
:1955 Author Organization [facility] Address [address] [place] [address] Care Team Providers Name Role Phone Anne Hoyt Primary Care Provider Reason for Visit Reason Comments Consult parathyroid Encounter Details Date Type Department Care Team Description 03/23/2015 Office Visit [facility], Primary hyperparathyroidism Surgery Clinic MD Yessi (H) (Primary Dx) [place] [address] [address] [facility] [address] [place] [phone] Social History Tobacco Use Types Packs/Day Years Used Date Smoking Tobacco: Never Smokeless Tobacco: Never Tobacco Cessation: Counseling Given: Yes Alcohol Use Standard Drinks/Week Comments Yes 0 (1 standard drink = 0.6 oz pure alcoho l) Sex Assigned at Date Recorded Not on file documented as of this encounter Last Filed Vital Signs Vital Sign Reading Time Taken Comments Blood Pressure 126/80 03/23/2015 2:38 PM CDT Pulse 92 03/23/2015 2:38 PM CDT Temperature - - Respiratory Rate - - Oxygen Saturation 98% 03/23/2015 2:38 PM CDT Inhaled Oxygen Concentration - - Weight 82.1 kg (181 lb) 03/23/2015 2:38 PM CDT pt repor alex Height 175.3 cm (5' 9) 03/23/2015 2:38 PM CDT pt repor alex Body Mass Index 26.73 03/23/2015 2:38 PM CDT documented in this encounter Progress Notes Yessi Collins MD - 03/23/2015 3:52 PM CDT March 23, 2015 Shila Lawson MD [address] [facility] [place], [place] [address] Re: Jacoby Guerrero - 57 Dear Shila: Thank you for asking me to see Jacoby regarding her primary hyperparathyroidism. This pleasant 59-year-old female has had elevated calcium for at least the last 2 years. Her levels have been as high as 11.6. She has constitutional symptoms of fatigue, bone pain, muscle aches, frequent urination and headaches. She has no history of kidney stones and has not had a bony fracture and does have osteopenia in her hips. There is no family history of parathyroid disease, and no prior neck surgery. She is on no thyroid medications. Her neck exam is unremarkable as is typically the case. Her lab work is reviewed. Calcium has been 11.2 to 11.6, PTH 118 to 124. A 24-hour urinary calcium was 676 and a sestamibiscan with SPECT is positive in the right inferior neck. This is an excellent study. In addition, your office ultrasound confirmed the likely position of that adenoma as well. Jacoby has primary hyperparathyroidism and is a candidate for surgery because of the degree of hypercalcemia, her symptoms and her high urinary calcium. We discussed the possibility of a single adenoma versus multi-gland disease and she appears to have a single adenoma. The imaging studies are encouraging that she would be an excellent candidate for the minimally invasive neck exploration with the sestamibi injection to minimize the operative incision and the rapid PTH assay to assess the completeness of the surgery. She is aware of the risks inherent in the surgery and is anxious to proceed sometime in the next several weeks. Thank you for asking me to see this delightful patient. Sincerely, MD BEAU LarsenG/martha Cc: Anne Hoyt, [facility] [address] [place], [place] [address] YESSI COLLINS MD MT: CATIE Name: JACOBY GUERRERO Account: [id number] : 1955 Service Date: 03/23/2015 Document: [id number] [facility] ROS Physical Exam Yessi Collins MD - 03/23/2015 1:37 PM CDT History of Present Illness: Jacoby Guerrero is a 59 year old female who is sent by Dr. Shila Lawson for evaluation of hypercalcemia. She had an elevated calcium found on screening bloodwork. She has a calcium level as high as 11.6. She has had the elevated calcium for at least 2 years. She has constitutional symptoms of fatigue, bone pain, muscle aches, frequent urination and headaches. She has no history of kidney stones. She has not had bony fractures. A DEXA scan shows osteopenia in the hip. There is no family history of parathyroid disease. Jacoby has no prior neck surgery. She is not on thyroid medications. No past medical history on file. No past surgical history on file. Allergies not on file Review of Systems: Change of bowel habits. Physical Exam: There were no vitals taken for this visit. Well developed, well nourished female in no apparent distress. HEENT: Normocephalic, atraumatic. Neck: Normal appearance and symetrical. Range of motion is normal. No neck masses. Thyroid: Palpably normal. Lymph: No cervical adenopathy. Respirations: Unlabored. Neurologic: Alert. Speech is clear. Moves all extremities with good strength. Skin: Warm, dry and no rash. Psychologic: Alert, appropriate range of emotions. Labs: Calcium-11.2-11.6 PTH-118-124 24 hour Urinary calcium-676 mg/24 hours Imaging: Sestimibi Scan with SPECT-positive in the right inferior neck, excellent study. Assessment and Plan: Jacoby has primary hyperparathyroidism and is a candidate for surgery because of her degree of hypercalcemia, her symptoms and her high urinary calcium. We discussed the possibility of single adenoma (85%) vs dual adenoma or hyperplasia (15%). The imaging studies would suggest that there is a good probability of a single adenoma. I would recommend a minimally invasive neck exploration with the sestimibi injection to minimize the operative incision and the rapid PTH assay to assess the completeness ofthe procedure. Jacoby is aware of the risks to the recurrent laryngeal nerve and the risk of hypocalcemia, particularly with treatment of parathyroid hyperplasia. She is also aware of the 1-2 % risk of failure to cure. She is anxious to proceed with surgery in the next few weeks. Yessi Collins MD Please route or send letter to: Primary Care Provider (PCP) and Referring Provider. Send dictated letter only to the referring physician. 30 minutes spent with the patient, over 50% as counseling. . HPI ROS (Review of Systems): GASTROINTESTINAL: Positive for change in bowel habit. Physical Exam documented in this encounter Plan of Treatment Not on filedocumented as of this encounter Visit Diagnoses Diagnosis Primary hyperparathyroidism (H) - Primar y Primary hyperparathyroidism documented in this encounter Care Teams Cargo And Container Inspector Relationship Specialty Start Date End Date Anne Hoyt DO PCP - General Family Practice 03/15/15 05/04/15 documented as of this encounter
--- OUTSIDE RECORDS SUMMARY | 2022-06-18 23:16 | XMS_ITS | Encounter Summary ---
:1955 Author Organization [facility] Address [address] [place] [address] Care Team Providers Name Role Phone Yessi Eddy MD Primary Care Provider Reason for Visit Reason Onset Date Comments Post-Op - General Surgery 05/05/2015 Nursing Encounter Details Date Type Department Care Team Description 05/05/2015 Telephone [facility] Yessi Eddy, Post -Op - General Surgery Clinic Surgery (Nursing) [place] [address] [facility] [address] [facility] [address] [place] [address] [place], [place] [phone] (Wo rk) [address] [phone] Social History Tobacco Use Types Packs/Day Years Used Date Smoking Tobacco: Never Smokeless Tobacco: Never Alcohol Use Standard Drinks/Week Comments Yes 0 (1 standard drink = 0.6 oz pure alcoho l) 4-6 drinks/week Sex Assigned at Date Recorded Not on file documented as of this encounter Miscellaneous Notes Telephone Encounter - Maria D Kirkland RN - 05/05/2015 3:51 PM CDT Calcium results are 10.3 (normal: 8.5-10.1) Reviewed by clinic Corbin Hirsch PA-C-patient notified and instructed to do Calcium Taper as ordered, NOT to supplement. Reviewed increasing fluid intake. Deep breathing exercises. Patient will call back tomorrow if symptoms have not improved. Maria D Kirkland RN Telephone Encounter - Maria D Kirkland, DIOGENES - 05/05/2015 11:36 AM CDT PATIENT CALL CC: Tingling Surgeon: Dr. Eddy Surgery: Parathyroidectomy Excision of right inferior parathyroid adenoma, unilateral neck exploration Date of surgery: 05/02/15 POD# 3 Patient experiencing tingling- especially in left hand. Though does have mild tingling in feet and face. Discharge instructions unavailable currently per pt- Calcium taper was ?? 2 tablets every 8 hours for first 3 days ?? 2 tablet per day for one week Patient decreased calcium yesterday- then took a prn dose for tingling. Will discuss with PA-C Increase in calcium taper dose- also request for labs. Maria D Kirkland RN documented in this encounter Plan of Treatment Not on filedocumented as of this encounter Visit Diagnoses Not on filedocumented in this encounter Care Teams Location Man Relationship Specialty Start Date End Date Yessi Eddy MD PCP - General General Surgery 05/05/15 04/30/16 [address] [address] documented as of this encounter
--- OUTSIDE RECORDS SUMMARY | 2022-06-18 23:16 | XMS_ITS | Encounter Summary ---
:1955 Author Organization [place] Address [address] [place] [address]. [place] [address] Care Team Providers Name Role Phone Anne Hoyt Primary Care Provider Reason for Visit (Routine) - Closed Specialty Diagnoses / Procedures Referred By Contact Refer red To Contact Radiology / Radiology. Diagnoses Written Order, SB clary Santoroay also Sh Nuclear Medici ne Procedures NM INJECT [address] [phone] Phone: Referral ID Status Reason Start Date Expiration Date Visits Requ ested Visits Authorized [id number] Closed 03/11/2015 03/10/2016 1 1 Encounter Details Date Type Department Care Team Description 03/15/2015 [facility], Primary Encounter [facility] Imaging Shila hyperparathyroidism (H) 64[address] MD Franchesca Peters ENDOCRINOLOGY [place] [facility] [place] [phone] [phone] [facility] [address] [address] Social History Tobacco Use Types Packs/Day Years Used Date Smoking Tobacco: Never Assessed Sex Assigned at Date Recorded Not on file documented as of this encounter Plan of Treatment Not on filedocumented as of this encounter Procedures Procedure Name Priority Date/Time Associated Diagnosis Comme nts NM PARATHYROID Routine 03/15/2015 12:00 Primary Results f or this PLANAR W/SPECT & PM CDT hyperparathyroidism (H) procedure are in CT DUAL the results section. documented in this encounter Results NM Parathy Plnr Img w Timbo Spect & CT (03/15/2015 12:00 PM CDT) Anatomical Region Laterality Modality Neck Nuclear Medicine Specimen (Source) Anatomical Location Collection Method / Collectio n Time Received Time / Laterality Volume Impressions 03/15/2015 3:29 PM CDT IMPRESSION: Abnormal uptake suspected to represent a parathyroid adenoma deep to the inferior aspect of t he right lobe of the thyroid. YVONNE ARENAS MD Narrative 03/15/2015 3:29 PM CDT NUCLEAR MEDICINE PARATHYROID DUAL ISOTOPE WITH SPECT CT March 15, 2015 12:00 PM HISTORY: Primary hyperparathyroidism. COMPARISON: None. TECHNIQUE: The patient received I-123 or ally and Tc-99 Cardiolite. Dynamic images were obtained of the thyr oid gland following Cardiolite administration. Iodine images were obtai priya of the thyroid with subtraction from the Cardiolite images. SPECT CT images obtained for possible localization. DOSE: 917 uCi I123 po at 0830; 27.4 mCi Tc99m Mibi IV at 1000 FINDINGS: The images of the thyroid glan d on both the I-123 and Cardiolite images demonstrate homogeneou s appearance of the thyroid gland. The subtraction images demonstrat e a persistent area of uptake inferior to the right lobe of the thyroi d. This appears to correlate with a nodular density deep to the infer ior aspect of the right lobe of the thyroid measuring approximately 1 cm. Procedure Note Yvonne Arenas MD - 03/15/2015Fo rmatting of this note might be different from the original. NUCLEAR MEDICINE PARATHYROID DUAL ISOTOP E WITH SPECT CT March 15, 2015 12:00 PM HISTORY: Primary hyperparathyroidism. COMPARISON: None. TECHNIQUE: The patient received I-123 or ally and Tc-99 Cardiolite. Dynamic images were obtained of the thyr oid gland following Cardiolite administration. Iodine images were obtai priya of the thyroid with subtraction from the Cardiolite images. SPECT CT images obtained for possible localization. DOSE: 917 uCi I123 po at 0830; 27.4 mCi Tc99m Mibi IV at 1000 FINDINGS: The images of the thyroid glan d on both the I-123 and Cardiolite images demonstrate homogeneou s appearance of the thyroid gland. The subtraction images demonstrat e a persistent area of uptake inferior to the right lobe of the thyroi d. This appears to correlate with a nodular density deep to the infer ior aspect of the right lobe of the thyroid measuring approximately 1 cm. IMPRESSION IMPRESSION: Abnormal uptake suspected to represent a parathyroid adenoma deep to the inferior aspect of t he right lobe of the thyroid. YVONNE ARENAS MD Shila Lawson MD IM NM ORDERABLES documented in this encounter Visit Diagnoses Diagnosis Primary hyperparathyroidism (H) Primary hyperparathyroidism Primary hyperparathyroidism (H) Primary hyperparathyroidism documented in this encounter Administered Medications Inactive Administered Medications - up to 3 most recent administrations Medication Order MAR Action Action Date Dose Rate Site sodium iodide I-123 radioisotope Given 03/15/2015 8:30 AM CDT 91 7 uCi capsule 800 uCi 800 uCi, Oral, ONCE, On Sat03/15/15 at 0900, For 1 dose, Supplied by, and administered by Nuclear Medicine. *HW* documented in this encounter Care Teams Inventory Auditor Relationship Specialty Start Date End Date Anne Hoyt DO PCP - General Family Practice 03/15/15 05/04/15 documented as of this encounter
--- OUTSIDE RECORDS SUMMARY | 2022-06-18 23:16 | XMS_ITS | Encounter Summary ---
:1955 Author Organization [facility] Address [address] [place] [address] Care Team Providers Name Role Phone Unavailable Primary Care Provider Unavailable Encounter Details Date Type Department Care Team Description 11/17/2010 Results Only INTERFACED REPORT Ely Hudson MD [facility] [address] [place] [address] (Wo rk) Social History Tobacco Use Types Packs/Day Years Used Date Smoking Tobacco: Never Assessed Sex Assigned at Date Recorded Not on file documented as of this encounter Plan of Treatment Not on filedocumented as of this encounter Procedures Procedure Name Priority Date/Time Associated Diagnosis Comme nts COLONOSCOPY Routine 11/17/2010 9:10 AM Results f or this CDT procedure are i n the results section . documented in this encounter Results COLONOSCOPY (11/17/2010 9:10 AM CDT) Component Value Ref Test Analysis Performed At [facility] Method Time Signature COLONOSCOPY [facility] RADIOLOGY [facility] Endoscopy Department RESULTS Patient Name: Belle Crystal ? Procedure Date: 11/17/2010 9:10:06 AM ? Date of : 1955 ?Admit Type: Outpatient ? Age: 54 ? Gender: Female ? Note Status: Finalized ?Attending MD: David Ariza MD ? Pause for the Cause: Time Out done by . ?? Procedure: ?Colonoscopy Indications: ?High ri sk colon cancer surveillance: Personal ?history of colonic po lyps Providers: ?David London MD, Rochelle Craft, RN, Ramsey ?Camelia (nidia), Emergency Veterinary Assistant Patient Profile: ?This is a 54 year old female. Refer to note in ?patient chart for documentation of history and ?physical. Referring MD: ? Ely Hudson MD Medicines: ?Atropine IV 0.4 mg, Fentanyl IV 200 mcgs, Glucagon ?IV 0.5 mg, Versed IV 3 mgs Complications: ?No immediate complications Procedure: ?Pre-Anesthesia Assessment: ?- Prior to the [...] the physician ?and the nurse in the procedure room. Mental Status ?E xamination: alert and oriented. Airway ?Examination: normal oropharyngeal airway and neck ?mobility. Respiratory Examination: clear to ?auscultation. CV Examination: normal. Prophylactic ?Antibiotics: The patient does not require ?prophylactic antibiotics. Prior Anticoagulants: The ?patient has taken no previous anticoagulant or ?antiplatelet agents. ASA Grade Assessment: I - A ?normal, healthy patient. After reviewing the risks ?a nd benefits, the patient was deemed in ?satisfactory [...] the patient was ?re-assessed after the procedure. ?- Prior to the procedure, a History and Physical ?was performed, and patient medications, allergies ?and sensitivities have been reviewed. The patient's ?tolerance of previous anesthesia has been reviewed. ?- After reviewing the risks and benefits, the ?patient was deemed in satisfactory condition to ?undergo the procedure . ?After obtaining informed consent, the colonoscope ?was passed under direct vision. Throughout the ?procedure, the patient's blood pressure, pulse, and ?oxygen saturations were monitored continuously. The ?[id number] was introduced ?through the anus and advanced to the cecum, ?identified by the appendiceal orifice, IC valve and ?transillumination. The colonoscopy was performed ?without difficulty. The quality of the bowel ?preparation was stupendous. The bowel preparation ?used was bisacodyl tablets and magnesium citrate. ?Scope inserted at 0939. Scope withdrawal time 7 ?minutes. Total time of procedure was . This ?procedure was performed with the patient starting ?in the left lateral decubitus position, however, ?positioning was required during the procedure and ?the patient was moved to the supine position and ?then the right lateral decubitus position with ?palpation to aid in passing the scope. ? Findings: ? The perianal and digital rectal examinations were nor mal. Pertinent ? negatives include normal sphincte r tone and no palpable rectal lesions. ? The colon (entire examined portion) was significant ly redundant. The ? anus, rectum, recto-sigmoid colon, sigmoid colon, scott cending colon, ? splenic flexure, transverse colon, hepatic flexure, ascending colon, ? cecum, appendiceal orifice and ileocecal valve appear ed normal. ? Impression: ? - Redundant colon. ?- The anus, rectum, sigmoid colon, descending ?colon, splenic flexure, transverse colon, hepatic ?flexure, ascending colon, cecum, appendiceal ?o rifice and ileocecal valve are normal. Recommendation: ? - The findings and recommendations were discussed ?with the patient's garo prasad. ?- Discharge patient to home (ambulatory). ?- Continue present me dications. ?- Low fat diet with no grease for 8 hours. Eat ?sparingly today. No driving for the remainder of ?today. No heavy exerc ise. ?- Return to primary care physician PRN. ?- Repeat colonoscopy in 5 years for surveillance. ? Debbie London M.D. David London MD Signed Date: 11/17/2010 9:56:52 AM Number of Addenda: 0 I was physically present for the entire viewing portion of t he exam. Note Initiated On: 11/17/2010 9:10:06 AM Scope Withdrawal Time: Total Procedure Duration: Specimen (Source) Anatomical Collection Method Collection Time Re ceived Time Location / / Volume Laterality 11/17/2010 9:10 AM CDT Ely Hudson MD PROCEDURES Performing Organization Address City/State/ZIP Code Phon e Number RADIOLOGY RESULTS documented in this encounter Visit Diagnoses Not on filedocumented in this encounter
--- OUTSIDE RECORDS SUMMARY | 2022-06-18 23:16 | XMS_ITS | Encounter Summary ---
:1955 Author Organization [facility] Address [address] [place] [address] Care Team Providers Name Role Phone Anne Hoyt DO Primary Care Provider Reason for Visit (Routine) - Closed Specialty Diagnoses / Procedures Referred By Contact Refer red To Contact Radiology / Radiology. Diagnoses Written Order, SB Maude, nuc med exam also Sh Xray Procedures XR KUB [address] [place] [phone] Phone: Referral ID Status Reason Start Date Expiration Date Visits Requ ested Visits Authorized [id number] Closed 03/10/2015 03/09/2016 1 1 Encounter Details Date Type Department Care Team Description 03/15/2015 Hospital Encounter [facility] Brianna Lawson Canceled (Other) [facility] Imaging MD Abraham [address] ENDOCRINOLOGY [place] [phone] CLIN[facility] [place] [phone] [address] [facility] [address] [id number] Social History Tobacco Use Types Packs/Day Years Used Date Smoking Tobacco: Never Assessed Sex Assigned at Date Recorded Not on file documented as of this encounter Plan of Treatment Not on filedocumented as of this encounter Visit Diagnoses Not on filedocumented in this encounter Care Teams Assistant Manager/Embalmer Relationship Specialty Start Date End Date Anne Hoyt DO PCP - General Family Practice 03/15/15 05/04/15 documented as of this encounter
--- OUTSIDE RECORDS SUMMARY | 2022-06-18 23:16 | XMS_ITS | Encounter Summary ---
:1955 Author Organization [facility] Address [address] [place] [address] Care Team Providers Name Role Phone Yessi Eddy MD Primary Care Provider Reason for Visit Reason Onset Date Comments Other 05/10/2015 Encounter Details Date Type Department Care Team Description 05/10/2015 Telephone [facility] REPORTING [facility], Other [address] [place] [address] [address] [place], [place] [address] (Wo rk) Social History Tobacco Use Types Packs/Day Years Used Date Smoking Tobacco: Never Smokeless Tobacco: Never Alcohol Use Standard Drinks/Week Comments Yes 0 (1 standard drink = 0.6 oz pure alcoho l) 4-6 drinks/week Sex Assigned at Date Recorded Not on file documented as of this encounter Miscellaneous Notes Telephone Encounter - Toña Ag PA-C - 05/10/2015 1:00 PM CDT [facility] Postoperative Follow-up Phone Call Procedure Date: Surgeon: Dr. Eddy Procedure: Excision Parathyroid Adenoma Pt concerns: Left message to call if ongoing concerns. Recent phone notes reviewed. Pt also has apptfor postop check on 05/13. Recommendations reviewed: n/a Toña Ag PA-C documented in this encounter Plan of Treatment Not on filedocumented as of this encounter Visit Diagnoses Not on filedocumented in this encounter Care Teams Dope Heater Relationship Specialty Start Date End Date Yessi Eddy MD PCP - General General Surgery 05/05/15 04/30/16 Marilyn MENA [facility] [address] [place] [address] documented as of this encounter
--- OUTSIDE RECORDS SUMMARY | 2022-06-18 23:16 | XMS_ITS | Encounter Summary ---
:1955 Author Organization [facility] Address [address] [place] [address] Care Team Providers Name Role Phone LaiAnne Primary Care Provider Reason for Visit Reason Onset Date Comments Surgical Followup 05/04/2015 s/p Exc of R parathy roid adenoma 05/02/15 Encounter Details Date Type Department Care Team Description 05/04/2015 Telephone [facility] Yessi Eddy, Surg ical Followup (s/p Surgery Clinic MD Exc of R parathyroid [place] [address] adenoma 05/02/15) [address] [place] [address] [place], [place] [phone] (Wo rk) [address] [phone] Social History Tobacco Use Types Packs/Day Years Used Date Smoking Tobacco: Never Smokeless Tobacco: Never Alcohol Use Standard Drinks/Week Comments Yes 0 (1 standard drink = 0.6 oz pure alcoho l) 4-6 drinks/week Sex Assigned at Date Recorded Not on file documented as of this encounter Miscellaneous Notes Telephone Encounter - Suma Milton RN - 05/04/2015 4:55 PM CDT S/p Exc of R parathyroid adenoma, 05/02/15. Surgeon: Dr. Eddy Patient called clinic - reports that she has noted some N/T in her left hand this morning. Currentlytaking 2 tabs calclium every 8 hours as per calcium taper. She did take an extra dose of calcium this AM around 11:00, wondering If she needs more than one extra dose and should she continue with regular schedule of calcium? Reports that symptoms have mostly improved. Advised that she should continue with calcium taper as prescribed. Can take an extra dose this evening if symptoms re-occur. If symptoms worsening despite extra dose of calcium this evening she should call clinic in the AM. She is encouraged to call with any further questions or concerns. Magdiel Champagne RN documented in this encounter Plan of Treatment Not on filedocumented as of this encounter Visit Diagnoses Not on filedocumented in this encounter Care Teams Patient Ombudsperson Relationship Specialty Start Date End Date Anne Hoyt DO PCP - General Family Practice 03/15/15 05/04/15 documented as of this encounter
--- OUTSIDE RECORDS SUMMARY | 2022-06-18 23:16 | XMS_ITS | Encounter Summary ---
:1955 Author Organization [facility] Address [address] [place] [address]. [place] [address] Care Team Providers Name Role Phone Unavailable Primary Care Provider Unavailable Reason for Referral Specialty Diagnoses / Procedures Referred By Contact Refer red To Contact Keaton Stauffer MD [address] [facility] [address] [place] [address] Referral ID Status Reason Start Date Expiration Date Visits Requ ested Visits Authorized Encounter Details Date Type Department Care Team Description 11/17/2010 [facility] Keaton Colunga COLON & RECTAL NOTE Clinic [place]ina Maher MD (Primary Dx) [address] [facility] [address] [facility], [address] [place] [address] [phone] [place] [id number] (Wo rk) Social History Tobacco Use Types Packs/Day Years Used Date Smoking Tobacco: Never Assessed Sex Assigned at Date Recorded Not on file documented as of this encounter Plan of Treatment Not on filedocumented as of this encounter Procedures Procedure Name Priority Date/Time Associated Diagnosis Comme nts ADULT COLORECTAL SURGERY GIN FEEDER Routine 11/17/2010 COLON & RECTAL NOTE REFERRAL documented in this encounter Results COLORECTAL SURGERY REFERRAL (11/17/2010) Specimen (Source) Anatomical Location Collection Method / Collectio n Time Received Time / Laterality Volume 11/17/2010 Narrative This result has an attachment that is no t available. Keaton Stauffer MD REFERRAL documented in this encounter Visit Diagnoses Diagnosis COLON & RECTAL NOTE - Primary documented in this encounter
--- OUTSIDE RECORDS SUMMARY | 2022-06-18 23:16 | XMS_ITS | Encounter Summary ---
:1955 Author Organization [place] Address [address] [place] [address] Care Team Providers Name Role Phone Anne Hoyt Primary Care Provider Reason for Visit (Routine) - Closed Specialty Diagnoses / Procedures Referred By Contact Refer red To Contact Radiology / Radiology. Diagnoses Written Order, SB samir Santoro also Sh Nuclear Medici ne Procedures NM INJECT [address] [place] [phone] Phone: Referral ID Status Reason Start Date Expiration Date Visits Requ ested Visits Authorized [id number] Closed 03/11/2015 03/10/2016 1 1 Encounter Details Date Type Department Care Team Description 03/15/2015 Hospital Encounter [facility] Brianna Lawson [facility] MD Abraham [address] ENDOCRINOLOGY CLINIC [place] [address] [place] [phone] [address] [facility] [address] [address] (Wo rk) Social History Tobacco Use Types [...] thyroid. YVONNE ARENAS MD Shila Lawson MD IMG NM ORDERABLES documented in this encounter Visit Diagnoses Not on filedocumented in this encounter Administered Medications Inactive Administered Medications - up to 3 most recent administrations Medication Order MAR Action Action Date Dose Rate Site technetium sestamibi 1 UD Given 03/15/2015 10:02 AM 27.4 millicu carol per study (Tc99m MiBi) CDT radioisotope injection 25 zuri Curie 25 millicurie, Intravenous, ONCE, On 03/15/15 at 1015, For 1 dose, Radioisotope, supplied by and administered by Nuclear Medicine. *HW* documented in this encounter Care Teams Film Booker Relationship Specialty Start Date End Date Anne Hoyt DO PCP - General Family Practice 03/15/15 05/04/15 documented as of this encounter
--- OUTSIDE RECORDS SUMMARY | 2022-06-18 23:16 | XMS_ITS | Encounter Summary ---
:1955 Author Organization [place] Address [address] [place] [address] Care Team Providers Name Role Phone Unavailable Primary Care Provider Unavailable Encounter Details Date Type Department Care Team Description 10/20/2007 Historic Results INTERFACED REPORT Jenifer Taylor MD [place] [address] (Wo rk) Social History Tobacco Use Types Packs/Day Years Used Date Smoking Tobacco: Never Assessed Sex Assigned at Date Recorded Not on file documented as of this encounter Plan of Treatment Not on filedocumented as of this encounter Procedures Procedure Name Priority Date/Time Associated Diagnosis Comme nts HISTOPATHOLOGY Routine 10/20/2007 12:30 PM Result s for this CDT procedure are i n the results section . documented in this encounter Results Histopathology (10/20/2007 12:30 PM CDT) Component Value Ref Test Analysis Performed At [facility] Range Method Time Signature Copath Report CASE: [id number] ^ COPATH Patient Name: JACOBY GUERRERO MR#: [id number] Specimen #: [id number] Collected: 10/20/2007 Received: 10/20/2007 Reported: 10/21/2007 13:12 Ordering Phy(s): SON TAYLOR Additional Phy(s): JOCELIN JOHNSON SPECIMEN(S): Colon polyps @ 55 cm FINAL DIAGNOSIS: Colon, 55 cm, polypectomy - Tubular adenomas. Electronically signed out by: Manan Bates M.D. CLINICAL HISTORY: Screening. GROSS: The specimen is labeled 2 polyps at 55 cm. ??The specimen consists of 2 similar-appearing, holt-brown, dome-shaped polyps (0.3 x 0.2 x 0.2 cm and 0.5 x 0.4 x 0.4 cm). ??The specimens are entirely submitted. ??SI ??TRS/maynor MICROSCOPIC: A formal microscopic examination is performed. BCT/maynor 10/21/2007 TESTING LAB LOCATION: [address] ??[id number] COLLECTION SITE: Client: [facility] Location: ENDO (S) Specimen Anatomical Collection Method Collection Time Receive d Time (Source) Location / / Volume Laterality 10/20/2007 12:30 10/21/2007 1:13 PM CDT PM CDT Son Taylor MD LAB - COPATH SPECIAL DIAG OR DERABLES Performing Organization Address City/State/ZIP Code Phon e Number COPATH documented in this encounter Visit Diagnoses Not on filedocumented in this encounter
--- OUTSIDE RECORDS SUMMARY | 2022-06-18 23:16 | XMS_ITS | Encounter Summary ---
:1955 Author Organization [facility] Address [address] [place] [address] Care Team Providers Name Role Phone Anne Hoyt DO Primary Care Provider Reason for Visit Auth/Cert - Closed Specialty Diagnoses / Procedures Referred By Contact Refer red To Contact Surgery Diagnoses primary hyper thyroidism Rh Periop Services Procedures PARATHYROIDECTOMY [address] [place], [place] [address] Phone: Fax: Referral ID Status Reason Start Date Expiration Date Visits Requ ested Visits Authorized [id number] Closed 1 1 Encounter Details Date Type Department Care Team Description 05/02/2015 [facility], Primary Encounter [facility] MD Yessi hyperparathyroidism (H) [address] [facility] [address] [place] [address] [phone] Social History Tobacco Use Types Packs/Day Years [...] mg Take 2 tablets 100 tablet 0 shoshone-bannock,/vitamin D 200 units by mouth every 8 (OSCAL WITH D) 500-200 hours MG-UNIT per tabletIndications: Primary hyperparathyroidism (H) Cholecalciferol (VITAMIN D3 Take 2,000 Units 0 PO) by mouth daily Flaxseed, Linseed, (FLAX Take 1 capsule 0 12/21/2019 SEED OIL) 1000 MG capsule by mouth daily FLUVOXAMINE MALEATE PO Take 100 mg by 0 12/21/2019 mouth HYDROcodone-acetaminophen Take 1-2 tablets 20 tablet 0 04/1409/28/2016 (NORCO) 5-325 MG per by mouth every 4 tabletIndications: Primary hours as needed hyperparathyroidism (H) for other (Moderate to Severe Pain) ondansetron (ZOFRAN) 4 MG Take 1 tablet (4 9 tablet 0 04/1409/28/2016 tabletIndications: Primary mg) by mouth hyperparathyroidism (H) every 6 hours as needed for nausea documented as of this encounter Progress Notes Zoe Dockery - 05/02/2015 9:19 AM CDT 23.6mCi Tc99m Sestamibi injected IV @ 910 for parathyroid adenoma. DKS documented in this encounter Plan of Treatment Not on filedocumented as of this encounter Procedures Procedure Name Priority Date/Time Associated Diagnosis Comme nts PARATHYROID HORMONE Routine 05/02/2015 Primary Results for INTACT INTRAOPERATIVE 10:20 AM CDT hyperparathyroidism (H) this procedure are in the results section. PARATHYROID HORMONE STAT 05/02/2015 Primary Results for INTACT INTRAOPERATIVE 10:10 AM CDT hyperparathyroidism (H) this procedure are in the results section. NM PARATHYROID Routine 05/02/2015 9:22 Primary Results fo r SURGICAL INJECTION AM CDT hyperparathyroidism (H ) this procedure are in the results section. documented in this encounter Results Parathormone intact intraoperative (05/02/2015 10:20 AM CDT) [facility] Method Time Signature Parathyroid Hormone 14.9 12 - 72 [place] Intact pg/mL [facility] Comment: Called to [facility] ON 05/02/15 AT 1057 BY NATHAN Garcia Specimen Anatomical Collection Method Collection Time Receive d Time (Source) Location / / Volume Laterality 05/02/2015 10:20 05/02/2015 AM CDT 10:23 AM CDT Yessi Eddy MD LAB - BLOOD ORDERABLES Performing Organization Address City/[facility]/ZIP Code Phon e Number M [facility] [address], [place] [address] [place] [address] [address] [place], [place] [address] [address] [phone] Parathormone intact intraoperative (05/02/2015 10:10 AM CDT) [facility] Method Time Signature Parathyroid Hormone 19.7 12 - 72 [place] Intact pg/mL [facility] Comment: Called to [facility] ON 05/02/15 AT 1040 BY NATHAN Garcia Specimen Anatomical Collection Method Collection Time Receive d Time (Source) Location / / Volume Laterality 05/02/2015 10:10 05/02/2015 AM CDT 10:13 AM CDT Yessi Eddy MD LAB - BLOOD ORDERABLES Performing Organization Address [facility] Phon e Number M [place] [address] [address], [place] [address] [place] [address] [address] [place], [place] [address], [facility] [phone] NM Parathyroid Surgical Injection (05/02/2015 9:22 AM CDT) Anatomical Region Laterality Modality Neck Nuclear Medicine Specimen (Source) Anatomical Location Collection Method / Collectio n Time Received Time / Laterality Volume Impressions 05/02/2015 10:59 AM CDT IMPRESSION: 1. 23.6 mCi technetium 99m sestamibi wer e injected intravenously for intraoperative localization of a parathy roid adenoma. 2. No images were acquired. RADHA STEELE MD Narrative 05/02/2015 10:59 AM CDT NUCLEAR MEDICINE PARATHYROID INJECTION ?? 05/02/2015 9:22 AM HISTORY: Primary hyperthyroidism. COMPARISON: None. Procedure Note Radha Steele MD - 05/02/2015Fo rmatting of this note might be different from the original. NUCLEAR MEDICINE PARATHYROID INJECTION 1 9:22 AM HISTORY: Primary hyperthyroidism. COMPARISON: None. IMPRESSION IMPRESSION: 1. 23.6 mCi technetium 99m sestamibi wer e injected intravenously for intraoperative localization of a parathy roid adenoma. 2. No images were acquired. RADHA STEELE MD Yessi Eddy MD IMG NM ORDERABLES documented in this encounter Visit Diagnoses Diagnosis Primary hyperparathyroidism (H) Primary hyperparathyroidism documented in this encounter Administered Medications Inactive Administered Medications - up to 3 most recent administrations Medication Order MAR Action Action Date Dose Rate Site technetium sestamibi 1 UD Given 05/02/2015 9:18 AM 23.6 millicur ies per study (Tc99m MiBi) CDT radioisotope injection 25 zuri Curie 25 millicurie, Intravenous, ONCE, On 05/02/15 at 0930, For 1 dose, Radioisotope, supplied by and administered by Nuclear Medicine. *HW* documented in this encounter Care Teams Sewing Department Supervisor Relationship Specialty Start Date End Date Anne Hoyt DO PCP - General Family Practice 03/15/15 05/04/15 documented as of this encounter
--- OUTSIDE RECORDS SUMMARY | 2022-06-18 23:16 | XMS_ITS | Encounter Summary ---
:1955 Author Organization [facility] Address [address] [place] [address]. [place] [address] Care Team Providers Name Role Phone Anne Hoyt Primary Care Provider Reason for Visit (Routine) - Closed Specialty Diagnoses / Procedures Referred By Contact Refer red To Contact Radiology / Radiology. Diagnoses SB Maude Sh Nuclear Medicine Procedures NM PARATHY [address] DUAL ISOTOPE [address] [phone] Phone: Referral ID Status Reason Start Date Expiration Date Visits Requ ested Visits Authorized [id number] Closed 03/11/2015 03/10/2016 1 1 Encounter Details Date Type Department Care Team Description 03/15/2015 [facility], Primary Encounter [facility] Imaging Shila hyperparathyroidism (H) [address] Sarah Rosario MD S ENDOCRINOLOGY [address] [facility] [phone] [address] [facility] [phone] [place] [address] [address] Social History Tobacco [...] (H) Primary hyperparathyroidism documented in this encounter Care Teams Head Cd Reactor Operator Relationship Specialty Start Date End Date Anne Hoyt DO PCP - General Family Practice 03/15/15 05/04/15 documented as of this encounter
--- OUTSIDE RECORDS SUMMARY | 2022-06-18 23:16 | XMS_ITS | Encounter Summary ---
:1955 Author Organization [facility] Address [address] [place] [address] Care Team Providers Name Role Phone Unavailable Primary Care Provider Unavailable Encounter Details Date Type Department Care Team Description 10/20/2007 Operative Report [facility] Son Taylor (Meter Repairer Helper) [facility] MD [place] Results [place] [address] (Wo rk) Social History Tobacco Use Types Packs/Day Years Used Date Smoking Tobacco: Never Assessed Sex Assigned at Date Recorded Not on file documented as of this encounter Progress Notes Son Taylor - 12/04/2007 8:11 AM CDT FINAL INDICATIONS FOR PROCEDURE: Screening colonoscopy. PROCEDURE PERFORMED: Total colonoscopy to the cecum and ileocecal valve with polypectomy x2 of a 3 mm polyp located at the 55 cm level x2. PAST MEDICAL HISTORY: Current medications: Vitamin C and fluvoxamine. Medical problems: Arthritis. Previous surgery: Carpal tunnel syndrome, x1. MEDICATIONS GIVEN THROUGHOUT PROCEDURE: Versed 3.0 mg in divided doses, fentanyl 0.2 mg in divided doses, glucagon 0.5 mg and atropine 0.4 mg. With Jacoby Guerrero initially in the left lateral position, a digital rectal exam was performed which was normal. The above medication was given throughout the procedure in aliquot doses for patient comfort. The Pentax [id number] colonoscope was utilized and passed through an excellent Citrate of Magnesia bowel prep with a very high redundant splenic flexure to ultimately allow us to get to the cecum andileocecal valve. Once there the scope was withdrawn and two colon polyps measuring 3 mm each were noted from the 55 cm level above the anal verge which were removed by electrocautery snare. The polyp fragments were retrieved and the patient was made aware of the findings with the gross findings being benign. Microscope exam will follow the polypectomies and we will let the patient know what the findings are. Presuming the benign nature of the polyps, a repeat total colonoscopy is recommended in 3 years. Electronically signed on 12/04/2007 08:10 by SON TAYLOR MD MT: [email or web address] Name: JACOBY GUERRERO Account: [id number] : 1955 Procedure Date: 10/20/2007 Document: [id number] cc: Ely Hudson MD documented in this encounter Plan of Treatment Not on filedocumented as of this encounter Visit Diagnoses Not on filedocumented in this encounter
--- OUTSIDE RECORDS SUMMARY | 2022-06-18 23:16 | XMS_ITS | Encounter Summary ---
:1955 Author Organization [facility] Address [address] [place] [address] Care Team Providers Name Role Phone Unavailable Primary Care Provider Unavailable Encounter Details Date Type Department Care Team Description 11/17/2010 Results Only INTERFACED REPORT Lawson London MD [place] [address] (Wo rk) Social History Tobacco Use Types Packs/Day Years Used Date Smoking Tobacco: Never Assessed Sex Assigned at Date Recorded Not on file documented as of this encounter Plan of Treatment Not on filedocumented as of this encounter Procedures Procedure Name Priority Date/Time Associated Diagnosis Comme nts GI HISTORY AND Routine 11/17/2010 9:20 AM Results for this PHYSICAL CDT procedure are i n the results section. documented in this encounter Results GI HISTORY AND PHYSICAL (11/17/2010 9:20 AM CDT) [facility] Method Time Signature GI History [facility] R ADIOLOGY and Physical [facility] Endoscopy Department RESULTS Patient Name: Belle Crystal ? H & P Date: 11/17/2010 ? Date of : 1955 ?Admit Type: Outpatient ? Age: 54 ? Gender: Female ? Note Status: Finalized ?Attending MD: David Ariza MD ? Provider: ? David London MD, Ramsey Denise ?(scribe), Technici an Referring MD: ? Requesting Provider: ? Chief Complaint: ?Screening History of Present Illness: The patient presents to the [facility] suite for ?screening colonoscopy. The patient has a history ?of colon polyps. ?She denies constipation, diarrhea, abdominal ?pain, nausea, vomiting, hematochezia, melena, ?fevers/chills, weight loss, pelvic pain, ?dysfunctional uterine bleeding and dysmenorrhea. ?She denies heart disease, hypertension, ?indication for antibiotic prophylaxis, lung ?disease, liver disease, diabetes, h/o anesthesia ?complication, chest pain, shortness of breath, ?bleeding tendencies, recent oral intake, and a ?family history of anesthesia complications or ?early heart diseas e. Past Medical History: ? Arthritis, carpal tunnel, will arean section, ?wisdom teeth extra ction. Current Medications: ?Glucosamine, MVI, Vitamin D, Fluvoxamine Drug Allergies: ? No pertinent allergies. Social History: ? The patient consumes alcohol 2 glasses of wine ?weekly. ?The patient consumes 1-2 servings of caffeine ?daily. ?The patient denies current tobacco use. Family Medical History: ? No significant family history reported. Review of Systems: ?See HPI Physical Exam: ?CV: ?RRR, normal S1 & S2, no S3, no S4, no murmurs or ?rubs. ?Respiratory: ?Clear to auscultat ion. ?GI: ?Normal bowel sounds, abdomen soft, nontender, no ?palpable masses. Tests/Studies: ?No pre-procedure tests or dered Impression: ? The patient needs a screening colonoscopy. ASA: ?P1 A normal healthy patient. Plan: ? Colonoscopy ?I, Ramsey Denise, am serving as a scribe to ?document services performed by Dr. Hernandez ?Lita, based on my observations and the ?provider's stateme nts to me. Debbie London M.D. aDvid London MD Signed Date: 11/17/2010 9:57:12 AM Number of Addenda: 0 I was physically present for the entire viewing portion of t he exam. Note Initiated On: 11/17/2010 9:20:52 AM Specimen (Source) Anatomical Collection Method Collection Time Re ceived Time Location / / Volume Laterality 11/17/2010 9:20 AM CDT David London MD PROCEDURES Performing Organization Address City/State/ZIP Code Phon e Number RADIOLOGY RESULTS documented in this encounter Visit Diagnoses Not on filedocumented in this encounter
--- OUTSIDE RECORDS SUMMARY | 2022-06-18 23:16 | XMS_ITS | Encounter Summary ---
:1955 Author Organization [facility] Address [address] [place] [address] Care Team Providers Name Role Phone Anne Hoyt DO Primary Care Provider Encounter Details Date Type Department Care Team Description 03/28/2015 Orders Only [facility] [place], Primary hy perparathyroidism [facility] MD Yessi (H) (Primary Dx) [address] [place], [place] [address] [address] [place], [place] [phone] [address] Social History Tobacco Use Types Packs/Day Years Used Date Smoking Tobacco: Never Smokeless Tobacco: Never Alcohol Use Standard Drinks/Week Comments Yes 0 (1 standard drink = 0.6 oz pure alcoho l) Sex Assigned at Date Recorded Not on file documented as of this encounter Plan of Treatment Not on filedocumented as of this encounter Results NM Parathyroid Surgical Injection (05/02/2015 9:22 AM [...] hyperparathyroidism (H) - Primar y Primary hyperparathyroidism Primary hyperparathyroidism (H) Primary hyperparathyroidism documented in this encounter Care Teams Oilfield Plant And Field Operator Relationship Specialty Start Date End Date Anne Hoyt DO PCP - General Family Practice 03/15/15 05/04/15 documented as of this encounter
--- OUTSIDE RECORDS SUMMARY | 2022-06-18 23:16 | XMS_ITS | Encounter Summary ---
:1955 Author Organization [facility] Address [address] [place] [address] Care Team Providers Name Role Phone Yesis Eddy MD Primary Care Provider Encounter Details Date Type Department Care Team Description 05/05/2015 Orders Only [facility] Corbin Hirsch S/[place] removal of Surgery Clinic WILLOW Mccoy parathyroid gland (H) [place] [address] (Primary Dx) [address] [place] [address] [phone] Social History Tobacco Use Types Packs/Day Years Used Date Smoking Tobacco: Never Smokeless Tobacco: Never Alcohol Use Standard Drinks/Week Comments Yes 0 (1 standard drink = 0.6 oz pure alcoho l) 4-6 drinks/week Sex Assigned at Date Recorded Not on file documented as of this encounter Plan of Treatment Not on filedocumented as of this encounter Results (ABNORMAL) Calcium (05/05/2015 12:55 PM CDT) athologist Signature Calcium 10.3 (H) 8.5 - 10.1 [place] mg/dL [facility] Specimen Anatomical Collection Method Collection Time Receive d Time (Source) Location / / Volume Laterality Blood specimen 05/05/2015 12:55 5 1:01 (specimen) PM CDT PM CDT Corbin Hirsch PA-C LAB - BLOOD ORDERABLES Performing Organization Address City/State/ZIP Code Phon e Number [facility] [address] [place], [place] [address] [employer] [address] [place], [place] [address] [facility] [phone] documented in this encounter Visit Diagnoses Diagnosis S/P removal of parathyroid gland (H) - P rimary Other postprocedural status documented in this encounter Care Teams Egg Buyer Relationship Specialty Start Date End Date Yessi Eddy MD PCP - General General Surgery 05/05/15 04/30/16 [address] [place] [address] documented as of this encounter
--- OUTSIDE RECORDS SUMMARY | 2022-06-18 23:16 | XMS_ITS | Encounter Summary ---
:1955 Author Organization [facility] Address [address] [place] [address] Care Team Providers Name Role Phone Yessi Eddy MD Primary Care Provider Reason for Visit Reason Onset Date Comments Surgical Followup 05/06/2015 s/p Exc of R parathy roid adenoma 05/02/15 Encounter Details Date Type Department Care Team Description 05/06/2015 Telephone [facility] Yessi Eddy, Surg ical Followup (s/p Surgery Clinic Exc of R parathyroid [place] [address] adenoma 05/02/15) [address] [place] [address] [place], [place] [phone] (Wo rk) [address] [phone] Social History Tobacco Use Types Packs/Day Years Used Date Smoking Tobacco: Never Smokeless Tobacco: Never Alcohol Use Standard Drinks/Week Comments Yes 0 (1 standard drink = 0.6 oz pure alcoho l) 4-6 drinks/week Sex Assigned at Date Recorded Not on file documented as of this encounter Miscellaneous Notes Telephone Encounter - Suma Milton RN - 05/06/2015 3:21 PM CDT S/p Exc of R parathyroid adenoma, 05/02/15. Surgeon: Dr. Eddy Patient called clinic - reports that she continues with some mild tingling in L hand and down L leg - it is not worsening. Wondering if this is ok. Calcium yesterday was 10.3. Reassured patient. Advised to continue calcium taper as prescribed. She will be seen in clinic 05/13/15 for post-op appt. Encouraged pt to call with any further questions or concerns. documented in this encounter Plan of Treatment Not on filedocumented as of this encounter Visit Diagnoses Not on filedocumented in this encounter Care Teams Lithograph Operator Relationship Specialty Start Date End Date Yessi Eddy MD PCP - General General Surgery 05/05/15 04/30/16 [facility] [address] [place], [place] [id number] documented as of this encounter
--- OUTSIDE RECORDS SUMMARY | 2022-06-18 23:16 | XMS_ITS | Encounter Summary ---
:1955 Author Organization [place] Address [address] [place] [address] Care Team Providers Name Role Phone Anne Barnes DO Primary Care Provider Reason for Visit Auth/Cert - Closed Specialty Diagnoses / Procedures Referred By Contact Refer red To Contact Surgery Diagnoses primary hyper thyroidism Rh Periop Services Procedures PARATHYROIDECTOMY [address] [place], [place] [address] Phone: Fax: Referral ID Status Reason Start Date Expiration Date Visits Requ ested Visits Authorized [id number] Closed 1 1 Encounter Details Date Type Department Care Team Description 05/02/2015 [facility], Primary Encounter Karmen Dickson MD hyperparathyroidism (H) PreOP/PostOP [address] (Primary Dx) [address] [place] [id number] Social History Tobacco Use Types Packs/Day Years Used Date Smoking Tobacco: Never Smokeless Tobacco: Never Alcohol Use Standard Drinks/Week Comments Yes 0 (1 standard drink = 0.6 oz pure alcoho l) 4-6 drinks/week Sex Assigned at Date Recorded Not on file documented as of this encounter Last Filed Vital Signs Vital Sign Reading Time Taken Comments Blood Pressure 137/80 05/02/2015 11:55 AM CDT Pulse - - Temperature 36.6 ??C (97.9 ??F) 05/02/2015 11:55 AM CDT Respiratory Rate 16 05/02/2015 11:55 AM CDT Oxygen Saturation 96% 05/02/2015 11:55 AM CDT Inhaled Oxygen Concentration - - Weight 83.9 kg (185 lb) 05/02/2015 8:11 AM CDT Height 174 cm (5' 8.5) 05/02/2015 8:11 AM CDT Body Mass Index 27.72 05/02/2015 8:11 AM CDT documented in this encounter Discharge Instructions Discharge InstructionsNasir Farris RN - 05/02/2015 11:12 AM CDT HOME CARE FOLLOWING PARATHYROID SURGERY Chayo Cowart E. Gavin Special instructions for Belle Lopes [place]: --Discharge medications: Calcium supplement, Nada and Zofran Calcium Taper Schedule: Take two tablets every 8 hours for three days, then decrease to two tablets every 12 hours for one week, then decrease to one tablet every 12 hours for one week, then decrease to one tablet daily until gone. --Follow up appointment with Dr. Collins in 1-3 weeks, follow up with Log Chain Worker in 4-6 weeks. RESULTS: Call the office regarding your final pathology report if you have not received your results after 2 full business days. INCISIONAL CARE: ??? You may expect a small amount of drainage from your previous drain site. Cover with bandage as needed. ??? After removing the dressing, you may shower. Do not submerse the incision for 1 week. ??? Sutures will absorb and do not need to be removed. ??? Leave the steri-strip (white paper tape) in place until it falls off, or remove at 2 weeks aftersurgery. ??? A lump/ridge under the incision is normal and will gradually resolve. ACTIVITY: Light Activity -- you may immediately be up and about as tolerated. Driving -- you may drive when comfortable and off narcotic pain medications. Light Work -- resume when comfortable off pain medications. (If you can drive, you probably can work.) Strenuous Work/Activity -- limit lifting to 20 pounds for 1 week. Progressively increase with time. Active Sports (running, biking, etc.) -- resume when comfortable. DIET: No restrictions. Increased fluid intake is recommended. While taking pain medications, increase dietary fiber or add a fiber supplementation like Metamucil or Citrucel to help prevent constipation - a possible side effect of pain medications. DISCOMFORT: Use pain medications as prescribed by your surgeon. Take the pain medication with some food, when possible, to minimize side effects. Intermittent use of ice packs may help during the first 48 hours. Expect gradual improvement. CALCIUM SUPPLEMENTATION: Most patients are prescribed to take a calcium supplement after surgery. Please take as prescribed. Watch for symptoms of numbness or tingling around the mouth or in the fingers or toes. This may be a sign of a low calcium level. If this happens, take an extra dose of your calcium supplement. If the symptoms persist, please contact the office. You may need to have your blood calcium level checked by doing a simple blood test. We may also need to make further adjustments in your dose of calcium supplementation. At times, an office visit is required. RETURN APPOINTMENT: Schedule a follow-up visit 1-3 weeks post-op (you may do this any time after surgery is scheduled). Office CONTACT US IF THE FOLLOWING DEVELOPS: [...] Walk around frequently. You may consider an [id number] stool-softener. Your Pharmacist can assist you with [...] discuss with the nurse or physician assistant community director. # There is a surgeon SAND TEMPERER on weekday evenings and over the weekend in case of urgent need only, andmay be contacted at the same number. If you are having an emergency, call 911 or proceed to your nearest emergency department. GENERAL ANESTHESIA OR SEDATION ADULT DISCHARGE INSTRUCTIONS SPECIAL PRECAUTIONS FOR 24 HOURS AFTER SURGERY IT IS NOT UNUSUAL TO FEEL LIGHT-HEADED OR FAINT, UP TO 24 HOURS AFTER SURGERY OR WHILE TAKING PAIN MEDICATION. IF YOU HAVE THESE SYMPTOMS; SIT FOR A FEW MINUTES BEFORE STANDING AND HAVE SOMEONE ASSIST YOU WHEN YOU GET UP TO WALK OR USE THE BATHROOM. YOU SHOULD REST AND RELAX FOR THE NEXT 24 HOURS AND YOU MUST MAKE ARRANGEMENTS TO HAVE SOMEONE STAY WITH YOU FOR AT LEAST 24 HOURS AFTER YOUR DISCHARGE. AVOID HAZARDOUS AND STRENUOUS ACTIVITIES. DO NOTMAKE IMPORTANT DECISIONS FOR [address] ANY VEHICLE OR OPERATE MECHANICAL EQUIPMENT FOR 24 HOURS FOLLOWING THE END OF YOUR SURGERY. EVEN THOUGH YOU MAY FEEL NORMAL, YOUR REACTIONS MAY BE AFFECTED BY THE MEDICATION YOU HAVE RECEIVED. DO NOT DRINK ALCOHOLIC BEVERAGES FOR 24 HOURS FOLLOWING YOUR SURGERY. DRINK CLEAR LIQUIDS (APPLE JUICE, MILAGRO NICHOLAS, 7-UP, BROTH, ETC.). PROGRESS TO YOUR REGULAR DIET YOU FEEL ABLE. YOU MAY HAVE A DRY MOUTH, A SORE THROAT, MUSCLES ACHES OR TROUBLE SLEEPING. THESE SHOULD GO AWAY AFTER 24 HOURS. CALL YOUR DOCTOR FOR ANY OF THE FOLLOWING: SIGNS OF INFECTION (FEVER, GROWING TENDERNESS AT THE SURGERY SITE, A LARGE AMOUNT OF DRAINAGE OR BLEEDING, SEVERE PAIN, FOUL-SMELLING DRAINAGE, REDNESS OR SWELLING. IT HAS BEEN OVER 8 TO 10 HOURS SINCE SURGERY AND YOU ARE STILL NOT ABLE TO URINATE (PASS WATER). documented in this encounter Medications at Time of Discharge Medication Sig Dispensed Refills Start Date End Date calcium carb 1250 mg, 500 mg Take 2 tablets 100 tablet 0 qawalangin,/vitamin D 200 units by mouth every 8 [...] encounter Progress Notes Yessi Collins MD - 05/03/2015 3:34 PM CDT Quick Note: These results are as expected and will be discussed at the follow up visit. Yessi Collins MD documented in this encounter Nursing Notes Nasir Farris RN - 05/02/2015 11:45 AM CDT Pt resting quietly, denies any pain, has no questions/concerns, awaiting phase II room, dressed withthe assistance of CURBING STONECUTTER, has no questions/concerns documented in this encounter Miscellaneous Notes Op Note - Yessi Collins MD - 05/02/2015 10:23 AM CDT General Surgery Operative Note PREOPERATIVE DIAGNOSIS: Primary hyperparathyroidism. POSTOPERATIVE DIAGNOSIS: Primary hyperparathyroidism. PROCEDURE: Excision of right inferior parathyroid adenoma, Unilateral neck exploration. ANESTHESIA: General. PREOPERATIVE MEDICATIONS: Ancef 2 gm. SURGEON: Yessi Collins MD WOOD HEEL FLAP RUBBER: Toña Ag PA-C ESTIMATED BLOOD LOSS: 5 cc's INDICATIONS: Belle Guerrero is a 59 year old female who has primary hyperparathyroidism. She has had symptoms of fatigue, bone pain and muscle aches. She has been found to have an elevated calcium of 11.6. She has a localizing sestamibi in the right lower neck. She presents today for neck exploration, excision of parathyroid adenoma. Her PTH preoperatively is 183.1. DESCRIPTION OF PROCEDURE: The patient was placed supine, head and neck in extension and a bump between the scapulae. Transverse cervical neck creases had been marked in the preinduction area and the one most suitable was utilized for exposure. The gamma probe was utilized to find the area of increasedcounts which correlated with the preoperative localizing sestimibi. Incision was made, superior and inferior skin flaps raised. Midline fascia opened and reflected to the right. An abnormal parathyroidwas identified at the right inferior location, just deep to the inferior thyroid pole. It was meticulously dissected from the surrounding tissue and submitted for frozen section which confirmed a 0.3 gram hypercellular parathyroid. We then explored the right superior neck. During the exploration, I encountered the second parathyroid. It was not biopsied but appeared to represent normal parathyroid tissue. The site was irrigated and inspected for hemostasis. The PTH assays were sent at 15 and 25 minutes post- excision and the first value came back at 19.7, signifying the completeness of the dissection. The patient's incision site was then closed with running 3-0 Vicryl for the midline fascia, interrupted for platysma and 4-0 subcuticular Monocryl for skin. Marcaine 0.25% plain was instilled and thepatient transferred to recovery in good condition. INTRAOPERATIVE FINDINGS: 1. A 0.3 gram hypercellular right inferior parathyroid correlated nicely with sestamibi scan. 2. Second right-sided parathyroid appeared to be grossly normal. 3. PTH assay diminished from 183.1 to 19.7 at 15 minutes post excision. 4. Grossly normal thyroid. 5. Right recurrent laryngeal nerve seen and preserved. Specimens: ID Type Source Tests Collected by Time Destination A : Right inferior parathyroid Tissue SURGICAL PATHOLOGY EXAM Yessi Collins MD 05/02/2015 9:55 AM Pathology 1 : PTH OR Blood PARATHORMONE INTACT INTRAOPERATIVE Yessi Collins MD 05/02/2015 10:10 AM Clinical Lab 2 : PTH OR Blood PARATHORMONE INTACT INTRAOPERATIVE Yessi Collins MD 05/02/2015 10:20 AM Clinical Lab Yessi Collins MD documented in this encounter Plan of Treatment Not on filedocumented as of this encounter Procedures Procedure Name Priority Date/Time Associated Comments Diagnosis SURGICAL PATHOLOGY EXAM Routine 05/02/2015 9:55 R esults for this AM CDT procedure are i n the results section. PARATHYROIDECTOMY 05/02/2015 9:02 primary hyper AM CDT thyroidism Special Needs 5' 8.5 / 185 lb per H&P PARATHYROID HORMONE INTACT STAT 05/02/2015 8:25 AM CDT Results for this INTRAOPERATIVE procedure are in the results section . PATHOLOGY RESULT - HIM SCAN 05/02/2015 12:00 AM CDT LAB RESULT - HIM SCAN 04/22/2015 12:00 AM CDT EKG CARDIAC - HIM SCAN 04/22/2015 12:00 AM CDT documented in this encounter Results Surgical pathology exam (05/02/2015 9:55 AM CDT) Component Value Ref Test Analysis Performed At [facility] Range Method Time Signature Copath Report Patient Name: BELLE GUERRERO MR#: [id number] Specimen #: [id number] Collected: 05/02/2015 Received: 05/02/2015 Reported: 05/03/2015 14:34 Ordering Phy(s): YESSI COLLINS Additional Phy(s): ANNE BARNES SPECIMEN(S): Parathyroid gland, right inferior FINAL DIAGNOSIS: Parathyroid gland, right inferior, parathyroidectomy- - Consistent with parathyroid adenoma (0.3 g); see comment. - Negative for malignancy. COMMENT: Please correlate with clinical and imaging findings and post operative parathyroid hormone levels to exclude the possibility of mul ti-gland disease. Electronically signed out by: Miranda Baird M.D. CLINICAL HISTORY: Hyperparathyroidism. GROSS: The specimen received fresh from the operating room labeled right inferior parathyroid consists of a single pink-maroon 0.3 g , 1.2 cm wide soft tissue portion. ??The specimen is longitudinally b isected and entirely submitted for frozen section in one block. (Dictate d by: Miranda Baird MD 05/02/2015 01:28 PM) INTRAOPERATIVE CONSULTATION: FROZEN SECTION DIAGNOSIS: Right inferior parathyroid: Enlarged, hypercellular parathyr oid glandular tissue (0.3 g). ??(SA). MICROSCOPIC: The sections demonstrate features consistent with parathyroi d adenoma. This is characterized by an eccentrically displaced normal-a ppearing parathyroid glandular tissue over one aspect of the adenomat ous parathyroid glandular proliferation. ??Slightly thickened fi brous bands are noted in some areas the neoplastic nodules, w ithout diagnostic features of atypical adenoma. ??No increased gabrielle tic activity or involvement of surrounding soft tissue is noted. ??There is no evidence of malignancy. The case is reviewed internally by an additional pathologist . CPT Codes: A: 92089-GR8, 51519-RP TESTING LAB LOCATION: [address] ??[id number] COLLECTION SITE: Client: [facility] Location: RHOR (R) Specimen Anatomical Collection Method Collection Time Receive d Time (Source) Location / / Volume Laterality 05/02/2015 9:55 AM 5 CDT 10:21 AM CDT Yessi Collins MD LAB - SAVITA ADORNO Performing Organization Address City/State/ZIP Code Phon e Number [place] (ABNORMAL) Parathormone Intact Intraoperative (05/02/2015 8:25 AM CDT) [facility] Method Time Signature Parathyroid 183.1 (H) 12 - 72 [place] Hormone Intact pg/mL [facility] Comment: Called to JOSUE GUERRERO ON 05/02/15 AT 0904 BY GOPAL Specimen Anatomical Collection Method Collection Time Receive d Time (Source) Location / / Volume Laterality Blood specimen 05/02/2015 8:25 AM 015 8:35 (specimen) CDT AM CDT Yessi Collins MD LAB - BLOOD ORDERABLES Performing Organization Address City/State/ZIP Code Phon e Number M [facility] [address], [place] [address] [facility] [address], [place] [address] [facility] [phone] PATHOLOGY RESULT - HIM SCAN (05/02/2015 12:00 AM CDT) Specimen (Source) Anatomical Location Collection Method / Collectio n Time Received Time / Laterality Volume 05/02/2015 Narrative This result has an attachment that is no t available. Provider Scan LAB - [place] SPECIAL DIAG OR DERABLES LAB RESULT - HIM SCAN (04/22/2015 12:00 AM CDT) Specimen (Source) Anatomical Location Collection Method / Collectio n Time Received Time / Laterality Volume 04/22/2015 Narrative This result has an attachment that is no t available. Provider Outside NON-BEAKER LAB TESTING EKG CARDIAC - HIM SCAN (04/22/2015 12:00 AM CDT) Specimen (Source) Anatomical Location Collection Method / Collectio n Time Received Time / Laterality Volume 04/22/2015 Narrative This result has an attachment that is no t available. Provider Outside ECG ORDERABLES documented in this encounter Visit Diagnoses Diagnosis Primary hyperparathyroidism (H) - Primar y Primary hyperparathyroidism documented in this encounter Active and Recently Administered Medications Times are shown in CDT. Scheduled Medication Order 04/30/2015 05/01/2015 05/02/2015 ceFAZolin (ANCEF) intermittent infusion 2 g (pre-mix) (COMPLETED ) 921 (Given - Provider: Raquel Velasco APRN ROUTE MANAGER) 2 g, Intravenous, PRE-OP/PRE-PROCEDURE, Starting 05/02/15 at 0809, For 1 dose, Give first dose within 1 hour PRIOR to incision. If patient weight is greater than or equal to 120 kg change dose to 3 g., Indications: Surgical Prophylaxis, Pre-procedure PRN Medication Order 04/30/2015 05/01/2015 05/02/2015 bupivacaine HCl 0.25 % preservative free injection SOLN (CANCELE D) 1021 (Given - Provider: Yessi Collins MD) PRN, Starting 05/02/15 at 1021, Intra-procedure documented in this encounter Care Teams Calculating Machine Operator Relationship Specialty Start Date End Date Anne Barnes DO PCP - General Family Practice 03/15/15 05/04/15 documented as of this encounter
--- OUTSIDE RECORDS SUMMARY | 2022-06-18 23:16 | XMS_ITS | Encounter Summary ---
:1955 Author Organization [place] Address [address] [place] [address] Care Team Providers Name Role Phone Yessi Eddy MD Primary Care Provider Encounter Details Date Type Department Care Team Description 05/05/2015 Hospital Encounter [facility] Yessi Eddy MD [address] [place] [address] S/P removal of [facility] Corbin Hirsch PA-C [address] [place] [address] parathyroid gland [address] (H) [place] [address] Social History Tobacco Use Types Packs/Day [...] mg Take 2 tablets 100 tablet 0 [place],/vitamin D 200 units by mouth every 8 [...] for nausea documented as of this encounter Plan of Treatment Not on filedocumented as of this encounter Procedures Procedure Name Priority Date/Time Associated Diagnosis Comme nts CALCIUM Routine 05/05/2015 12:55 PM S/P removal of Result s for this CDT parathyroid gland (H) proced ure are in the results section. documented in this encounter Results (ABNORMAL) Calcium (05/05/2015 12:55 PM CDT) athologist Signature Calcium 10.3 (H) 8.5 - 10.1 [place] mg/dL [facility] Specimen Anatomical Collection Method Collection Time Receive d Time (Source) Location / / Volume Laterality Blood specimen 05/05/2015 12:55 5 1:01 (specimen) PM CDT PM CDT Corbin Hirsch PA-C LAB - BLOOD ORDERABLES Performing Organization Address City/State/ZIP Code Phon e Number M [facility] [address] [place], [place] [address] [facility] [address] [place], [place] [address] [phone] documented in this encounter Visit Diagnoses Diagnosis S/P removal of parathyroid gland (H) Other postprocedural status documented in this encounter Care Teams Colorman Relationship Specialty Start Date End Date Yessi Eddy MD PCP - General General Surgery 05/05/15 04/30/16 [address] [place] [address] documented as of this encounter
--- OUTSIDE RECORDS SUMMARY | 2022-06-18 23:16 | XMS_ITS | Encounter Summary ---
:1955 Author Organization [place] Address [address] [place] [address] Care Team Providers Name Role Phone LaiAnne Primary Care Provider Reason for Visit Auth/Cert - Closed Specialty Diagnoses / Procedures Referred By Contact Refer red To Contact Surgery Diagnoses primary hyper thyroidism Rh Periop Services Procedures PARATHYROIDECTOMY [address] [place], [place] [address] Phone: Fax: Referral ID Status Reason Start Date Expiration Date Visits Requ ested Visits Authorized [id number] Closed 1 1 Encounter Details Date Type Department Care Team Description 05/02/2015 Surgery [facility] Yessi Collins Exci kelin of right [place] PeriOp Servic es inferior parathyroid [address] adenoma, Unilateral [place], [place] [address] neck exploration. [phone] [place] [address] [phone] (Wo rk) Surgery Details Date/Time Status Location OR Service Patient Case Class Case Type Trauma Class Case? 05/02/15 9:10 Posted [facility] OR OR 01 General Same Day AM Surgery Panel 1 Procedure LRB Anes Op Region Wound Class Commen ts Excision of right Right General Neck I-Clean Excisi on of right inferior parathyroid infe rior parathyroid adenoma, Unilateral neck adenoma, Unilateral neck exploration. exploration. Surgeon Surgeon Role Service Panel Yessi Collins MD Primary General 1 Toña Ag PA-C Blue Line Trimmer Authorizati on 1 Special Needs 5' 8.5 / 185 lb per H&P documented in this encounter Social History Tobacco Use Types Packs/Day Years Used Date Smoking Tobacco: Never Smokeless Tobacco: Never Alcohol Use Standard Drinks/Week Comments Yes 0 (1 standard drink = 0.6 oz pure alcoho l) 4-6 drinks/week Sex Assigned at Date Recorded Not on file documented as of this encounter Last Filed Vital Signs Vital Sign Reading Time Taken Comments Blood Pressure 136/86 05/02/2015 11:00 AM CDT Pulse - - Temperature 36.4 ??C (97.6 ??F) 05/02/2015 10:48 AM CDT Respiratory Rate 22 05/02/2015 11:00 AM CDT Oxygen Saturation 93% 05/02/2015 11:00 AM CDT Inhaled Oxygen Concentration - - Weight 83.9 kg (185 lb) 05/02/2015 8:11 AM CDT Height 174 cm (5' 8.5) 05/02/2015 8:11 AM CDT Body Mass Index 27.72 05/02/2015 8:11 AM CDT documented in this encounter Discharge Instructions Discharge InstructionsNasir Farris RN - 05/02/2015 11:12 AM CDT HOME CARE FOLLOWING PARATHYROID SURGERY Drs. John Collins, James Borrego Special instructions for Belle Guerrero: --Discharge medications: Calcium supplement, [place] and Zofran Calcium Taper Schedule: Take two tablets every 8 hours for three days, then decrease to two tablets every 12 hours for one week, then decrease to one tablet every 12 hours for one week, then decrease to one tablet daily until gone. --Follow up appointment with Dr. Collins in 1-3 weeks, follow up with Academic Hospitalist in 4-6 weeks. RESULTS: Call the office [...] Walk around frequently. You may consider an oqpw-blr-[id number] stool-softener. Your Pharmacist can assist you with [...] to discuss with the nurse or physician press assistant. # There is a surgeon SOFTWARE INTEGRATOR on weekday evenings and over the weekend [...] mg Take 2 tablets 100 tablet 0 [place],/vitamin D 200 units by mouth every 8 [...] documented as of this encounter Progress Notes Guttormson, Yessi, MD - 05/03/2015 3:34 PM CDT Quick Note: These results are as expected and will be discussed at the follow up visit. Yessi Collins MD documented in this encounter Nursing Notes Nasir Farris RN - 05/02/2015 11:45 AM CDT Pt resting quietly, denies any pain, has no questions/concerns, awaiting phase II room, dressed withthe assistance of HIDE EXAMINER, has no questions/concerns documented in this encounter Miscellaneous Notes Op Note - Yessi Collins MD - 05/02/2015 10:23 AM CDT General Surgery Operative Note PREOPERATIVE DIAGNOSIS: Primary hyperparathyroidism. POSTOPERATIVE DIAGNOSIS: Primary hyperparathyroidism. PROCEDURE: Excision of right inferior parathyroid adenoma, Unilateral neck exploration. ANESTHESIA: General. PREOPERATIVE MEDICATIONS: Ancef 2 gm. SURGEON: Yessi Collins MD SHIPPING SUPERVISOR: Toña Ag PA-C ESTIMATED BLOOD LOSS: 5 [...] Component Value Ref Test Analysis Performed At [facility] Range Method Time Signature Carol Report Patient Name: BELLE GUERRERO MR#: [id number] Specimen #: [id number] Collected: 05/02/2015 Received: 05/02/2015 Reported: 05/03/2015 14:34 [...] an additional pathologist . CPT Codes: A: 04312-TH6, 95106-ST TESTING LAB LOCATION: [address] ??[address] COLLECTION SITE: Client: [facility] Location: RHOR (R) Specimen Anatomical Collection Method Collection Time Receive d Time (Source) Location / / Volume Laterality 05/02/2015 9:55 AM 5 CDT 10:21 AM CDT Yessi Collins MD LAB - BEAKER AP Performing Organization Address City/[facility]/ZIP Code Phon e Number [place] (ABNORMAL) Parathormone Intact Intraoperative (05/02/2015 8:25 AM CDT) [facility] gist Method Time Signature Parathyroid 183.1 (H) 12 - 72 [place] Hormone Intact pg/mL [facility] Comment: Called to JOSUE GUERRERO ON 05/02/15 AT 0904 BY [facility] Specimen Anatomical Collection Method Collection Time Receive d Time (Source) Location / / Volume Laterality Blood specimen 05/02/2015 8:25 AM 015 8:35 (specimen) CDT AM CDT Yessi Collins MD LAB - BLOOD ORDERABLES Performing Organization Address City/[facility] Phon e Number M [facility] [address] [phone] [facility] [address] [phone] PATHOLOGY RESULT - HIM SCAN (05/02/2015 12:00 [...] Action Action Date Dose Rate Site bupivacaine HCl 0.25 % Given 05/02/2015 10:21 6 mLs Operative preservative free AM CDT Site/Eason rgical Site injection SOLN PRN, Starting on 05/02/15 at 1021, Intra-procedure documented in this encounter Active and Recently Administered Medications Times are shown in CDT. Scheduled Medication Order 04/30/2015 05/01/2015 05/02/2015 ceFAZolin (ANCEF) intermittent infusion 2 g (pre-mix) (COMPLETED ) 0922 (Given - Provider: Raquel Velasco APRN SCHOOL BUS INSPECTOR) 2 g, Intravenous, PRE-OP/PRE-PROCEDURE, Starting Sat05/02/15 at 0809, For 1 dose, Give [...] Intra-procedure documented in this encounter Care Teams Medical Lab Director Relationship Specialty Start Date End Date Anne Barnes DO PCP - General Family Practice 03/15/15 05/04/15 documented as of this encounter
--- OUTSIDE RECORDS SUMMARY | 2022-06-18 23:17 | XMS_ITS | Clinical Summary ---
:1955 Author Organization [facility] [place] [address] Care Team Providers Name Role Phone Vonnie Kirkland DO Unavailable Vonnie Kirkland Shayla DO Primary Care Provider [phone] Allergies No known active allergies Medications Medication Sig Dispensed Refills Start End Status Date Date lactobacillus comb Take by mouth. 0 08/18/19 Active no.10 (PROBIOTIC) 20 16 billion cell cap cholecalciferol Take 1 tablet 0 08/18/19 Active (VITAMIN D) 1,000 unit by mouth once 16 tablet daily. naproxen (ALEVE) 220 mg Take 220 mg by 0 07/10/20 Active tablet mouth. 11 ascorbic acid, vitamin Take 1,000 mg 0 Active C, (VITAMIN C) 1,000 mg by mouth. tablet cyanocobalamin (VITAMIN Take 500 mcg by 0 Active B12) 500 mcg tablet mouth. frok-uhnt-idv-C-man-hya Take 1 Tablet 0 Active -mussel 150 mg-150 mg- by mouth. 250 mg-19 mg cap diclofenac topical Apply 2 g 350 g 5 02/28/20 A ctive (VOLTAREN) 1 % topically to 21 gelIndications: affected Osteoarthritis, area(s) 4 times unspecified daily. osteoarthritis type, unspecified site calcium with vitamin D3 Take 1 Tablet 90 Tablet 3 12/09/19 Active (calcium 500 mg-vitamin by mouth once 22 d 200 units) daily with a tabletIndications: H/O meal. hyperparathyroidism fluticasone (50 mcg per INSTILL 2 48 mL 2 01/02/20 Active actuation) nasal SPRAYS TO BOTH 22 solution NOSTRILS ONCE (FLONASE)Indications: DAILY Seasonal allergies CPAPIndications: GAUTAM replacement 1 Each 11 02/07/20 Active (obstructive sleep CPAP machine 22 apnea) for home use at pressure: 5-12 cmw , Heated humidifier x 1 q 5 yr, Humidifier chamber x 1 q 6 mo, nasal mask x1 q 3mos, with cushion x 2 q mo, Heated tubing x 1 q 3 mo, Headgear x 1 q 6 mo, Filters: Disposable x 2 q mo non-disposable filters x1 q 6mo, Length of Need: 99 months, Frequency of use: Daily desvenlafaxine TAKE TWO 180 Tablet 1 05/21/20 Acti ve succinate (PRISTIQ) 25 TABLETS BY 22 mg extended release MOUTH DAILY tabletIndications: Other obsessive-compulsive disorders desvenlafaxine TAKE TWO 180 Tablet 0 02/19/20 Disc ontinued succinate (PRISTIQ) 25 TABLETS BY 22 022 mg extended release MOUTH DAILY tabletIndications: Other obsessive-compulsive disorders Active Problems Problem Noted Date Elevated blood pressure reading without diagnosis of h ypertension 12/08/2021 History of uterine fibroid 06/14/2020 Lung nodule 4mm 04/11/2020 Overview: Consider follow up CT 03/2021 0 coronary artery calcium score 04/11/2020 Abdominal pain, RLQ (right lower quadrant) 12/31/2019 Overview: Formatting of this note is dif ferent from the original. Colorectal surgeons- 12/02/2019 CT scan o f abdomen and colonoscopy recommended CT scan abdomen Special screening for malignant neoplasms, colon 09/01 Overview: Colonoscopy 03/2017 Recommendations: repeat 3 years. Abnormal blood sugar 09/01/2019 Overview: 10/2017 106 Hemorrhoids, internal 05/04/2018 Overview: Colorectal surgeons: 04/08/18 Anoscopy: grade 1 internal hemorrhoid. Recommendations: conservative management . Thyroid nodule 11/18/2017 Overview: Dr. Micheal Lazcano- ENT TOBI 05/2019 US 10/2017 1. Multinodular goiter without significant nodule. 2. Solitary mildly enlarged left submandibular lymph node. 05/2019 US thyroid stable findings noted. Recommendations:no further evaluation fe lt to be indicated Visit for screening mammogram 10/15/2017 Overview: [facility]. 12/30/17; 01/06/19 no rmal; 01/08/2020 normal Screening for malignant neoplasm of cervix- due 0 10/15/2017 Overview: Dr. Hudson- Obstetrics and Gynecology Routine general medical examination at [facility] 10/15/2017 Overview: Glucose: 10/15/2017 106 (will need HgA1c w ith the next labs) Other hyperlipidemia 10/15/2017 Overview: Last Lipids: 10/15/2017 Chol: 264 T HDL: 69 LDL: 171 [place]: 4.3% Current medications: none. Recommendations: work on diet and exerci se. Adenomatous polyp of colon 06/05/2017 Overview: 10/08/2016 colonoscopy 5-20 colon polyps noted ascending colon and hepatic flexure; sigmoid diverticulosis. Pathology showed numerous tubulovillous adenomas as well as tubular adenomas. Negative for high-grade malignancy Colonoscopy 04/08/2017 biopsy at the hepa tic flexure negative pathology Colonoscopy 12/2019 diverticulosis sigmoi d colon, no residual polyp Recommendations: Repeat 3 years GAUTAM 2008 AHI/RDI:2.4, RDI-11 05/17/2017 Overview: Dr. Pepe BRITTON 2016 Symptoms: stop breathi ng; snoring. Last sleep study: 2008 CPAP: Last compliance report July 03 current settings 5-10 mm water current medications: None. OCD (obsessive compulsive disorder) 01/10/2015 Overview: Diagnosis at 40 Medications tried: luvox (off mid 2016); Doing well behaviorly. Current medications: pristiq Resolved Problems Problem Noted Date Resolved Date Abdominal pain, epigastric 06/13/2018 09/01/2019 Overview: Formatting of this note is dif ferent from the original. Upper GI 05/2018 -Mild esophageal reflux current medications:Pantoprazole Recommendations: Remain on proton pump i nhibitor 3 months then will try and stop Submandibular lymphadenopathy 11/18/2017 09/01/2019 Overview: ENT: Dr. Jaleesa BRITTON 11/2017 Recommended US in 6 months, likely relat ed to the dental issues. H/O hyperparathyroidism 06/06/2015 05/17/2017 Encounters Date Type Specialty Care Team Description 06/08/2022 Travel 05/19/2022 Refill Vonnie Kirkland DO Ref ill Request (Desvenlafaxine Succinate) 03/29/2022 Preop Visit Minerva Campos MD Pre -Op Exam (cataract) 03/29/2022 Travel from Last 3 Months Immunizations Name Administration Dates Next Due AMB Influenza, IIV4 PF (=>6 mos 03/22/2020 Flulaval,Fluzone Fluarix)(Flu Clinic Only) COVID-19 vaccine ([employer] 05/02/2021 30mcg/0.3mL) PF, MDV Influenza, IIV4 04/11/2021, 05/22/2019, 05/09/2017 Influenza, IIV4 (=>6mos) MDV 04/10/2018 Pneumococcal Poly,23-Valent (Pneumovax) 12/08/2021 Td (Age >=7 Years) 08/25/2001 Tdap 05/15/2013, 11/29/2011 Zoster (Shingrix-RZV, recombinant) 03/12/2018, 10/15/2017 Zoster (Zostavax-ZVL, live) 08/18/2015 Family History Medical History Relation Name Comments Alcoholism Brother 1 antoine Hypertension Brother 1 antoine Good Health Brother 2 dave Benign prostatic hyperplasia Father Hyperlipidemia Father doing well. Skin cancer Father Tremor Father familiar Cancer-breast Maternal Aunt Dx in 60's Heart Disease Maternal Grandmother Arthritis Mother COPD Mother Heart Disease Mother Hypertension Mother Psychiatric illness Other OCD- many fa osmar members Other Paternal Grandfather DC Other Paternal Grandmother old age Cancer Sister 1 nick non hodgkins [facility] [place] Good Health Sister 2 vivienne Hypothyroidism Sister 3 amy Relation Name Status Comments Brother 1 antoine Alive Brother 2 dave Alive Father Alive Maternal Aunt Maternal Grandfather Maternal Grandmother Mother Other Paternal Grandfather Paternal Grandmother Sister 1 nick Alive Sister 2 vivienne Alive Sister 3 amy Alive Social History Tobacco Use Types Packs/Day Years Used Date Never Smoker Smokeless Tobacco: Never Used Tobacco Cessation: Counseling Given: Yes Alcohol Use Standard Drinks/Week Comments Yes 0 (1 standard drink = 0.6 oz pure alcoho l) 1-3 per month Alcohol Habits Answer Date Recorded How often do you have a drink containing 4 or more times a w [facility] [place] 09/01/2019 alcohol? How many drinks containing alcohol do you have 1 or 2 09/01/2019 on a typical day when you are drinking? How often do you have six or more drinks on one Not asked occasion? Comment: 1-3 per month 06/01/2015 Social Isolation Answer Date Recorded In a typical week, how many times do you talk on the phone N ot asked with family, friends, or neighbors? How often do you get together with friends or relatives? Not asked How often do you attend scientologist or congregational services? Not as ked Do you belong to any clubs or organizations such as scientologist N ot asked groups, unions, fraternal or athletic groups, or school groups? How often do you attend meetings of the clubs or Not asked organizations you belong to? Are you now , , , , never Mar ried 09/01/2019 or living with a partner? Physical Activity Answer Date Recorded On average, how many days per week do you engage in moderate to 7 days 09/01/2019 strenuous exercise (like walking fast, running, jogging, dancing, swimming, biking, or other activities that cause a light or heavy sweat)? On average, how many minutes do you engage in exercise at th is 30 min 09/01/2019 level? Stress Answer Date Recorded Do you feel stress - tense, restless, nervous, or To some ex tent 09/01/2019 anxious, or unable to sleep at night because your mind is troubled all the time - these days? Financial Resource Strain Answer Date Recorded How hard is it for you to pay for the very basics like Not h zoila at all 09/01/2019 food, housing, medical care, and heating? Intimate Partner Violence Answer Date Recorded Within the last year, have you been afraid of your partner o r No 09/01/2019 ex-partner? Within the last year, have you been humiliated or emotionall y No 09/01/2019 abused in other ways by your partner or ex-partner? Within the last year, have you been kicked, hit, slapped, or No 09/01/2019 otherwise physically hurt by your partner or ex-partner? Within the last year, have you been raped or forced to have any No 09/01/2019 kind of sexual activity by your partner or ex-partner? Food Insecurity Answer Date Recorded Within the past 12 months, you worried that your food would Never true 09/01/2019 run out before you got money to buy more. Within the past 12 months, the food you bought just didn't N ever true 09/01/2019 last and you didn't have money to get more. Transportation Needs Answer Date Recorded In the past 12 months, has lack of transportation kept you f rom No 09/01/2019 medical appointments or from getting medications? In the past 12 months, has lack of transportation kept you f rom No 09/01/2019 meetings, work, or getting things needed for daily living? 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 Obstetrics History Para Term AB IAB SAB Ectopic Multiple Living Live Births 1 1 1 0 0 0 0 0 0 1 1 Date Outcome GA Total Labor/2nd/3rd Weight Sex Delivery Anes PTL Yusra A 1 A5 Name Clin Labor 09/12 Term 41w 4.34 kg M Ana B asia Hooks /1998 0d (9 lb 9 ng K ilbu oz) rg Comments 2 children, 1 adopted Last Filed Vital Signs Vital Sign Reading Time Taken Comments Blood Pressure 124/80 01/09/2022 9:05 AM CDT Pulse 72 01/09/2022 9:05 AM CDT Temperature 36.5 ??C (97.7 ??F) 02/27/2021 8:07 AM CDT Respiratory Rate 16 12/08/2021 10:04 AM CDT Oxygen Saturation 98% 02/27/2021 8:07 AM CDT Inhaled Oxygen Concentration - - Weight 92.1 kg (203 lb) 01/09/2022 9:05 AM CDT Height 175.3 cm (5' 9) 01/09/2022 9:05 AM CDT Body Mass Index 29.98 01/09/2022 9:05 AM CDT Plan of Treatment Upcoming Encounters Date Type Specialty Care Team Description 07/11/2022 Nurse/Clinic Staff Only Health Maintenance Due Date Last Done Comments HIV for age 15-65 12/02/1971 COVID-19 vaccine series (4 - 06/27/2021 05/02/2021, 021, Booster for Pfizer series) 09/24/2020 Influenza for age 65+ 03/15/2022 04/11/2021, 03/22/2020, 05/22/2019, Additional history exists Depression screening for age 12+ 04/24/2022 04/24/2021, , 04/08/2020, Additional history exists Mammogram for age 45-75 07/11/2022 07/11/2021, 01/08/2020, 01/06/2019, Additional history exists Pneumococcal series for age 65+ (2 12/08/2022 12/08/2021 - PCV) Colonoscopy through age 75 12/28/2022 12/29/2019, , 04/08/2017, Additional history exists BMI (ht and wt on same day) for 01/09/2023 01/09/2022, 11/13, age 18+ 05/29/2021, Additional history exists Tetanus booster 05/15/2023 05/15/2013, 05/15/2013, 11/29/2011, Additional history exists Pap test for age 21-65 04/04/2025 04/04/2020, 04/04/2020, 06/02/2015, Additional history exists Lipids for age 45-75 12/08/2026 12/08/2021, 06/14/2020, 09/01/2019, Additional history exists Tdap Completed 05/15/2013, 10/27/2012 (Completed outside of [facility]), 11/29/2011 Zoster (shingles) series for age Completed 03/12/2018, 09/2017, 50+ 08/18/2015 Hepatitis C screening for age Completed 12/08/2021 18-79 DEXA/DXA scan for age 65+ Completed 01/12/2022, 06/12/2007 Goals Goal Patient Goal Associated Recent Patient-Stated? Author Type Problems Progress BLOOD PRESSURE Blood No Hoyt, - MAINTAINS BP Pressure Anne less than Frances, DO 140/90 Results Not on filefrom Last 3 Months Insurance Payer Benefit Plan / Subscriber ID Effective Dates Phone Addre ss Type Group BLUE CROSS BL[employer] OF [id number] 2016-Present [address] [place] [address] [employer] [facility] Other 07/15/2000 ARLEEN 20 4 EMPLOYEES [employer] (Home) [address] [facility] [phone] (Work) [place] [address] [employer] [address] (Home) [facility] [phone] [place], [place] (Work) [phone] Care Teams 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
--- NOTE | 2022-06-19 12:02 | ED_ITS ---
HPI - Eye Problem General Chief complaint: Eye Problems Stated complaint: broken blood vessle in left eye Time Seen by Provider: 06/18/22 22:32 History of Present Illness HPI Narrative: 66-year-old woman presenting to the emergency department with spouse with concern of expanding blood in her eye. Feels a little itchy and mildly sore. Had been washing her face and subsequently saw this blood evolving. They have a couple of pictures. No effect on vision; no double vision. Worried that might be affecting her cataract surgery which was done many months ago. No significant pain with movement. No preceding cough or cold symptoms. No anticoagulant. Related Data Home Medications Medication Instructions Recorded Confirmed desvenlafaxine 100 mg 100 mg PO DAILY 06/18/22 06/18/22 tablet,extended release 24 hour methylprednisolone 4 mg tablets in See Rx Instructions PO .COMPLEX 06/18/22 06/18/22 a dose pack (Medrol (Fidencio)) Allergies Allergy/AdvReac Type Severity Reaction Status Date / Time No Known Drug Allergies Allergy Verified 06/18/22 22:29 Review of Systems Status of ROS: Reports: 6 or more systems reviewed and unremarkable except as noted in History and below PFSH PFSH Social History Smoking Status: Never smoker How often do you have a drink containing alcohol: never How often do you have six or more drinks on one occasion: Never AUDIT-C Alcohol total score: 0 Non-prescribed substance use: denies use Exam Narrative: Exam Narrative: Pleasant. Good energy. Breathing easily. Laughs easily. Skin is warm and dry. Head appears to be atraumatic. Eyes are bright consistent with lens reimplantation. The left eye lateral aspect has a mild-moderate subconjunctival hemorrhage. Little layering in the inferior aspect. Does not appear to be in restriction with eye movement. No drainage otherwise. Const: Vital Signs, click to edit/add: Vital Signs - 24 hr 06/18/22 22:25 06/18/22 22:34 06/18/22 22:35 Temperature 97.6 F Pulse Rate 86 73 Pulse Rate [Left P ulse Oximeter] 77 Blood Pressure 157/92 H Blood Pressure [Ri ght Upper Arm] 163/93 H Pulse Oximetry 96 93 95 Oxygen Delivery Me thod Room Air 06/18/22 22:36 06/18/22 23:00 06/18/22 23:02 Temperature Pulse Rate 78 77 80 Pulse Rate [Left P ulse Oximeter] Blood Pressure 152/102 H Blood Pressure [Ri ght Upper Arm] Pulse Oximetry 96 97 97 Oxygen Delivery Me thod Documenting provider has reviewed patient's vital signs: yes Course Vital Signs Vital signs: Initial Vital Signs Temperature 97.6 F 06/18/22 22:25 Temperature Source Temporal Artery Scan 06/18/22 22:25 Pulse Rate 77 06/18/22 22:25 Blood Pressure 163/93 H 06/18/22 22:25 Blood Pressure Mean 116 06/18/22 22:25 Blood Pressure Position Sitting 06/18/22 22:25 Pulse Oximetry 96 06/18/22 22:25 Oxygen Delivery Method 06/18/22 22:25 Vital Signs Temperature 97.6 F 06/18/22 22:25 Pulse Rate 77 06/18/22 22:25 Blood Pressure 163/93 H 06/18/22 22:25 Pulse Oximetry 96 06/18/22 22:25 Oxygen Delivery Method 06/18/22 22:25 Temperature 97.6 F 06/18/22 22:25 Pulse Rate 80 06/18/22 23:02 Blood Pressure 152/102 H 06/18/22 23:02 Pulse Oximetry 97 06/18/22 23:02 Oxygen Delivery Method 06/18/22 22:25 Discharge Plan Discharge Clinical Impression: Subconjunctival hemorrhage Patient Disposition: Home w/ Parent or Adult Condition: Stable Additional Instructions: No intervention is necessary at this time. You could try some ice packs maybe now and 2-3 times daily tomorrow. Might help with irritation. Can use eyedrops [id number] as well. Maybe a generic eye ointment would be soothing. Otherwise report any double vision, increasingly painful eye movement, inability to move the eye looking left. Prescriptions: No Action desvenlafaxine 100 mg tablet extended release 24hr 100 mg PO DAILY methylprednisolone [Medrol (Fidencio)] 4 mg tablets,dose pack See Rx Instructions .ROUTE .COMPLEX Rx Instructions: orally per package directions Stand Alone Forms: [facility] Info Inst[facility]
== END 2022-06-18 23:11 | disposition home or self-care (01) ==
LOC: ED 23:09
PROVIDERS: Emergency Provider Family Medicine; PCP Family Medicine
DX: H11.32 Conjunctival hemorrhage, left eye (principal)
CPT/HCPCS: 99282; 99283

== ENCOUNTER 2022-08-13 08:07 | Outpatient (CLI) | payer BC, SELFPAY ==
--- NOTE | 2022-08-13 08:15 | CRLHL7_ITS ---
For Patients: As a result of the Cures Act, medical imaging exams and procedure reports are released immediately into your electronic medical record. You may view this report before your referring provider. If you have questions, please contact your health care provider. BILATERAL SCREENING MAMMOGRAM WITH COMPUTER-AIDED DETECTION AND TOMOSYNTHESIS TECHNIQUE: CC and MLO views were obtained. These mammographic images have been obtained using full-field digital technique. These mammographic images were interpreted with the benefit of computer-aided detection. Breast Tomosynthesis was used in this interpretation. COMPARISON FILM: 07/11/21, 01/08/20, 01/06/19. FINDINGS: There are scattered areas of fibroglandular density IMPRESSION: There is no radiographic evidence for malignancy. ASSESSMENT: BI-RADS Category 1: Negative RECOMMENDATION: Routine screening mammogram in 1 year. A lay language report of this examination will be provided to the patient. Winston Wagner M.D. Diagnostic Radiologist [email or web address] Transcribed: 1:44 p.adele stein/Dictated by: Winston Wagner MD @ 08/13/2022 9:11:00 AM (Electronically Signed)
== END 2022-08-13 08:08 | disposition home or self-care (01) ==
LOC: MAMMO 08:09
PROVIDERS: PCP Family Medicine; Visit Provider Family Medicine
DX: Z12.31 Encounter for screening mammogram for malignant neoplasm of breast (principal)
CPT/HCPCS: 77063; 77067

== ENCOUNTER 2023-08-21 08:57 | Outpatient (CLI) | payer BC, SELFPAY ==
--- NOTE | 2023-08-21 09:15 | CRLHL7_ITS ---
For Patients: As a result of the Century Cures Act, medical imaging exams and procedure reports are released immediately into your electronic medical record. You may view this report before your referring provider. If you have questions, please contact your health care provider. BILATERAL SCREENING MAMMOGRAM WITH COMPUTER-AIDED DETECTION AND TOMOSYNTHESIS TECHNIQUE: CC and MLO views were obtained. These mammographic images have been obtained using full-field digital technique. These mammographic images were interpreted with the benefit of computer-aided detection. Breast tomosynthesis was used in this interpretation. COMPARISON FILM: 08/13/22, 07/11/21, 01/08/20. FINDINGS: There are scattered areas of fibroglandular density. IMPRESSION: There is no radiographic evidence for malignancy. ASSESSMENT: BI-RADS Category 1: Negative RECOMMENDATION: Routine screening mammogram in 1 year. A lay language report of this examination will be provided to the patient. WINSTON ELMORE M.D. Diagnostic Radiologist [email or web address] Transcribed: 2:[address]/Dictated by: Winston Elmore MD @ 08/21/2023 11:08:00 AM (Electronically Signed)
== END 2023-08-21 08:58 | disposition home or self-care (01) ==
LOC: MAMMO 08:59
PROVIDERS: PCP Family Medicine; Visit Provider Family Medicine
DX: Z12.31 Encounter for screening mammogram for malignant neoplasm of breast (principal)
CPT/HCPCS: 77063; 77067

== ENCOUNTER 2024-10-21 15:08 | Outpatient (CLI) | payer BC, SELFPAY ==
--- NOTE | 2024-10-21 15:20 | CRLHL7_ITS ---
For Patients: As a result of the Century Cures Act, medical imaging exams and procedure reports are released immediately into your electronic medical record. You may view this report before your referring provider. If you have questions, please contact your health care provider. INDICATION: BILATERAL SCREENING MAMMOGRAM, ASYMPTOMATIC 68 YEAR OLD FEMALE COMPARISON: 08/21/23, 08/13/22, 07/11/21 TECHNIQUE: CC and MLO views were obtained. These mammographic images have been obtained using full-field digital technique. These mammographic images were interpreted with the benefit of computer aided detection and tomosynthesis. BREAST COMPOSITION: There are scattered areas of fibroglandular density. FINDINGS: No suspicious findings. ASSESSMENT: BI-RADS 1 Negative RECOMMENDATION: Annual screening mammogram. A lay language report of this examination will be provided to the patient. Dictated by: Winston Wagner MD @ 10/22/2024 12:12:46 (Electronically Signed)
== END 2024-10-21 15:09 | disposition home or self-care (01) ==
LOC: MAMMO 15:09
PROVIDERS: PCP Family Medicine; Visit Provider Family Medicine
DX: Z12.31 Encounter for screening mammogram for malignant neoplasm of breast (principal)
CPT/HCPCS: 77063; 77067